=== PATIENT | female | born 1990 | race Caucasian/White ===

== ENCOUNTER 2024-10-29 10:33 | Outpatient (OUT) | payer BC, SELFPAY ==
[2024-10-30 04:27] LABS: Progesterone 8.8 ng/mL (.)
== END 2024-10-29 10:34 | disposition home or self-care (01) ==
PROVIDERS: Family Provider Family Medicine; PCP Obstetrics & Gynecology; Visit Provider Obstetrics & Gynecology
DX: G90.A Postural orthostatic tachycardia syndrome [POTS] (principal)
CPT/HCPCS: 36415; 82397; 84144

== ENCOUNTER 2024-12-10 08:04 | Outpatient (RCR) | payer BC, SELFPAY ==
--- OUTSIDE RECORDS SUMMARY | 2024-12-10 08:09 | XMS_ITS | Encounter Summary ---
Author Organization [facility] Address [address] [facility] [address] Care Team Providers Care Leaflet Or Newspaper Deliverer Name Role Phone Kimmy Carey MD Primary Care Provider [phone] Colleen Larios NP Unavailable [phone] Encounter Details Date Type Department Care Team (Late st Contact Info) Description 10/15/2024 Abstract [facility] [address] [place] [address] Vignesh Holman, DO [address] [facility] [address] [place], [place] [id number] Social History Tobacco Use Types Packs/Day Years Used Date Smoking Tobacco: Never Smokeless Tobacco: Never Alcohol Use Standard Drinks/Week Comments Never 0 (1 standard drink = 0.6 oz pur e alcohol) Caffeine: B1300 Health Literacy Answer Date Recor ded How often do you need to hav e someone help you when you read instructions, pamphlets, or other written material from your doctor or pharmacy? Never 01/22/2024 Social Connection and Isolat ion Panel [NHANES] Answer Date Recorded In a typical week, how many times do you talk on the phone with family, friends, or neighbors? More than three times a week 01/22/2024 How often do you get togethe r with friends or relatives? Twice a week 01/22/2024 How often do you attend chur ch or pentecostalism services? Never 01/22/2024 Do you belong to any clubs o r organizations such as restorationism groups, unions, fraternal or athletic groups, or school groups? No 01/22/2024 How often do you attend meet ings of the clubs or organizations you belong to? Never 01/22/2024 Are you , , di vorced, , never , or living with a partner? 01/22/2024 AUDIT-C Answer Date Recorded Q1: How often do you have a drink containing alcohol? Never 01/22/2024 Q2: How many drinks containi ng alcohol do you have on a typical day when you are drinking? Patient does not drink Q3: How often do you have si x or more drinks on one occasion? Never 01/22/2024 Overall Financial Resource Strain (CARDIA) Answe r Date Recorded How hard is it for you to pa y for the very basics like food, housing, medical care, and heating? Not very hard 01/22/2024 PHQ-2 Answer Date Recorded Patient Health Questionnaire-2 Score 0 02/04/2023 [facility] - Occupational Stress Questionnaire Answer Date Recorded Do you feel stress - tense, restless, nervous, or anxious, or unable to sleep at night because your mind is troubled all the time - these days? Only a little 01/22/2024 Exercise Vital Sign Answer Date Recorde d On average, how many days pe r week do you engage in moderate to strenuous exercise (like a brisk walk)? 7 days 01/22/2024 On average, how many minutes do you engage in exercise at this level? 80 min 01/22/2024 Hunger Vital Sign Answer Date Recorded Within the past 12 months, y ou worried that your food would run out before you got the money to buy more. Never true 01/22/20 24 Within the past 12 months, t he food you bought just didn't last and you didn't have money to get more. Never true 01/22/2024 PRAPARE - Transportation Answer Date Re corded In the past 12 months, has l ack of transportation kept you from medical appointments or from getting medications? No 01/12 In the past 12 months, has l ack of transportation kept you from meetings, work, or from getting things needed for daily living? No 01/22/2024 Housing Stability Vital Sign Answer Gentry e Recorded In the last 12 months, was t here a time when you were not able to pay the mortgage or rent on time? No 01/22/2024 In the past 12 months, how m any times have you moved where you were living? 0 01/22/2024 At any time in the past [address] [facility], were you homeless or living in a alf (including now)? No 01/22/2024 Comments No Sex and Gender Information Value Date Recorded Sex Assigned at Not on file Legal Sex Female 7:12 PM EDT Gender Identity Female 09/26/2022 7:12 PM EDT Sexual Orientation Straight 01/03/2023 8: 43 AM EDT Travel History Travel Start Travel End [place] 12/01/2024 12/02/2024 documented as of this encounter Plan of Treatment Not on file documented as of this encounter Visit Diagnoses Not on filedocumented in this encounter Care Teams Leaflet Or Newspaper Deliverer Relationship Specialty Start Date End Date Kimmy Carey MD [address] [place] [address] PCP - General Family Medicine 02/04/23 Colleen Larios NP [address], [place] [id number] PCP - Brock Fleming 03/15/24 documented as of this encounter
--- OUTSIDE RECORDS SUMMARY | 2024-12-10 08:09 | XMS_ITS | Clinical Summary ---
Author Organization [employer] Address [id number] [address] [place] [address] Care Team Providers Care Social Worker Delinquency Prevention Name Role Phone No Pcp, No Pcp Primary Care Provider Unavailabl e Allergies No known active allergies Medications prhrf-6-wlm-epa- dpa-fish oil 1,050-1,200 mg capsule Take by mouth. Active cholecalciferol, vitamin D3, 2,000 units tablet Take by mouth daily. Active fructooligosacch arides (PREBIOTIC FIBER, FOS, ORAL) Take by mouth. Active no115/iron/folic acid ( 19 ORAL) Take by mouth. Active Active Problems Problem Noted Date Diagnosed Date Microscopic hematuria 01/19/2022 Overview (05/22/2024): 01/19/22: Recent back pain, left lower quadrant pain, Urinary tract infection symptoms, and microscopic hematuria. Culture 12/26/2021 was negative. We will send today's urine specimen for microscopic exam and schedule her for a CT. 04/18/22: Cancelled CT but agreed to US which showed mild bilateral collecting system dilatation R>L. No gross hematuria. She will drop off urine for microscopic exam when not menstruating to see if there truly is blood. If negative, we will recheck in 6 months with follow-up US prior 05/21/24: Recent UA through PCP showed trace blood. Denies gross blood. Continues to have left-sided flank pain. We will get updated renal ultrasound. Would like to avoid radiation if possible. Patient actively trying to conceive. Urine sent for microscopic evaluation Assessment & Plan (01/19/2022 5:31 PM EDT): We will call her with the results in the microscopic urine. We will see her back in the office to review the results of her CT scan. I told her to call me sooner if any problems. PVC's (premature ventricular contractions) 07/11 Palpitations 07/11/2020 Encounters Date Type Department Care Team Description 10/23/2024 Telephone [facility] [address] [address] Lela Wolfe MA 09/14/2024 11:30 AM EST - 09/14/2024 11:59 PM EST Hospital Encounter [facility] - Radiology [address] [place] [address] Jess Harrell MD Infertility, female Discharge Disposition: Home 09/14/2024 11:15 AM EST Clinical Support [facility] [address] [place] [address] Jodi Lester, FELLED SEAM OPERATOR-CNM Pre-procedure lab exam (Primary Dx) 09/13/2024 Travel from Last 3 Months Family History Medical History Relation Name Comments Hypertension Father wDain Sawant Diabetes Maternal Grandmother Winifred Collins Heart murmur Mother High Cholesterol Mother Prostate cancer Paternal Grandfather Baldo Savana Breast cancer Paternal Grandmother Ana Savana Colon cancer Neg Hx Ovarian cancer Neg Hx Pancreatic cancer Neg Hx Uterine cancer Neg Hx Relation Name Status Comments Father Dwain Sawant Alive Maternal Grandmother Winifred Collins Mother Alive Paternal Grandfather Baldo Savana Paternal Grandmother Ana Savana Social History Tobacco Use Types Packs/Day Years Used Date Smoking Tobacco: Never Smokeless Tobacco: Never Tobacco Cessation:Counseling Given: Not Answered Alcohol Use Standard Drinks/Week Comments Not Currently 0 (1 standard drink = 0.6 oz pur e alcohol) Stopped drinking this year PHQ-2 Answer Date Recorded Total Score 1 05/14/2024 Childcare Answer Date Recorded Childcare Unknown 04/04/2020 Employment Answer Date Recorded Employment Unknown 04/04/2020 Hunger Screening Answer Date Recorded Within the past 12 months we worried whether our food would run out before we got money to buy more. Never True 08/06/2024 Within the past 12 months th e food we bought just didn't last and we didn't have money to get more. Never True 08/06/2024 Purpose - Life Answer Date Recorded Purpose and direction in life Unknown Comments No Sex and Gender Information Value Date Recorded Sex Assigned at Not on file Legal Sex Female 8:44 AM EDT Gender Identity Not on file Sexual Orientation Not on file Last Filed Vital Signs Vital Sign Reading Time Taken Comments Blood Pressure 113/79 08/06/2024 1:26 PM EST Pulse 69 08/06/2024 1:26 PM EST Temperature - - Respiratory Rate 18 04/18/2022 10:3 8 AM EDT Oxygen Saturation 98% 07/11/2020 9:51 AM EST Inhaled Oxygen Concentration - - Weight 70.3 kg (154 lb 14.4 oz) 08/06/2024 1:26 PM EST Height 154.9 cm (5' 0.98 ) 08/06/2024 1:26 PM ES T Body Mass Index 29.28 08/06/2024 1:26 PM EST Plan of Treatment Health Maintenance Due Date Last Done Comments Adult BMI Follow Up Plan 2007 DTaP,Tdap and Td Vaccines (1 - Tdap) 2008 Pap Smear 2010 Influenza Vaccine 03/15/2025 05/05/2013 Depression Screening 05/14/2025 05/14/2024 Adult BMI Screening 08/06/2025 08/06/2024 Tobacco Screening 08/07/2025 08/07/2024 Medical Devices Not on file Procedures Procedure Name Priority Date/Time Associated Diagnosis Comments FL HYSTEROSALPINGOGRAM Routine 11:42 AM EST Infertility, female POCT , URINE (NUCG) Routine 09/14/2024 11:05 AM EST Pre-procedure lab exam from Last 3 Months Results * Fluoroscopy hysterosalpingogram with injection (09/14/2024 11:42 AM EST) Anatomical Region Laterality Modality Body, Abdomen Radio Fluoroscop y 09/14/2024 12:3 7 PM EST Narrative 09/14/2024 12:39 PM EST History: Infertility Exam/Technique: The study was imaged by Dr. Collado. 3 fluoroscopic spot images were obtained during a hysterosalpingogram. Total fluoroscopy time was 1 minute. Reference air kerma was 2.2 mGy Comparison: None Findings: There is spillage of contrast from the fallopian tubes bilaterally consistent with patency. There was a slight delay in opacification of the left fallopian tube compared to the right. No endometrial abnormalities are identified. IMPRESSION: Normal hysterosalpingogram Finalized by Jose Manuel Collado MD on 09/14/2024 12:39 PM Procedure Note Jose Manuel Collado MD - 09/14/2024 History: Infertility Exam/Technique: The study was imaged by Dr. Collado. 3 fluoroscopicspot images were obtained during a hysterosalpingogram. Total fluoroscopytime was 1 minute. Reference air kerma was 2.2 mGy Comparison: None Findings: There is spillage of contrast from the fallopian tubesbilaterally consistent with patency. There was a slight delay inopacification of the left fallopian tube compared to the right. Noendometrial abnormalities are identified. IMPRESSION: Normal hysterosalpingogram Finalized by Jose Manuel Collado MD on 09/14/2024 12:39 PM us Jess Harrell MD IMG FLUOROSCOPY ORDERABLES Fin al Result * POCT , urine (09/14/2024 11:05 AM EST) External Poct Urine Negative MANUALLY TRANSCRIBED RESULTS Urine 09/14/2024 11:0 5 AM EST us Jodi Lester FELLED SEAM OPERATOR-CNM POINT OF CARE TEST ORDER RADHA Final Result MANUALLY TRANSCRIBED RESULTS from Last 3 Months Insurance ANTH Care Teams Social Worker Delinquency Prevention Relationship Specialty Start Date End Date No Pcp, [place] [address] PCP - General Family Medicine 07/21/24
--- OUTSIDE RECORDS SUMMARY | 2024-12-10 08:09 | XMS_ITS | Encounter Summary ---
Author Organization [employer] Address [facility] [id number] [address] [place] [address] Care Team Providers Care Network And Threat Support Specialist Name Role Phone No Pcp, No Pcp Primary Care Provider Unavailabl e Encounter Details Date Type Department Care Team (Late st Contact Info) Description 07/12/2020 Orders Only [facility] [address] [place] [address] External, Scanning Provider Social History Tobacco Use Types Packs/Day Years Used Date Smoking Tobacco: Former Smokeless Tobacco: Never Alcohol Use Standard Drinks/Week Comments Yes 0 (1 standard drink = 0.6 oz pur e alcohol) Childcare Answer Date Recorded Childcare Unknown 04/04/2020 Employment Answer Date Recorded Employment Unknown 04/04/2020 Comments Unknown Sex and Gender Information Value Date Recorded Sex Assigned at Not on file Legal Sex Female 8:44 AM EDT Gender Identity Not on file Sexual Orientation Not on file COVID-19 Exposure Response Date Recorded In the last month, have you been in contact with someone who was confirmed or suspected to have Coronavirus / COVID-19? No / Unsure 07/11/2020 9:26 AM EST documented as of this encounter Plan of Treatment Not on file documented as of this encounter Procedures Procedure Name Priority Date/Time Associated Diagnosis Comments MULTIPLE LABS Routine 04/01/2020 documented in this encounter Results * Multiple labs (04/01/2020) us Scanning Provider External [place] IMAG[facility] Final Result MANUALLY TRANSCRIBED RESULTS documented in this encounter Visit Diagnoses Not on filedocumented in this encounter Care Teams Network And Threat Support Specialist Relationship Specialty Start Date End Date No Pcp, [place] [address] PCP - General Family Medicine 07/21/24 documented as of this encounter
--- OUTSIDE RECORDS SUMMARY | 2024-12-10 08:09 | XMS_ITS | Encounter Summary ---
Author Organization [facility] Address [address] [facility] [place] [address] Care Team Providers Care Department Store Manager Name Role Phone Kimmy Carey MD Primary Care Provider [phone] Encounter Details Date Type Department Care Team (Latest Contact Info) Description 12/03/2024 Travel Social History Tobacco Use Types Packs/Day Years [...] often do you attend chur ch or holiness services? Never 01/22/2024 Do you belong to any clubs o r organizations such as confucianism groups, unions, fraternal or athletic groups, or [...] Recorded Patient Health Questionnaire-2 Score 0 02/04/2023 [facility] - Occupational Stress Questionnaire Answer Date Recorded [...] any time in the past 12 m [facility], were you homeless or living in a prison (including now)? No 01/22/2024 Comments No Sex and Gender Information Value Date Recorded Sex Assigned at Not on file Legal Sex Female 7:12 PM EDT Gender Identity Female 09/26/2022 7:12 PM EDT Sexual Orientation Straight 01/03/2023 8: 43 AM EDT Travel History Travel Start Travel End [place] 12/01/2024 12/02/2024 documented as of this encounter Plan of Treatment Not on file documented as of this encounter Visit Diagnoses Not on filedocumented in this encounter Care Teams Department Store Manager Relationship Specialty Start Date End Date Kimmy Carey MD [address] [place] [address] PCP - General Family Medicine 02/04/23 documented as of this encounter
--- OUTSIDE RECORDS SUMMARY | 2024-12-10 08:09 | XMS_ITS | Encounter Summary ---
Author Organization [employer] Address [id number] [address] [place] [address] Care Team Providers Care Industrial Engineering Analyst Name Role Phone No Pcp, No Pcp Primary Care Provider Unavailabl e Encounter Details Date Type Department Care Team (Late st Contact Info) Description 01/19/2022 Telephone [facility] [address] [place] [phone] Magalie Bailey PA [address] [place] [address] Social History Tobacco Use Types Packs/Day Years Used Date Smoking Tobacco: Former Smokeless Tobacco: Never Alcohol Use Standard Drinks/Week Comments Yes 0 (1 standard drink = 0.6 oz pur e alcohol) Childcare Answer Date Recorded Childcare Unknown 04/04/2020 Employment Answer Date Recorded Employment Unknown 04/04/2020 Purpose - Life Answer Date Recorded Purpose [...] have Coronavirus / COVID-19? No / Unsure 01/19/2022 3:58 PM EDT documented as of this encounter Miscellaneous Notes * Telephone Encounter - SHANNON Mckeon - 01/19/2022 5:32 PM EDT Please schedule her for a CT urogram and an appointment with me in [place] to review the results. * Telephone Encounter - Emma Gold - 01/19/2022 5:32 PM EDT CALLED 01/26/22-RANG, WENT SILENT THEN CUT OFF * Telephone Encounter - Cielo Oro LPN - 01/19/2022 5:32 PM EDT Pt called in and states she has not heard from Emma to get her scheduled for her CT. Malathi, can you please call her back and help her get set up? * Telephone Encounter - Emma Gold - 01/19/2022 5:32 PM EDT LMOM 02/01/22 * Telephone Encounter - Emma Gold - 01/19/2022 5:[address] & F/U SCHEDULED documented in this encounter Plan of Treatment Not on file documented as of this encounter Visit Diagnoses Not on filedocumented in this encounter Care Teams Industrial Engineering Analyst Relationship Specialty Start Date End Date No Pcp, [place] [address] PCP - General Family Medicine 07/21/24 documented as of this encounter
--- OUTSIDE RECORDS SUMMARY | 2024-12-10 08:09 | XMS_ITS | Encounter Summary ---
Author Organization [employer] Address [id number] [address] [place] [address] Care Team Providers Care Negative Developer Name Role Phone No Pcp, No Pcp Primary Care Provider Unavailabl e Encounter Details Date Type Department Care Team (Late st Contact Info) Description 05/03/2022 Telephone [facility] [address] [place] [phone] Magalie Bailey PA [address] [place] [id number] Social History Tobacco Use Types Packs/Day Years [...] on file Sexual Orientation Not on file documented as of this encounter Miscellaneous Notes * Telephone Encounter - SHANNON Mckeon - 05/03/2022 3:13 PM EDT Please call [facility] in [place] tomorrow to get the results from her urine test. She dropped off today * Telephone Encounter - Cielo Oro LPN - 05/03/2022 3:13 PM EDT Pt actually called and stated that [facility] did not receive an order for a urine collection. I reprinted the order and faxed it to [facility] [phone] per pt request. I will check on results tomorrow. * Telephone Encounter - Cielo Oro LPN - 05/03/2022 3:13 PM EDT Results received and on your desk for review. documented in this encounter Plan of Treatment Not on file documented as of this encounter Visit Diagnoses Not on filedocumented in this encounter Care Teams Negative Developer Relationship Specialty Start Date End Date No Pcp, [place] [address] PCP - General Family Medicine 07/21/24 documented as of this encounter
--- OUTSIDE RECORDS SUMMARY | 2024-12-10 08:09 | XMS_ITS | Encounter Summary ---
Author Organization [facility] Address [address] [place] [address] Care Team Providers Care Hand Candy Molder Name Role Phone Kimmy Carey MD Primary Care Provider Colleen Larios NP Unavailable [phone] Encounter Details Date Type Department Care Team (Late st Contact Info) Description 10/15/2024 Abstract [facility] [address] [place] [address] Vignesh Holman, DO [address] [place], [place] [id number] Social History Tobacco Use Types Packs/Day Years [...] any clubs o r organizations such as catholic groups, unions, fraternal or athletic groups, or [...] Recorded Patient Health Questionnaire-2 Score 0 02/04/2023 [facility] - Occupational Stress Questionnaire Answer Date Recorded [...] any time in the past 12 m [facility], were you homeless or living in a care home (including now)? No 01/22/2024 Comments No Sex and Gender Information Value Date Recorded Sex Assigned at Not on file Legal Sex Female 7:12 PM EDT Gender Identity Female 09/26/2022 7:12 PM EDT Sexual Orientation Straight 01/03/2023 8: 43 AM EDT Travel History Travel Start Travel End [place] 12/01/2024 12/02/2024 documented as of this encounter Plan of Treatment Not on file documented as of this encounter Visit Diagnoses Not on filedocumented in this encounter Care Teams Hand Candy Molder Relationship Specialty Start Date End Date Kimmy Carey MD [address] [place] [address] PCP - General Family Medicine 02/04/23 Colleen Larios NP [address] [place], [place] [phone] PCP - Brock Fleming 03/15/24 documented as of this encounter
--- OUTSIDE RECORDS SUMMARY | 2024-12-10 08:09 | XMS_ITS | Encounter Summary ---
Author Organization [facility] Address [address] [facility] [place] [address] Care Team Providers Care Overhead Foreman Name Role Phone Kimmy Carey MD Primary Care Provider [phone] Colleen Larios NP Unavailable [phone] Encounter Details Date Type Department Care Team (Late st Contact Info) Description 05/13/2023 Abstract [facility] [address] [place] [address] Kimmy Carey MD [address] [place] [address] Social History Tobacco Use Types Packs/Day Years Used Date Smoking Tobacco: Never Smokeless Tobacco: Never Alcohol Use Standard Drinks/Week Comments Never 0 (1 standard drink = 0.6 oz pur e alcohol) Caffeine: 1-2 cups/day AUDIT-C Answer Date Recorded Q1: How often do you have a drink containing alc ohol? Monthly or less 02/04/2023 Q2: How many drinks containi ng alcohol do you have on a typical day when you are drinking? 1 or 2 02/04/2023 Q3: How often do you have si x or more drinks on one occasion? Never 02/04/2023 PHQ-2 Answer Date Recorded Patient Health Questionnaire-2 Score 0 02/04/2023 Comments Unknown Sex and Gender Information Value Date Recorded Sex Assigned at Not on file Legal Sex Female 7:12 PM EDT Gender Identity Female 09/26/2022 7:12 PM EDT Sexual Orientation Straight 01/03/2023 8: 43 AM EDT Travel History Travel Start Travel End [place] 12/01/2024 12/02/2024 documented as of this encounter Plan of Treatment Not on file documented as of this encounter Visit Diagnoses Not on filedocumented in this encounter Care Teams Overhead Foreman Relationship Specialty Start Date End Date Kimmy Carey MD [address] [place], [place] [phone] PCP - General Family Medicine 02/04/23 Colleen Larios NP [address] [place], [place] [phone] PCP - Brock Fleming 03/15/24 documented as of this encounter
--- OUTSIDE RECORDS SUMMARY | 2024-12-10 08:09 | XMS_ITS | Encounter Summary ---
Author [facility] Address [id number] [address] [place] [address] Care Team Providers Care Piano Maker Name Role Phone No Pcp, No Pcp Primary Care Provider Unavailabl e Encounter Details Date Type Department Care Team (Late st Contact Info) Description 07/12/2020 Orders Only [facility] [address] [place] [address] External, Scanning Provider Social History [...] Procedure Name Priority Date/Time Associated Diagnosis Comments ECG 12-LEAD Routine 05/10/2020 documented in this encounter Results * ECG 12 lead (05/10/2020) us Scanning Provider External ECG ORDERABLES Final Result MANUALLY TRANSCRIBED RESULTS documented in this encounter Visit Diagnoses Not on filedocumented in this encounter Care Teams Piano Maker Relationship Specialty Start Date End Date No Pcp, [place] [address] PCP - General Family Medicine 07/21/24 documented as of this encounter
--- OUTSIDE RECORDS SUMMARY | 2024-12-10 08:09 | XMS_ITS | Encounter Summary ---
Author Organization [facility] tem Address [id number] [address] [place] [address] Care Team Providers Care Photographers' Model Name Role Phone No Pcp, No Pcp Primary Care Provider Unavailabl e Encounter Details Date Type Department Care Team (Late st Contact Info) Description 05/07/2022 [facility] [address] [place] [id number] External, Scanning Provider Social History Tobacco Use [...] on file documented as of this encounter Plan of Treatment Not on file documented as of this encounter Procedures Procedure Name Priority Date/Time Associated Diagnosis Comments MICROSCOPIC URINE Routine 05/03/2022 documented in this encounter Results * Microscopic, urine (05/03/2022) 05/03/2022 us Scanning Provider External URINE ORDERABLES Serenity l Result MANUALLY TRANSCRIBED RESULTS documented in this encounter Visit Diagnoses Not on filedocumented in this encounter Care Teams Photographers' Model Relationship Specialty Start Date End Date No Pcp, [place] [address] PCP - General Family Medicine 07/21/24 documented as of this encounter
--- OUTSIDE RECORDS SUMMARY | 2024-12-10 08:09 | XMS_ITS | Encounter Summary ---
Author Organization [employer] [facility] tem Address [id number] [address] [place] [address] Care Team Providers Care Engraving Operator Name Role Phone No Pcp, No Pcp Primary Care Provider Unavailabl e Encounter Details Date Type Department Care Team (Late st Contact Info) Description 02/28/[address] [facility] [address] [place] [address] External, Scanning Provider Social History Tobacco Use [...] Procedure Name Priority Date/Time Associated Diagnosis Comments US RETROPERITONEAL COMPLETE Routine 02/28/2022 11:28 AM EDT documented in this encounter Results * Ultrasound retroperitoneal complete (02/28/2022 11:28 AM EDT) Anatomical Region Laterality Modality Body Ultrasound us Scanning Provider External IMG US ORDERABLES Fin al Result documented in this encounter Visit Diagnoses Not on filedocumented in this encounter Care Teams Engraving Operator Relationship Specialty Start Date End Date No Pcp, [place] [address] PCP - General Family Medicine 07/21/24 documented as of this encounter
--- OUTSIDE RECORDS SUMMARY | 2024-12-10 08:09 | XMS_ITS | Encounter Summary ---
Author Organization [facility] Address [address] [place] [address] Care Team Providers Care Linemarker Name Role Phone Kimmy Carey MD Primary Care Provider [phone] Encounter Details Date Type Department Care Team (Late st Contact Info) Description 12/09/2024 Telephone [facility] [address] [id number] Lynne Ayers MA [address] [place] [address] Social History Tobacco Use Types Packs/Day Years [...] often do you attend chur ch or mosque services? Never 01/22/2024 Do you belong to any clubs o r organizations such as anabaptism groups, unions, fraternal or athletic groups, or [...] Recorded Patient Health Questionnaire-2 Score 0 02/04/2023 [facility] - Occupational Stress [...] any time in the past 12 m [facility], were you homeless or living in a fpc (including now)? No 01/22/2024 Comments No Sex and Gender Information Value Date Recorded Sex Assigned at Not on file Legal Sex Female 7:12 PM EDT Gender Identity Female 09/26/2022 7:12 PM EDT Sexual Orientation Straight 01/03/2023 8: 43 AM EDT Travel History Travel Start Travel End [place] 12/01/2024 12/02/2024 documented as of this encounter Miscellaneous Notes * Telephone Encounter - Lynne Ayers MA - 12/09/2024 11:52 AM EDT Pt called has had three + prego tests at home. Advised pt will send over HCG labs to have drawn today and repeat again in 2 days. Then a nurse will call and have you set up a new OB visit with our office. PVU and order was sent. documented in this encounter Plan of Treatment Scheduled Orders Name Type Priority Associated Diagnoses Orde r Schedule hCG, quantitative, Lab Routine Missed menses Expected: 12/09/2024 (Approximate), Expires: 12/09/2025 documented as of this encounter Visit Diagnoses Diagnosis Missed menses documented in this encounter Care Teams Linemarker Relationship Specialty Start Date End Date Kimmy Carey MD [address] [place] [address] PCP - General Family Medicine 02/04/23 documented as of this encounter
--- OUTSIDE RECORDS SUMMARY | 2024-12-10 08:09 | XMS_ITS | Encounter Summary ---
Author Organization [employer] tem Address [id number] [address] [place] [address] Care Team Providers Care Chronometer Assembler And Adjuster Name Role Phone No Pcp, No Pcp Primary Care Provider Unavailabl e Encounter Details Date Type Department Care Team (Late st Contact Info) Description 02/26/2022 Orders Only [facility] [employer] [facility] [place] [address] Transcribe, Orders Support User Pain (Primary Dx) Social History Tobacco Use Types Packs/Day Years [...] on file documented as of this encounter Results * Ultrasound abdomen limited (02/22/2022 1:45 PM EDT) us Scanning Provider External IMG US ORDERABLES Fin al Result documented in this encounter Visit Diagnoses Diagnosis Pain- Primary Generalized pain documented in this encounter Care Teams Chronometer Assembler And Adjuster Relationship Specialty Start Date End Date No Pcp, [place] [address] PCP - General Family Medicine 07/21/24 documented as of this encounter
--- OUTSIDE RECORDS SUMMARY | 2024-12-10 08:09 | XMS_ITS | Clinical Summary ---
Author Organization [facility] Address [address] [place] [address] Care Team Providers Care Lay Ups Assembler Name Role Phone Unavailable Primary Care Provider Unavailabl e Allergies No known active allergies Medications Vit-DSS-Fe Cbn-FA ( AD PO) Take by mouth daily Active Multiple Vitamin (MULTIVITAMIN ADULT PO) Take by mouth Active VITAMIN D PO Take by mouth Act ana [place]-3 Fatty Acids (FISH OIL) 300 MG CAPS Take by mouth Acti ve atorvastatin (LIPITOR) 20 MG tabletIndications: Intermittent palpitations,Chest heaviness,SOB (shortness of breath),Lightheade d,Mixed hyperlipidemia Take 1 tablet by mouth daily 90 tablet 3 02/26/20 24 Active Additional Information Patient not taking.Reported on 04/15/2024 metoprolol succinate (TOPROL XL) 25 MG extended release tablet Take 1 tablet by mouth daily 90 tablet 3 03/26/20 24 Active Additional Information Patient not taking.Reported on 04/15/2024 ezetimibe (ZETIA) 10 MG tablet Take 1 tablet by mouth daily 90 tablet 1 04/15/20 24 Active Active Problems Problem Noted Date Diagnosed Date PSVT (paroxysmal supraventricular tachycardia) 0 01/13/2021 Family History Medical History Relation Name Comments Hypertension Father Hypotension Mother Relation Name Status Comments Father Alive Mother Alive Sister Alive Social History Tobacco Use Types Packs/Day Years Used Date Smoking Tobacco: Never Smokeless Tobacco: Never Alcohol Use Standard Drinks/Week Comments Yes 6 (1 standard drink = 0.6 oz pur e alcohol) twice per week Comments No Sex and Gender Information Value Date Recorded Sex Assigned at Not on file Legal Sex Female 2:26 PM EDT Gender Identity Not on file Sexual Orientation Not on file Last Filed Vital Signs Vital Sign Reading Time Taken Comments Blood Pressure 105/72 04/15/2024 3:09 PM EDT Pulse 76 04/15/2024 3:09 PM EDT Temperature - - Respiratory Rate 18 04/15/2024 3:09 PM EDT Oxygen Saturation 97% 04/15/2024 3:09 PM EDT Inhaled Oxygen Concentration - - Weight 55.3 kg (122 lb) 04/15/2024 3:09 PM EDT Height 154.9 cm (5' 1 ) 04/15/2024 3:09 PM EDT Body Mass Index 23.05 04/15/2024 3:09 PM EDT Plan of Treatment Upcoming Encounters Date Type Department Care Team (Late st Contact Info) Description 04/19/2025 2:40 PM EDT Office Visit [facility] Part of [address] [phone] Randy Tavares MD [address] [place] [phone] yearly follow up Health Maintenance Due Date Last Done Comments Lipids 1999 Depression Screen 2001 Varicella vaccine (1 of 2 - 13+ 2-dose series) 2002 HIV screen 2004 Hepatitis C screen 2007 DTaP/Tdap/Td vaccine (1 - Tdap) 2008 Hepatitis B vaccine (1 of 3 - 19+ 3-dose series) 2008 Pap smear 2010 Cervical cancer screen 2019 HPV (without or with Pap) 2019 COVID-19 Vaccine (2023-2 5 season) 2024 Flu vaccine (Season Ended) 2025 05/05/2013 HPV vaccine Aged Out No longer eligi ble based on patient's age to complete this topic Hepatitis A vaccine Aged Out No longe r eligible based on patient's age to complete this topic Hib vaccine Aged Out No longer eligi ble based on patient's age to complete this topic Meningococcal (ACWY) vaccine Aged Out No longer eligible based on patient's age to complete this topic Meningococcal B vaccine Aged Out No l onger eligible based on patient's age to complete this topic Pneumococcal 0-49 years Vaccine Aged Out No longer eligible based on patient's age to complete this topic Polio vaccine Aged Out No longer elig ible based on patient's age to complete this topic Insurance [facility]
--- OUTSIDE RECORDS SUMMARY | 2024-12-10 08:09 | XMS_ITS | Clinical Summary ---
Author Organization [facility] Address [address] [place] [address] Care Team Providers Care Eye Clinic Manager Name Role Phone Kimmy Carey MD Primary Care Provider [phone] Allergies No known active allergies Medications metFORMIN XR (Glucophage-XR) 500 MG 24 hr tabletIndication s:POTS (postural orthostatic tachycardia syndrome) Take 1 tablet (500 mg) by mouth in the evening. Take with meals Do not crush, chew, or split. 30 tablet 11 10/15/2024 Active Active Problems Problem Noted Date Diagnosed Date POTS (postural orthostatic tachycardia syndrome) 03/15/2024 Palpitations 07/11/2020 Miscarriage Irritable bowel syndrome with predominant consti pation Encounters Date Type Department Care Team Description 12/09/2024 Telephone [facility] [address] [place] [address] Lynne Ayers MA 12/03/2024 Travel 11/03/2024 Telephone [facility] [address] [place] [address] Daija Osborne LPN 10/29/2024 Clinisync Result Encounter [facility] External Department Unsolicited Vignesh Homlan DO 10/22/2024 Travel 10/15/2024 8:50 AM EDT Office Visit [facility] [address] [place] [address] Vignesh Holman DO Female infertility; POTS (postural orthostatic tachycardia syndrome) 10/15/2024 Abstract [facility] OB [address] [place] [address] Vignesh Holman, DO 10/15/2024 Abstract [facility] OB [address] [place] [address] Vignesh Holman, DO 10/15/2024 Bamboo flowsheet [facility] [address] [place] [address] [place] [address] Vignesh Holman, DO 10/13/2024 Telephone [facility] [address] [place] [address] Betsy Parikh MA 10/09/2024 Travel from Last 3 Months Immunizations Immunization Administration Dates Next Due Influenza, seasonal, injectable 05/05/2013 Family History Medical History Relation Name Comments Hypertension Father Diabetes Maternal Grandmother Multiple myeloma Neg Hx Relation Name Status Comments Father Alive Maternal Grandmother Mother Alive Social History Tobacco Use Types Packs/Day Years Used Date Smoking Tobacco: Never Smokeless Tobacco: Never Tobacco Cessation:Counseling Given: Not Answered Alcohol Use Standard Drinks/Week Comments Never 0 [...] often do you attend chur ch or amish services? Never 01/22/2024 Do you belong to any clubs o r organizations such as sikh groups, unions, fraternal or athletic groups, or [...] Recorded Patient Health Questionnaire-2 Score 0 02/04/2023 [facility] - Occupational Stress Questionnaire Answer Date [...] any time in the past 12 m [facility], were you homeless or living in a longterm (including now)? No 01/22/2024 Comments No Sex and Gender Information Value Date Recorded Sex Assigned at Not on file Legal Sex Female 7:12 PM EDT Gender Identity Female 09/26/2022 7:12 PM EDT Sexual Orientation Straight 01/03/2023 8: 43 AM EDT Travel History Travel Start Travel End [place] 12/01/2024 12/02/2024 Last Filed Vital Signs Vital Sign Reading Time Taken Comments Blood Pressure 110/70 10/15/2024 8:42 AM EDT Pulse 90 05/15/2024 9:31 AM EDT Temperature - - Respiratory Rate - - Oxygen Saturation 95% 05/15/2024 9:31 AM EDT Inhaled Oxygen Concentration - - Weight 58.1 kg (128 lb) 10/15/2024 8:42 AM EDT Height 157.5 cm (5' 2 ) 05/15/2024 9:31 AM EDT Body Mass Index 23.41 05/15/2024 9:31 AM EDT Plan of Treatment Health Maintenance Due Date Last Done Comments HPV/Cotest 06/26/2024 06/26/2019 Cervical Cancer Screening 12/26/2024 Pap Smear 12/26/2024 12/26/2021 Influenza Vaccine (Season Ended) 2025 05/05/20 13 Procedures Procedure Name Priority Date/Time Associated Diagnosis Comments ALL ANTI-MULLERIAN HORMONE Routine 10/29/2024 10:50 AM EDT ALL PROGESTERONE Routine 10/29/2024 10:5 0 AM EDT POCT , URINE Routine 10/15/2024 8:50 AM EDT Female infertility POCT URINALYSIS DIPSTICK Routine 10/15/2024 8:50 AM EDT Female infertility THINPREP TIS PAP AND HPV MRNA E6/E7 REFLEX HPV 16,18/45 ([id number]) Routine 12/26/2021 Q - THINPREP(R) TIS AND HPV MRNA E6/E7 RFL HPV 16,18/45 Routine 06/26/2019 from Last 3 Months or Most Recently Relevant to Health Maintenance Results * ALL PROGESTERONE (10/29/2024 10:50 AM EDT) PROGESTERONE 8.8 . ng/mL TB Comment: Follicular phase 0.1 - 0.9 Luteal phase 1.8 - 23.9 Ovulation phase 0.1 - 12.0 First trimester 11.0 - 44.3 Second trimester 25.4 - 83.3 Third trimester 58.7 - 214.0 Postmenopausal 0.0 - 0.1 Performed at: [facility] [id number] Asphalt Screed Operator: Vinay Caldera PhD, Phone: [phone] 10/29/2024 10:5 0 AM EDT 10/29/2024 10:51 AM EDT Narrative CLINISYNC - 10/30/2024 4:27 AM EDT [facility] DO CLINISYNC Final Result [facility] * ALL ANTI-MULLERIAN HORMONE (10/29/2024 10:50 AM EDT) Pathologist [facility] ANTI-MULLERIAN HORMONE (AMH) 6.00 . ng/mL [facility] Comment: For assays employing antibodies, the possibility exists for interference by heterophile antibodies in the samples.1 1.Dorcas Mike. Interferences in Immunoassays - still a threat. Clin. Chem. 2000; 46: 1056-6313. This test was developed and its performance characteristics determined by [employer]. It has not been cleared or approved by the Food and Drug Administration. Reference Range: Females 31 - 35y: 0.66 - 8.75 Median 3.00 AMH concentrations of >= 1.06 ng/mL is correlated with a better response to ovarian stimulation, produced more retrievable oocytes and higher odds of live according to Jose A et al. Fertility and Sterility. 2010: 94:0299-0122. The current AMH test method correlates with the study method with a slope of 0.94. Females at risk of ovarian hyperstimulation syndrome or polycystic ovarian syndrome (PCOS) may exhibit elevated serum AMH concentrations. AMH levels from PCOS patients may be 2 to 5 fold higher than age-appropriate reference interval values. Granulosa cell tumors of the ovary may secrete AMH along with other tumor markers. Elevated AMH is not specific for malignancy, and the assay should not be used exclusively to diagnose or exclude an AMH-secreting ovarian tumor. Performed at: [facility] [address] [place] [id number] Asphalt Screed Operator: Erik Wilson MD, Phone: [phone] 10/29/2024 10:5 0 AM EDT 10/29/2024 10:51 AM EDT Narrative CLINISYNC - 11/02/2024 11:23 AM EDT [facility] DO CLINISYNC Final Result CLINISYNC TB * POCT , urine manually resulted (10/15/2024 8:50 AM EDT) Preg Test, Ur Negative Negative Urine 10/15/2024 8:50 AM EDT Vignesh River DO POINT OF CARE TEST ENTER/EDIT OR DERABLES Final Result * POCT urinalysis dipstick manually resulted (10/15/2024 8:50 AM EDT) Color, UA Colorless Clarity, UA Clear Glucose, UA Negative Negative - 1999(110) ++++ mg/dL Bilirubin, UA Negative Negative - 4(70) +++ mg/dL Ketones, UA Negative Negative - 160(16) ++++ mg/dL Spec Grav, UA 1.010 1 - 1.03 Blood, UA Negative Negative - 50 Piter/mcL pH, UA 7.0 5 - 9 Protein, UA Negative Negative - 1999(20) ++++ mg/dL Urobilinogen, UA 0.2 0.2 - 12 mg/dL Leukocytes, UA Negative Negative - 500+++ Nikki/mcL Nitrite, UA Negative Negative - Positive Urine 10/15/2024 8:50 AM EDT Vignesh Holman DO POINT OF CARE TEST ENTER/EDIT OR DERABLES Final Result * THINPREP TIS PAP AND HPV MRNA E6/E7 REFLEX HPV 16,18/45 ([id number]) (12/26/2021) CLINICAL INFORMATION: None given [facility] LMP: 11/26/2021 [facility] PREV. PAP: 2,019 [facility] PRE[facility]. BX: HISTOTY OF HPV [facility] SOURCE: None given [facility] STATEMENT OF ADEQUACY: SEE COMMENT [facility] Comment: Satisfactory for evaluation. Endocervical/transformation zone component absent. INTERPRETATION/R ESULT: Negative for intraepithelial lesion or malignancy. [facility] COMMENT: This Pap test has been evaluated with computer assisted technology. [facility] GAS DERRICK OPERATOR : SEE COMMENT [facility] Comment: PCJ, SCT(ASCP) CT screening location: [place] [address]. REVIEW GAS DERRICK OPERATOR : SEE COMMENT [facility] Comment: DMK, CT(ASCP) CT screening location: [place] [address]. COMMENT SEE COMMENT [facility] Comment: EXPLANATORY NOTE: The Pap is a screening test for cervical cancer. It is not a diagnostic test and is subject to false negative and false positive results. It is most reliable when a satisfactory sample, regularly obtained, is submitted with relevant clinical findings and history, and when the Pap result is evaluated along with historic and current clinical information. HPV MRNA E6/E7 Not Detected Not Detected [facility] Comment: Methodology: Building Drafting Officer-Mediated Amplification This assay detects E6/E7 viral messenger RNA (mRNA) from 14 high-risk HPV types (16,18,31,33,35,39,45,51,52,56,58,59,66,68). Cervical sources are required for HPV testing. If a vaginal source from a patient who has had a total hysterectomy with removal of cervix was submitted, please contact the testing laboratory for alternative testing options. For additional information, please refer to [email or web address]/faq/EZG895x0 (This link if provided for information/ educational purposes only.) 12/26/2021 Adela Greggjaziel [facility] Final Result [facility] * (ABNORMAL) Q - THINPREP(R) TIS AND HPV MRNA E6/E7 RFL HPV 16,18/45 (06/26/2019) CLINICAL INFORMATION: None given [facility] LMP: NONE GIVEN [facility] PREV. PAP: NONE GIVEN [facility] PRE[facility]. BX: NONE GIVEN [facility] SOURCE: None given [facility] STATEMENT OF ADEQUACY: SEE NOTE [facility] Comment: Satisfactory for evaluation. Endocervical/transformation zone component present. INTERPRETATION/RE SULT: Negative for intraepithelial lesion or malignancy. [facility] COMMENT: This Pap test has been evaluated with computer assisted technology. [facility] GAS DERRICK OPERATOR: SEE NOTE NO [facility] Comment: NNO, CT(ASCP) CT screening location: [place] [address]. REVIEW GAS DERRICK OPERATOR: SEE NOTE [facility] Comment: JEH, CT(ASCP) CT screening location: [place] [address]. COMMENT SEE NOTE [facility] Comment: EXPLANATORY NOTE: The Pap is a screening test for cervical cancer. It is not a diagnostic test and is subject to false negative and false positive results. It is most reliable when a satisfactory sample, regularly obtained, is submitted with relevant clinical findings and history, and when the Pap result is evaluated along with historic and current clinical information. HPV MRNA E6/E7 Detected(A) Not Detected [facility] Comment: This test was performed using the APTIMA HPV Assay ([employer] This assay detects E6/E7 viral messenger RNA (mRNA) from 14 high-risk HPV types (16,18,31,33,35,39,45,51,52,56,58,59,66,68). The analytical performance characteristics of this assay have been determined by [facility]. The modifications have not been cleared or approved by the FDA. This assay has been validated pursuant to the CLIA regulations and is used for clinical purposes. 06/26/2019 Adela Xavier CNM [facility] Final Result [facility] from Last 3 Months or Most Recently Relevant to Health Maintenance Insurance [employer] Care Teams Eye Clinic Manager Relationship Specialty Start Date End Date Kimmy Carey MD [address] [place] [address] PCP - General Family Medicine 02/04/23
[2024-12-10 09:02] LABS: HCG Quantitative 138 mIU/mL
== END 2024-12-14 10:53 | disposition home or self-care (01) ==
LOC: LAB 08:04
PROVIDERS: Family Provider Family Medicine; PCP Obstetrics & Gynecology; Visit Provider Obstetrics & Gynecology
DX: N92.6 Irregular menstruation, unspecified (principal)
CPT/HCPCS: 36415; 84702

== ENCOUNTER 2024-12-12 06:42 | Outpatient (OUT) | payer BC, SELFPAY ==
[2024-12-12 07:22] LABS: HCG Quantitative 314 mIU/mL
== END 2024-12-12 06:43 | disposition home or self-care (01) ==
LOC: LAB 06:43
PROVIDERS: Family Provider Family Medicine; PCP Obstetrics & Gynecology; Visit Provider Obstetrics & Gynecology
DX: N92.6 Irregular menstruation, unspecified (principal)
CPT/HCPCS: 36415; 84702

== ENCOUNTER 2025-01-05 16:20 | Outpatient (OUT) | payer BC, SELFPAY ==
--- OUTSIDE RECORDS SUMMARY | 2024-12-31 12:30 | XMS_ITS | Encounter Summary ---
Author Organization [facility] Address [address] [place] [address] Care Team Providers Care Tree Doctor Name Role Phone Kimmy Carey MD Primary Care Provider [phone] Encounter Details Date Type Department Care Team (Latest Contact Info) Description 12/31/2024 12:30 PM EDT Ancillary Procedure [facility] [address] [place] [address] Missed menses; History of miscarriage; Abdominal pain during , antepartum ([facility]) Social History Tobacco Use Types Packs/Day Years [...] often do you attend chur ch or lutheran services? Never 01/22/2024 Do you belong to any clubs o r organizations such as muslim groups, unions, fraternal or athletic groups, or [...] Recorded Patient Health Questionnaire-2 Score 0 02/04/2023 [facility] - [...] any time in the past 12 m [facility], were you homeless or living in a custodial (including now)? No 01/22/2024 Estimated Date of Delivery Comme nts Yes 08/16/2025 Based on last me nstrual period of 11/09/2024 Sex and Gender Information Value Date Recorded Sex Assigned at Not on file Legal Sex Female 7:12 PM EDT Gender Identity Female 09/26/2022 7:12 PM EDT Sexual Orientation Straight 01/03/2023 8: 43 AM EDT documented as of this encounter Plan of Treatment Upcoming Encounters Date Type Department Care Team (Late st Contact Info) Description 01/18/2025 1:10 PM EDT Routine [facility] [address] [place] [address] RiverVignesh oleary, DO [address] [place] [address] documented as of this encounter Procedures Procedure Name Priority Date/Time Associated Diagnosis Comments US OB TRANSVAGINAL Routine 12/31/2024 1: 20 PM EDT Missed menses History of miscarriage Abdominal pain during , antepartum ([facility]) documented in this encounter Results * US OB transvaginal (12/31/2024 1:20 PM EDT) Anatomical Region Laterality Modality Body Ultrasound 01/01/2025 6:16 AM EDT Narrative 01/01/2025 6:16 AM EDT EXAM: US OB TRANSVAGINAL HISTORY: Dating. COMPARISON: None available. TECHNIQUE: Two-dimensional transvaginal grayscale ultrasound imaging of the pelvis was performed. Color Doppler evaluation of the ovaries was also performed. FINDINGS: The uterus demonstrates a normal homogeneous echotexture. The cervix measures 3.8 cm in length and the cervical os is closed. The right ovary is not visualized due to overlying bowel gas. The left ovary measures 3.0 x 2.0 x 2.3 cm and demonstrates a normal echotexture. There is normal color Doppler flow. There is a presumed corpus luteal cyst visualized. Mild fluid is present within the cul-de-sac. There is a single, live intrauterine gestation identified with a heart rate of 126 beats per minute and a crown-rump length measurement of 0.8 cm, correlating to a gestational age of 6 weeks 5 days (+/- 4 days). There is no subchorionic hemorrhage visualized. A yolk sac is visualized. IMPRESSION: 1. Single, live intrauterine gestation 7 weeks, 3 days by LMP. Today's ultrasound measurements correlate with a gestational age of 6 weeks 5 days (+/- 4 days). LUCIEN by today's ultrasound is 08/21/2025. 2. Normal color Doppler evaluation of the left ovary, the right ovary was not visualized. 3. Mild fluid within the cul-de-sac. Interpreted by: Electronically signed by LIZZ DEE II, MD, PHD at 01-Jan-2025 06:15:03 AM [facility] Procedure Note Lizz Dee MD - 01/01/2025 EXAM: US OB TRANSVAGINAL HISTORY: Dating. COMPARISON: None available. TECHNIQUE: Two-dimensional transvaginal grayscale ultrasound imaging ofthe pelvis was performed. Color Doppler evaluation of the ovaries was alsoperformed. FINDINGS: The uterus demonstrates a normal homogeneous echotexture. The cervixmeasures 3.8 cm in length and the cervical os is closed. The right ovary is not visualized due to overlying bowel gas. The left ovary measures 3.0 x 2.0 x 2.3 cm and demonstrates a normalechotexture. There is normal color Doppler flow. There is a presumedcorpus luteal cyst visualized. Mild fluid is present within the cul-de-sac. There is a single, live intrauterine gestation identified with a fetalheart rate of 126 beats per minute and a crown-rump length measurement of0.8 cm, correlating to a gestational age of 6 weeks 5 days (+/- 4 days).There is no subchorionic hemorrhage visualized. A yolk sac isvisualized. IMPRESSION: 1. Single, live intrauterine gestation 7 weeks, 3 days by LMP. Today'sultrasound measurements correlate with a gestational age of 6 weeks 5 days(+/- 4 days). LUCIEN by today's ultrasound is 08/21/2025. 2. Normal color Doppler evaluation of the left ovary, the right ovary wasnot visualized. 3. Mild fluid within the cul-de-sac. Interpreted by: Electronically signed by LIZZ DEE II, MD, PHD 06:15:03 AM [facility] us Vignesh River DO IMG OB US PROCEDURES Final Resul t documented in this encounter Visit Diagnoses Diagnosis Missed menses History of miscarriage Personal history of other genital system and obstetric disorders Abdominal pain during , antepartum ([facility]) documented in this encounter Care Teams Tree Doctor Relationship Specialty Start Date End Date Kimmy Carey MD [address] [place] [address] PCP - General Family Medicine 02/04/23 documented as of this encounter
--- OUTSIDE RECORDS SUMMARY | 2024-12-31 13:00 | XMS_ITS | Encounter Summary ---
Author Organization [facility] Address [address] [facility] [place] [address] Care Team Providers Care Etiquette Coach Name Role Phone Kimmy Carey MD Primary Care Provider [phone] Reason for Visit * Reason Comments Amenorrhea Encounter Details Date Type Department Care Team (Late st Contact Info) Description 12/31/2024 1:00 PM EDT Initial [facility] OB [address] [place] [address] [place] [id number] GA: 7w3d Social History Tobacco Use Types Packs/Day Years [...] often do you attend chur ch or catholic services? Never 01/22/2024 Do you belong to any clubs o r organizations such as yazdanism groups, unions, fraternal or athletic groups, or [...] Recorded Patient Health Questionnaire-2 Score 0 02/04/2023 [facility] - Occupational [...] any time in the past 12 m [facility], were you homeless or living in a [place] [facility] [place] facility (including now)? No 01/22/2024 Estimated Date of Delivery Comme nts Yes 08/16/2025 Based on last me nstrual period of 11/09/2024 Sex and Gender Information Value Date Recorded Sex Assigned at Not on file Legal Sex Female 7:12 PM EDT Gender Identity Female 09/26/2022 7:12 PM EDT Sexual Orientation Straight 01/03/2023 8: 43 AM EDT documented as of this encounter Last Filed Vital Signs Vital Sign Reading Time Taken Comments Blood Pressure 90/68 12/31/2024 2:03 PM EDT Pulse - - Temperature - - Respiratory Rate - - Oxygen Saturation - - Inhaled Oxygen Concentration - - Weight 56.7 kg (125 lb) 12/31/2024 2:03 PM EDT Height - - Body Mass Index 22.86 05/15/2024 9:31 AM EDT documented in this encounter Progress Notes * Lynne Ayers MA - 12/31/2024 1:00 PM EDT Reason for Appointment: Patient ID: Sammi Chapa is a 34 y.o. female who presents for Amenorrhea Patient presents today for a Nurse OB Intake appointment. Patient is 7w3d with a Estimated Date of Delivery: 08/16/25 OB History Para Term AB Living 2 1 SAB IAB Ectopic Multiple Live Births 1 # Outcome Date GA Lbr José/2nd Weight Sex Type Anes PTL Lv 2 Current 2020 Current Medications: has a current medication list which includes the following prescription(s): atorvastatin, ezetimibe, metoprolol succinate xl, metoprolol tartrate, and omega-3. Medical History: Active Ambulatory Problems Diagnosis Date Noted Palpitations 07/11/2020 Tachycardia 08/11/2021 Miscarriage ([facility]) Irritable bowel syndrome with predominant constipation Resolved Ambulatory Problems Diagnosis Date Noted No Resolved Ambulatory Problems Past Medical History: Diagnosis Date POTS (postural orthostatic tachycardia syndrome) 03/2024 Family History Problem Relation Name Age of Onset Hypertension Father Diabetes Maternal Grandmother Multiple myeloma Neg Hx Social History Tobacco Use Smoking status: Never Smokeless tobacco: Never Vaping Use Vaping status: Never Used Substance Use Topics Alcohol use: Never Comment: Caffeine: Drug use: Never Past Surgical History: Procedure Laterality Date COLONOSCOPY 12/2015 PAP SMEAR 2017 No Known Allergies Vitals: Estimated body mass index is 23.41 kg/m?? as calculated from the following: Height as of 05/15/24: 5' 2 . Weight as of 10/15/24: 128 lb. BP: Patient's last menstrual period was 11/09/2024. Assessment/Plan Diagnoses and all orders for this visit: Amenorrhea Missed menses - Type and screen; Future - ABO/Rh; Future - CBC and differential - Hemoglobin A1c - RPR - Rubella antibody, IgG - Hepatitis B surface antigen - Hepatitis C antibody - HIV-1 and HIV-2 antibodies - Urine culture - POCT , urine manually resulted - POCT urinalysis dipstick manually resulted , unspecified gestational age (HHS-HCC) - Type and screen; Future - ABO/Rh; Future - CBC and differential - Hemoglobin A1c - RPR - Rubella antibody, IgG - Hepatitis B surface antigen - Hepatitis C antibody - HIV-1 and HIV-2 antibodies - Rapid drug screen, urine; Future Encounter for supervision of normal first in first trimester ([facility]) - Rapid drug screen, urine; Future Nurse Note: Patient has a history of Tachycardia and is not currently on medication. Pt has a h/o POTS and AMA.Patient lifts weights and Golf's and will wait to speak w/River to see if she can continue. OB Intake: Patient presents today for first OB visit. Patients history has been reviewed in great detail including any potential risks. Patient signed consent forms and patient desires testing in both trimesters. Patient currently has no complaints and has been advised to drink 6-8 glasses of water a day, eatno raw or undercooked meat, and stay away from [facility]. Patient has also been advised to not change litter boxes and eat 6 small meals a day. Patient has been consulted regarding the do's and don'ts ofpregnancy. Patient was given labs and all questions and concerns were answered. Follow Up: Patient is to return in 2 weeks for routine OB appointment. Follow Up: Patient is to have labs drawn at directed and return to office for initial OB appointment with provider. Patient may call office as needed with any concerns or questions. Nurse Visit Completed by: Lynne Ayers MA documented in this encounter Plan of Treatment Upcoming Encounters Date Type Department Care Team (Late st Contact Info) Description 01/18/2025 1:10 PM EDT Routine [facility] OB [address] [id number] Vignesh Holman, DO [address] [place] [address] Scheduled Orders Name Type Priority Associated Diagnoses Orde r Schedule Type and screen Lab Routine Missed menses , unspecified gestational age (HHS-HCC) Expected: 12/31/2024 (Approximate), Expires: 12/31/2025 ABO/Rh Lab Routine Missed menses , unspecified gestational age (HHS-HCC) Expected: 12/31/2024 (Approximate), Expires: 12/31/2025 CBC and differential Lab Routine Missed menses , unspecified gestational age (HHS-HCC) Ordered: 12/31/2024 Hemoglobin A1c Lab Routine Missed menses , unspecified gestational age (HHS-HCC) Ordered: 12/31/2024 RPR Lab Routine Missed menses , unspecified gestational age (HHS-HCC) Ordered: 12/31/2024 Rubella antibody, IgG Lab Routine Missed menses , unspecified gestational age (HHS-HCC) Ordered: 12/31/2024 Hepatitis B surface antigen Lab Routine Missed menses , unspecified gestational age (HHS-HCC) Ordered: 12/31/2024 Hepatitis C antibody Lab Routine Missed menses , unspecified gestational age (HHS-HCC) Ordered: 12/31/2024 HIV-1 and HIV-2 antibodies Lab Routine Missed menses , unspecified gestational age (HHS-HCC) Ordered: 12/31/2024 Urine culture Microbiology Routine Missed menses Ordered: 12/31/2024 Rapid drug screen, urine Lab Routine , unspecified gestational age (HHS-HCC) Encounter for supervision of normal first in first trimester (HHS-HCC) Expected: 12/31/2024 (Approximate), Expires: 12/31/2025 documented as of this encounter Procedures Procedure Name Priority Date/Time Associated Diagnosis Comments POCT , URINE Routine 12/31/2024 1:34 PM EDT Missed menses POCT URINALYSIS DIPSTICK Routine 12/31/2024 1:33 PM EDT Missed menses PAP SMEAR Routine 12/26/2021 12:00 AM EDT documented in this encounter Results * (ABNORMAL) POCT , urine manually resulted (12/31/2024 1:34 PM EDT) Preg Test, Ur Positive Negative Urine 12/31/2024 1:34 PM EDT Vignesh River DO POINT OF CARE TEST ENTER/EDIT OR DERABLES Final Result * POCT urinalysis dipstick manually resulted (12/31/2024 1:33 PM EDT) Color, UA Yellow Clarity, UA Clear Glucose, UA Negative Negative - 2000(110) ++++ mg/dL Bilirubin, UA Negative Negative - 4(70) +++ mg/dL Ketones, UA Negative Negative - 160(16) ++++ mg/dL Spec Grav, UA 1.010 1 - 1.03 Blood, UA Positive Negative - 50 Piter/mcL pH, UA 6.0 5 - 9 Protein, UA Negative Negative - 2000(20) ++++ mg/dL Urobilinogen, UA 0.2 0.2 - 12 mg/dL Leukocytes, UA Negative Negative - 500+++ Nikki/mcL Nitrite, UA Negative Negative - Positive Urine 12/31/2024 1:33 PM EDT Vignesh River DO POINT OF CARE TEST ENTER/EDIT OR DERABLES Final Result * Pap Smear (12/26/2021 12:00 AM EDT) Swab Cervical swab / Unknown Adela [facility] CYTOLOGY ORDERABLES Serenity haley Result EXTERNAL LAB documented in this encounter Visit Diagnoses Diagnosis Amenorrhea Absence of menstruation Missed menses , unspecified gestational age ([facility]) Encounter for supervision of normal first in first trimester ([facility]) documented in this encounter Care Teams Etiquette Coach Relationship Specialty Start Date End Date Kimmy Carey MD [address] [place] [address] PCP - General Family Medicine 02/04/23 documented as of this encounter
--- OUTSIDE RECORDS SUMMARY | 2025-01-05 16:24 | XMS_ITS | Encounter Summary ---
Author Organization [facility] Address [id number] [address] [place] [address] Care Team Providers Care Carpet Layer Name Role Phone No Pcp, No Pcp Primary Care Provider Unavailabl e Encounter Details Date Type Department Care Team (Late st Contact Info) Description 07/12/2020 Orders Only [facility] [address] [place] [address] External, Scanning Provider Social History [...] on filedocumented in this encounter Care Teams Carpet Layer Relationship Specialty Start Date End Date No Pcp, [place] [address] PCP - General Family Medicine 07/21/24 documented as of this encounter
--- OUTSIDE RECORDS SUMMARY | 2025-01-05 16:24 | XMS_ITS | Encounter Summary ---
Author Organization [employer] Address [id number] [address] [place] [address] Care Team Providers Care Spinning Machine Operator Name Role Phone No Pcp, No Pcp Primary Care Provider Unavailabl e Encounter Details Date Type Department Care Team (Late st Contact Info) Description 01/19/2022 Telephone [facility] [address] [place] [phone] Magalie Bailey PA [address] [place] [id number] Social History Tobacco Use Types Packs/Day Years [...] urogram and an appointment with me in [place] to review the results. * Telephone Encounter [...] on filedocumented in this encounter Care Teams Spinning Machine Operator Relationship Specialty Start Date End Date No Pcp, [place] [address] PCP - General Family Medicine 07/21/24 documented as of this encounter
--- OUTSIDE RECORDS SUMMARY | 2025-01-05 16:24 | XMS_ITS | Encounter Summary ---
Author Organization [facility] Address [address] [facility] [place] [address] Care Team Providers Care Facilities Custodian Name Role Phone Kimmy Carey MD Primary Care Provider [phone] Encounter Details Date Type Department Care Team (Latest Contact Info) Description 12/24/2024 Travel Social History Tobacco Use Types Packs/Day [...] often do you attend chur ch or pentecostal services? Never 01/22/2024 Do you belong to any clubs o r organizations such as yarsanism groups, unions, fraternal or athletic groups, or [...] Recorded Patient Health Questionnaire-2 Score 0 02/04/2023 [facility] - Occupational [...] any time in the past 12 m [facility], were you homeless or living [...] PM EDT Routine [facility] OB [address] [place] [phone] Vignesh Holman, [address] [place] [address] documented as of this encounter Visit Diagnoses Not on filedocumented in this encounter Care Teams Facilities Custodian Relationship Specialty Start Date End Date Kimmy Carey MD [address] [place] [address] PCP - General Family Medicine 02/04/23 documented as of this encounter
--- OUTSIDE RECORDS SUMMARY | 2025-01-05 16:24 | XMS_ITS | Clinical Summary ---
Author Organization [facility] Address [address] [place] [address] Care Team Providers Care Tobacco Sieve Operator Name Role Phone Kimmy Carey MD Primary Care Provider [phone] Allergies No known active allergies Medications metoprolol tartrate (Lopressor) 25 MG tablet TAKE ONE TABLET BY MOUTH TWICE A DAY WITH FOOD for 90 Active atorvastatin (Lipitor) 20 MG tablet 4 Active ezetimibe (Zetia) 10 MG tablet 4 Active metoprolol succinate XL (Toprol-XL) 25 MG 24 hr tablet 4 Active omega-3 (FISH OIL) 300 MG capsule Take by mouth Active metFORMIN XR (Glucophage-XR) 500 MG 24 hr tabletIndication s:POTS (postural orthostatic tachycardia syndrome) Take 1 tablet (500 mg) by mouth in the evening. Take with meals Do not crush, chew, or split. 30 tablet 11 5 01/01/20 25 Discontinu ed(Therapy completed) Active Problems Problem Noted Date Diagnosed Date Tachycardia 08/11/2021 Palpitations 07/11/2020 Miscarriage ([facility] Irritable bowel syndrome with predominant consti pation Estimated Date of Delivery Comme nts Yes 08/16/2025 Based on last me nstrual period of 11/09/2024 Encounters Date Type Department Care Team Description 01/05/2025 Telephone [facility] [address] [place] [address] Lynne Ayers MA 12/31/2024 1:00 PM EDT Initial [facility] [address] [place] [address] [place] [address] GA: 7w3d 12/31/2024 12:30 PM EDT Ancillary Procedure [facility] OB [address] [place] [address] [place] [phone] Missed menses; History of miscarriage; Abdominal pain during , antepartum ([facility]) 12/24/2024 Travel 12/17/2024 Telephone [facility] OB [address] [place] [address] [place] [address] Vignesh Holman, DO 12/16/2024 Telephone [facility] OB [address] [place] [address] [place] [address] Vignesh Holman, DO 12/12/2024 Clinisync Result Encounter [facility] External Department Unsolicited Vignesh Holman, DO 12/10/2024 Clinisync Result Encounter [facility] External Department Unsolicited Vignesh Holman, DO 12/09/2024 Telephone [facility] [address] [place] [address] Lynne Ayers, NICKI 12/03/2024 Travel 11/03/2024 Telephone [facility] OB [address] [place] [address] [place] [address] Daija Osborne LPN 10/29/2024 Clinisync Result Encounter [facility] External Department Unsolicited Vignesh Holman, DO 10/22/2024 Travel 10/15/2024 8:50 AM EDT Office Visit [facility] OB [address] [place] [address] [place] [address] Vignesh Holman, DO Female infertility; POTS (postural orthostatic tachycardia syndrome) 10/15/2024 Abstract [facility] OB [address] [place] [address] [place] [address] Vignesh Holman, 10/15/2024 Abstract [facility] OB [address] [place] [address] [place] [address] Vignesh Holman, DO 10/15/2024 Bamboo flowsheet [facility] OB [address] [facility] [place] [address] Vignesh Holman, DO 10/13/2024 Telephone [facility] [address] [place] [address] Betsy Parikh MA 10/09/2024 Travel [...] 01/22/2024 How often do you attend chur or pentecostal services? Never 01/22/2024 Do you belong to any clubs o r organizations such as mu-ism groups, unions, fraternal or athletic groups, or [...] Recorded Patient Health Questionnaire-2 Score 0 02/04/2023 [facility] - Occupational Stress Questionnaire Answer Date [...] in the past [address] [facility], were you homeless or living in a mcc (including now)? No 01/22/2024 Estimated Date of Delivery Comme nts Yes 08/16/2025 Based on last me nstrual period of 11/09/2024 Sex and Gender Information Value Date Recorded Sex Assigned at Not on file Legal Sex Female 7:12 PM EDT Gender Identity Female 09/26/2022 7:12 PM EDT Sexual Orientation Straight 01/03/2023 8: 43 AM EDT Last Filed Vital Signs Vital Sign Reading Time Taken Comments Blood Pressure 90/68 12/31/2024 2:03 PM EDT Pulse 90 05/15/2024 9:31 AM EDT Temperature - - Respiratory Rate - - Oxygen Saturation 95% 05/15/2024 9:31 AM EDT Inhaled Oxygen Concentration - - Weight 56.7 kg (125 lb) 12/31/2024 2:03 PM EDT Height 157.5 cm (5' 2 ) 05/15/2024 9:31 AM EDT Body Mass Index 22.86 05/15/2024 9:31 AM EDT Plan of Treatment Upcoming Encounters Date Type Department Care Team (Late st Contact Info) Description 01/18/2025 1:10 PM EDT Routine [facility] [address] [facility] [place] [address] Vignesh Holman, DO [address] [facility] [address] [place] [address] Health Maintenance Due Date Last Done Comments Influenza Vaccine (Season Ended) 2025 05/05/20 13 Cervical Cancer Screening 12/26/2026 HPV/Cotest 12/26/2026 06/26/2019 Pap Smear 12/26/2026 12/26/2021, 12/26/2021 Procedures Procedure Name Priority Date/Time Associated Diagnosis Comments POCT , URINE Routine 12/31/2024 1:34 PM EDT Missed menses POCT URINALYSIS DIPSTICK Routine 12/31/2024 1:33 PM EDT Missed menses US OB TRANSVAGINAL Routine 12/31/2024 1: 20 PM EDT Missed menses History of miscarriage Abdominal pain during , antepartum ([facility]) TBH PREG QUANT HCG Routine 12/12/2024 6: 50 AM EDT TB PREG QUANT HCG Routine 12/10/2024 8: 15 AM EDT ALL ANTI-MULLERIAN HORMONE Routine 10/29/2024 10:50 AM EDT ALL PROGESTERONE Routine 10/29/2024 10:5 0 AM EDT POCT , URINE Routine 10/15/2024 8:50 AM EDT Female infertility POCT URINALYSIS DIPSTICK Routine 10/15/2024 8:50 AM EDT Female infertility THINPREP TIS PAP AND HPV MRNA E6/E7 REFLEX HPV 16,18/45 (47558) Routine 12/26/2021 Q - THINPREP(R) TIS AND HPV MRNA E6/E7 RFL HPV 16,18/45 Routine 06/26/2019 from Last 3 Months or Most Recently Relevant to Health Maintenance Results * (ABNORMAL) POCT , urine manually resulted (12/31/2024 1:34 PM EDT) Only the most recent of2 resultswithin the time period is included. Preg Test, Ur Positive Negative Urine 12/31/2024 1:34 PM EDT Vignesh Holman DO POINT OF CARE TEST ENTER/EDIT OR DERABLES Final Result * POCT urinalysis dipstick manually resulted (12/31/2024 1:33 PM EDT) Only the most recent of2 resultswithin the time period is included. Color, UA Yellow Clarity, UA Clear Glucose, [...] - Positive Urine 12/31/2024 1:33 PM EDT us Vignesh Holman DO POINT OF CARE TEST ENTER/EDIT OR DERABLES Final Result * US OB transvaginal (12/31/2024 1:20 PM [...] cul-de-sac. Interpreted by: Electronically signed by LIZZ HACKETT II, MD, PHD at 01-Jan-2025 06:15:03 AM [facility] Procedure Note Lizz Hackett MD - 01/01/2025 EXAM: US OB TRANSVAGINAL [...] cul-de-sac. Interpreted by: Electronically signed by LIZZ HACKETT II, MD, PHD [id number] 06:15:03 AM [facility] us Vignesh [place] DO IM OB US PROCEDURES Final Resul t * TBH PREG QUANT HCG (12/12/2024 6:50 AM EDT) Only the most recent of2 resultswithin the time period is included. HCG QUANTITATIVE 314 mIU/mL TBH Comment: 5-50 0.2-1 WEEK 50-500 1-2 WEEKS 100-5,000 2-3 WEEKS 500-10,000 3-4 WEEKS 1,000-50,000 4-5 WEEKS 10,000-100,000 5-6 WEEKS 15,000-200,000 6-8 WEEKS 10,000-100,000 2-3 MONTHS 12/12/2024 6:50 AM EDT 12/12/2024 6:52 AM EDT Narrative CLINISYNC - 12/12/2024 7:22 AM EDT [facility] DO CLINISYNC Final Result Performing Organization Address [facility] de Phone Number [facility] * ALL PROGESTERONE (10/29/2024 10:50 AM EDT) PROGESTERONE 8.8 . ng/mL TB Comment: Follicular phase 0.1 - 0.9 Luteal phase 1.8 - 23.9 Ovulation phase 0.1 - 12.0 First trimester 11.0 - 44.3 Second trimester 25.4 - 83.3 Third trimester 58.7 - 214.0 Postmenopausal 0.0 - 0.1 Performed at: [address] [id number] Field Checker: Vinay Caldera PhD, Phone: [phone] 10/29/2024 10:5 0 AM EDT 10/29/2024 10:51 AM EDT Narrative CLINISYNC - 10/30/2024 4:27 AM EDT [facility] DO CLINISYNC Final Result Performing Organization Address [facility] de Phone Number [facility] * ALL ANTI-MULLERIAN HORMONE (10/29/2024 10:50 AM EDT) ANTI-MULLERIAN HORMONE (AMH) 6.00 . ng/mL TB Comment: For assays employing antibodies, the possibility exists for interference by heterophile antibodies in the samples.1 1.Dorcas Mike. Interferences in Immunoassays - still a threat. Clin. Chem. 2000; 46: 7566-9842. This test was developed and its performance characteristics determined by [employer]. It has not been cleared or approved by the Food and Drug Administration. Reference Range: Females 31 - 35y: 0.66 - 8.75 Median 3.00 AMH concentrations of >= 1.06 ng/mL is correlated with a better response to ovarian stimulation, produced more retrievable oocytes and higher odds of live according to Jose A et al. Fertility and Sterility. 2010: 94:0198-2188. The current AMH test method correlates with [...] exclude an AMH-secreting ovarian tumor. Performed at: [facility] [address] [place] [id number] Field Checker: Erik Wilson MD, Phone: [phone] 10/29/2024 10:5 0 AM EDT 10/29/2024 10:51 AM EDT Narrative CLINISYNC - 11/02/2024 11:23 AM EDT us Vignesh Baezo DO CLINISYNC Final Result [facility] TB * THINPREP TIS PAP AND HPV MRNA E6/E7 REFLEX HPV 16,18/45 ([id number]) (12/26/2021) CLINICAL INFORMATION: None given [facility]Y [...] computer assisted technology. [facility] CLEAN ENERGY POLICY ANALYST : SEE COMMENT [facility] Comment: PCJ, SCT(ASCP) CT screening location: [place] [address]. REVIEW CLEAN ENERGY POLICY ANALYST : SEE COMMENT [facility] Comment: DMK, CT(ASCP) CT screening location: [place] [address]. COMMENT SEE COMMENT [facility] LEG ACY EXTERNAL [...] Detected [facility] Comment: Methodology: [employer] Ground Crew Supervisor-Mediated Amplification This assay detects E6/E7 viral messenger RNA (mRNA) from 14 high-risk HPV types (16,18,31,33,35,39,45,51,52,56,58,59,66,68). Cervical sources are required for HPV testing. If a vaginal source from a patient who has had a total hysterectomy with removal of cervix was submitted, please contact the testing laboratory for alternative testing options. For additional information, please refer to http://education.Social Intelligence/faq/CQM540e7 (This link if provided for information/ educational purposes only.) 12/26/2021 Adela Xavier [facility] Final Result [facility] EXTERNAL [...] computer assisted technology. [facility] CLEAN ENERGY POLICY ANALYST: SEE NOTE NO [facility] LEGACY EXTERNAL LAB Comment: NNO, CT(ASCP) CT screening location: [place] [address]. REVIEW CLEAN ENERGY POLICY ANALYST: SEE NOTE [facility] LE[facility] Y EXTERNAL LAB Comment: JEH, CT(ASCP) CT screening location: [place] [address]. COMMENT SEE NOTE [facility] LEGAC Y EXTERNAL [...] information. HPV MRNA E6/E7 Detected(A) Not Detected [facility] LEGAC[facility] EXTERNAL LAB Comment: This test was performed using the APTIMA HPV Assay ([employer] This assay detects E6/E7 viral messenger RNA (mRNA) from 14 high-risk HPV types (16,18,31,33,35,39,45,51,52,56,58,59,66,68). The analytical performance characteristics of this assay have been determined by [employer]. The modifications have not been cleared or approved by the FDA. This assay has been validated pursuant to the CLIA regulations and is used for clinical purposes. 06/26/2019 Adela Xavier [facility] Final Result [facility] from Last 3 Months or Most Recently Relevant to [place] [phone] BS Care Teams Tobacco Sieve Operator Relationship Specialty Start Date End Date Kimmy Carey MD [address] [place] [address] PCP - General Family Medicine 02/04/23
--- OUTSIDE RECORDS SUMMARY | 2025-01-05 16:24 | XMS_ITS | Encounter Summary ---
Author Organization [facility] tem Address [id number] [address] [place] [address] Care Team Providers Care Operating Systems Programmer Name Role Phone No Pcp, No Pcp Primary Care Provider Unavailabl e Encounter Details Date Type Department Care Team (Late st Contact Info) Description 02/28/2022 Abstract [facility] [address] [place] [address] External, Scanning Provider Social History [...] on filedocumented in this encounter Care Teams Operating Systems Programmer Relationship Specialty Start Date End Date No Pcp, [place] [address] PCP - General Family Medicine 07/21/24 documented as of this encounter
--- OUTSIDE RECORDS SUMMARY | 2025-01-05 16:24 | XMS_ITS | Encounter Summary ---
Author Organization [employer] Address [id number] [address] [place] [address] Care Team Providers Care Uniform Patrol Police Officer Name Role Phone No Pcp, No Pcp Primary Care Provider Unavailabl e Encounter Details Date Type Department Care Team (Late st Contact Info) Description 07/12/2020 Orders Only [facility] [address] [place] [address] External, Scanning Provider Social History [...] Multiple labs (04/01/2020) us Scanning Provider External [facility] Final Result MANUALLY TRANSCRIBED RESULTS documented in this encounter Visit Diagnoses Not on filedocumented in this encounter Care Teams Uniform Patrol Police Officer Relationship Specialty Start Date End Date No Pcp, [place] [address] PCP - General Family Medicine 07/21/24 documented as of this encounter
--- OUTSIDE RECORDS SUMMARY | 2025-01-05 16:24 | XMS_ITS | Clinical Summary ---
Author Organization [facility] Address [address] [place] [address] Care Team Providers Care General Utility Maintenance Repairer Name Role Phone Unavailable Primary Care Provider Unavailabl e Allergies No known active allergies Medications Vit-DSS-Fe Cbn-FA ( AD PO) Take by mouth daily Active Multiple Vitamin (MULTIVITAMIN ADULT PO) Take by mouth Active VITAMIN D PO Take by mouth Act ana [place]-3 Fatty Acids (FISH OIL) 300 MG CAPS [...] Description 04/19/2025 2:40 PM EDT Office Visit [facility] Part of [address] [address] Randy Tavares MD [address] [place] [phone] yearly follow up Health Maintenance Due [...] patient's age to complete this topic Insurance [facility]
--- OUTSIDE RECORDS SUMMARY | 2025-01-05 16:24 | XMS_ITS | Encounter Summary ---
Author Organization [facility] tem Address [id number] [address] [place] [address] Care Team Providers Care Well Reactivator Operator Name Role Phone No Pcp, No Pcp Primary Care Provider Unavailabl e Encounter Details Date Type Department Care Team (Late st Contact Info) Description 05/07/2022 Abstract [facility] [address] [place] [phone] External, Scanning Provider Social History Tobacco Use [...] on filedocumented in this encounter Care Teams Well Reactivator Operator Relationship Specialty Start Date End Date No Pcp, [place] [address] PCP - General Family Medicine 07/21/24 documented as of this encounter
--- OUTSIDE RECORDS SUMMARY | 2025-01-05 16:24 | XMS_ITS | Clinical Summary ---
Author Organization [employer] Address [id number] [address] [place] [address] Care Team Providers Care Application Support Name Role Phone No Pcp, No Pcp Primary Care Provider Unavailabl e Allergies No known active allergies Medications stavs-5-pgd-epa- dpa-fish oil 1,050-1,200 mg capsule Take by [...] Care Team Description 10/23/2024 Telephone [facility] [address] [place] [address] Lela Wolfe MA from Last 3 Months Family History Medical History Relation Name Comments Hypertension Father Dwain Sawant Diabetes Maternal Grandmother Winifred Collins Heart murmur Mother High Cholesterol Mother Prostate cancer Paternal Grandfather Baldo Savana Breast cancer Paternal Grandmother Ana Savana Colon cancer Neg Hx Ovarian cancer Neg Hx Pancreatic cancer Neg Hx Uterine cancer Neg Hx Relation Name Status Comments Father Dwain Sawant Alive Maternal Grandmother Winifred Collins Mother Alive Paternal Grandfather Baldo Savana Paternal Grandmother Ana Roachalter Social History Tobacco Use Types Packs/Day Years [...] 08/07/2025 08/07/2024 [employer] Not on file Insurance [employer] Care Teams Application Support Relationship Specialty Start Date End Date No Pcp, [place] [address] PCP - General Family Medicine 07/21/24
--- OUTSIDE RECORDS SUMMARY | 2025-01-05 16:24 | XMS_ITS | Encounter Summary ---
Author Organization [employer] Address [id number] [address] [place] [address] Care Team Providers Care Debone Processing Supervisor Name Role Phone No Pcp, No Pcp Primary Care Provider Unavailabl e Encounter Details Date Type Department Care Team (Late st Contact Info) Description 05/03/2022 Telephone [facility] [address] [place] [phone] Magalie Bailey PA [address] [place] [id number] Social History Tobacco Use Types Packs/Day Years [...] 3:13 PM EDT Please call [facility] in [place] tomorrow to get the results from her urine test. She dropped off today * Telephone Encounter - Cielo Oro LPN - 05/03/2022 3:13 PM EDT Pt actually called and stated that [facility] did not receive an order for a urine collection. I reprinted the order and faxed it to [facility] [phone] per pt request. I will check on results tomorrow. * Telephone Encounter - Cielo Oro LPN - 05/03/2022 3:13 PM EDT Results received and on your desk for review. documented in this encounter Plan of Treatment Not on file documented as of this encounter Visit Diagnoses Not on filedocumented in this encounter Care Teams Debone Processing Supervisor Relationship Specialty Start Date End Date No Pcp, [place] [address] PCP - General Family Medicine 07/21/24 documented as of this encounter
--- OUTSIDE RECORDS SUMMARY | 2025-01-05 16:24 | XMS_ITS | Encounter Summary ---
Author Organization [facility] Address [address] [place] [address] Care Team Providers Care Shorthand Teacher Name Role Phone Kimmy Carey MD Primary Care Provider [phone] Colleen Larios NP Unavailable [phone] Encounter Details Date Type Department Care Team (Late st Contact Info) Description 10/15/2024 Abstract [facility] [address] [place] [address] Vignesh Holman, DO [address] [facility] [address] [place] [place], [place] [id number] Social History Tobacco Use Types Packs/Day Years [...] often do you attend chur ch or mormon services? Never 01/22/2024 Do you belong to any clubs o r organizations such as religious groups, unions, fraternal or athletic groups, or [...] Recorded Patient Health Questionnaire-2 Score 0 02/04/2023 [facility] - Occupational Stress Questionnaire Answer Date Recorded [...] were you homeless or living in a jail (including now)? No 01/22/2024 Comments No Sex [...] PM EDT Routine [facility] [address] [facility] [place] [address] Vignesh Holman, DO [address] [facility] [address] [place] [place], [place] [phone] documented as of this encounter Visit Diagnoses Not on filedocumented in this encounter Care Teams Shorthand Teacher Relationship Specialty Start Date End Date Kimmy Carey MD [address] [place] [address] PCP - General Family Medicine 02/04/23 Colleen Larios NP [address] [facility] [address] [place], [place] [phone] PCP - [employer] 03/15/24 documented as of this encounter
--- OUTSIDE RECORDS SUMMARY | 2025-01-05 16:24 | XMS_ITS | Encounter Summary ---
Author Organization [facility] Address [address] [place] [address] Care Team Providers Care Paint Formulator Name Role Phone Kimmy Carey MD Primary Care Provider [phone] Colleen Larios NP Unavailable [phone] Encounter Details Date Type Department Care Team (Late st Contact Info) Description 10/15/2024 Abstract [facility] OB [address] [place] [address] Vignesh Holman, DO [address] [address] [place], [place] [phone] Social History Tobacco Use Types Packs/Day Years [...] often do you attend chur ch or restoration services? Never 01/22/2024 Do you belong to any clubs o r organizations such as spiritism groups, unions, fraternal or athletic groups, or [...] Recorded Patient Health Questionnaire-2 Score 0 02/04/2023 [facility] - Occupational Stress Questionnaire Answer Date [...] any time in the past 12 m [facility], were you homeless or living in a correction (including now)? No 01/22/2024 Comments No Sex [...] PM EDT Routine [facility] BCP OB [address] [facility] [address] [facility] [address] [place] [address] Vignesh Holman, DO [address] [place], [place] [phone] documented as of this encounter Visit Diagnoses Not on filedocumented in this encounter Care Teams Paint Formulator Relationship Specialty Start Date End Date Kimmy Carey MD [address] [place] [address] PCP - General Family Medicine 02/04/23 Colleen Larios NP [address] [facility] [address] [place], [place] [id number] PCP - [employer] 03/15/24 documented as of this encounter
--- OUTSIDE RECORDS SUMMARY | 2025-01-05 16:24 | XMS_ITS | Encounter Summary ---
Author Organization [employer] Address [facility][id number] [address] [place] [address] Care Team Providers Care Parking Analyst Name Role Phone No Pcp, No Pcp Primary Care Provider Unavailabl e Encounter Details Date Type Department Care Team (Late st Contact Info) Description 02/26/2022 Orders Only [facility] [employer] [facility] [place] [address] Transcribe, Orders Support User Pain [...] pain documented in this encounter Care Teams Parking Analyst Relationship Specialty Start Date End Date No Pcp, [place] [address] PCP - General Family Medicine 07/21/24 documented as of this encounter
--- OUTSIDE RECORDS SUMMARY | 2025-01-05 16:24 | XMS_ITS | Encounter Summary ---
Author Organization [facility] Address [address] [place] [address] Care Team Providers Care Charge Manager Name Role Phone Kimmy Carey MD Primary Care Provider [phone] Encounter Details Date Type Department Care Team (Late st Contact Info) Description 01/05/2025 Telephone [facility] OB [address] [place] [phone] Lynne Ayers MA [address] [place] [address] Social History Tobacco Use Types Packs/Day Years [...] any clubs o r organizations such as confucianist groups, unions, fraternal or athletic groups, or [...] Recorded Patient Health Questionnaire-2 Score 0 02/04/2023 [facility] of Occupat ional Health - Occupational Stress [...] any time in the past 12 m [facility], were you homeless or living in a skilled nursing (including now)? No 01/22/2024 Estimated Date of Delivery Comme nts Yes 08/16/2025 Based on last me nstrual period of 11/09/2024 Sex and Gender Information Value Date Recorded Sex Assigned at Not on file Legal Sex Female 7:12 PM EDT Gender Identity Female 09/26/2022 7:12 PM EDT Sexual Orientation Straight 01/03/2023 8: 43 AM EDT documented as of this encounter Miscellaneous Notes * Telephone Encounter - Lynne Ayers MA - 01/05/2025 3:07 PM EDT Pt called and is 7 weeks . Pt states her was seen at Urgent care and was diagnosed w/Shingles. The doctor there advised the patient that its not contagious and that she should be ok being around her . Pt did say she has not had chicken pox and just wants to know if she shouldbe concerned. Pt stated she has not touched her or been very close to him since she found out. I spoke w/Dr. Holman and he wants labs sent to check her antibodies and to refrain from touching her until the area is crusted over/cleared. I called patient and advised her of what Dr. Holman instructed to keep her distance from her until its cleared and to have her labs drawn. PVU. documented in this encounter Plan of Treatment Upcoming Encounters Date Type Department Care Team (Late st Contact Info) Description 01/18/2025 1:10 PM EDT Routine [facility] OB [address] [place] [address] Vignesh Holman, DO [address] [place], [place] [id number] Scheduled Orders Name Type Priority Associated Diagnoses Orde r Schedule Varicella zoster antibody, IgM Lab Routine Exposure to varicella Expected: 01/05/2025, Expires: 01/05/2026 Varicella zoster antibody, IgG Lab Routine Exposure to varicella Expected: 01/05/2025 (Approximate), Expires: 01/05/2026 documented as of this encounter Visit Diagnoses Diagnosis Exposure to varicella Contact with or exposure to varicella documented in this encounter Care Teams Charge Manager Relationship Specialty Start Date End Date Kimmy Carey MD [address] [place] [address] PCP - General Family Medicine 02/04/23 documented as of this encounter
[2025-01-07 06:08] LABS: Varicella-Zoster V Ab, IgG Non Reactive (Non Reactive)
== END 2025-01-05 16:21 | disposition home or self-care (01) ==
LOC: LAB 16:21
PROVIDERS: Family Provider Family Medicine; Visit Provider Obstetrics & Gynecology
DX: Z20.820 Contact with and (suspected) exposure to varicella (principal)
CPT/HCPCS: 36415; 86787

== ENCOUNTER 2025-01-16 07:32 | Outpatient (OUT) | payer BC, SELFPAY ==
--- OUTSIDE RECORDS SUMMARY | 2025-01-16 07:36 | XMS_ITS | Clinical Summary ---
Author Organization Alfonso B[facility] Address [address] [place] [address] Care Team Providers Care Digital Producer Name Role Phone Unavailable Primary Care Provider Unavailabl e Allergies No known active allergies Medications Vit-DSS-Fe Cbn-FA ( AD PO) Take by mouth daily Active Multiple Vitamin (MULTIVITAMIN ADULT PO) Take by mouth Active VITAMIN D PO Take by mouth Act ana [place]-3 Fatty Acids (FISH OIL) 300 MG CAPS [...] Description 04/19/2025 2:40 PM EDT Office Visit [facility] CARDIOLOGY Part of [address] [address] Randy Tavares MD [address] [place] [address] yearly follow up Health Maintenance Due [...] Vaccine (2023-2 5 season) 2024 Flu vaccine (#1) 02/12/2025 05/05/2013 HPV vaccine Aged Out No longer [...] patient's age to complete this topic Insurance [facility]
--- OUTSIDE RECORDS SUMMARY | 2025-01-16 07:36 | XMS_ITS | Encounter Summary ---
Author Organization [facility] Address [address] [place] [address] Care Team Providers Care Purchasing Specialist Name Role Phone Kimmy Carey MD Primary Care Provider [phone] Encounter Details Date Type Department Care Team (Latest Contact Info) Description 01/11/2025 Travel Social History Tobacco Use Types Packs/Day [...] often do you attend chur ch or spiritism services? Never 01/22/2024 Do you belong to any clubs o r organizations such as voodoo groups, unions, fraternal or athletic groups, or [...] Recorded Patient Health Questionnaire-2 Score 0 02/04/2023 [facility] of Occupat ional Health - [...] in a jail (including now)? No 01/22/2024 Estimated Date of [...] EDT Routine [facility] BCP OB [address] [place] [address] Vignesh Holman, DO [address] [facility] [address] [place], [place] [id number] documented as of this encounter Visit Diagnoses Not on filedocumented in this encounter Care Teams Purchasing Specialist Relationship Specialty Start Date End Date Kimmy Carey MD [address] [place] [address] PCP - General Family Medicine 02/04/23 documented as of this encounter
--- OUTSIDE RECORDS SUMMARY | 2025-01-16 07:36 | XMS_ITS | Encounter Summary ---
Author Organization [facility] Address [address] [facility] [place] [address] Care Team Providers Care Spring Tester Name Role Phone Kimmy Carey MD Primary Care Provider [phone] Encounter Details Date Type Department Care Team (Late st Contact Info) Description 01/05/2025 Clinisync Result Encounter [facility] External Department Unsolicited Vignesh Holman, DO [address] [facility] [address] [place] [place], [place] [id number] Social History Tobacco Use Types Packs/Day Years [...] often do you attend chur ch or jainism services? Never 01/22/2024 Do you belong to any clubs o r organizations such as gnosticist groups, unions, fraternal or athletic groups, or [...] Recorded Patient Health Questionnaire-2 Score 0 02/04/2023 [facility] of Occupat ional Health - Occupational Stress [...] any time in the past 12 m [facility], were you homeless or living in a fdc (including now)? No 01/22/2024 Estimated Date of [...] PM EDT Routine [facility] OB [address] [facility] [place] [place] [phone] RiverVignesh oleary, DO [address] [facility] [address] [place], [place] [id number] documented as of this encounter Procedures Procedure Name Priority Date/Time Associated Diagnosis Comments VARICELLA-ZOSTER V AB, IGG Routine 01/05/2025 4:35 PM EDT ALL MISCELLANEOUS TEST Routine 4:35 PM EDT documented in this encounter Results * ALL MISCELLANEOUS TEST (01/05/2025 4:35 PM EDT) MISCELLANEOUS TEST COMMENT . [facility] Comment: Test Ordered: [id number] Varicella-Zoster Ab, IgM Varicella-Zoster Ab, IgM <0.91 index CB Reference Range: 0.00-0.90 Negative <0.91 Borderline 0.91 - 1.09 Positive >1.09 Performed at: - [facility] [id number] Building Serviceman: Vinay Caldera PhD, Phone: [phone] 01/05/2025 4:35 PM EDT 01/05/2025 4:36 PM EDT Narrative CLINISYNC - 01/07/2025 2:08 PM EDT [id number] VARICELLA ZOSTER VIRUS ANTIBODY, IGM us Vignesh River DO CLINISYNC Final Result Performing Organization Address [facility] Co de Phone Number [facility] * VARICELLA-ZOSTER V AB, IGG (01/05/2025 4:35 PM EDT) VARICELLA-ZOST ER V AB, IGG Non Reactive Non Reactive TB Comment: Please note reference interval change A Reactive result is considered evidence of immunity to VZV. Reactive indicates that VZV IgG was detected consistent with previous infection and/or vaccination. A Non Reactive result indicates that VZV IgG was not detected suggesting that immunity has not been acquired. Performed at: [facility] [address] [id number] Building Serviceman: Vinay Caldera PhD, Phone: [phone] 01/05/2025 4:35 PM EDT 01/05/2025 4:36 PM EDT Narrative CLINISYNC - 01/07/2025 6:08 AM EDT us Vignesh River DO LAB BLOOD ORDERABLES Final Resul t Performing Organization Address [facility] Co de Phone Number [facility] documented in this encounter Visit Diagnoses Not on filedocumented in this encounter Care Teams Spring Tester Relationship Specialty Start Date End Date Kimmy Carey MD [address] [place] [address] PCP - General Family Medicine 02/04/23 documented as of this encounter
--- OUTSIDE RECORDS SUMMARY | 2025-01-16 07:36 | XMS_ITS | Encounter Summary ---
Author Organization [employer] Address [facility] [id number] [address] [place] [address] Care Team Providers Care Men'S Garment Fitter Name Role Phone No Pcp, No Pcp Primary Care Provider Unavailabl e Encounter Details Date Type Department Care Team (Late st Contact Info) Description 07/12/2020 Orders Only [facility] [address] [place] [address] External, Scanning Provider Social History [...] Multiple labs (04/01/2020) us Scanning Provider External [facility] Final Result MANUALLY TRANSCRIBED RESULTS documented in this encounter Visit Diagnoses Not on filedocumented in this encounter Care Teams Men'S Garment Fitter Relationship Specialty Start Date End Date No Pcp, [place] [address] PCP - General Family Medicine 07/21/24 documented as of this encounter
--- OUTSIDE RECORDS SUMMARY | 2025-01-16 07:36 | XMS_ITS | Encounter Summary ---
Author Organization [facility] Address [address] [place] [address] Care Team Providers Care Clinical Education Academic Coordinator Name Role Phone Kimmy Carey MD Primary Care Provider [phone] Colleen Larios NP Unavailable [phone] Encounter Details Date Type Department Care Team (Late st Contact Info) Description 10/15/2024 Abstract [facility] OB [address] [place] [address] Vignesh Holman, DO [address] [address] [place], [place] [address] Social History Tobacco Use Types Packs/Day Years [...] often do you attend chur ch or restorationism services? Never 01/22/2024 Do you belong to any clubs o r organizations such as baptism groups, unions, fraternal or athletic groups, or [...] Recorded Patient Health Questionnaire-2 Score 0 02/04/2023 [facility] - Occupational Stress Questionnaire Answer Date Recorded [...] any time in the past 12 m [facility], were you homeless or living in [...] PM EDT Routine [facility] BCP OB [address] [place] [address] Vignesh Holman, DO [address] [place], [place] [address] documented as of this encounter Visit Diagnoses Not on filedocumented in this encounter Care Teams Clinical Education Academic Coordinator Relationship Specialty Start Date End Date Kimmy Carey MD [address] [place] [address] PCP - General Family Medicine 02/04/23 Colleen Larios NP [address] [facility] [address] [place], [place] [address] PCP - [place] [employer] 03/15/24 documented as of this encounter
--- OUTSIDE RECORDS SUMMARY | 2025-01-16 07:36 | XMS_ITS | Clinical Summary ---
Author Organization [employer] Address [facility] [id number] [address] [place] [address] Care Team Providers Care Pipeline Controller Name Role Phone No Pcp, No Pcp Primary Care Provider Unavailabl e Allergies No known active allergies Medications ebctx-4-vlh-epa- dpa-fish oil 1,050-1,200 mg capsule Take by [...] Telephone [facility] [address] [place] [address] Lela Wolfe MA from Last 3 [...] Not on file Insurance [employer] Care Teams Pipeline Controller Relationship Specialty Start Date End Date No Pcp, [place] [address] PCP - General Family Medicine 07/21/24
--- OUTSIDE RECORDS SUMMARY | 2025-01-16 07:36 | XMS_ITS | Encounter Summary ---
Author Organization [facility] Address [address] [facility] [place] [address] Care Team Providers Care Aix System Administrator Name Role Phone Kimmy Carey MD Primary Care Provider [phone] Colleen Larios NP Unavailable [phone] Encounter Details Date Type Department Care Team (Late st Contact Info) Description 10/15/2024 Abstract [facility] OB [address] [place] [address] Vignesh Holman, DO [address] [facility] [address] [place], [place] [id number] Social History Tobacco Use Types Packs/Day Years [...] often do you attend chur ch or confucianist services? Never 01/22/2024 Do you belong to any clubs o r organizations such as yazidism groups, unions, fraternal or athletic groups, or [...] Recorded Patient Health Questionnaire-2 Score 0 02/04/2023 [facility] - Occupational Stress Questionnaire Answer Date [...] any time in the past 12 m [facility], were you homeless or [...] PM EDT Routine [facility] BCP OB [address] [facility] [place] [address] Vignesh Holman, DO [address] [facility] [address] [place], [place] [address] documented as of this encounter Visit Diagnoses Not on filedocumented in this encounter Care Teams Aix System Administrator Relationship Specialty Start Date End Date Kimmy Carey MD [address] [place] [address] PCP - General Family Medicine 02/04/23 Colleen Larios NP [address] [facility] [address] [place], [place] [address] PCP - [place] [employer] 03/15/24 documented as of this encounter
--- OUTSIDE RECORDS SUMMARY | 2025-01-16 07:36 | XMS_ITS | Clinical Summary ---
Author Organization [facility] Address [address] [place] [address] Care Team Providers Care Coloring Checker Name Role Phone Kimmy Carey MD Primary Care Provider [phone] Allergies No known active allergies Medications metoprolol [...] Diagnosed Date Tachycardia 08/11/2021 Palpitations 07/11/2020 Miscarriage ([facility] Irritable bowel syndrome with predominant consti pation Estimated Date of Delivery Comme nts Yes 08/16/2025 Based on last me nstrual period of 11/09/2024 Encounters Date Type Department Care Team Description 01/11/2025 Travel 01/05/2025 Clinisync Result Encounter [facility] External Department Unsolicited Vignesh Holman DO 01/05/2025 Telephone [facility]OM[facility] [address] [place] [address] Lynne Ayers, NICKI 12/31/2024 1:00 PM EDT Initial NOM[facility] [address] [place] [address] [place]: 7w3d 12/31/2024 12:30 PM EDT Ancillary Procedure NOM[facility] [address] [place] [address] Missed menses; History of miscarriage; Abdominal pain during , antepartum ([facility]) 12/24/2024 Travel 12/17/2024 Telephone [facility] [address] [place] [address] Vignesh Holman, DO 12/16/2024 Telephone [facility] [address] [place] [address] Vignesh Holman, DO 12/12/2024 Clinisync Result Encounter NOMS External Department Unsolicited Vignesh Holman, DO 12/10/2024 Clinisync Result Encounter N[facility]S External Department Unsolicited Vignesh Holman, DO 12/09/2024 Telephone [facility] [address] [place] [address] Lynne Ayers, NICKI 12/03/2024 Travel 11/03/2024 Telephone [facility] [address] [place] [address] Daija Osborne LPN 10/29/2024 Clinisync Result Encounter N[facility] External Department Unsolicited Vignesh Holman, DO 10/22/2024 Travel from Last 3 Months Immunizations Immunization [...] How often do you attend chur or nondenominational services? Never 01/22/2024 Do you belong to any clubs o r organizations such as anabaptist groups, unions, fraternal or athletic groups, or [...] Recorded Patient Health Questionnaire-2 Score 0 02/04/2023 [facility] of Occupat ional Health - Occupational [...] any time in the past 12 m [facility], were you homeless or living in a [...] PM EDT Routine [facility] BCP OB [address] [facility] [place] [address] Vignesh Holman, DO [address] [facility] [place] [address] Health Maintenance Due Date Last Done Comments Influenza Vaccine (#1) 2025 05/05/2013 Cervical Cancer Screening 12/26/2026 HPV/Cotest 12/26/2026 06/26/2019 Pap Smear 12/26/2026 12/26/2021, 12/26/2021 Procedures Procedure Name Priority Date/Time Associated Diagnosis Comments ALL MISCELLANEOUS TEST Routine 4:35 PM EDT VARICELLA-ZOSTER V AB, IGG Routine 01/05/2025 4:35 PM EDT POCT , URINE Routine 12/31/2024 1:34 PM EDT Missed menses POCT URINALYSIS DIPSTICK Routine 12/31/2024 1:33 PM EDT Missed menses US OB TRANSVAGINAL Routine 12/31/2024 1: 20 PM EDT Missed menses History of miscarriage Abdominal pain during , antepartum ([facility]) [facility] PREG QUANT HCG Routine 12/12/2024 6: 50 AM EDT [facility] PREG QUANT HCG Routine 12/10/2024 8: 15 AM EDT ALL ANTI-MULLERIAN HORMONE Routine 10/29/2024 10:50 AM EDT ALL PROGESTERONE Routine 10/29/2024 10:5 0 AM EDT THINPREP TIS PAP AND HPV MRNA E6/E7 REFLEX HPV 16,18/45 ([id number]) Routine 12/26/2021 Q - THINPREP(R) TIS AND HPV MRNA E6/E7 RFL HPV 16,18/45 Routine 06/26/2019 from Last 3 Months or Most Recently Relevant to Health Maintenance Results * VARICELLA-ZOSTER V AB, IGG (01/05/2025 4:35 PM EDT) Pathologist [facility] VARICELLAZOST ER V AB, IGG Non Reactive Non Reactive [facility] Comment: Please note reference interval change A Reactive result is considered evidence of immunity to VZV. Reactive indicates that VZV IgG was detected consistent with previous infection and/or vaccination. A Non Reactive result indicates that VZV IgG was not detected suggesting that immunity has not been acquired. Performed at: [facility] [employer] [id number] Knitted Garment Finisher: Vinay Caldera PhD, Phone: [phone] 01/05/2025 4:35 PM EDT 01/05/2025 4:36 PM EDT Narrative CLINISYNC - 01/07/2025 6:08 AM EDT Vignesh River DO LAB BLOOD ORDERABLES Final Resul t Performing Organization Address City/State/[facility] Co de Phone Number [facility] * ALL MISCELLANEOUS TEST (01/05/2025 4:35 PM EDT) Pathologist [facility] MISCELLANEOUS TEST COMMENT . [facility] Comment: Test Ordered: [id number] Varicella-Zoster Ab, IgM Varicella-Zoster Ab, IgM <0.91 index Reference Range: 0.00-0.90 Negative <0.91 Borderline 0.91 - 1.09 Positive >1.09 Performed at: [facility] [employer] [id number] Knitted Garment Finisher: Vinay Caldera PhD, Phone: [phone] 01/05/2025 4:35 PM EDT 01/05/2025 4:36 PM EDT Narrative CLINISYNC - 01/07/2025 2:08 PM EDT [id number] VARICELLA ZOSTER VIRUS ANTIBODY, IGM us Vignesh River DO CLINISYNC Final Result [facility] * (ABNORMAL) POCT , urine manually resulted (12/31/2024 1:34 PM EDT) Preg Test, Ur Positive Negative Urine 12/31/2024 1:34 PM EDT us Vignesh River DO POINT OF CARE TEST [...] Urine 12/31/2024 1:33 PM EDT us Vignesh River DO POINT OF CARE TEST [...] II, MD, PHD at 01-Jan-2025 06:15:03 AM [facility] Procedure Note Lizz Dee MD - [...] LIZZ DEE II, MD, PHD 06:15:03 AM [facility] us Vignesh River DO IMG OB US PROCEDURES Final Resul t * [...] Narrative CLINISYNC - 12/12/2024 7:22 AM EDT us Vignesh River DO CLINISYNC Final Result [facility] * ALL PROGESTERONE (10/29/2024 10:50 AM EDT) PROGESTERONE 8.8 . ng/mL [facility] Comment: Follicular phase 0.1 - 0.9 Luteal phase 1.8 - 23.9 Ovulation phase 0.1 - 12.0 First trimester 11.0 - 44.3 Second trimester 25.4 - 83.3 Third trimester 58.7 - 214.0 Postmenopausal 0.0 - 0.1 Performed at: [facility] [id number] Knitted Garment Finisher: Vinay Caldera PhD, Phone: [phone] 10/29/2024 10:5 0 AM EDT 10/29/2024 10:51 AM EDT Narrative CLINISYNC - 10/30/2024 4:27 AM EDT Vignesh Holman DO CLINISYNC Final Result [facility] * ALL ANTI-MULLERIAN HORMONE (10/29/2024 10:50 AM EDT) ANTI-MULLERIAN HORMONE (AMH) 6.00 . ng/mL [facility] Comment: For assays employing antibodies, the possibility exists for interference by heterophile antibodies in the samples.1 1.Dorcas Vazquez Interferences in Immunoassays - still a threat. Clin. Chem. 2000; 46: 5288-2854. This test was developed and its performance characteristics determined by [employer]. It has not been cleared or approved by the Food and Drug Administration. Reference Range: Females 31 - 35y: 0.66 - 8.75 Median 3.00 AMH concentrations of >= 1.06 ng/mL is correlated with a better response to ovarian stimulation, produced more retrievable oocytes and higher odds of live according to Gleicher et al. Fertility and Sterility. 2010: 94:1804-3889. The current AMH test method correlates with [...] exclude an AMH-secreting ovarian tumor. Performed at: [employer] [address] [place] [id number] Knitted Garment Finisher: Erik Wilson MD, Phone: [phone] 10/29/2024 10:5 0 AM EDT 10/29/2024 10:51 AM EDT Narrative CLINISYNC - 11/02/2024 11:23 AM EDT Vignesh WALLER Final Result [facility] * THINPREP TIS PAP AND HPV MRNA E6/E7 REFLEX HPV 16,18/45 ([id number]) (12/26/2021) CLINICAL INFORMATION: None given [facility] LEGACY [...] computer assisted technology. [facility] SCRUMMASTER : SEE COMMENT [facility] Comment: PCJ, SCT(ASCP) CT screening location: [facility] [place] [address]. REVIEW SCRUMMASTER : SEE COMMENT [facility] Comment: DMK, CT(ASCP) CT screening location: [facility] [place] [address]. COMMENT SEE COMMENT [facility] LEG ACY EXTERNAL [...] Detected [facility] Comment: Methodology: Gis Physical Scientist-Mediated Amplification This assay detects E6/E7 viral messenger RNA (mRNA) from 14 high-risk HPV types (16,18,31,33,35,39,45,51,52,56,58,59,66,68). Cervical sources are required for HPV testing. If a vaginal source from a patient who has had a total hysterectomy with removal of cervix was submitted, please contact the testing laboratory for alternative testing options. For additional information, please refer to http://[email or web address].RIVS/faq/SUI323k4 (This link if provided for information/ educational purposes only.) 12/26/2021 Adela ARIZA [facility] Final Result [facility] LEGACY EXTERNAL [...] computer assisted technology. [facility] LEGACY EXTERNAL LAB SCRUMMASTER: SEE NOTE NO [facility] LEGACY EXTERNAL LAB Comment: NNO, CT(ASCP) CT screening location: [facility] [place] [address]. REVIEW SCRUMMASTER: SEE NOTE [facility] LEGAC Y EXTERNAL LAB Comment: JEH, CT(ASCP) CT screening location: [facility] [place] [address]. COMMENT SEE NOTE [facility] LEGAC Y EXTERNAL [...] was performed using the APTIMA HPV Assay ([employer] This assay detects E6/E7 viral messenger RNA (mRNA) from 14 high-risk HPV types (16,18,31,33,35,39,45,51,52,56,58,59,66,68). The analytical performance characteristics of this assay have been determined by [employer]. The modifications have not been cleared or approved by the FDA. This assay has been validated pursuant to the CLIA regulations and is used for clinical purposes. 06/26/2019 us Adela Xavier CN [facility] Final Result [facility] EXTERNAL [facility] from Last 3 Months or Most Recently Relevant to [place] [address] [employer] Care Teams Coloring Checker Relationship Specialty Start Date End Date Kimmy Carey MD [address] [facility] [place] [address] PCP - General Family Medicine 02/04/23
--- OUTSIDE RECORDS SUMMARY | 2025-01-16 07:36 | XMS_ITS | Encounter Summary ---
Author Organization [facility] Address [address] [place] [address] Care Team Providers Care Purse Framer Name Role Phone Kimmy Carey MD Primary Care Provider [phone] Encounter Details Date Type Department Care Team (Late st Contact Info) Description 01/05/2025 Telephone [facility] [address] [place] [phone] Lynne Ayers MA [address] [place] [address] Social History Tobacco Use Types Packs/Day Years [...] often do you attend chur ch or baptism services? Never 01/22/2024 Do you belong to any clubs o r organizations such as roman catholic groups, unions, fraternal or athletic groups, [...] Recorded Patient Health Questionnaire-2 Score 0 02/04/2023 [facility] - Occupational [...] any time in the past 12 m [facility], were you homeless or living in [...] [address] [place] [address] Vignesh Holman, DO [address] [place], [place] [id number] Scheduled Orders Name Type Priority Associated Diagnoses Orde r Schedule Varicella zoster antibody, IgM Lab Routine Exposure to varicella Expected: 01/05/2025, Expires: 01/05/2026 Varicella zoster antibody, IgG Lab Routine Exposure to varicella Expected: 01/05/2025 (Approximate), Expires: 01/05/2026 documented as of this encounter Visit Diagnoses Diagnosis Exposure to varicella Contact with or exposure to varicella documented in this encounter Care Teams Purse Framer Relationship Specialty Start Date End Date Kimmy Carey MD [address] [place] [address] PCP - General Family Medicine 02/04/23 documented as of this encounter
--- OUTSIDE RECORDS SUMMARY | 2025-01-16 07:37 | XMS_ITS | Encounter Summary ---
Author Organization [employer] tem Address [id number] [address] [place] [address] Care Team Providers Care Cottonseed Meat Presser Name Role Phone No Pcp, No Pcp Primary Care Provider Unavailabl e Encounter Details Date Type Department Care Team (Late st Contact Info) Description 01/19/2022 Telephone [facility] [address] [place] [phone] Magalie Bailey PA [address] [place] [address] Social History Tobacco Use Types Packs/Day Years [...] urogram and an appointment with me in [place] to review the results. * Telephone Encounter [...] on filedocumented in this encounter Care Teams Cottonseed Meat Presser Relationship Specialty Start Date End Date No Pcp, [place] [address] PCP - General Family Medicine 07/21/24 documented as of this encounter
--- OUTSIDE RECORDS SUMMARY | 2025-01-16 07:37 | XMS_ITS | Encounter Summary ---
Author Organization [employer] [facility] tem Address [id number] [address] [place] [address] Care Team Providers Care Financial Business Analyst Name Role Phone No Pcp, No Pcp Primary Care Provider Unavailabl e Encounter Details Date Type Department Care Team (Late st Contact Info) Description 02/28/2022 [facility] [address] [place] [address] External, Scanning Provider Social History [...] on filedocumented in this encounter Care Teams Financial Business Analyst Relationship Specialty Start Date End Date No Pcp, [place] [address] PCP - General Family Medicine 07/21/24 documented as of this encounter
--- OUTSIDE RECORDS SUMMARY | 2025-01-16 07:37 | XMS_ITS | Encounter Summary ---
Author Organization [employer] Address [id number] [address] [place] [address] Care Team Providers Care Hog Raiser Name Role Phone No Pcp, No Pcp Primary Care Provider Unavailabl e Encounter Details Date Type Department Care Team (Late st Contact Info) Description 05/03/2022 Telephone [facility] [address] [place] [phone] Magalie Bailey PA [address] [place] [address] Social History Tobacco Use Types Packs/Day Years [...] 3:13 PM EDT Please call [facility] in [place] tomorrow to get the results from her urine test. She dropped off today * Telephone Encounter - Cielo Oro LPN - 05/03/2022 3:13 PM EDT Pt actually called and stated that [facility] did not receive an order for a urine collection. I reprinted the order and faxed it to [facility] [phone] per pt request. I will check on results tomorrow. * Telephone Encounter - Cielo Oro LPN - 05/03/2022 3:13 PM EDT Results received and on your desk for review. documented in this encounter Plan of Treatment Not on file documented as of this encounter Visit Diagnoses Not on filedocumented in this encounter Care Teams Hog Raiser Relationship Specialty Start Date End Date No Pcp, [place] [address] PCP - General Family Medicine 07/21/24 documented as of this encounter
--- OUTSIDE RECORDS SUMMARY | 2025-01-16 07:37 | XMS_ITS | Encounter Summary ---
Author Organization [facility] Address [id number] [address] [place] [address] Care Team Providers Care Pharmacy Aide Name Role Phone No Pcp, No Pcp Primary Care Provider Unavailabl e Encounter Details Date Type Department Care Team (Late st Contact Info) Description 05/07/2022 [facility] [address] [place] [phone] External, Scanning Provider Social History Tobacco Use [...] on filedocumented in this encounter Care Teams Pharmacy Aide Relationship Specialty Start Date End Date No Pcp, [place] [address] PCP - General Family Medicine 07/21/24 documented as of this encounter
--- OUTSIDE RECORDS SUMMARY | 2025-01-16 07:37 | XMS_ITS | Encounter Summary ---
Author Organization [employer] Address [id number] [address] [place] [address] Care Team Providers Care Technology Analyst Name Role Phone No Pcp, No Pcp Primary Care Provider Unavailabl e Encounter Details Date Type Department Care Team (Late st Contact Info) Description 02/26/2022 Orders Only [facility] External Film Storage [facility] [place] [address] Transcribe, Orders Support User Pain [...] pain documented in this encounter Care Teams Technology Analyst Relationship Specialty Start Date End Date No Pcp, [place] [address] PCP - General Family Medicine 07/21/24 documented as of this encounter
--- OUTSIDE RECORDS SUMMARY | 2025-01-16 07:37 | XMS_ITS | Encounter Summary ---
Author Organization [facility] Address [facility][id number] [address] [place] [address] Care Team Providers Care Manager Nc Name Role Phone No Pcp, No Pcp Primary Care Provider Unavailabl e Encounter Details Date Type Department Care Team (Late st Contact Info) Description 07/12/2020 Orders Only [facility] [address] [place] [address] External, Scanning Provider Social History [...] on filedocumented in this encounter Care Teams Manager Nc Relationship Specialty Start Date End Date No Pcp, [place] [address] PCP - General Family Medicine 07/21/24 documented as of this encounter
[2025-01-16 08:08] LABS: Hematocrit 38.8 % (36.0-48.0); Hemoglobin 13.3 g/dL (12.0-16.0); Immature Granulocytes Abs Auto 0.01 10^3/uL (0.00-0.03); Immature Granulocytes Pct Auto 0.1 % (0.0-0.5); Lymphocytes Absolute Auto 2.5 10^3/uL (1.2-3.8); Mean Corpuscular HGB Conc 34.3 g/dL (29.9-35.2); Mean Corpuscular Hemoglobin 32.8 pg (26.7-34.0); Mean Corpuscular Volume 95.8 fL (81.0-99.0); Platelet Count 275 10^3/uL (150-450); Red Blood Count 4.05 10^6/uL (4.20-5.40); White Blood Count 7.4 10^3/uL (4.0-11.0)
[2025-01-16 08:25] LABS: Cannabinoid Screen Urine NEGATIVE (NEGATIVE); Methamphetamines Screen Urine NEGATIVE (NEGATIVE); Tricyclic Antidepressant Urine NEGATIVE (NEGATIVE)
[2025-01-17 07:07] LABS: Rubella Antibodies, IgG <0.90 index (Immune >0.99)
[2025-01-17 11:08] LABS: Rapid Plasma Reagin, Quant Non Reactive titer (NonRea<1:1)
== END 2025-01-16 07:33 | disposition home or self-care (01) ==
PROVIDERS: Family Provider Family Medicine; Visit Provider Obstetrics & Gynecology
DX: Z34.01 Encounter for supervision of normal first pregnancy, first trimester (principal); N92.6 Irregular menstruation, unspecified
CPT/HCPCS: 36415; 80307; 83036; 85025; 86592; 86762; 86803; 86850; 86900; 86901; 87086; 87340; 87389

== ENCOUNTER 2025-03-25 07:32 | Outpatient (OUT) | payer BC, SELFPAY ==
--- OUTSIDE RECORDS SUMMARY | 2025-03-11 09:30 | XMS_ITS | Encounter Summary ---
Author Organization [facility] Address [address] [place] [address] Care Team Providers Care Drag Out Worker Name Role Phone Kimmy Carey MD Primary Care Provider [phone] Reason for Visit * Reason Comments Routine Visit Encounter Details Date Type Department Care Team (Late st Contact Info) Description 03/11/2025 9:30 AM EDT Routine [facility] [place] [address] [place] [phone] Vignesh Holman DO [address] [place] [address] Second trimester ([facility]); 18 weeks gestation of ([facility]) Social History Tobacco Use Types Packs/Day Years [...] week 01/22/2024 How often do you attend [facility] or yarsani services? Never 01/22/2024 Do you belong to any clubs o r organizations such as mormon groups, unions, fraternal or athletic groups, or [...] Recorded Patient Health Questionnaire-2 Score 0 02/04/2023 [facility] - Occupational [...] any time in the past 12 m [facility], were you homeless or living in a fpc (including now)? No 01/22/2024 Estimated Date of [...] Sign Reading Time Taken Comments Blood Pressure 108/70 03/11/2025 9:54 AM EDT Pulse - - Temperature - - Respiratory Rate - - Oxygen Saturation - - Inhaled Oxygen Concentration - - Weight 61.9 kg (136 lb 6.4 oz) 03/11/2025 9:54 A M EDT Height - - Body Mass Index 24.95 05/15/2024 9:31 AM EDT documented in this encounter Progress Notes * Marika Contreras LPN - 03/11/2025 9:30 AM EDT Reason for Appointment: Patient ID: Sammi Chapa is a 34 y.o. female who presents for Routine Visit Patient presents today for Return OB appointment. MEDICATIONS Current Outpatient Medications Medication Instructions MV-Min-Fe Fum-FA-DHA ( 1 PO) 1 tablet, Daily ALLERGIES No Known Allergies PROBLEMS Active Ambulatory Problems Diagnosis Date Noted Palpitations 07/11/2020 Tachycardia 08/11/2021 Miscarriage ([facility]-HCC) Irritable bowel syndrome with predominant constipation Resolved Ambulatory Problems Diagnosis Date Noted No Resolved Ambulatory Problems Past Medical History: Diagnosis Date POTS (postural orthostatic tachycardia syndrome) 03/2024 HISTORY PAST MEDICAL HISTORY SOCIAL HISTORY Past Medical History: Diagnosis Date Irritable bowel syndrome with predominant constipation Miscarriage ([facility]HS-HCC) POTS (postural orthostatic tachycardia syndrome) 03/2024 Social History Tobacco Use Smoking status: Never Smokeless tobacco: Never Vaping Use Vaping status: Never Used Substance Use Topics Alcohol use: Never Comment: Caffeine: Drug use: Never FAMILY HISTORY Family History Problem Relation Name Age of Onset Hypertension Father Diabetes Maternal Grandmother Multiple myeloma Neg Hx SURGICAL HISTORY Past Surgical History: Procedure Laterality Date COLONOSCOPY 12/2015 PAP SMEAR 2017 REVIEW OF SYSTEMS Review of Systems: Review of Systems Constitutional: Negative. HENT: Negative. Eyes: Negative. Respiratory: Negative. Cardiovascular: Negative. Gastrointestinal: Negative. Genitourinary: Negative. Musculoskeletal: Negative. Skin: Negative. Neurological: Negative. All other systems reviewed and are negative. Hematological: Negative. Endocrine: Negative. Allergic/Immunologic: Negative. OBJECTIVE Objective: OBGyn Exam Vitals: Estimated body mass index is 24.95 kg/m?? as calculated from the following: Height as of 05/15/24: 5' 2 . Weight as of this encounter: 136 lb 6.4 oz. BP: 108/70 Patient's last menstrual period was 11/09/2024. ASSESSMENT & PLAN ICD-10-CM 1. Second trimester ([facility]) Z34.92 POCT urinalysis dipstick manually resulted 2. 18 weeks gestation of ([facility]) Z3A.18 POCT urinalysis dipstick manually resulted Patient presents today for a routine obstetrics appointment. Patient is currently 17w3d with a Estimated Date of Delivery: 08/16/25. Patient previously had referrals sent to Cardiology and Maternal Medicine. Patient will have Level II ultrasound completed through Maternal Medicine. Patient to return to clinic in 4 weeks for routine OB appointment. Documented by Marika Contreras LPN on behalf of: Vignesh Holman DO documented in this encounter Plan of Treatment Upcoming Encounters Date Type Department Care Team (Late st Contact Info) Description 04/06/2025 10:30 AM EDT Routine [facility] [address] [place] [address] Vignesh Holman DO [address] [place] [address] documented as of this encounter Goals Goal Patient Goal Type Associated Problems Recent Progress Patient-Stated? Author Reminders Care Plan OB Reminders No Open Scheduling, Background documented as of this encounter Procedures Procedure Name Priority Date/Time Associated Diagnosis Comments POCT URINALYSIS DIPSTICK Routine 03/11/2025 10:03 AM EDT Second trimester ([facility]) 18 weeks gestation of ([facility]) documented in this encounter Results * (ABNORMAL) POCT urinalysis dipstick manually resulted (03/11/2025 10:03 AM EDT) Color, UA Light Yellow Clarity, UA Clear Glucose, UA Negative Negative - 2000(110) ++++ mg/dL Bilirubin, UA Negative Negative - 4(70) +++ mg/dL Ketones, UA Negative Negative - 160(16) ++++ mg/dL Spec Grav, UA 1.005 1 - 1.03 Blood, UA Negative Negative - 50 Piter/mcL pH, UA 6.0 5 - 9 Protein, UA Negative Negative - 2000(20) ++++ mg/dL Urobilinogen, UA 1.0 0.2 - 12 mg/dL Leukocytes, UA Positive Negative - 500+++ Nikki/mcL Nitrite, UA Negative Negative - Positive Urine 03/11/2025 10:0 3 AM EDT [facility] POINT OF CARE TEST ENTER/EDIT OR DERABLES Final Result documented in this encounter Visit Diagnoses Diagnosis Second trimester ([facility]) state, incidental 18 weeks gestation of ([facility]) documented in this encounter Additional Health Concerns Active Problems Noted Date Diagnosed Date OB Reminders 01/19/2025 documented as of this encounter Care Teams Drag Out Worker Relationship Specialty Start Date End Date Kimmy Carey MD [address] [place] [address] PCP - General Family Medicine 02/04/23 documented as of this encounter
--- NOTE | 2025-03-25 07:34 | CA_ITS ---
Patient Name: NORRIS GARDNER MR#: [id number] : 1990 Exam Date: 03/25/2025 Ordering Doctor: DR. DEBORAH MEDINA M.D. ECHOCARDIOGRAM REPORT PROCEDURE: CA ECHO DOPPLER COMPLETE INDICATIONS: Dyspnea on exertion COMPARISON: None. DESCRIPTION: COMPLETE ECHOCARDIOGRAM Real-time transthoracic echocardiography with 2D, M-mode, spectral and color flow Doppler performed. QUALITY: Technical quality was good. LEFT VENTRICLE: Normal chamber size. Normal left ventricular wall thickness. LV EF: Global left ventricular systolic function is normal. Visually estimated ejection fraction is 60 to 65%. Calculated left ventricular ejection fraction is 68%. A false tendon (normal variant) is seen. No significant wall motion abnormalities. DIASTOLIC: Normal diastolic function. ATRIAL SEPTUM: Inadequately seen. LEFT ATRIUM: Normal chamber size. RIGHT ATRIUM: Normal chamber size. RIGHT VENTRICLE: Normal chamber size. Normal right ventricular systolic function. TRICUSPID VALVE: Normal mobility and thickness. No stenosis with trivial regurgitation. No evidence of pulmonary hypertension. RVSP 21mmHg. MITRAL VALVE: Normal mobility and thickness. No evidence of mitral valve stenosis. There is no mitral annular calcification. Trivial mitral regurgitation. AORTIC VALVE: Normal trileaflet appearance. No visible sclerosis. Normal leaflet mobility. No evidence of aortic valve stenosis. No aortic regurgitation. AORTIC ROOT: Normal diameter and appearance. PULMONIC VALVE: Normal thickness and mobility. No stenosis. No regurgitation. PERICARDIUM: No evidence of pericardial effusion. IVC: Collapses with inspiration. Normal size. CONCLUSION: 1. Global left ventricular systolic function is normal; visually estimated ejection fraction is 60 to 65% 2. Normal right ventricular size and systolic function 3. Normal diastolic function 4. The left atrium is normal in size 5. No significant valvular abnormalities Adult Echocardiography Procedure Report Left Ventricle LVEDD (3.7 - 5.6 cm): 4.28 cm LVESD (2.2 - 4.0 cm): 3.05 cm LVIVS thickness (0.6 - 1.2 cm): 0.59 cm LVPW thickness (0.5 - 1.0 cm): 0.67 cm e': 0.19 m/s E - e': 3.92 LVOT Max Gradient: 3.76 mm[Hg] LVOT Area (cm2): 0.97 m/s Peak Velocity (LVOT): 0.97 m/s Mean Velocity (LVOT): 0.62 m/s LVOT Diameter 1.88 cm Left Ventricular Ejection Fraction: 68.14 % Left Atrium LA Volume Index (2D A2C): 34.10 ml/m2 Left Atrium Systolic Dimension: 3.47 cm Mitral Valve MV E to A Ratio: 1.10 Mitral Valve A-Wave Peak Velocity: 0.68 m/s Mitral Valve E-Wave Peak Velocity: 0.75 m/s Right Ventricle RV Internal Diastolic Dimension: 3.09 cm Aorta AO Root Diam: 2.46 cm Ascending Ao Diam: 2.45 cm Aortic Valve AoV Area (Peak Luis Miguel): 1.99 cm2, 1.99 cm2 AoV Area (VTI): 2.12 cm2, 2.17 cm2 Peak Velocity(Antegrade Flow): 1.36 m/s, 1.36 m/s Peak Gradient(Antegrade Flow): 7.40 mm[Hg], 7.40 mm[Hg] Mean Velocity(Antegrade Flow): 0.94 m/s, 0.92 m/s Mean Gradient(Antegrade Flow): 3.99 mm[Hg], 3.95 mm[Hg] Velocity Time Integral: 24.75 cm, 25.96 cm Tricuspid Valve Peak Velocity (Regurgitant Flow): 1.60 m/s, 2.13 m/s Pulmonic Valve Mean Gradient: 4.32 mm[Hg], 4.20 mm[Hg] Mean Velocity: 0.97 m/s, 0.96 m/s Peak Velocity: 1.39 m/s Peak Gradient: 7.87 mm[Hg], 7.56 mm[Hg] Right Atrium Right Atrium Systolic Pressure: 24.35 ml, 24.35 ml Dictated by: Yennifer Arnold M.D. on 03/25/2025 at 10:12 Approved by: Yennifer Arnold M.D. on 03/25/2025 at 10:15
--- OUTSIDE RECORDS SUMMARY | 2025-03-25 07:34 | XMS_ITS | Encounter Summary ---
Author Organization [employer] Address [id number] [address] [place] [address] Care Team Providers Care Twister Operator Name Role Phone No Pcp, No Pcp Primary Care Provider Unavailabl e Encounter Details Date Type Department Care Team (Late st Contact Info) Description 02/26/2022 [facility] Storage [address] [place] [phone] Transcribe, Orders Support User Pain (Primary [...] Encounters Date Type Department Care Team (Late Contact Info) Description 03/29/2025 2:15 PM EDT Appointment [facility] [address] [place] [address] 03/29/2025 3:30 PM EDT Office Visit Maternal- Medicine at [facility] [address] [place] [address] Gill Mejia MD [address] 1[address] [place] [address] documented as of this encounter Results * Ultrasound abdomen limited (02/22/2022 1:45 PM EDT) us Scanning Provider External IMG US ORDERABLES Fin al Result documented in this encounter Visit Diagnoses Diagnosis Pain- Primary Generalized pain documented in this encounter Care Teams Twister Operator Relationship Specialty Start Date End Date No Pcp, [place] [address] PCP - General Family Medicine 07/21/24 documented as of this encounter
--- OUTSIDE RECORDS SUMMARY | 2025-03-25 07:34 | XMS_ITS | Clinical Summary ---
Author Organization [facility] Address [address], [address] [place] [address] Care Team Providers Care Student Development Specialist Name Role Phone Unavailable Primary Care Provider Unavailabl e Allergies No known active allergies Medications Vit-DSS-Fe Cbn-FA ( AD PO) Take by mouth daily Active Multiple Vitamin (MULTIVITAMIN ADULT PO) Take by mouth Active VITAMIN D PO Take by mouth Act ana [place]-3 Fatty Acids (FISH OIL) 300 MG CAPS [...] Description 04/19/2025 2:40 PM EDT Office Visit [facility] Part of [address] [address] Randy Tavares MD [address] [place] [address] yearly follow up Health Maintenance Due Date Last Done Comments Lipids 1999 Depression Screen 2001 Varicella vaccine (1 of 2 - 13+ 2-dose series) 2002 HIV screen 2004 Hepatitis C screen 2007 DTaP/Tdap/Td vaccine (1 - Tdap) 2008 Hepatitis B vaccine (1 of 3 - 19+ 3-dose series) 2008 Pap smear 2010 Cervical cancer screen 2019 HPV (without or with Pap) 2019 Flu vaccine (#1) 02/12/2025 05/05/2013 COVID-19 Vaccine ( - 2023-2 5 season) 2025 HPV vaccine (No Doses Required) Completed Hepatitis A vaccine Aged Out No longe [...] patient's age to complete this topic Insurance [facility]
--- OUTSIDE RECORDS SUMMARY | 2025-03-25 07:34 | XMS_ITS | Encounter Summary ---
Author Organization [facility] [employer] [facility] tem Address [id number]-[id number] [address] [place] [address] Care Team Providers Care Animal Control Specialist Name Role Phone No Pcp, No Pcp Primary Care Provider Unavailabl e Encounter Details Date Type Department Care Team (Late Contact Info) Description 02/28/2022 Abstract [facility] [address] [place] [phone] External, Scanning Provider Social History Tobacco Use [...] Info) Description 03/29/2025 2:15 PM EDT Appointment [facility] US Imaging [address] [place] [phone] 03/29/2025 3:30 PM EDT Office Visit Maternal- Medicine at [facility] [address] [place] [phone] Gill Mejia MD [address] [facility] 1st [place] [address] documented as of this encounter Procedures Procedure [...] on filedocumented in this encounter Care Teams Animal Control Specialist Relationship Specialty Start Date End Date No Pcp[place] [address] PCP - General Family Medicine 07/21/24 documented as of this encounter
--- OUTSIDE RECORDS SUMMARY | 2025-03-25 07:34 | XMS_ITS | Encounter Summary ---
Author Organization [facility] Address [address] [place] [address] Care Team Providers Care Toe Sewer Name Role Phone Kimmy Carey MD Primary Care Provider [phone] Colleen Larios NP Unavailable [phone] Encounter Details Date Type Department Care Team (Late st Contact Info) Description 10/15/2024 Abstract [facility] [address] [place] [phone] Vignesh Holman DO [address] [place], [place] [phone] Social History Tobacco Use Types Packs/Day Years [...] week 01/22/2024 How often do you attend [facility] or hoahaoism services? Never 01/22/2024 Do you belong to any clubs o r organizations such as religion groups, unions, fraternal or athletic groups, or [...] Recorded Patient Health Questionnaire-2 Score 0 02/04/2023 [facility] - [facility] Questionnaire Answer [...] any time in the past 12 m [facility], were you homeless or living in a retirement (including now)? No 01/22/2024 Comments No Sex [...] AM EDT Routine [facility] [address] [place] [address] Vignesh Holman DO [address] [place] [address] documented as of this encounter Visit Diagnoses Not on filedocumented in this encounter Care Teams Toe Sewer Relationship Specialty Start Date End Date Kimmy Carey MD [address] [facility] [address] [place], [place] [phone] PCP - General Family Medicine 02/04/23 Colleen Larios NP [address] [facility] [address] [place], [place] [phone] PCP - [place] [employer] 03/15/24 documented as of this encounter
--- OUTSIDE RECORDS SUMMARY | 2025-03-25 07:34 | XMS_ITS | Encounter Summary ---
Author Organization [facility] tem Address [facility][id number] [address] [place] [address] Care Team Providers Care Teamcenter Consultant Name Role Phone No Pcp, No Pcp Primary Care Provider Unavailabl e Encounter Details Date Type Department Care Team (Late Contact Info) Description 01/21/2025 Orders Only Maternal- Medicine at [facility] [address] [place] [phone] Ref Prov, [place] [address] Social History Tobacco Use Types Packs/Day Years Used Date Smoking Tobacco: Never Smokeless Tobacco: Never Alcohol Use Standard Drinks/Week Comments Not Currently [...] Recorded Purpose and direction in life Unknown Estimated Date of Delivery Comme nts Yes 08/16/2025 Based on Ultraso und Sex and Gender Information Value Date Recorded Sex Assigned at Not on file Legal Sex Female 8:44 AM EDT Gender Identity Not on file Sexual Orientation Not on file documented as of this encounter Plan of Treatment Upcoming Encounters Date Type Department Care Team (Late st Contact Info) Description 03/29/2025 2:15 PM EDT Appointment [facility] US Imaging [address] [place] [address] 03/29/2025 3:30 PM EDT Office Visit Maternal- Medicine at [facility] [address] [place] [address] Gill Mejia MD [address] [facility] 1st [place] [address] documented as of this encounter Visit Diagnoses Not on filedocumented in this encounter Additional Health Concerns Assessment Noted Time PHQ-9 Depression Total Score: 1 05/14/20 24 8:55 AM EDT documented as of this encounter Care Teams Teamcenter Consultant Relationship Specialty Start Date End Date No Pcp, [place] [address] PCP - General Family Medicine 07/21/24 documented as of this encounter
--- OUTSIDE RECORDS SUMMARY | 2025-03-25 07:34 | XMS_ITS ---
Author Organization [facility] Source Produ ction (ClinicalSummary Clone) Address Unknown Care Team Providers Care Voice Over Artist Name Role Phone Unavailable Primary Care Physician Unavailab le Results * [UNITY] ANEUPLOIDY NIPT Performed by: [employer] Component Value Range Date Fraction 7.0% 02/03/2025 03 :40 am UTC Rh(D) NIPT RhD DETECTED 02/03/2025 03:4 0 am UTC Sex Chromosome Aneuploidy NOT DETECTED 03:40 am UTC Monosomy X LOW RISK <1 in 10,000 2024 03:40 am UTC Trisomy 13 LOW RISK <1 in 10,000 2024 03:40 am UTC Trisomy 18 LOW RISK <1 in 10,000 2024 03:40 am UTC Trisomy 21 LOW RISK <1 in 10,000 2024 03:40 am UTC Sex MALE 02/03/2025 03:4 0 am UTC Gestation URIOSTEGUI 02/04/20 03:40 am UTC For detailed report, see PDF See PDF 02/03/2025 03:40 am UTC 02/03/2025 03:4 0 am UTC Social History Observation Value Start Date End Date
--- OUTSIDE RECORDS SUMMARY | 2025-03-25 07:34 | XMS_ITS | Encounter Summary ---
Author Organization [facility] Recovers [facility] tem Address [id number] [address] [place] [address] Care Team Providers Care Locomotive Engineer Name Role Phone No Pcp, No Pcp Primary Care Provider Unavailabl e Encounter Details Date Type Department Care Team (Late Contact Info) Description 05/07/2022 Abstract [facility] Physicians [facility] [address] [place] [phone] External, Scanning Provider Social History Tobacco Use [...] Info) Description 03/29/2025 2:15 PM EDT Appointment [facility] [address] [place] [phone] 03/29/2025 3:30 PM EDT Office Visit Maternal- Medicine at [facility] [address] [place] [phone] Gill Mejia MD [address] [facility] [address] [place] [address] documented as of this encounter Procedures Procedure Name Priority Date/Time Associated Diagnosis Comments MICROSCOPIC URINE Routine 05/03/2022 documented in this encounter Results * Microscopic, urine (05/03/2022) 05/03/2022 us Scanning Provider External URINE ORDERABLES [facility]renity l Result MANUALLY TRANSCRIBED RESULTS documented in this encounter Visit Diagnoses Not on filedocumented in this encounter Care Teams Locomotive Engineer Relationship Specialty Start Date End Date No Pcp, [place] [address] PCP - General Family Medicine 07/21/24 documented as of this encounter
--- OUTSIDE RECORDS SUMMARY | 2025-03-25 07:34 | XMS_ITS | Clinical Summary ---
Author Organization [facility] Address [address] [place] [address] Care Team Providers Care Dbas Name Role Phone Kimmy Carey MD Primary Care Provider [phone] Allergies No known active allergies Medications MV-Min-Fe Fum-FA-DHA ( 1 PO) Take 1 tablet by mouth Daily Active Active Problems Problem Noted Date Diagnosed Date Tachycardia 08/11/2021 Palpitations 07/11/2020 Miscarriage ([facility]) Irritable bowel syndrome with predominant consti pation Estimated Date of Delivery Comme nts Yes 08/16/2025 Based on last me nstrual period of 11/09/2024 Encounters Date Type Department Care Team Description 03/11/2025 9:30 AM ED[place] [address] Vignesh Holman DO Second trimester ([facility]); 18 weeks gestation of ([facility]) 03/11/2025 [place] [address] Vignesh Holman DO 03/11/2025 [place] [address] Vignesh Holman DO 03/07/2025 Travel 02/16/2025 11:20 AM EDT [place] [address] Vignesh Holman, Second trimester ([facility]); 14 weeks gestation of ([facility]) 02/16/2025 Bamboo flowsheet [facility] [address] [place] [address] [place] [address] Vignesh Holman, 02/09/2025 Travel 01/28/2025 9:30 AM EDT Routine [facility] [place] [facility] [place] [address] Vignesh Holman, 11 weeks gestation of ([facility]); First trimester ([facility]); POTS (postural orthostatic tachycardia syndrome) 01/28/2025 Telephone [facility] [address] [place] [address] [place] [address] Marika Contreras LPN 01/28/2025 Bamboo flowsheet [facility] [address] [place] [address] [place] [address] Vignesh Holman, 01/22/2025 Travel 01/18/2025 1:10 PM EDT Routine [facility] [place] [facility] [place] [address] Vignesh Holman, 10 weeks gestation of ([facility]); First trimester ([facility]); Vaginal discharge during in first trimester ([facility]) 01/18/2025 External Result Encounter NOM[facility] External Department Unsolicited Sammi Briones NP 01/18/2025 Telephone [facility] [place] [facility] [address] [place] [address] [place] [address] Manda Ojeda MA 01/16/2025 Clinisync Result Encounter NOMS External Department Unsolicited Vignesh Holman DO 01/11/2025 Travel 01/05/2025 Clinisync Result Encounter NOMS External Department Unsolicited Vignesh Holman DO 01/05/2025 Telephone [facility] [place] [facility] [address] [place] [address] Lynne Ayers MA 12/31/2024 1:00 PM EDT Initial [facility] [place] [facility] [address] [place] [address] [place]: 7w3d 12/31/2024 12:30 PM EDT Ancillary Procedure [facility] [place] [facility] [address] [place] [address] Missed menses; History of miscarriage; Abdominal pain during , antepartum ([facility]) 12/24/2024 Travel from Last 3 Months Immunizations Immunization [...] often do you attend chur ch or jewish services? Never 01/22/2024 Do you belong to any clubs o r organizations such as methodist groups, unions, fraternal or athletic groups, or [...] Recorded Patient Health Questionnaire-2 Score 0 02/04/2023 [facility] - Occupational Stress Questionnaire Answer Date [...] in a alf (including now)? No 01/22/2024 Estimated Date of [...] Pressure 108/70 03/11/2025 9:54 AM EDT Pulse 90 05/15/2024 9:31 AM EDT Temperature - - Respiratory Rate - - Oxygen Saturation 95% 05/15/2024 9:31 AM EDT Inhaled Oxygen Concentration - - Weight 61.9 kg (136 lb 6.4 oz) 03/11/2025 9:54 A M EDT Height 157.5 cm (5' 2 ) 05/15/2024 9:31 AM EDT Body Mass Index 24.95 05/15/2024 9:31 AM EDT Plan of Treatment Upcoming Encounters Date Type Department Care Team (Late st Contact Info) Description 04/06/2025 10:30 AM EDT Routine [facility] [place] [facility] [address] [place] [place] [phone] Vignesh Holman DO [address] [facility] [address] [place], [place] [id number] Health Maintenance Due Date Last Done Comments Influenza Vaccine (#1) 2025 05/05/2013 Cervical Cancer Screening 12/26/2026 HPV/Cotest 12/26/2026 06/26/2019 Pap Smear 12/26/2026 12/26/2021, 12/26/2021 Goals Goal Patient Goal Type Associated Problems Recent Progress Patient-Stated? Author Reminders Care Plan OB Reminders No Open Scheduling, Background Procedures Procedure Name Priority Date/Time Associated Diagnosis Comments POCT URINALYSIS DIPSTICK Routine 03/11/2025 10:03 AM EDT Second trimester ([facility]) 18 weeks gestation of [facility] POCT URINALYSIS DIPSTICK Routine 01/28/2025 9:43 AM EDT 11 weeks gestation of ([facility]) First trimester ([facility]) CULTURE, URINE, ROUTINE Routine 01/19/2025 3:39 PM EDT Missed menses RECURRENT VAGINITIS (HTRX) Routine 01/18/2025 2:11 PM EDT POCT URINALYSIS DIPSTICK Routine 01/18/2025 1:23 PM EDT 10 weeks gestation of ([facility]) First trimester ([facility]) HBSAG SCREEN Routine 01/16/2025 7:52 AM EDT RAPID PLASMA REAGIN, QUANT Routine 01/16/2025 7:52 AM EDT HIV AB/P24 AG WITH REFLEX Routine 01/16/2025 7:52 AM EDT HCV ANTIBODY RFX TO QUANT PCR Routine 01/16/2025 7:52 AM EDT ALL RUBELLA IGG AB Routine 01/16/2025 7: 52 AM EDT ALL TYPE AND SCREEN Routine 01/16/2025 7 :52 AM EDT MLR HEMOGLOBIN A1C Routine 01/16/2025 7: 52 AM EDT [facility] DRUG SCREEN RAPID (URINE) Routine 01/16/2025 7:52 AM EDT BOX TEST Routine 01/16/2025 7:52 AM EDT ALL CBC WITH AUTO DIFF Routine 7:52 AM EDT ALL MISCELLANEOUS TEST Routine 4:35 PM EDT VARICELLA-ZOSTER V AB, IGG Routine 01/05/2025 4:35 PM EDT POCT , URINE Routine 12/31/2024 1:34 PM EDT Missed menses POCT URINALYSIS DIPSTICK Routine 12/31/2024 1:33 PM EDT Missed menses US OB TRANSVAGINAL Routine 12/31/2024 1: 20 PM EDT Missed menses History of miscarriage Abdominal pain during , antepartum ([facility]) THINPREP TIS PAP AND HPV MRNA E6/E7 REFLEX HPV 16,18/45 (72990) Routine 12/26/2021 Q - THINPREP(R) TIS AND HPV MRNA E6/E7 RFL HPV 16,18/45 Routine 06/26/2019 from Last 3 Months or Most Recently Relevant to Health Maintenance Results * (ABNORMAL) POCT urinalysis dipstick manually resulted (03/11/2025 10:03 AM EDT) Only the most recent of4 resultswithin the time period is included. Color, UA Light Yellow Clarity, UA Clear [...] Positive Urine 03/11/2025 10:0 3 AM EDT Vignesh Holman DO POINT OF CARE TEST ENTER/EDIT OR DERABLES Final Result * Urine culture (01/19/2025 3:39 PM EDT) Urine Urine specimen obtained by clean catch procedure / Unknown Vignesh Holman DO LAB MICROBIOLOGY - GENERAL ORDER RADHA Final Result EXTERNAL LAB * RECURRENT VAGINITIS (HTRX) (01/18/2025 2:11 PM EDT) [facility] ATOPOBIUM VAGINAE 0 19.961 - 24.689 ppm 01/19/2025 6:26 AM EDT [facility] ATOPOBIUM VAGINAE Not Detected 19.961 - 24.689 ppm 01/19/2025 6:26 AM EDT [facility] BVAB 2,3 (BACTERIAL VAGINOSIS ASSOCIATED BACTERIA 2, 3); MOBILUNCUS SPP 0 19.961 - 24.689 ppm 01/19/2025 6:26 AM EDT [facility] BVAB 2,3 (BACTERIAL VAGINOSIS ASSOCIATED BACTERIA 2, 3); MOBILUNCUS SPP Not Detected 19.961 - 24.689 ppm 01/19/2025 6:26 AM EDT [facility] SERVANDO ALBICANS, PARAPSILOSIS, TROPICALIS 0 19.961 - 30.770 ppm 01/19/2025 6:26 AM EDT [facility] SERVANDO ALBICANS, PARAPSILOSIS, TROPICALIS Not Detected 19.961 - 30.770 ppm 01/19/2025 6:26 AM EDT [facility] SERVANDO GLABRATA 0 23.000 - 32.138 ppm 01/19/2025 6:26 AM EDT [facility] SERVANDO GLABRATA Not Detected 23.000 - 32.138 ppm 01/19/2025 6:26 AM EDT [facility] SERVANDO KRUSEI 0 23.000 - 32.271 ppm 01/19/2025 6:26 AM EDT [facility] SERVANDO KRUSEI Not Detected 23.000 - 32.271 ppm 01/19/2025 6:26 AM EDT [facility] [place] CHLAMYDIA TRACHOMATIS 0 23.000 - 31.467 ppm 01/19/2025 6:26 AM EDT [facility] [place] CHLAMYDIA TRACHOMATIS Not Detected 23.000 - 31.467 ppm 01/19/2025 6:26 AM EDT [facility] [place] GARDNERELLA VAGINALIS 0 19.961 - 24.689 ppm 01/19/2025 6:26 AM EDT [facility] [place] GARDNERELLA VAGINALIS Not Detected 19.961 - 24.689 ppm 01/19/2025 6:26 AM EDT [facility] [place] MEGASPHAERA (TYPES 1, 2) 0 19.961 - 24.689 ppm 01/19/2025 6:26 AM EDT [facility] [place] MEGASPHAERA (TYPES 1, 2) Not Detected 19.961 - 24.689 ppm 01/19/2025 6:26 AM EDT [facility] [place] NEISSERIA GONORRHOEAE 0 23.000 - 32.117 ppm 01/19/2025 6:26 AM EDT [facility] [place] NEISSERIA GONORRHOEAE Not Detected 23.000 - 32.117 ppm 01/19/2025 6:26 AM EDT [facility] [place] TRICHOMONAS VAGINALIS 0 23.000 - 32.119 ppm 01/19/2025 6:26 AM EDT [facility] [place] TRICHOMONAS VAGINALIS Not Detected 23.000 - 32.119 ppm 01/19/2025 6:26 AM EDT [facility] [place] MYCOPLASMA GENITALIUM 0 19.961 - 24.689 ppm 01/19/2025 6:26 AM EDT [facility] [place] MYCOPLASMA GENITALIUM Not Detected 19.961 - 24.689 ppm 01/19/2025 6:26 AM EDT [facility] Tissue 01/18/2025 2:11 PM EDT 01/19/2025 1:25 AM EDT Sammi Anali SAT ACT INSTRUCTOR LAB BLOOD ORDERABLES Final Re sult Performing Organization Address City/[facility]/ZIP Co de Phone Number [facility] [place] [address] * BOX TEST (01/16/2025 7:52 AM EDT) BOX TEST SENT OUT [facility] BOX1 [facility] BOX2 01/16/25 [facility] 01/16/2025 7:52 AM EDT 01/16/2025 8:03 AM EDT Narrative [facility] - 01/16/2025 8:09 AM EDT [facility] LAB BLOOD ORDERABLES Final Resul t Performing Organization Address [facility] Co de Phone Number [facility] * HBSAG SCREEN (01/16/2025 7:52 AM EDT) Pathologist [facility] HBSAG SCREEN Negative Negative [facility] Comment: Performed at: [address] [id number] Leather Carver: Vinay Caldera PhD, Phone: [phone] 01/16/2025 7:52 AM EDT 01/16/2025 8:03 AM EDT Narrative [facility] - 01/17/2025 11:08 AM EDT [facility] LAB BLOOD ORDERABLES Final Resul t Performing Organization Address City/[facility] Co de Phone Number [facility] * RAPID PLASMA REAGIN, QUANT (01/16/2025 7:52 AM EDT) Pathologist [facility] RAPID PLASMA REAGIN, QUANT Non Reactive NonRea<1: 1 titer [facility] Comment: Please Note: This test does not meet current guidelines for screening and diagnosis of syphilis. This test is intended for following treatment response in patients being treated for syphilis infection. To screen for syphilis infection, a reflex cascade that includes both RPR and a treponema-specific assay should be utilized, such as Treponema pallidum (Syphilis) Screening [place] (471702) or Rapid Plasma Reagin (RPR) Test With Reflex to Quantitative RPR and Confirmatory Treponema pallidum Antibodies ([id number]). Performed at: [address] [id number] Leather Carver: Vinay Caldera PhD, Phone: [phone] 01/16/2025 7:52 AM EDT 01/16/2025 8:03 AM EDT Narrative [facility] - 01/17/2025 11:08 AM EDT Vignesh River DO LAB BLOOD ORDERABLES Final Resul t Performing Organization Address [facility] Co de Phone Number [facility] * HIV AB/P24 AG WITH REFLEX (01/16/2025 7:52 AM EDT) HIV AB/P24 AG SCREEN Non Reactive Non Reactive TB Comment: HIV-1/HIV-2 antibodies and HIV-1 p24 antigen were NOT detected. There is no laboratory evidence of HIV infection. HIV Negative Performed at: [address] [id number] Leather Carver: Vinay Caldera PhD, Phone: [phone] 01/16/2025 7:52 AM EDT 01/16/2025 8:03 AM EDT Narrative [facility] - 01/17/2025 9:08 AM EDT DemoHireo DO LAB BLOOD ORDERABLES Final Resul t Performing Organization Address City/[facility]/ZIP Co de Phone Number [facility] * [facility] DRUG SCREEN RAPID (URINE) (01/16/2025 7:52 AM EDT) CANNABINOID SCREEN URINE NEGATIVE NEGATIVE TBH PHENCYCLIDINE SCREEN URINE NEGATIVE NEGATIVE TBH COCAINE SCREEN URINE NEGATIVE NEGATIVE TBH METHAMPHETAMINES SCREEN URINE NEGATIVE NEGATIVE TBH OPIATE SCREEN URINE NEGATIVE NEGATIVE TBH AMPHETAMINE SCREEN URINE NEGATIVE NEGATIVE TBH BENZODIAZEPINES SCREEN URINE NEGATIVE NEGATIVE TBH TRICYCLIC ANTIDEPRESSANT URINE NEGATIVE NEGATIVE TBH METHADONE SCREEN URINE NEGATIVE NEGATIVE TBH BARBITURATES SCREEN URINE NEGATIVE NEGATIVE TBH OXYCODONE SCREEN URINE NEGATIVE NEGATIVE TBH BUPRENORPHINE SCREEN URINE NEGATIVE NEGATIVE TBH Comment: DRUG CLASS TEST SYSTEM CUT-OFF CONCENTRATIONS ARE FOLLOWS: AMP (Amphetamine): 500 ng/mL BAR (Barbiturates): 200 ng/mL BZO (Benzodiazepines): 150 ng/mL BUP (Buprenorphine): 10 ng/mL HAYDEN (Cocaine): 150 ng/mL mAMP (Methamphetamine): 500 ng/mL MTD (Methadone): 200 ng/mL OPI (Opiates): 100 ng/mL OXY (Oxycodone): 100 ng/mL PCP (Phencyclidine): 25 ng/mL THC (Cannabinoids): 50 ng/mL TCA (Trycyclic Antidepressants): 300 ng/mL 01/16/2025 7:52 AM EDT 01/16/2025 8:03 AM EDT Narrative [facility] - 01/16/2025 8:25 AM EDT us Vignesh River DO CLINISYNC Final Result Performing Organization Address [facility] Co de Phone Number [facility] * HCV ANTIBODY RFX TO QUANT PCR (01/16/2025 7:52 AM EDT) Pathologist [facility] HCV AB Non Reactive Non Reactive [facility] INTERPRETATION: Comment . [facility] Comment: Not infected with HCV unless early or acute infection is suspected (which may be delayed in an immunocompromised individual), or other evidence exists to indicate HCV infection. Performed at: [address] [id number] Leather Carver: Vinay Caldera PhD, Phone: [phone] 01/16/2025 7:52 AM EDT 01/16/2025 8:03 AM EDT Narrative [facility] 01/17/2025 9:08 AM EDT Vignesh River DO LAB BLOOD ORDERABLES Final Resul t Performing Organization Address [facility] Co de Phone Number [facility] * MLR HEMOGLOBIN A1C (01/16/2025 7:52 AM EDT) Pathologist [facility] GLYCOHEMOGLOBIN A1C 4.6 4.5 - 6.2 % [facility] Comment: ADA RECOMMENDED LIMIT 4.0 - 6.0 ADA THERAPEUTIC TARGET < 7.0 ACTION SUGGESTED > 7.0 ESTIMATED AVERAGE GLUCOSE 85 mg/dL [facility] 01/16/2025 7:52 AM EDT 01/16/2025 8:03 AM EDT Narrative [facility] - 01/16/2025 8:27 AM EDT us Vignesh River DO CLINISYNC Final Result [facility] TB * ALL TYPE AND SCREEN (01/16/2025 7:52 AM EDT) Pathologist [facility] BLOOD TYPE A Positive [facility] ANTIBODY SCREEN NEGATIVE [facility] 01/16/2025 7:52 AM EDT 01/16/2025 8:03 AM EDT Narrative [facility] - 01/16/2025 9:02 AM EDT [facility] , us Vignesh River DO CLINISYNC Final Result Performing Organization Address [facility]/ZIP Co de Phone Number [facility] TB * (ABNORMAL) ALL RUBELLA IGG AB (01/16/2025 7:52 AM EDT) [facility] RUBELLA ANTIBODIES, IGG <0.90(A) Immune >0.99 index [facility] Comment: Non-immune <0.90 Equivocal 0.90 - 0.99 Immune >0.99 Performed at: [address] [id number] Leather Carver: Vinay Caldera PhD, Phone: [phone] 01/16/2025 7:52 AM EDT 01/16/2025 8:03 AM EDT Narrative [facility] - 01/17/2025 9:08 AM EDT us Vingesh River DO CLINISYNC Final Result Performing Organization Address City/[facility]/ZIP Co de Phone Number [facility] TB * (ABNORMAL) ALL CBC WITH AUTO DIFF (01/16/2025 7:52 AM EDT) [facility] TB WBC 7.4 4.0 - 11.0 10 3/uL TBH TBH RBC 4.05(L) 4.20 - 5.40 10 6/uL TBH TBH HGB 13.3 12.0 - 16.0 g/dL TBH TBH HCT 38.8 36.0 - 48.0 % [facility] TBH MCV 95.8 81.0 - 99.0 fL TBH TBH MCH 32.8 26.7 - 34.0 pg TBH TBH MCHC 34.3 29.9 - 35.2 g/dL TBH TBH RDW 11.9 11.0 - 15.0 % TBH TBH PLT 275 150 - 450 10 3/uL TBH TBH MPV 9.0(L) 9.5 - 13.5 fL TBH NEUTROPHILS PERCENT AUTO 50.7 43.0 - 75.0 % TBH LYMPHOCYTES PERCENT AUTO 33.6 20.5 - 60.0 % TB[facility] MONOCYTES PERCENT AUTO 11.3 1.7 - 12.0 % TBH TBH EO % 3.9 0.9 - 7.0 % TBH BASOPHILS PERCENT AUTO 0.4 0.2 - 2.0 % TBH IMMATURE GRANULOCYTES PCT AUTO 0.1 0.0 - 0.5 % TBH NEUTROPHILS ABSOLUTE AUTO 3.7 1.4 - 6.5 10 3/uL TBH LYMPHOCYTES ABSOLUTE AUTO 2.5 1.2 - 3.8 10 3/uL TBH MONOCYTES ABSOLUTE AUTO 0.8 0.3 - 0.8 10 3/uL TB[facility] TBH EO # 0.3 0.0 - 0.7 10 3/uL TBH BASOPHILS ABSOLUTE AUTO 0.0 0.0 - 0.1 10 3/uL [facility] IMMATURE GRANULOCYTES ABS AUTO 0.01 0.00 - 0.03 10 3/uL [facility] 01/16/2025 7:52 AM EDT 01/16/2025 8:03 AM EDT Narrative [facility] - 01/16/2025 8:09 AM EDT us Vignesh River DO CLINISYNC Final Result CLINIS[facility]NC [facility] * VARICELLA-ZOSTER V AB, IGG (01/05/2025 4:35 PM EDT) Pathologist [facility] VARICELLAZOST ER V AB, IGG Non Reactive Non Reactive [facility] Comment: Please note reference interval change A Reactive result is considered evidence of immunity to VZV. Reactive indicates that VZV IgG was detected consistent with previous infection and/or vaccination. A Non Reactive result indicates that VZV IgG was not detected suggesting that immunity has not been acquired. Performed at: [address] [id number] Leather Carver: Vinay Caldera PhD, Phone: [phone] 01/05/2025 4:35 PM EDT 01/05/2025 4:36 PM EDT Narrative [facility] - 01/07/2025 6:08 AM EDT Vignesh River DO LAB BLOOD ORDERABLES Final Resul t Performing Organization Address [facility] Co de Phone Number [facility] * ALL MISCELLANEOUS TEST (01/05/2025 4:35 PM EDT) [facility] MISCELLANEOUS TEST COMMENT . [facility] Comment: Test Ordered: [id number] Varicella-Zoster Ab, IgM Varicella-Zoster Ab, IgM <0.91 index Reference Range: 0.00-0.90 Negative <0.91 Borderline 0.91 - 1.09 Positive >1.09 Performed at: [address] [id number] Leather Carver: Vinay Caldera PhD, Phone: [phone] 01/05/2025 4:35 PM EDT 01/05/2025 4:36 PM EDT Narrative [facility] - 01/07/2025 2:08 PM EDT [id number] VARICELLA ZOSTER VIRUS ANTIBODY, IGM us Vignesh River DO CLINISYNC Final Result Performing Organization Address City/[facility]/ZIP Co de Phone Number [facility] * (ABNORMAL) POCT , urine manually resulted [...] II, MD, PHD at 01-Jan-2025 06:15:03 AM [facility] Procedure Note Lizz Hackett MD - [...] signed by LIZZ HACKETT II, MD, PHD 06:15:03 AM [facility] us Vignesh River DO IM OB US PROCEDURES Final Resul t * THINPREP TIS PAP AND HPV MRNA E6/E7 REFLEX HPV 16,18/45 ([id number]) (12/26/2021) CLINICAL INFORMATION: None given [facility] [...] computer assisted technology. [facility] CIGARETTE INSPECTOR : SEE COMMENT [facility] Comment: PCJ, SCT(ASCP) CT screening location: [facility] [address]. REVIEW CIGARETTE INSPECTOR : SEE COMMENT [facility] Comment: DMK, CT(ASCP) CT screening location: [place] [address]. COMMENT SEE COMMENT [facility] ACY EXTERNAL [...] Detected [facility] Comment: Methodology: Ux Lead-Mediated Amplification This assay detects E6/E7 viral messenger RNA (mRNA) from 14 high-risk HPV types (16,18,31,33,35,39,45,51,52,56,58,59,66,68). Cervical sources are required for HPV testing. If a vaginal source from a patient who has had a total hysterectomy with removal of cervix was submitted, please contact the testing laboratory for alternative testing options. For additional information, please refer to http://education.[employer]/faq/ENG873a2 (This link if provided for information/ educational [...] computer assisted technology. [facility] CIGARETTE INSPECTOR: SEE NOTE NO [facility] Comment: NNO, CT(ASCP) CT screening location: [facility] [place] [address]. REVIEW CIGARETTE INSPECTOR: SEE NOTE [facility] Comment: JEH, CT(ASCP) CT screening location: [facility] [place] [address]. COMMENT SEE NOTE [facility] [...] was performed using the APTIMA HPV Assay ([employer] This assay detects E6/E7 viral messenger RNA (mRNA) from 14 high-risk HPV types (16,18,31,33,35,39,45,51,52,56,58,59,66,68). The analytical performance characteristics of this assay have been determined by [employer]. The modifications have not been cleared or approved by the FDA. This assay has been validated pursuant to the CLIA regulations and is used for clinical purposes. 06/26/2019 Adela ARIZA [facility] Final Result [facility] from Last 3 Months or Most Recently Relevant to Health Maintenance Additional Health Concerns Active Problems Noted Date Diagnosed Date OB Reminders 01/19/2025 Insurance BCBS Care Teams Dbas Relationship Specialty Start Date End Date Kimmy Carey MD [address] [place] [address] PCP - General Family Medicine 02/04/23
--- OUTSIDE RECORDS SUMMARY | 2025-03-25 07:34 | XMS_ITS | Clinical Summary ---
Author Organization [facility] Address [address] [place] [address] Care Team Providers Care General Education Professor Name Role Phone Colleen Larios Primary Care Provider Unavailabl e Allergies No known active allergies Medications No known medications Active Problems Problem Noted Date Diagnosed Date Dyspnea on exertion 02/22/2025 16 weeks gestation of 02/22/2025 Pure hypercholesterolemia 02/22/2025 Miscarriage 02/17/2025 Irritable bowel syndrome with constipation 01/21 POTS (postural orthostatic tachycardia syndrome) 01/21/2025 Microscopic hematuria 01/19/2022 Overview (02/17/2025): 01/19/22: Recent back pain, left lower quadrant [...] to conceive. Urine sent for microscopic evaluation Tachycardia 08/11/2021 PSVT (paroxysmal supraventricular tachycardia) 0 01/13/2021 Palpitations 07/11/2020 PVC's (premature ventricular contractions) 07/11 Comments Yes Encounters Date Type Department Care Team Description 02/22/2025 Orders Only [facility] [address] [place] [phone] Provider, MD Brandon 02/18/2025 10:20 AM EDT Office Visit [place] [address] [place] [address] Crow Corey MD Dyspnea on exertion (Primary Dx); Palpitations; Tachycardia; 16 weeks gestation of ; POTS (postural orthostatic tachycardia syndrome); Pure hypercholesterolemia from Last 3 Months Family History Medical History Relation Name Comments Hypertension Father Hyperlipidemia Mother atria flutter Mother Relation Name Status Comments Father Alive Mother Alive Social History Tobacco Use Types Packs/Day Years Used Date Smoking Tobacco: Never Smokeless Tobacco: Never Alcohol Use Standard Drinks/Week Comments Not Currently 0 (1 standard drink = 0.6 oz pur e alcohol) Comments Yes Sex and Gender Information Value Date Recorded Sex Assigned at Female 02/16/2025 3:28 PM EDT Legal Sex Female 12:33 PM EDT Gender Identity Female 02/16/2025 3:28 PM EDT Sexual Orientation Heterosexual or Straight 11/2024 3:28 PM EDT Last Filed Vital Signs Vital Sign Reading Time Taken Comments Blood Pressure 115/80 02/18/2025 11:02 AM EDT Pulse 111 02/18/2025 11:02 AM EDT Temperature - - Respiratory Rate - - Oxygen Saturation 100% 02/18/2025 11:02 AM EDT Inhaled Oxygen Concentration - - Weight 60.8 kg (134 lb) 02/18/2025 10:44 AM EDT Height 157.5 cm (5' 2 ) 02/18/2025 10:44 AM EDT Body Mass Index 24.51 02/18/2025 10:44 AM EDT Plan of Treatment Upcoming Encounters Date Type Department Care Team (Late st Contact Info) Description 04/23/2025 10:40 AM EDT Office Visit [place] [address] [place] [address] Crow Corey MD [address] [place] [address] MS:[address] [place] [address] Health Maintenance Due Date Last Done Comments Depression Screening 2001 Varicella Vaccines (1 of 2 - 13+ 2-dose series) 2002 Hepatitis B Vaccines (1 of 3 - 19+ 3-dose series) 2008 Pap Smear 2010 Adult Tetanus 2011 Cervical Cancer Screening 2019 HPV/Cotest 2019 COVID-19 Vaccine (1 - 2023-2 5 season) 2025 Influenza Vaccine (#1) 2025 05/05/2013 Zoster Vaccines (1 of 2) 2039 HIB Vaccines Aged Out No longer eligi ble based on patient's age to complete this topic HPV Vaccines Aged Out No longer eligi ble based on patient's age to complete this topic IPV Vaccines Aged Out No longer eligi ble based on patient's age to complete this topic Meningococcal B Vaccine Aged Out No l onger eligible based on patient's age to complete this topic Meningococcal Vaccine Aged Out No silas ashlie eligible based on patient's age to complete this topic Pneumococcal Vaccine: Pediat rics (0 to 5 Years) and At-Risk Patients (6 to 64 Years) Aged Out No longer eligi ble based on patient's age to complete this topic Rotavirus Vaccines Aged Out No longer eligible based on patient's age to complete this topic Procedures Procedure Name Priority Date/Time Associated Diagnosis Comments ECG 12-LEAD Routine 02/22/2025 3:09 PM EDT Dyspnea on exertion Palpitations ECG 12-LEAD Routine 02/18/2025 9:49 AM EDT from Last 3 Months Results * ECG 12 lead (02/22/2025 3:09 PM EDT) Only the most recent of2 resultswithin the time period is included. Narrative Crow Corey MD - 02/22/2025 3:09 PM EDT Sinus rhythm, heart rate 98 bpm, normal EKG Crow Corey MD ECG ORDERABLES Final Result from Last 3 Months Insurance [facility] Care Teams General Education Professor Relationship Specialty Start Date End Date Colleen Larios [address] [place] [address] PCP - General 02/22/25
--- OUTSIDE RECORDS SUMMARY | 2025-03-25 07:34 | XMS_ITS | Encounter Summary ---
Author Organization [facility] Address [address] [place] [address] Care Team Providers Care Medical Van Driver Name Role Phone Kimmy Carey MD Primary Care Provider [phone] Encounter Details Date Type Department Care Team (Late st Contact Info) Description 03/11/2025 Bamboo flowsheet [facility] [address] [facility] [place] [address] Vignesh Holman DO [address] [facility] [address] [place] [place], [place] [id number] Social History Tobacco Use Types Packs/Day Years [...] How often do you attend chur or yazdanism services? Never 01/22/2024 Do you belong to [...] Recorded Patient Health Questionnaire-2 Score 0 02/04/2023 [facility] [place] - Occupational Stress Questionnaire Answer Date Recorded [...] time in the past 12 m [facility], were you homeless or living in a detention (including now)? No 01/22/2024 Estimated Date of [...] AM EDT Routine [facility] [address] [facility] [place] [address] Vignesh Holman DO [address] [facility] [place] [address] documented as of this encounter Goals Goal Patient Goal Type Associated Problems Recent Progress Patient-Stated? Author Reminders Care Plan OB Reminders No Open Scheduling, Background documented as of this encounter Visit Diagnoses Not on filedocumented in this encounter Additional Health Concerns Active Problems Noted Date Diagnosed Date OB Reminders 01/19/2025 documented as of this encounter Care Teams Medical Van Driver Relationship Specialty Start Date End Date Kimmy Carey MD [address] [place] [address] PCP - General Family Medicine 02/04/23 documented as of this encounter
--- OUTSIDE RECORDS SUMMARY | 2025-03-25 07:34 | XMS_ITS | Encounter Summary ---
Author Organization [facility] Address [address] [facility] [place] [address] Care Team Providers Care Marketing Automation Specialist Name Role Phone Kimmy Carey MD Primary Care Provider [phone] Colleen Larios NP Unavailable [phone] Encounter Details Date Type Department Care Team (Late st Contact Info) Description 10/15/2024 Abstract [facility] [address] [facility] [place] [phone] Vignesh Holman DO [address] [facility] [address] [place], [place] [phone] Social History Tobacco Use Types Packs/Day Years [...] week 01/22/2024 How often do you attend [facility] or spiritism services? Never 01/22/2024 Do you belong to any clubs o r organizations such as scientology groups, unions, fraternal or athletic groups, or [...] Questionnaire-2 Score 0 02/04/2023 [facility] - Occupational Stress Questionnaire Answer Date Recorded [...] any time in the past 12 m [facility], were you homeless or living in a fci (including now)? No 01/22/2024 Comments No Sex [...] AM EDT Routine [facility] [address] [facility] [place] [place] [address] Vignesh Holman DO [address] [facility] [place] [address] documented as of this encounter Visit Diagnoses Not on filedocumented in this encounter Care Teams Marketing Automation Specialist Relationship Specialty Start Date End Date Kimmy Carey MD [address] [facility] [address] [place], [place] [phone] PCP - General Family Medicine 02/04/23 Colleen Larios NP [address] [facility] [address] [place], [place] [address] PCP - [place] [employer] 03/15/24 documented as of this encounter
--- OUTSIDE RECORDS SUMMARY | 2025-03-25 07:34 | XMS_ITS | Encounter Summary ---
Author Organization [facility] Address [address] [facility] [place] [address] Care Team Providers Care Sod Stripper Name Role Phone Kimmy Carey MD Primary Care Provider [phone] Colleen Larios NP Unavailable [phone] Encounter Details Date Type Department Care Team (Late st Contact Info) Description 05/13/2023 Abstract [facility] Family Medicine [address] [place] [address] Kimmy Carey MD [address] [place] [address] Social History Tobacco Use Types [...] 04/06/2025 10:30 AM EDT Routine [facility] [address] [facility] [place] [address] Vignesh Holman DO [address] [facility] [place] [address] documented as of this encounter Visit Diagnoses Not on filedocumented in this encounter Care Teams Sod Stripper Relationship Specialty Start Date End Date Kimmy Carey MD [address] [facility] [place] [address] PCP - General Family Medicine 02/04/23 Colleen Larios NP [address] [facility] [place] [address] PCP - Brock Fleming 03/15/24 documented as of this encounter
--- OUTSIDE RECORDS SUMMARY | 2025-03-25 07:34 | XMS_ITS | Encounter Summary ---
Author Organization [facility] tem Address [id number] [address] [place] [address] Care Team Providers Care Director Of Accreditation Name Role Phone No Pcp, No Pcp Primary Care Provider Unavailabl e Encounter Details Date Type Department Care Team (Late Contact Info) Description 07/12/2020 Orders Only [facility] [address] [place] [address] External, Scanning Provider Social History [...] Description 03/29/2025 2:15 PM EDT Appointment [facility] US Imaging [address] [place] [phone] 03/29/2025 3:30 PM EDT Office Visit Maternal- Medicine at [facility] [address] [place] [phone] Gill Mejia MD [address] [place] [address] documented as of this encounter Procedures Procedure Name Priority Date/Time Associated Diagnosis Comments MULTIPLE LABS Routine 04/01/2020 documented in this encounter Results * Multiple labs (04/01/2020) us Scanning Provider External [place] [facility] Final Result MANUALLY TRANSCRIBED RESULTS documented in this encounter Visit Diagnoses Not on filedocumented in this encounter Care Teams Director Of Accreditation Relationship Specialty Start Date End Date No Pcp, [place] [address] PCP - General Family Medicine 07/21/24 documented as of this encounter
--- OUTSIDE RECORDS SUMMARY | 2025-03-25 07:34 | XMS_ITS | Encounter Summary ---
Author Organization [employer] Address [id number] [address] [place] [address] Care Team Providers Care Frame Nailer Name Role Phone No Pcp, No Pcp Primary Care Provider Unavailabl e Encounter Details Date Type Department Care Team (Late st Contact Info) Description 05/03/2022 Telephone [facility] [address] [place] [phone] Magalie Bailey PA [address] [place] [address] Social History Tobacco Use Types Packs/Day Years [...] 3:13 PM EDT Please call [facility] [place] tomorrow to get the results from her urine test. She dropped off today * Telephone Encounter - Cielo Oro LPN - 05/03/2022 3:13 PM EDT Pt actually called and stated that [facility] did not receive an order for a urine collection. I reprinted the order and faxed it to [facility] [phone] per pt request. I will check on results tomorrow. * Telephone Encounter - Cielo Oro LPN - 05/03/2022 3:13 PM EDT Results received and on your desk for review. documented in this encounter Plan of Treatment Upcoming Encounters Date Type Department Care Team (Late st Contact Info) Description 03/29/2025 2:15 PM EDT Appointment [facility] US Imaging [address] [place] [address] 03/29/2025 3:30 PM EDT Office Visit Maternal- Medicine at [facility] [address] [place] [address] Gill Mejia MD [address] [place] [address] documented as of this encounter Visit Diagnoses Not on filedocumented in this encounter Care Teams Frame Nailer Relationship Specialty Start Date End Date No Pcp, [place] [address] PCP - General Family Medicine 07/21/24 documented as of this encounter
--- OUTSIDE RECORDS SUMMARY | 2025-03-25 07:34 | XMS_ITS | Encounter Summary ---
Author Organization [employer] tem Address [id number] [address] [place] [address] Care Team Providers Care Channel Manager Name Role Phone No Pcp, No Pcp Primary Care Provider Unavailabl e Encounter Details Date Type Department Care Team (Late st Contact Info) Description 01/19/2022 Telephone [facility] [address] [place] [phone] Magalie Bailey PA [address] [place] [phone] Social History Tobacco Use Types Packs/Day Years [...] urogram and an appointment with me in [place] to review the results. * Telephone Encounter [...] Info) Description 03/29/2025 2:15 PM EDT Appointment [facility] US Imaging [address] [place] [phone] 03/29/2025 3:30 PM EDT Office Visit Maternal- Medicine at [facility] [address] [place] [phone] Gill Mejia MD [address] [place] [address] documented as of this encounter Visit Diagnoses Not on filedocumented in this encounter Care Teams Channel Manager Relationship Specialty Start Date End Date No Pcp, [place] [address] PCP - General Family Medicine 07/21/24 documented as of this encounter
--- OUTSIDE RECORDS SUMMARY | 2025-03-25 07:34 | XMS_ITS | Encounter Summary ---
Author Organization [facility] [employer] [facility] tem Address [id number] [address] [place] [address] Care Team Providers Care Gauge Machine Operator Name Role Phone No Pcp, No Pcp Primary Care Provider Unavailabl e Encounter Details Date Type Department Care Team (Late Contact Info) Description 07/12/2020 Orders Only [facility] [address] [place] [address] External, Scanning Provider Social History [...] Info) Description 03/29/2025 2:15 PM EDT Appointment [facility] US Imaging [address] [place] [phone] 03/29/2025 3:30 PM EDT Office Visit Maternal- Medicine at [facility] [address] [place] [phone] Gill Mejia MD [address] 1[address] [place] [address] documented as of this encounter Procedures Procedure Name Priority Date/Time Associated Diagnosis Comments ECG 12-LEAD Routine 05/10/2020 documented in this encounter Results * ECG 12 lead (05/10/2020) us Scanning Provider External ECG ORDERABLES Final Result MANUALLY TRANSCRIBED RESULTS documented in this encounter Visit Diagnoses Not on filedocumented in this encounter Care Teams Gauge Machine Operator Relationship Specialty Start Date End Date No Pcp, [place] [address] PCP - General Family Medicine 07/21/24 documented as of this encounter
--- OUTSIDE RECORDS SUMMARY | 2025-03-25 07:34 | XMS_ITS | Encounter Summary ---
Author Organization [facility] tem Address [facility] [id number] [address] [place] [address] Care Team Providers Care Circuitry Negative Inspector Name Role Phone No Pcp, No Pcp Primary Care Provider Unavailabl e Encounter Details Date Type Department Care Team (Late st Contact Info) Description 02/04/2025 Orders Only [facility]aternal- Medicine at [facility] [address] [place] [address] Vignesh Holman, DO [address] [facility] [place] [address] Social History Tobacco Use Types Packs/Day Years [...] Info) Description 03/29/2025 2:15 PM EDT Appointment [facility] US Imaging [address] [place] [address] 03/29/2025 3:30 PM EDT Office Visit Maternal- Medicine at [facility] [address] [facility] [place] [address] Gill Mejia MD [address] [facility] 1st [place] [address] documented as of this encounter Procedures Procedure Name Priority Date/Time Associated Diagnosis Comments UNLISTED LAB TEST Routine 02/02/2025 9:33 AM EDT documented in this encounter Results * Unlisted Lab Test (02/02/2025 9:33 AM EDT) us Vignesh Holman DO LAB BLOOD ORDERABLES Final Resu lt MANUALLY TRANSCRIBED RESULTS documented in this encounter Visit Diagnoses Not on filedocumented in this encounter Additional Health Concerns Assessment Noted Time PHQ-9 Depression Total Score: 1 05/14/20 24 8:55 AM EDT documented as of this encounter Care Teams Circuitry Negative Inspector Relationship Specialty Start Date End Date No Pcp, [place] [address] PCP - General Family Medicine 07/21/24 documented as of this encounter
--- OUTSIDE RECORDS SUMMARY | 2025-03-25 07:34 | XMS_ITS | Encounter Summary ---
Author Organization [facility] Address [address] [place] [address] Care Team Providers Care Gm Video Name Role Phone Kimmy Carey MD Primary Care Provider [phone] Encounter Details Date Type Department Care Team (Late st Contact Info) Description 03/11/2025 Abstract [facility] [address] [facility] [place] [address] Vignesh Holman DO [address] [facility] [place] [address] Social History Tobacco Use Types Packs/Day Years [...] often do you attend chur ch or jain services? Never 01/22/2024 Do you belong to [...] Recorded Patient Health Questionnaire-2 Score 0 02/04/2023 [facility] - Occupational Stress [...] time in the past 12 m [facility], were you homeless or living in [...] EDT Routine [facility] [address] [facility] [place] [phone] Vignesh Holman DO [address] [facility] [place] [address] documented as of this encounter Goals Goal Patient Goal Type Associated Problems Recent Progress Patient-Stated? Author Reminders Care Plan OB Reminders No Open Scheduling, Background documented as of this encounter Visit Diagnoses Not on filedocumented in this encounter Additional Health Concerns Active Problems Noted Date Diagnosed Date OB Reminders 01/19/2025 documented as of this encounter Care Teams Gm Video Relationship Specialty Start Date End Date Kimmy Carey MD [address] [place] [address] PCP - General Family Medicine 02/04/23 documented as of this encounter
--- OUTSIDE RECORDS SUMMARY | 2025-03-25 07:35 | XMS_ITS | Clinical Summary ---
Author Organization [employer] tem Address [id number] [address] [place] [address] Care Team Providers Care Mandolin Repair Person Name Role Phone No Pcp, No Pcp Primary Care Provider Unavailabl e Allergies No known active allergies Medications mxuaj-2-vno-epa- dpa-fish oil 1,050-1,200 mg capsule Take by mouth. Active cholecalciferol, vitamin D3, 2,000 units tablet Take by mouth daily. Active fructooligosacch arides (PREBIOTIC FIBER, FOS, ORAL) Take by mouth. Active no115/iron/folic acid ( 19 ORAL) Take by mouth. Active Active Problems Problem Noted Date Diagnosed Date Irritable bowel syndrome with constipation 01/21 POTS (postural orthostatic tachycardia syndrome) 01/21/2025 Microscopic hematuria 01/19/2022 Overview (05/22/2024): 01/19/22: Recent [...] PVC's (premature ventricular contractions) 07/11 Palpitations 07/11/2020 Estimated Date of Delivery Comme nts Yes 08/16/2025 Based on Ultraso und Encounters Date Type Department Care Team Description 02/04/2025 Telephone Maternal- Medicine at [facility] [address] [place] [address] Jose Middleton, NIRU 02/04/2025 Orders Only Maternal- Medicine at [facility] [address] [place] [address] Vignesh Holman R, 02/02/2025 Travel 01/21/2025 Orders Only Maternal- Medicine at [facility] [address] [place] [address] Ref Prov, Not In System 01/21/2025 Abstract Maternal- Medicine at [facility] [address] [place] [address] Gill Mejia MD from Last 3 Months Family History Medical History Relation Name Comments Hypertension Father Dwain Sawant Diabetes Maternal Grandmother Winifred Collins Heart murmur Mother High Cholesterol Mother Prostate cancer Paternal Grandfather Baldo RoachSavana Breast cancer Paternal Grandmother Ana Sawant Colon cancer Neg Hx Ovarian cancer Neg Hx Pancreatic cancer Neg Hx Uterine cancer Neg Hx Relation Name Status Comments Father Dwain Sawant Alive Maternal Grandmother Winifred Collins Mother Alive Paternal Grandfather Baldo RoachSavana Paternal Grandmother Ana Roachalter Social History Tobacco [...] 08/06/2024 1:26 PM EST Plan of Treatment Upcoming Encounters Date Type Department Care Team (Late st Contact Info) Description 03/29/2025 2:15 PM EDT Appointment [facility] Imaging [address] [place] [phone] 03/29/2025 3:30 PM EDT Office Visit Maternal- Medicine at [facility] [address] [place] [phone] Gill Mejia MD [address] [place] [address] Health Maintenance Due Date Last Done Comments Adult BMI Follow Up Plan 2007 DTaP,Tdap and Td Vaccines (1 - Tdap) 2008 Pap Smear 2010 Influenza Vaccine 03/15/2025 05/05/2013 Depression Screening 05/14/2025 05/14/2024 Adult BMI Screening 08/06/2025 08/06/2024 Tobacco Screening 08/07/2025 08/07/2024 Medical Devices Not on file Procedures Procedure Name Priority Date/Time Associated Diagnosis Comments UNLISTED LAB TEST Routine 02/02/2025 9:3 3 AM EDT TYPE AND SCREEN Routine 01/16/2025 HEPATITIS B SURFACE ANTIGEN Routine 01/16/2025 DRUG SCREEN, URINE Routine 01/16/2025 HIV 1&2 AB/AG SCREEN (P24 AG) Routine 01/16/2025 RUBELLA IGG IMMUNE STATUS Routine 01/16/2025 from Last 3 Months Results * Unlisted Lab Test (02/02/2025 9:33 AM EDT) us Vignesh Holman DO LAB BLOOD ORDERABLES Final Resu lt MANUALLY TRANSCRIBED RESULTS * HIV 1&2 AB/AG Screen (P24 AG) (01/16/2025) HIV 1&2 AB/AG Non Reactive MAN UALLY TRANSCRIBED RESULTS Blood Venous blood / Unknown us Not In System Ref Prov LAB BLOOD ORDERABLES Serenity l Result MANUALLY TRANSCRIBED RESULTS * Rubella IGG immune status (01/16/2025) Rubella immune IgG 0.90 MANUALLY TRANSCRIBED RESULTS Blood Venous blood / Unknown us Not In System Ref Prov LAB BLOOD ORDERABLES Serenity l Result Performing Organization Address [facility] de Phone Number MANUALLY TRANSCRIBED RESULTS * Drug Screen, Urine (01/16/2025) Ecstasy Negative MANUALLY TRANSCRIBED RESULTS Methadone Negative MANUALLY TRANSCRIBED RESULTS Opiates Negative MANUALLY TRANSCRIBED RESULTS Amphetamine/Methamp hetamine Negative MANUALLY TRANSCRIBED RESULTS Cocaine Metabolite Negative M ANUALLY TRANSCRIBED RESULTS Phencyclidine Negative MANUAL LY TRANSCRIBED RESULTS Thc Marijuana, Urine Negative MANUALLY TRANSCRIBED RESULTS Oxycodone Negative MANUALLY TRANSCRIBED RESULTS Barbiturates Negative MANUALL Y TRANSCRIBED RESULTS Benzodiazepines Negative MANU ALLY TRANSCRIBED RESULTS Urine us Not In System Ref Prov URINE ORDERABLES Final Re sult Performing Organization Address [facility] de Phone Number MANUALLY TRANSCRIBED RESULTS * Hepatitis B surface antigen (01/16/2025) Hepatitis B Surface Antigen Negative MANUALLY TRANSCRIBED RESULTS Blood Venous blood / Unknown us Not In System Ref Prov LAB BLOOD ORDERABLES Serenity l Result Performing Organization Address [facility] de Phone Number MANUALLY TRANSCRIBED RESULTS * Type and screen (01/16/2025) Abo/Rh(D) A Positive MANUALLY TRANSCRIBED RESULTS Antibody Screen Negative MANUALLY TRANSCRIBED RESULTS Blood Venous blood / Unknown us Not In System Ref Prov BLOOD BANK TEST ORDERABLE S Final Result Performing Organization Address [facility] de Phone Number MANUALLY TRANSCRIBED RESULTS from Last 3 Months Insurance DAMON Care Teams Mandolin Repair Person Relationship Specialty Start Date End Date No Pcp, No Pcp ROYAL Monterroso [id number] PCP - General Family Medicine 07/21/24
== END 2025-03-25 07:33 | disposition home or self-care (01) ==
LOC: CARD 07:32
PROVIDERS: Family Provider Family Medicine; Visit Provider Internal Medicine Cardiovascular Disease
DX: R06.09 Other forms of dyspnea (principal)
CPT/HCPCS: 93306

== ENCOUNTER 2025-04-06 19:51 | Outpatient (REF) | payer BC, SELFPAY ==
--- OUTSIDE RECORDS SUMMARY | 2025-04-06 10:30 | XMS_ITS | Encounter Summary ---
Author Organization [facility] Address [address] [place] [address] Care Team Providers Care Loader Unloader Name Role Phone Kimmy Carey MD Primary Care Provider [phone] Reason for Visit * Reason Comments Routine Visit Well Women Visit Encounter Details Date Type Department Care Team (Latest Contact Info) Description 04/06/2025 10:30 AM EDT Routine [facility] [address] [id number] Vignesh Holman DO [address] [address] Second trimester ([facility]); 21 weeks gestation of ([facility]); Well woman exam with routine gynecological exam [...] week 01/22/2024 How often do you attend [facility] or episcopal services? Never 01/22/2024 Do you belong to [...] Recorded Patient Health Questionnaire-2 Score 0 02/04/2023 [facility] - Occupational Stress Questionnaire Answer [...] any time in the past 12 m [facility], were you homeless or living in a penitentiary (including now)? No 01/22/2024 Estimated Date of [...] nursing note reviewed. Exam conducted with a registered phlebotomist part time present. Vitals: Estimated body mass index is 25.86 kg/m?? as calculated from the following: Height as of 24: 5' 2 . Weight as of this encounter: 141 lb 6.4 oz. BP: 110/68 Patient's last menstrual period was 11/09/2024. ASSESSMENT & PLAN ICD-10-CM 1. Second trimester ([facility]) Z34.92 POCT urinalysis dipstick manually resulted Alpha fetoprotein, maternal Alpha fetoprotein, maternal CANCELED: POCT urinalysis dipstick manually resulted 2. 21 weeks gestation of ([facility]) Z3A.21 POCT urinalysis dipstick manually resulted Alpha fetoprotein, maternal Alpha fetoprotein, maternal CANCELED: POCT urinalysis dipstick manually resulted 3. Well woman exam with routine gynecological exam Z01.419 Pap Smear HPV DNA probe, amplified Return OB/Annual Exam: Patient presents today for a annual exam/routine obstetrics appointment. Patient is currently [id number]. Patient states she is doing well. Pap [...] AM EDT Routine [facility] [address] [phone] Vignesh Holman DO [address] [place], [place] [id number] Scheduled Orders Name Type Priority Associated Diagnoses Orde r Schedule Pap Smear Pathology and Cytology Routine Well woman exam with routine gynecological exam Ordered: 04/06/2025 HPV DNA probe, amplified Microbiology Routine Well woman exam with routine gynecological exam Ordered: 04/06/2025 Alpha fetoprotein, maternal Lab Routine Second trimester ([facility]) 21 weeks gestation of ([facility]) Expected: 04/06/2025 (Approximate), Expires: 05/06/2025 documented as of this encounter Goals Goal Patient Goal Type Associated Problems Recent Progress Patient-Stated? Author Reminders Care Plan OB Reminders No Open Scheduling, Background documented as of this encounter Procedures Procedure Name Priority Date/Time Associated Diagnosis Comments POCT URINALYSIS DIPSTICK Routine 04/06/2025 10:43 AM EDT Second trimester ([facility]) 21 weeks gestation of ([facility]) documented in this encounter Results * [...] this encounter Visit Diagnoses Diagnosis Second trimester ([facility]) state, incidental 21 weeks gestation of ([facility]) Well woman exam with routine gynecological exam Routine gynecological examination documented in this encounter Additional Health Concerns Active Problems Noted Date Diagnosed Date OB Reminders 01/19/2025 documented as of this encounter Care Teams Loader Unloader Relationship Specialty Start Date End Date Kimmy Carey MD [address] [place] [address] PCP - General Family Medicine 02/04/23 documented as of this encounter
--- OUTSIDE RECORDS SUMMARY | 2025-04-06 19:54 | XMS_ITS | Clinical Summary ---
Author Organization [facility] Address [address] [place] [address] Care Team Providers Care Appraisal Analyst Name Role Phone Colleen Larios Primary Care [...] Encounters Date Type Department Care Team Description 04/04/2025 Results Follow-Up [facility] [address] [place] [address] Crow Corey MD Complete Echo (TTE) w/wo Imaging Agent, Strain, 3D, Bubble Study 03/25/2025 Orders Only [facility] [address] [facility] [place] [address] ProviderBrandon MD 02/22/2025 Orders Only [facility] [address] [facility] [place] [address] ProviderBrandon MD 02/18/2025 10:20 AM EDT Office Visit [facility] [address] [facility] [place] [address] Crow Corey MD Dyspnea on exertion (Primary [...] Description 04/23/2025 10:40 AM EDT Office Visit [facility] [address] [place] [address] Crow Corey MD [address] [place] [address] Health Maintenance Due Date Last Done Comments Depression Screening 2001 Varicella Vaccines (1 of 2 - 13+ 2-dose series) 2002 Hepatitis B Vaccines (1 of 3 - 19+ 3-dose series) 2008 Pap Smear 2010 Adult Tetanus 2011 Cervical Cancer Screening 2019 HPV/Cotest 2019 COVID-19 Vaccine ( - 2023-2 5 season) 2025 Influenza Vaccine [...] Procedure Name Priority Date/Time Associated Diagnosis Comments COMPLETE TRANSTHORACIC ECHO (TTE) W/WO IMAGING AGENT, STRAIN, 3D, BUBBLE STUDY Routine 03/25/2025 10:53 AM EDT ECG 12-LEAD Routine 02/22/2025 3:09 PM EDT Dyspnea on exertion Palpitations ECG 12-LEAD Routine 02/18/2025 9:49 AM EDT from Last 3 Months Results * Complete Echo (TTE) w/wo Imaging Agent, Strain, 3D, Bubble Study (03/25/2025 10:53 AM EDT) Anatomical Region Laterality Modality Ultrasound Historical Provider CV ECHO PROCEDURES Final Result * ECG 12 lead (02/22/2025 3:09 PM EDT) Only the most recent of2 resultswithin the time period is included. Narrative Crow Corey MD - 02/22/2025 3:09 PM EDT Sinus rhythm, heart rate 98 bpm, normal EKG Crow Corey MD ECG ORDERABLES Final Result from Last 3 Months Insurance [facility] Care Teams Appraisal Analyst Relationship Specialty Start Date End Date Colleen Larios [address] [place] [address] PCP - General 02/22/25
--- OUTSIDE RECORDS SUMMARY | 2025-04-06 19:54 | XMS_ITS | Clinical Summary ---
Author Organization [facility] Address [address] [place] [place] [address] Care Team Providers Care Founder President And Ceo Name Role Phone Kimmy Carey MD Primary Care Provider [phone] Allergies No known active allergies Medications MV-Min-Fe Fum-FA-DHA ( 1 PO) Take 1 tablet by mouth Daily Active aspirin 81 MG EC tablet Take 81 mg by mouth Daily Active Active Problems Problem Noted Date Diagnosed Date Tachycardia 08/11/2021 Palpitations 07/11/2020 Miscarriage ([facility]) Irritable bowel syndrome with predominant consti pation Estimated Date of Delivery Comme nts Yes 08/16/2025 Based on last me nstrual period of 11/09/2024 Encounters Date Type Department Care Team Description 04/06/2025 10:30 AM ED[place] [address] Vignesh Holman, Second trimester ([facility]); 21 weeks gestation of ([facility]); Well woman exam with routine gynecological exam 04/06/2025 [place] [address] Vignesh Holman DO 03/30/2025 Travel 03/11/2025 9:30 AM [place] [address] Vignesh Holman DO Second trimester ([facility]); 18 weeks gestation of ([facility]) 03/11/2025 Abstract [facility] [address] [place] [address] Vignesh Holman, DO 03/11/2025 Bamboo flowsheet [facility] [address] [place] [address] [place] [address] Vignesh Holman, DO 03/07/2025 Travel 02/16/2025 11:20 AM EDT Routine [facility] ESC[facility]YN [address] [place] [address] Vignesh Holman, Second trimester ([facility]); 14 weeks gestation of ([facility]) 02/16/2025 Bamboo flowsheet [facility] PÉREZN [address] [place] [address] [place] [address] Vignesh Holman, DO 02/09/2025 Travel 01/28/2025 9:30 AM EDT Routine [facility] [address] [place] [address] [place] [address] Vignesh Holman, 11 weeks gestation of ([facility]); First trimester ([facility]); POTS (postural orthostatic tachycardia syndrome) 01/28/2025 Telephone [facility] [place] [address] Marika Contreras LPN 01/28/2025 Bamboo flowsheet [facility] [address] [place] [address] [place] [address] Vignesh Holman, DO 01/22/2025 Travel 01/18/2025 1:10 PM EDT Routine [facility] [address] [place] [address] Vignesh Holman, 10 weeks gestation of ([facility]); First trimester ([facility]); Vaginal discharge during in first trimester ([facility]) 01/18/2025 External Result Encounter NOMS External Department Unsolicited Sammi Briones NP 01/18/2025 Telephone [facility] [address] [facility] [place] [address] Manda Ojeda MA 01/16/2025 Clinisync Result Encounter NOMS External Department Unsolicited Vignesh Holman, DO 01/11/2025 Travel 01/05/2025 Clinisync Result Encounter NOMS External Department Unsolicited Vignesh Holman, DO 01/05/2025 Telephone [facility] [address] [facility] [place] [address] Lynne Ayers MA from Last 3 Months Immunizations Immunization Administration [...] often do you attend chur ch or rastafari services? Never 01/22/2024 Do you belong to any clubs o r organizations such as sikhism groups, unions, fraternal or athletic groups, or [...] Recorded Patient Health Questionnaire-2 Score 0 02/04/2023 [facility] - Occupational [...] in the past [address] [facility], were you homeless or living in a halfway (including now)? No 01/22/2024 Estimated Date of [...] Pressure 110/68 04/06/2025 10:35 AM EDT Pulse 90 05/15/2024 9:31 AM EDT Temperature - - Respiratory Rate - - Oxygen Saturation 95% 05/15/2024 9:31 AM EDT Inhaled Oxygen Concentration - - Weight 64.1 kg (141 lb 6.4 oz) 04/06/2025 10:35 AM EDT Height 157.5 cm (5' 2 ) 05/15/2024 9:31 AM EDT Body Mass Index 25.86 05/15/2024 9:31 AM EDT Plan of Treatment Upcoming Encounters Date Type Department Care Team (Late st Contact Info) Description 05/05/2025 10:50 AM EDT Routine [facility] [address] [place] [address] Vignesh Holman, [address] [place], [place] [address] Health Maintenance Due Date Last Done Comments Influenza Vaccine (#1) 2025 05/05/2013 Cervical Cancer Screening 12/26/2026 HPV/Cotest 12/26/2026 06/26/2019 Pap Smear 12/26/2026 12/26/2021, 12/26/2021 Goals Goal Patient Goal Type Associated Problems Recent Progress Patient-Stated? Author Reminders Care Plan OB Reminders No Open Scheduling, Background Procedures Procedure Name Priority Date/Time Associated Diagnosis Comments POCT URINALYSIS DIPSTICK Routine 04/06/2025 10:43 AM EDT Second trimester ([facility]) 21 weeks gestation of ([facility]) POCT URINALYSIS DIPSTICK Routine 03/11/2025 10:03 AM EDT Second trimester ([facility]) 18 weeks gestation of ([facility]) POCT URINALYSIS DIPSTICK Routine 01/28/2025 9:43 AM EDT 11 weeks gestation of ([facility]) First trimester ([facility]) CULTURE, URINE, ROUTINE Routine 01/19/2025 3:39 PM EDT Missed menses RECURRENT VAGINITIS (HTRX) Routine 01/18/2025 2:11 PM EDT POCT URINALYSIS DIPSTICK Routine 01/18/2025 1:23 PM EDT 10 weeks gestation of ([facility]) First trimester ([facility]) HBSAG SCREEN Routine 01/16/2025 7:52 AM EDT [...] EDT ALL CBC WITH AUTO DIFF Routine 5 7:52 AM EDT ALL MISCELLANEOUS TEST Routine 5 4:35 PM EDT VARICELLA-ZOSTER V AB, IGG Routine 01/05/2025 4:35 PM EDT THINPREP TIS PAP AND HPV MRNA E6/E7 REFLEX HPV 16,18/45 ([id number]) Routine 12/26/2021 Q - THINPREP(R) TIS AND HPV MRNA E6/E7 RFL HPV 16,18/45 Routine 06/26/2019 from Last 3 Months or Most Recently Relevant to Health Maintenance Results * (ABNORMAL) POCT urinalysis dipstick manually resulted (04/06/2025 10:43 AM EDT) Only the most recent of4 resultswithin the time period is included. Color, UA Colorless Clarity, UA Clear Glucose, [...] obtained by clean catch procedure / Unknown us Vignesh Holman DO LAB MICROBIOLOGY - GENERAL ORDER RADHA Final Result EXTERNAL LAB * RECURRENT VAGINITIS (HTRX) (01/18/2025 2:11 PM EDT) [facility] ATOPOBIUM VAGINAE 0 19.961 - 24.689 ppm 01/19/2025 6:26 AM EDT [facility] ATOPOBIUM VAGINAE Not Detected 19.961 - 24.689 ppm 01/19/2025 6:26 AM EDT [facility] BVAB 2,3 (BACTERIAL VAGINOSIS ASSOCIATED BACTERIA 2, 3); MOBILUNCUS SPP 0 19.961 - 24.689 ppm 01/19/2025 6:26 AM EDT [facility] BVAB 2,3 (BACTERIAL VAGINOSIS ASSOCIATED BACTERIA 2, 3); MOBILUNCUS SPP Not Detected 19.961 - 24.689 ppm 01/19/2025 6:26 AM EDT [facility] SERVANDO ALBICANS, PARAPSILOSIS, TROPICALIS 0 19.961 - 30.770 ppm 01/19/2025 6:26 AM EDT [facility] SERVANDO ALBICANS, PARAPSILOSIS, TROPICALIS Not Detected 19.961 - 30.770 ppm 01/19/2025 6:26 AM EDT [facility] SERVANDO GLABRATA 0 23.000 - 32.138 ppm 01/19/2025 6:26 AM EDT [facility] SERVANDO GLABRATA Not Detected 23.000 - 32.138 ppm 01/19/2025 6:26 AM EDT [facility] SERVANDO KRUSEI 0 23.000 - 32.271 ppm 01/19/2025 6:26 AM EDT [facility] SERVANDO KRUSEI Not Detected 23.000 - 32.271 ppm 01/19/2025 6:26 AM EDT [facility] CHLAMYDIA TRACHOMATIS 0 23.000 - 31.467 ppm 01/19/2025 6:26 AM EDT [facility] CHLAMYDIA TRACHOMATIS Not Detected 23.000 - 31.467 ppm 01/19/2025 6:26 AM EDT [facility] GARDNERELLA VAGINALIS 0 19.961 - 24.689 ppm 01/19/2025 6:26 AM EDT [facility] GARDNERELLA VAGINALIS Not Detected 19.961 - 24.689 ppm 01/19/2025 6:26 AM EDT [facility] MEGASPHAERA (TYPES 1, 2) 0 19.961 - 24.689 ppm 01/19/2025 6:26 AM EDT [facility] MEGASPHAERA (TYPES 1, 2) Not Detected 19.961 - 24.689 ppm 01/19/2025 6:26 AM EDT [facility] NEISSERIA GONORRHOEAE 0 23.000 - 32.117 ppm 01/19/2025 6:26 AM EDT [facility] NEISSERIA GONORRHOEAE Not Detected 23.000 - 32.117 ppm 01/19/2025 6:26 AM EDT [facility] TRICHOMONAS VAGINALIS 0 23.000 - 32.119 ppm 01/19/2025 6:26 AM EDT [facility] TRICHOMONAS VAGINALIS Not Detected 23.000 - 32.119 ppm 01/19/2025 6:26 AM EDT [facility] MYCOPLASMA GENITALIUM 0 19.961 - 24.689 ppm 01/19/2025 6:26 AM EDT [facility] MYCOPLASMA GENITALIUM Not Detected 19.961 - 24.689 ppm 01/19/2025 6:26 AM EDT [facility] Tissue 01/18/2025 2:11 PM EDT 01/19/2025 1:25 AM EDT us Sammi Briones SOCIAL SERVICE DIRECTOR LAB BLOOD ORDERABLES Final Re sult [facility] [address] [place] [address] * BOX TEST (01/16/2025 7:52 AM EDT) Pathologist [facility] BOX TEST SENT OUT [facility] BOX1 [facility] BOX2 01/16/25 [facility] 01/16/2025 7:52 AM EDT 01/16/2025 8:03 AM EDT Narrative CLINISYNC - 01/16/2025 8:09 AM EDT Vignesh River LAB BLOOD ORDERABLES Final Resul t Performing Organization Address City/[facility] Co de Phone Number [facility] * HBSAG SCREEN (01/16/2025 7:52 AM EDT) [facility] HBSAG SCREEN Negative Negative [facility] Comment: Performed at: [address] [id number] Edge Baster: Vinay Caldera PhD, Phone: [phone] 01/16/2025 7:52 AM EDT 01/16/2025 8:03 AM EDT Narrative CLINISYNC - 01/17/2025 11:08 AM EDT [facility] LAB BLOOD ORDERABLES Final Resul t Performing Organization Address [facility] Co de Phone Number [facility] * RAPID PLASMA REAGIN, QUANT (01/16/2025 7:52 AM EDT) [facility] RAPID PLASMA REAGIN, QUANT Non Reactive NonRea<1: 1 titer [facility] Comment: Please Note: This test does not meet current guidelines for screening and diagnosis of syphilis. This test is intended for following treatment response in patients being treated for syphilis infection. To screen for syphilis infection, a reflex cascade that includes both RPR and a treponema-specific assay should be utilized, such as Treponema pallidum (Syphilis) Screening Mcnairy ([id number]) or Rapid Plasma Reagin (RPR) Test With Reflex to Quantitative RPR and Confirmatory Treponema pallidum Antibodies ([id number]). Performed at: [facility] [id number] Edge Baster: Vinay Caldera PhD, Phone: [phone] 01/16/2025 7:5 2 AM EDT 01/16/2025 8:03 AM EDT Narrative CLINISYNC - 01/17/2025 11:08 AM EDT Vignesh River DO LAB BLOOD ORDERABLES Final Resul t Performing Organization Address [facility] Co de Phone Number [facility] * HIV AB/P24 AG WITH REFLEX (01/16/2025 7:52 AM EDT) HIV AB/P24 AG SCREEN Non Reactive Non Reactive [facility] Comment: HIV-1/HIV-2 antibodies and HIV-1 p24 antigen were NOT detected. There is no laboratory evidence of HIV infection. HIV Negative Performed at: - [facility] [id number] Edge Baster: Vinay Caldera PhD, Phone: [phone] 01/16/2025 7:52 AM EDT 01/16/2025 8:03 AM EDT Narrative CLINISYTN - 01/17/2025 9:08 AM EDT [facility] LAB BLOOD ORDERABLES Final Resul t Performing Organization Address [facility] de Phone Number [facility] * TBH DRUG SCREEN RAPID (URINE) (01/16/2025 [...] 8:03 AM EDT Narrative CLINISYNC - 01/16/2025 8:25 AM EDT Vignesh River DO CLINISYNC Final Result Performing Organization Address [facility] Co de Phone Number [facility] * HCV ANTIBODY RFX TO QUANT PCR (01/16/2025 7:52 AM EDT) Pathologist [facility] HCV AB Non Reactive Non Reactive [facility] INTERPRETATION: Comment . [facility] Comment: Not infected with HCV unless early or acute infection is suspected (which may be delayed in an immunocompromised individual), or other evidence exists to indicate HCV infection. Performed at: [address] [id number] Edge Baster: Vinay Caldera PhD, Phone: [phone] 01/16/2025 7:52 AM EDT 01/16/2025 8:03 AM EDT Narrative CLINISYNC - 01/17/2025 9:08 AM EDT Vignesh River DO LAB BLOOD ORDERABLES Final Resul t Performing Organization Address City/[facility]/ZIP Co de Phone Number [facility] * MLR HEMOGLOBIN A1C (01/16/2025 7:52 AM EDT) Pathologist [facility] GLYCOHEMOGLOBIN A1C 4.6 4.5 - 6.2 % [facility] Comment: ADA RECOMMENDED LIMIT 4.0 - 6.0 ADA THERAPEUTIC TARGET < 7.0 ACTION SUGGESTED > 7.0 ESTIMATED AVERAGE GLUCOSE 85 mg/dL [facility] 01/16/2025 7:52 AM EDT 01/16/2025 8:03 AM EDT Narrative CLINISYNC - 01/16/2025 8:27 AM EDT Vignesh River DO CLINISYNC Final Result [facility] * ALL TYPE AND SCREEN (01/16/2025 7:52 AM EDT) Pathologist [facility] BLOOD TYPE A Positive TBH ANTIBODY SCREEN NEGATIVE TB 01/16/2025 7:52 AM EDT 01/16/2025 8:03 AM EDT Narrative CLINISYNC - 01/16/2025 9:02 AM EDT [facility] [place] Vignesh River DO CLINISYNC Final Result Performing Organization Address [facility]/ZIP Co de Phone Number [facility] * (ABNORMAL) ALL RUBELLA IGG AB (01/16/2025 7:52 AM EDT) [facility] RUBELLA ANTIBODIES, IGG <0.90(A) Immune >0.99 index TB Comment: Non-immune <0.90 Equivocal 0.90 - 0.99 Immune >0.99 Performed at: [facility] [address] [id number] Edge Baster: Vinay Caldera PhD, Phone: [phone] 01/16/2025 7:52 AM EDT 01/16/2025 8:03 AM EDT Narrative CLINISYNC - 01/17/2025 9:08 AM EDT us Vignesh River DO CLINISYNC Final Result [facility] * (ABNORMAL) ALL CBC WITH AUTO DIFF (01/16/2025 7:52 AM EDT) [facility] WBC 7.4 4.0 - 11.0 10 3/uL TB TB RBC 4.05(L) 4.20 - 5.40 10 6/uL [...] - 01/16/2025 8:09 AM EDT us Vignesh Holman DO [facility]IS[facility] Final Result [facility] * VARICELLA-ZOSTER V AB, IGG (01/05/2025 [...] immunity has not been acquired. Performed at: [address] [id number] Edge Baster: Vinay Caldera PhD, Phone: [phone] 01/05/2025 4:35 PM EDT 01/05/2025 4:36 PM EDT Narrative CLINISYTN - 01/07/2025 6:08 AM EDT Vignesh River DO LAB BLOOD ORDERABLES Final Resul t Performing Organization Address [facility] de Phone Number [facility] * ALL MISCELLANEOUS TEST (01/05/2025 4:35 PM EDT) Pathologist [facility] MISCELLANEOUS TEST COMMENT . [facility] Comment: Test Ordered: [id number] Varicella-Zoster Ab, IgM Varicella-Zoster Ab, IgM <0.91 index Reference Range: 0.00-0.90 Negative <0.91 Borderline 0.91 - 1.09 Positive >1.09 Performed at: [address] [id number] Edge Baster: Vinay Caldera PhD, Phone: [phone] 01/05/2025 4:35 PM EDT 01/05/2025 4:36 PM EDT Narrative CLINISYNC - 01/07/2025 2:08 PM EDT [id number] VARICELLA ZOSTER VIRUS ANTIBODY, IGM us Vignesh River DO CLINISYNC Final Result Performing Organization Address [facility] Co de Phone Number [facility] * THINPREP TIS PAP AND HPV MRNA E6/E7 REFLEX HPV 16,18/45 ([id number]) (12/26/2021) CLINICAL INFORMATION: None given [facility] LMP: 11/26/2021 [facility] PREV. PAP: 2,019 [facility] PREV. BX: HISTOTY OF HPV [facility] SOURCE: None given [facility] STATEMENT OF ADEQUACY: SEE COMMENT [facility] Comment: Satisfactory for evaluation. Endocervical/transformation zone component absent. INTERPRETATION/R ESULT: Negative for intraepithelial lesion or malignancy. [facility] COMMENT: This Pap test has been evaluated with computer assisted technology. [facility]NAL [facility] SPRING INTERN : SEE COMMENT [facility] Comment: PCJ, SCT(ASCP) CT screening location: [employer] [place] [address]. REVIEW SPRING INTERN : SEE COMMENT [facility] EXTERNAL LAB Comment: DMK, CT(ASCP) CT screening location: [employer] [place] [address]. COMMENT SEE COMMENT [facility] EXTERNAL [...] HPV MRNA E6/E7 Not Detected Not Detected [facility] EXTERNAL LAB Comment: Methodology: Optical Effects Line Up Person-Mediated Amplification This assay detects E6/E7 viral messenger RNA (mRNA) from 14 high-risk HPV types (16,18,31,33,35,39,45,51,52,56,58,59,66,68). Cervical sources are required for HPV testing. If a vaginal source from a patient who has had a total hysterectomy with removal of cervix was submitted, please contact the testing laboratory for alternative testing options. For additional information, please refer to http://[email or web address]/faq/HRQ303c5 (This link if provided for information/ educational purposes only.) 12/26/2021 Adela ARIZA [facility] Final Result [facility] EXTERNAL [facility] * (ABNORMAL) Q - THINPREP(R) [...] computer assisted technology. [facility] SPRING INTERN: SEE NOTE NO [place] [facility] Comment: NNO, CT(ASCP) CT screening location: [employer] [place] [address]. REVIEW SPRING INTERN: SEE NOTE [facility] Comment: JEH, CT(ASCP) CT screening location: [place] [address]. COMMENT SEE NOTE [facility] [...] was performed using the APTIMA HPV Assay ([employer] This assay detects E6/E7 viral messenger RNA (mRNA) from 14 high-risk HPV types (16,18,31,33,35,39,45,51,52,56,58,59,66,68). The analytical performance characteristics of this assay have been determined by [facility]. The modifications have not been cleared or [...] OB Reminders 01/19/2025 Insurance BCBS Care Teams Founder President And Ceo Relationship Specialty Start Date End Date Kimmy Carey MD [address] [place] [address] PCP - General Family Medicine 02/04/23
--- OUTSIDE RECORDS SUMMARY | 2025-04-06 19:54 | XMS_ITS | Encounter Summary ---
Author Organization [facility] Address [address] [place] [address] Care Team Providers Care Spray Applicator Name Role Phone ArmandokinzaColleen head Primary Care Provider Unavailsalud e Encounter Details Date Type Department Care Team (Late Contact Info) Description 04/04/2025 Results Follow-Up [facility] [address] [place] [address] Crow Corey MD [address] [facility] [address] MS:[address] [place] [address] Complete Echo (TTE) w/wo Imaging Agent, Strain, 3D, Bubble Study Social History Tobacco Use Types Packs/Day Years [...] Heterosexual or Straight 11/2024 3:28 PM EDT documented as of this encounter Plan of Treatment Upcoming Encounters Date Type Department Care Team (Late Contact Info) Description 04/23/2025 10:40 AM EDT Office Visit [facility] [address] [place] [address] Crow Corey MD [address] [facility] [address] [place] [address] documented as of this encounter Visit Diagnoses Not on filedocumented in this encounter Care Teams Spray Applicator Relationship Specialty Start Date End Date Colleen Larios [address] [place] [address] PCP - General 02/22/25 documented as of this encounter
--- OUTSIDE RECORDS SUMMARY | 2025-04-06 19:54 | XMS_ITS | Encounter Summary ---
Author Organization [facility] Address [address] [place] [address] Care Team Providers Care General Milling Superintendent Name Role Phone Kimmy Carey MD Primary Care Provider [phone] Encounter Details Date Type Department Care Team (Late st Contact Info) Description 04/06/2025 Bamboo flowsheet [facility] [address] [place] [address] Vignesh Holman DO [address] [place], [place] [address] Social History Tobacco Use Types Packs/Day Years [...] How often do you attend chur or zoroastrian services? Never 01/22/2024 Do you belong to any clubs o r organizations such as orthodoxy groups, unions, fraternal or athletic groups, or [...] Recorded Patient Health Questionnaire-2 Score 0 02/04/2023 [facility] - Occupational Stress Questionnaire Answer Date [...] any time in the past 12 m [facility], were you homeless or living in a prison (including now)? No 01/22/2024 Estimated Date of [...] AM EDT Routine [facility] [address] [place] [address] Vignesh Holman DO [address] [place] [address] documented as of this encounter Goals Goal Patient Goal Type Associated Problems Recent Progress Patient-Stated? Author Reminders Care Plan OB Reminders No Open Scheduling, Background documented as of this encounter Visit Diagnoses Not on filedocumented in this encounter Additional Health Concerns Active Problems Noted Date Diagnosed Date OB Reminders 01/19/2025 documented as of this encounter Care Teams General Milling Superintendent Relationship Specialty Start Date End Date Kimmy Carey MD [address] [place] [address] PCP - General Family Medicine 02/04/23 documented as of this encounter
--- OUTSIDE RECORDS SUMMARY | 2025-04-06 19:54 | XMS_ITS | Encounter Summary ---
Author Organization [facility] Address [address] [facility] [place] [address] Care Team Providers Care Hot Tamale Worker Name Role Phone Kimmy Carey MD Primary Care Provider [phone] Colleen Larios NP Unavailable [phone] Encounter Details Date Type Department Care Team (Late st Contact Info) Description 05/13/2023 Abstract [facility] Family Medicine [address] [place] [address] Kimmy Carey MD [address] [place], [place] [id number] Social History Tobacco Use Types Packs/Day Years [...] 05/05/2025 10:50 AM EDT Routine [facility] [place] [address] [place] [address] Vignesh Holman DO [address] [facility] [address] [place] [address] documented as of this encounter Visit Diagnoses Not on filedocumented in this encounter Care Teams Hot Tamale Worker Relationship Specialty Start Date End Date Kimmy Carey MD [address] [facility] [place] [address] PCP - General Family Medicine 02/04/23 Colleen Larios NP [address] [facility] [place] [address] PCP - Brock Fleming 03/15/24 documented as of this encounter
--- OUTSIDE RECORDS SUMMARY | 2025-04-06 19:54 | XMS_ITS | Encounter Summary ---
Author Organization [facility] Address [address] [place] [address] Care Team Providers Care Mold Shifter Name Role Phone Kimmy Carey MD Primary Care Provider [phone] Encounter Details Date Type Department Care Team (Late st Contact Info) Description 03/11/2025 Abstract [facility] [address] [place] [address] Vignesh Holman DO [address] [facility] [place] [address] Social History Tobacco Use Types Packs/Day Years [...] often do you attend chur ch or christian services? Never 01/22/2024 Do you belong to any clubs o r organizations such as yarsani groups, unions, fraternal or athletic groups, or [...] Recorded Patient Health Questionnaire-2 Score 0 02/04/2023 [facility] - Occupational [...] in a retirement (including now)? No 01/22/2024 Estimated Date of [...] AM EDT Routine [facility] [address] [place] [address] Vignesh Holman DO [address] [facility] [place] [address] documented as of this encounter Goals Goal Patient Goal Type Associated Problems Recent Progress Patient-Stated? Author Reminders Care Plan OB Reminders No Open Scheduling, Background documented as of this encounter Visit Diagnoses Not on filedocumented in this encounter Additional Health Concerns Active Problems Noted Date Diagnosed Date OB Reminders 01/19/2025 documented as of this encounter Care Teams Mold Shifter Relationship Specialty Start Date End Date Kimmy Carey MD [address] [place] [address] PCP - General Family Medicine 02/04/23 documented as of this encounter
--- OUTSIDE RECORDS SUMMARY | 2025-04-06 19:54 | XMS_ITS | Encounter Summary ---
Author Organization [facility] Address [address] [place] [address] Care Team Providers Care Government Program Manager Name Role Phone Kimmy Carey MD Primary Care Provider [phone] Colleen Larios NP Unavailable [phone] Encounter Details Date Type Department Care Team (Late st Contact Info) Description 10/15/2024 Abstract [facility] [address] [place] [phone] Vignesh Holman DO [address] [facility] [facility] [address] [place], [place] [address] Social History Tobacco Use Types Packs/Day Years [...] week 01/22/2024 How often do you attend [facility] or baptism services? Never 01/22/2024 Do you [...] Recorded Patient Health Questionnaire-2 Score 0 02/04/2023 [facility] - Occupational Stress Questionnaire Answer [...] time in the past 12 m [facility], were you homeless or living in a mcfp (including now)? No 01/22/2024 Comments No Sex [...] AM EDT Routine [facility] [address] [place] [address] Vignesh Holman DO [address] [facility] [place] [address] documented as of this encounter Visit Diagnoses Not on filedocumented in this encounter Care Teams Government Program Manager Relationship Specialty Start Date End Date Kimmy Carey MD [address] [facility] [address] [place], [place] [id number] PCP - General Family Medicine 02/04/23 Colleen Larios NP [address] [facility] [address] [place], [place] [id number] PCP - [place] [employer] 03/15/24 documented as of this encounter
--- OUTSIDE RECORDS SUMMARY | 2025-04-06 19:54 | XMS_ITS | Encounter Summary ---
Author Organization [facility] Address [address] [place] [address] Care Team Providers Care Bag Worker Name Role Phone ArmandokinzaColleen head Primary Care Provider Christopher lynch Encounter Details Date Type Department Care Team (Late st Contact Info) Description 03/25/2025 Orders Only [facility] [address] [place] [address] ProviderBrandon MD [address] [place] [address] Social History Tobacco Use Types Packs/Day Years [...] Description 04/23/2025 10:40 AM EDT Office Visit [facility] [address] [place] [address] Crow Corey MD [address] [place] [id number] MS:[address] [place] [address] documented as of this encounter Procedures Procedure Name Priority Date/Time Associated Diagnosis Comments COMPLETE TRANSTHORACIC ECHO (TTE) W/WO IMAGING AGENT, STRAIN, 3D, BUBBLE STUDY Routine 03/25/2025 10:53 AM EDT documented in this encounter Results * Complete Echo (TTE) w/wo Imaging Agent, Strain, 3D, Bubble Study (03/25/2025 10:53 AM EDT) Anatomical Region Laterality Modality Ultrasound us Historical Provider MD MORELOS ECHO PROCEDURES Final Result documented in this encounter Visit Diagnoses Not on filedocumented in this encounter Care Teams Bag Worker Relationship Specialty Start Date End Date Colleen Larios [address] [place] [address] PCP - General 02/22/25 documented as of this encounter
--- OUTSIDE RECORDS SUMMARY | 2025-04-06 19:55 | XMS_ITS | Encounter Summary ---
Author Organization [facility] Address [address] [facility] [place] [address] Care Team Providers Care Grid Molder Name Role Phone Kimmy Carey MD Primary Care Provider [phone] Colleen Larios NP Unavailable [phone] Encounter Details Date Type Department Care Team (Late st Contact Info) Description 10/15/2024 Abstract [facility] [address] [facility] [address] [facility] [place] [address] Vignesh Holman DO [address] [facility] [address] [place], [place] [address] Social History Tobacco Use Types Packs/Day Years [...] week 01/22/2024 How often do you attend [facility] or yazidi services? Never 01/22/2024 Do you belong to any clubs o r organizations such as taoism groups, unions, fraternal or athletic groups, or [...] Patient Health Questionnaire-2 Score 0 02/04/2023 [facility] - Occupational Stress Questionnaire Answer Date [...] in the past 12 m [facility], were you homeless or living in a m[facility] (including now)? No 01/22/2024 Comments No Sex [...] AM EDT Routine [facility] [address] [facility] [address] [place] [address] Vignesh Holman DO [address] [facility] [place] [address] documented as of this encounter Visit Diagnoses Not on filedocumented in this encounter Care Teams Grid Molder Relationship Specialty Start Date End Date Kimmy Carey MD [address] [facility] [address] [place], [place] [phone] PCP - General Family Medicine 02/04/23 Colleen Larios NP [address] [facility] [address] [place], [place] [phone] PCP - [place] [employer] 03/15/24 documented as of this encounter
[2025-04-12 19:08] LABS: Age Gdln ACOG Testing Note (.); IGP, Aptima HPV, rfx 16/18,45 Note (.)
== END 2025-04-06 19:52 | disposition home or self-care (01) ==
LOC: LAB 19:51
PROVIDERS: Family Provider Family Medicine; Visit Provider Obstetrics & Gynecology
DX: Z01.419 Encounter for gynecological examination (general) (routine) without abnormal findings (principal)
CPT/HCPCS: 88175

== ENCOUNTER 2025-04-10 11:05 | Outpatient (OUT) | payer BC, SELFPAY ==
--- OUTSIDE RECORDS SUMMARY | 2025-03-29 13:37 | XMS_ITS | Encounter Summary ---
Author Organization [facility] Address [id number] [address] [place] [address] Care Team Providers Care Color Paste Mixing Supervisor Name Role Phone No Pcp, No Pcp Primary Care Provider Unavailabl e Reason for Visit * Diagnostic Imaging (Routine) - Pending Review Specialty Diagnoses / Procedures Referred By Joyce villagomez Referred To Contact Maternal and Medicine Diagnoses Multigravida of advanced maternal age in second trimester Screening, , for anatomic survey Procedures US MFM with or without consult US MFM with or without consult Gill Mejia MD [address] [facility] [address] [place] [address] Phone: tel: fax: Maternal- Medicine at [facility] [address] [place] [address] Phone: tel: fax: Referral ID Status Reason Start Date Expiration Date V isits Requested Visits Authorized [id number] Pending Review 01/21/2025 01/21/2026 1 1 Encounter Details Date Type Department Care Team (Latest Contact Info) Description 03/29/2025 1:37 PM EDT - 03/29/2025 11:59 PM EDT Hospital Encounter [facility] - MFM US Imaging [address] [place] [phone] Multigravida of advanced maternal age in second trimester; Screening, , for anatomic survey Discharge Disposition: Home Social History Tobacco Use Types Packs/Day Years [...] got money to buy more. Never True 03/29/2025 Within the past 12 months th e food we bought just didn't last and we didn't have money to get more. Never True 03/29/2025 Purpose - Life Answer Date Recorded Purpose and direction in life Unknown Estimated Date of Delivery Comme nts Yes 08/16/2025 Based on Ultraso und Sex and Gender Information Value Date Recorded Sex Assigned at Not on file Legal Sex Female 8:44 AM EDT Gender Identity Not on file Sexual Orientation Not on file documented as of this encounter Medications at Time of Discharge aspirin 81 mg Take 1 tablet (81 mg total) by mouth in the morning. no115/iron/folic acid ( 19 ORAL) Take by mouth. documented as of this encounter Plan of Treatment Not on file documented as of this encounter Procedures Procedure Name Priority Date/Time Associated Diagnosis Comments [facility] COMPREHENSIVE ANATOMIC SURVEY Routine 03/29/2025 3:29 PM EDT Multigravida of advanced maternal age in second trimester Screening, , for anatomic survey documented in this encounter Results * [facility] COMPREHENSIVE ANATOMIC SURVEY (03/29/2025 3:29 PM EDT) Anatomical Region Laterality Modality OB-OUTSIDE RIGGER Ultrasound 03/29/2025 1:57 PM EDT Narrative 03/29/2025 4:32 PM EDT NAME: JJ PISANO : 1990 SEX: F Accession Number: [id number] ORDERING PHYSICIAN: GILL MEJIA REFERRING PHYSICIAN: MARGOT RIVAS Coding ----- --------- Procedures [id number]: Ultrasound, uterus, real time with image documentation, and maternal evaluation plus detailed anatomic examination, transabdominal approach;single or first gestation 49810: Transvaginal Ultrasound (OB) Indication ----- --------- Screening for Anatomic Survey , Screening for cervical length, POTS, AMA- Supervision of elderly. History ----- --------- OB History 2. Para 0 [id number] Current ----- --------- Cell free DNA Low risk analysis Maternal Assessment ----- --------- Physical Exam Height 155 cm, 5 ft 1 in. Weight 63 kg, 138 lb. Initial weight 57 kg, 125 lb. BMI 26.08 kg/m . Initial BMI 23.62 kg/m . Weight gain 6 kg, 13 lb Method ----- --------- Transabdominal and transvaginal ultrasound examination. ----- --------- Leone . Number of fetuses: 1 Dating ----- --------- LMP on: 10/20/2024 GA by LMP 22 w + 6 d LUCIEN by LMP: 07/27/2025 Previous Ultrasound on: 12/31/2024 Type of prior assessment: GA GA at prior assessment date 7 w + 3 d GA by previous U/S 20 w + 0 d LUCIEN by previous Ultrasound: 08/16/2025 Ultrasound examination on: 03/29/2025 GA by U/S based upon: AC, BPD, Femur, HC GA by U/S 20 w + 0 d LUCIEN by U/S: 08/16/2025 Assigned: based on ultrasound (GA), selected on 03/29/2025 Assigned GA (weeks days) 20 w + 0 d Assigned LUCIEN: 08/16/2025 General Evaluation ----- --------- Cardiac activity Present. FHR 148 bpm. Presentation: variable Placenta: Placental site: anterior, away from cervical os Umbilical cord: Cord vessels: 3 vessel cord. Insertion site: normal insertion Amniotic fluid: Amount of AF: normal amount. MVP 4.1 cm Biometry ----- --------- Standard BPD 48.0 mm 20w 4d 71% Hadlock OFD 59.9 mm 20w 5d 75% Sommer HC 171.8 mm 19w 5d 31% Hadlock Cerebellum tr 21.2 mm 20w 1d 79% Hill Nuchal fold 4.3 mm AC 151.5 mm 20w 3d 57% Hadlock Femur 29.5 mm 19w 1d 14% Hadlock Humerus 30.3 mm 20w 0d 55% Sommer HC / AC 1.13 27% Hadlock EFW 314 g 35% Hadlock EFW (lb) 0 lb EFW (oz) 11 oz EFW by: Hadlock ([id number]) Extended Tibia 25.0 mm 18w 6d 21% Sommer Law Professor 7.7 mm CM 2.9 mm 3% Nicolaides Inner IOD 14.0 mm Outer IOD 30.6 mm Nasal bone 4.8 mm 2% Sonek Head / Face / Neck Cephalic index 0.80 65% Nicolaides Nasal bone: present Extremities / Bony Struc FL / BPD 0.61 2% Hadlock FL / HC 0.17 5% Hadlock FL / AC 0.19 4% Hadlock Other Structures FHR 148 bpm Anatomy ----- --------- The following structures appear normal: Head/Neck: Cranium. Lateral ventricles. Choroid plexus. Midline falx. Cavum septi pellucidi. Cerebellum. Cisterna magna. Parenchyma. Vermis. Neck. Nuchal fold. Face: Lips. Profile. Nose. Nasal bone. Maxilla. Mandible. Orbits. Heart/Thorax: 4-chamber view. RVOT view. LVOT view. 3-vessel view. [id number]-[id number] view. Situs. Aortic arch view. Bicaval view. Ductal arch view. Interventricular septum. Great vessels. Cardiac position. Cardiac axis. Cardiac size. Cardiac rhythm. Right lung. Left lung. Diaphragm. Abdomen: Abdom. wall. Cord insertion. Stomach. Kidneys. Bladder. Small bowel. Large bowel. Right renal artery. Left renal artery. Genitals. Spine: Cervical spine. Thoracic spine. Lumbar spine. Sacral spine. Extremities/Skeleton: Right upper arm. Right forearm. Right hand. Left upper arm. Left forearm. Left hand. Right upper leg. Right lower leg. Right foot. Left upper leg. Left lower leg. Left foot. Maternal Structures ----- --------- Uterus Visualized Cervix Visualized Approach - Transvaginal: Cervical length 3.00 cm Right Ovary Not visualized Left Ovary Not visualized Cul de Sac Visualized. No free fluid visualized Impression ----- --------- Single live intrauterine consistent with 20w 0d with an LUCIEN of 08/16/2025. Normal growth. EFW measures at the 35%, AC measures at the 57%. anatomic survey did not reveal sonographic evidence of any gross structural abnormalities. Transvaginal cervical length measures 3 cm. Amniotic fluid MVP measures 4.1 cm. Recommendations ----- --------- Please see [facility] documentation from today. Subsequent follow up or other follow up as clinically determined by primary OB provider unless otherwise specified by M. Results forwarded to ordering provider so they can follow up with the patient as necessary. Procedure Note Gill Mejia MD - 03/29/2025 NAME: JJ PISANO : 1990 SEX: F Accession Number: [id number] ORDERING PHYSICIAN: GILL MEJIA REFERRING PHYSICIAN: MARGOT RIVAS Coding ----- --------- Procedures [id number]: Ultrasound, uterus, real time with imagedocumentation, and maternal evaluation plus detailed anatomic examination, transabdominalapproach;single or first gestation 09323: Transvaginal Ultrasound (OB) Indication ----- --------- Screening for Anatomic Survey , Screening for cervical length, POTS, AMA- Supervision of elderly. History ----- --------- OB History 2. Para 0 [id number] Current ----- --------- Cell free DNA Low risk analysis Maternal Assessment ----- --------- Physical Exam Height 155 cm, 5 ft 1 in. Weight 63 kg, 138 lb. Initialweight 57 kg, 125 lb. BMI 26.08 kg/m . Initial BMI 23.62 kg/m . Weight gain 6 kg, 13 lb Method ----- --------- Transabdominal and transvaginal ultrasound examination. ----- --------- Leone . Number of fetuses: 1 Dating ----- --------- LMP on: 10/20/2024 GA by LMP 22 w + 6 d LUCIEN by LMP: 07/27/2025 Previous Ultrasound on: 12/31/2024 Type of prior assessment: GA GA at prior assessment date 7 w + 3 d GA by previous U/S 20 w + 0 d LUCIEN by previous Ultrasound: 08/16/2025 Ultrasound examination on: 03/29/2025 GA by U/S based upon: AC, BPD, Femur, HC GA by U/S 20 w + 0 d LUCIEN by U/S: 08/16/2025 Assigned: based on ultrasound (GA), selected on 03/29/2025 Assigned GA (weeks days) 20 w + 0 d Assigned LUCIEN: 08/16/2025 General Evaluation ----- --------- Cardiac activity Present. FHR 148 bpm. Presentation: variable Placenta: Placental site: anterior, away from cervical os Umbilical cord: Cord vessels: 3 vessel cord. Insertion site: normalinsertion Amniotic fluid: Amount of AF: normal amount. MVP 4.1 cm Biometry ----- --------- Standard BPD 48.0 mm 20w 4d 71% Hadlock OFD 59.9 mm 20w 5d 75% Sommer HC 171.8 mm 19w 5d 31% Hadlock Cerebellum tr 21.2 mm 20w 1d 79% Hill Nuchal fold 4.3 mm AC 151.5 mm 20w 3d 57% Hadlock Femur 29.5 mm 19w 1d 14% Hadlock Humerus 30.3 mm 20w 0d 55% Sommer HC / AC 1.13 27% Hadlock EFW 314 g 35% Hadlock EFW (lb) 0 lb EFW (oz) 11 oz EFW by: Hadlock (QKN-IQ-NY-FL) Extended Tibia 25.0 mm 18w 6d 21% Sommer Law Professor 7.7 mm CM 2.9 mm 3% Nicolaides Inner IOD 14.0 mm Outer IOD 30.6 mm Nasal bone 4.8 mm 2% Sonek Head / Face / Neck Cephalic index 0.80 65% Nicolaides Nasal bone: present Extremities / Bony Struc FL / BPD 0.61 2% Hadlock FL / HC 0.17 5% Hadlock FL / AC 0.19 4% Hadlock Other Structures FHR 148 bpm Anatomy ----- --------- The following structures appear normal: Head/Neck: Cranium. Lateral ventricles. Choroid plexus. Midline falx.Cavum septi pellucidi. Cerebellum. Cisterna magna. Parenchyma. Vermis. Neck. Nuchal fold. Face: Lips. Profile. Nose. Nasal bone. Maxilla. Mandible. Orbits. Heart/Thorax: 4-chamber view. RVOT view. LVOT view. 3-vessel view.[id number] view. Situs. Aortic arch view. Bicaval view. Ductal arch view. Interventricular septum. Greatvessels. Cardiac position. Cardiac axis. Cardiac size. Cardiac rhythm. Right lung. Left lung. Diaphragm. Abdomen: Abdom. wall. Cord insertion. Stomach. Kidneys. Bladder. Smallbowel. Large bowel. Right renal artery. Left renal artery. Genitals. Spine: Cervical spine. Thoracic spine. Lumbar spine. Sacral spine. Extremities/Skeleton: Right upper arm. Right forearm. Right hand. Leftupper arm. Left forearm. Left hand. Right upper leg. Right lower leg. Right foot. Left upper leg. Left lower leg. Leftfoot. Maternal Structures ----- --------- Uterus Visualized Cervix Visualized Approach - Transvaginal: Cervical length 3.00 cm Right Ovary Not visualized Left Ovary Not visualized Cul de Sac Visualized. No free fluid visualized Impression ----- --------- Single live intrauterine consistent with 20w 0d with an LUCIEN of08/16/2025. Normal growth. EFW measures at the 35%, AC measures at the 57%. anatomic survey did not reveal sonographic evidence of any grossstructural abnormalities. Transvaginal cervical length measures 3 cm. Amniotic fluid MVP measures 4.1 cm. Recommendations ----- --------- Please see [facility] documentation from today. Subsequent follow up or other follow up as clinically determined byprimary OB provider unless otherwise specified by [facility]. Results forwarded to ordering provider so they can follow up with thepatient as necessary. us Gill Mejia MD [facility] [place] ORDERABLES Final Result documented in this encounter Visit Diagnoses Diagnosis Multigravida of advanced maternal age in second trimester Screening, , for anatomic survey Encounter for anatomic survey documented in this encounter Additional Health Concerns Assessment Noted Time PHQ-9 Depression Total Score: 1 05/14/20 24 8:55 AM EDT documented as of this encounter Care Teams Color Paste Mixing Supervisor Relationship Specialty Start Date End Date No Pcp, [place] [id number] PCP - General Family Medicine 07/21/24 documented as of this encounter
--- OUTSIDE RECORDS SUMMARY | 2025-03-29 15:30 | XMS_ITS | Encounter Summary ---
Author Organization [facility] tem Address [id number] [address] [place] [address] Care Team Providers Care Nursing Assistants Teacher Name Role Phone No Pcp, No Pcp Primary Care Provider Unavailabl e Reason for Visit * Reason Comments AMA Palpitations Rapid Heart Rate POTS Encounter Details Date Type Department Care Team (Late st Contact Info) Description 03/29/2025 3:30 PM EDT Office Visit Maternal- Medicine at [facility] [address] [place] [id number] Gill Mejia MD [address] [facility] 1st [place] [address] Advanced maternal age, 1st , second trimester (Primary Dx); POTS (postural orthostatic tachycardia syndrome); PVC's (premature ventricular contractions); PAC (premature atrial contraction); 20 weeks gestation of Social History Tobacco Use Types Packs/Day Years [...] on file documented as of this encounter Last Filed Vital Signs Vital Sign Reading Time Taken Comments Blood Pressure 118/75 03/29/2025 1:47 PM EDT Pulse 94 03/29/2025 1:47 PM EDT Temperature - - Respiratory Rate - - Oxygen Saturation - - Inhaled Oxygen Concentration - - Weight 62.9 kg (138 lb 9.6 oz) 03/29/2025 1:47 P M EDT Height 154.9 cm (5' 0.98 ) 03/29/2025 1:47 PM ED T Body Mass Index 26.2 03/29/2025 1:47 PM EDT documented in this encounter Progress Notes * Marie Boogie LPN - 03/29/2025 3:30 PM EDT Headache/epigastric pain/blurry vision/swelling? Mild ankle/finger/feet had this pre- as well - nothing out of her normal Cramping/contractions? Feeling a tug with certain movements, nothing consistent. Spotting/vaginal bleeding? No Loss or gush of fluid like your water may have broken? Increased discharge Do you have cats at home? No Do you change the litter box (reason: risk of toxoplasmosis)? N/A Genetic testing done this here or other office? Yes, through primary OB, low risk Have you been seen here at [facility] in a previous ? N/A Recent ER visits or hospitalizations? No Bring blood sugar log or meter with you today? (Please bring them with you for every visit at [facility]) N/A Flu vaccine (May-September)? N/A Any concerns that you would like me to mention to the provider today? No * Gill Mejia MD - 03/29/2025 3:30 PM EDT REASON FOR CONSULTATION: AMA, h/o POTS HISTORY OF PRESENT ILLNESS: Sammi Chapa is a pleasant 35 y.o. at 20w0d due on Estimated Date of Delivery: 08/16/25. complicated by: AMA, s/p LR cfDNA PVCs diagnosed in 2020 after symptomatic palpitations. Followed with cardiology, Dr Tavares with [facility]. Holter monitor without arrythmias, only PVCs. Echo wnl, per pt report. Managed on metoprolol x1 year, discontinued by cardiology. POTS diagnosed in 2023. Currently has a health monitor that tracks HR, WHOOP, with HR averaging 90s-100s. Repeat echocardiogram 03/25/2025 echocardiogram 03/25 wnl with LVEF 60% (report visualized on pts my chart) Patient reports that irregular rhythm is abrupt in onset, lasting less than 30 seconds, resolve spontaneously, not associated with activity. Cardiac workup including echocardiogram, Holter monitoringEKG has only shown rare PACs and PVCs without SVT. She reports that episodes are typically daily, not associated with shortness of breath or chest pain, not associated with presyncopal symptoms. She does not feel that episodes are occurring more frequently in . She denies headaches, vision changes, nausea, vomiting, right upper quadrant or epigastric pain, SOB or chest pain. She denies contractions, vaginal bleeding, leaking of fluid. She reports good fetalmovement. Aneuploidy screening: low risk cell free DNA for trisomy 13, 18, 21, monosomy X, X sex chromosome aneuploidy (unity) Carrier screening: I have reviewed the pertinent available patient records including but not limited to notes, labs and images. PAST OBSTETRICAL HISTORY: OB History Para Term AB Living 2 1 SAB IAB Ectopic Multiple Live Births 1 # Outcome Date GA Lbr José/2nd Weight Sex Type Anes PTL Lv 2 Current 1 SAB 2020 7w0d SAB MEDICAL HISTORY: Past Medical History: Diagnosis Date Allergies Heart murmur 04/06/22 High cholesterol Irritable bowel syndrome with constipation POTS (postural orthostatic tachycardia syndrome) PVC's (premature ventricular contractions) Urinary tract infection SURGICAL HISTORY: Past Surgical History: Procedure Laterality Date BREAST AUGMENTATION 04/2021 BREAST SURGERY 05/11/21 COLONOSCOPY COSMETIC SURGERY 05/11/21 FAMILY/GENETIC HISTORY: Family History Problem Relation Age of Onset Cancer Paternal Grandfather prostate Prostate cancer Paternal Grandfather Breast cancer Paternal Grandmother Diabetes Maternal Grandmother Hypertension Father High Cholesterol Mother Heart murmur Mother Ovarian cancer Neg Hx Uterine cancer Neg Hx Pancreatic cancer Neg Hx Colon cancer Neg Hx Autoimmune disease Neg Hx Autism Neg Hx Down syndrome Neg Hx Bleeding Disorder Neg Hx Clotting disorder Neg Hx Heart defect Neg Hx Sudden Neg Hx SOCIAL HISTORY: Social History Tobacco Use Smoking status: Never Smokeless tobacco: Never Vaping Use Vaping status: Never Used Substance Use Topics Alcohol use: Not Currently Comment: Stopped drinking this year Drug use: Never ALLERGIES: No Known Allergies CURRENT MEDICATIONS: Current Outpatient Medications: aspirin 81 mg, Take 1 tablet (81 mg total) by mouth in the morning., Disp: , Rfl: no115/iron/folic acid ( 19 ORAL), Take by mouth., Disp: , Rfl: RECENT HOSPITALIZATION: none HABITS: Patient activity no restrictions, diet no restrictions REVIEW OF SYSTEMS: Head and Neck: Negative for any dizziness and headaches. Cardiovascular and Respiratory System: Denies any chest pain, shortness of breath, and coughing. Abdominal and System: Denies any abdominal pain, nausea, vomiting, vaginal bleeding, and vaginal discharge REVIEW OF TESTS AND ULTRASOUND REPORTS: Referral records and [facility] chart were reviewed Pertinent Ultrasound findings are see formal ultrasound report. PHYSICAL EXAMINATION: BP 118/75 (BP Site: Left Arm, BP Postition: Sitting) Pulse 94 Ht 154.9 cm(5' 0.98 ) Wt 62.9 kg (138 lb 9.6 oz) LMP 10/20/2024 BMI 26.20 kg/m?? Well-appearing in no distress. Respirations not labored, speaking comfortably in full sentences Gravid abdomen IMAGING 02/26/2024 Holter monitor 3-14d - Predominant rhythm: NSR - Ectopic Atrial Rhythm (EAR) - Ectopic Atrial Run(s) (EA Run) - PAC <0.1 % - PVC <0.1 % Symptoms were reported and were associated with normal sinus rhythm in the 90's as well as HR in the 110. Largely unremarkable study. Clinical correlation required. OVERALL ASSESSMENT -Sammi Chapa is a pleasant 35 y.o. at 20w0d -advanced maternal age -POTs -maternal PVCs and PACs COUNSELING/MEDICAL DECISION-MAKING POTS Postural tachycardia syndrome (POTS) is a disorder characterized by orthostatic intolerance. Orthostatic intolerance symptoms include lightheadedness, dizziness, blurring or fading of vision, generalized weakness, fatigue, palpitations, mental clouding, anxiety, nausea, dyspnea, or headache. The phy siological changes of can mimic or exacerbate the symptoms of POTS, however most tend toward improvement of symptoms. is associated with a physiolgoical blood volume increase of 40-60%, decrease in systemic vascular resistance with rojas at 20 weeks of gestation and increased cardiac output (both due to increased heart rate and stroke volume). Typically symptoms are exacerbated in first trimester and improve in second/third trimesters. Empiric lifestyle modification with aggressive hydration (~3L/ day) and compression stockings help alleviate POTS symptoms. Additional medical management options include beta blockers (metoprolol, propranolol) to limit orthostatic tachycardia; alpha adrenoreceptor agonist (midodrine) to constrict arteriolar and venous capacitance vessels and thus reduce blood pooling; mineralocorticoid (fludrocortisone) to promote renal sodium reabsorption and increase peripheral vascular resistance and thus expand intravascular volume. Medical management should be managed by a cardilogist. Of note, most recent echocardiogram shows normal structure and ejection fraction at 60%.. Metoprolol crosses the placenta, increases the risk of growth restriction and could potentially increase the risk of adverse events, including bradycardia, hypoglycemia and respiratorydepression in the first 48 hours of life. Overall it is well tolerated and safe in , when considering risk/ benefit profile. Midodrine is not recommended in as adverse events were observed in animal reproduction studies. Midodrine should be discontinued and alternative medications trialed. Fludrocortisone is mineral glucocorticoid that does not cross the placenta. Some studies have shownan association between first trimester systemic corticosteroid use and oral clefts. Systemic corticosteroids may also result in decrease growth, though this is conflicting data. In addition, due to increased risk of hypokalemia, monitoring with BMPs is recommended. If patient requires fludroco rtisone, then depending on dose fludrocortisone stress dose steroids could be required at time of delivery. While POTS is not dangerous to the in and of itself, the risk of syncope and maternal trauma increases the risk of placental abruption with or without maternal hemorrhage, labor, delivery. I encouraged her to watch her for symptoms and sit down as quickly as possible to avoid fall. With regard to labor and delivery, symptoms potentially worsen given tachycardia and hemodynamic instability. Early utilization of regional epidural to to decrease pain and avoid blood pressure/heartrate changes in response to pain is recommended, especially since pain is itself a trigger for POTS. We discussed that arrhythmias with the most common cardiac complications encountered during in patients with without structural heart disease.Arrhythmias can manifest with a first-time . Those with underlying structural heart disease or history of arrhythmias are highest risk of developing arrhythmias during . The exact mechanism of increased arrhythmia frequency during is likely multifactorial, due to hemodynamic changes (40-60% blood volume increased, decreases timing vascular resistance, increased heart rate and cardiac output), along with hormonal and autonomic changes. In particular, intravascular volume increases with resulting increase in atrial and ventricular myocardial stretch could contribute to arrhythmia merary. We also discussed that heart rate increases during normal gestation. Heart rate increases progressively throughout by 10-20 beats per minute, reaching a maximum in the 3rd trimester this overall change in hardware presents at 20- 25% increase over baseline. Nonetheless, the upper limit of normal with a resting heart rate typically is not greater than 115bmp, thus further workup is recommended if heart rate exceeds 115pm. Advanced maternal age I discussed with the patient the risks of advanced maternal age as it relates to chromosomal abnormalities. She had sonographic evaluation today and her ultrasound showed no anomalies or soft markersfor aneuploidy. I explained that ultrasound is not diagnostic of chromosomal abnormalities and that50% of babies with Trisomy 21 will have normal ultrasounds. Options for further testing were discussed in detail during today's visit. The patient was offered cell free DNA screening. Although cell-free DNA is not a diagnostic test , it has high sensitivity and specificity for the most common aneuploidies. A negative cell free DNA does not ensure an unaffected . A patient with a positive screen should be referred for genetic counseling and offered invasive diagnosis for confirmation of screen results. Limitations of cell free DNAscreening were reviewed with the patient. Cell free DNA does not replace the accuracy and diagnostic precision of amniocentesis which remains an option for all women. We discussed the option of amniocentesis for definitive genetic testing. I discussed complications of invasive testing, including a 1 in 900 risk for labor, rupture of membranes, infection or bleeding that may lead to pre-viable or delivery. The patient declined amniocentesis. SUMMARY/RECOMMENDATION: - encourage hydration and compression stockings - if symptomatic despite lifestyle modifications, recommend management of POTS with cardiology -if worsening frequency or severity of PACs/PVCs, recommend delivery at [facility] with telemetry during labor and delivery in 24 hours . Otherwise delivery can occur at local hospitalwithout telemetry. - consider early epidural in labor to minimize triggering POTS and manage the increased heart rate/volume shifts of labor/delivery -complete level 2 anatomy ultrasound without structural evidence of defects -status post low risk cell free DNA, declined amniocentesis -continue routine care with primary OB -continue baby aspirin for attempted preeclampsia prevention -anticipate term vaginal delivery at local hospital. [place] for usual obstetrical indications. -follow up in [facility] in 10-12 weeks. DISPOSITION: At this point the patient is in complete care of her barrel repairer. Patient does have office visit scheduled with us. Thank you for allowing me to participate in the care of Sammi Chapa. If there any questionsplease do not hesitate to contact us. Total time spent was 50 minutes: Preparing to see the patient (e.g., review of tests) Obtaining and/or reviewing separately obtained history Performing a medically appropriate examination and/or evaluation Counseling and educating the patient/family/caregiver Ordering medications, tests, or procedures Referring and communicating with other health career developer (not separately reported) Documenting clinical information in the electronic or other health record Independently interpreting results (not separately reported) and communicating results to the patient/family/caregiver Gill Mejia MD Maternal- Medicine [address] [place] [address] This document was created with [employer] technology. Though I make every effort to review the dictation as it is transcribed, on occasion the spoken word can be misinterpreted by the technology leading to inappropriate words, phrases, or sentences. This note is addressed to the requesting provider as a consultation for clinical guidance. Specificmedical abbreviations are occasionally used and those are generally approved by the [place]?Board of?Obstetrics and?Gynecology?as well as?Isabella???s abbreviations. The above plan of care was based solely on the diagnoses for which a consultation was requested. ?More frequent testing may be indicated based on her other medical/obstetrical conditions. The management of other or medical conditions is beyond the scope of requested consultation and will c ontinue to be followed by the primary barrel repairer or primary care provider. Note to patient: The Cures Act makes medical notes like these available to patients inthe interest of transparency. However, be advised this is a medical document. It is intended as peer to peer communication. It is written in medical language and may contain abbreviations or verbiagethat are unfamiliar. It may appear blunt or direct. Medical documents are intended to carry relevant information, facts as evident, and the clinical opinion of the practitioner. documented in this encounter Plan of Treatment Not on file documented as of this encounter Visit Diagnoses Diagnosis Advanced maternal age, 1st , second trimester- Primary POTS (postural orthostatic tachycardia syndrome) Unspecified tachycardia PVC's (premature ventricular contractions) Other premature beats PAC (premature atrial contraction) Supraventricular premature beats 20 weeks gestation of documented in this encounter Additional Health Concerns Assessment Noted Time PHQ-9 Depression Total Score: 1 05/14/20 24 8:55 AM EDT documented as of this encounter Care Teams Nursing Assistants Teacher Relationship Specialty Start Date End Date No Pcp, No Pcp ROYAL Monterro[place] [id number] PCP - General Family Medicine 07/21/24 documented as of this encounter
--- OUTSIDE RECORDS SUMMARY | 2025-04-06 10:30 | XMS_ITS | Encounter Summary ---
Author Organization [facility] Address [address] [place] [address] Care Team Providers Care Curriculum Facilitator Name Role Phone Kimmy Carey MD Primary Care Provider Reason for Visit * Reason Comments Routine Visit Well Women Visit Encounter Details Date Type Department Care Team (Latest Contact Info) Description 04/06/2025 10:30 AM EDT Routine [facility] [address] [place] [phone] Vignesh Holman DO [address] [place] [address] Second trimester ([facility]); 21 weeks gestation of ([facility]); Well woman exam with routine gynecological exam Social History Tobacco Use Types Packs/Day Years [...] week 01/22/2024 How often do you attend [facility] or yazdanism services? Never 01/22/2024 Do you belong to any clubs o r organizations such as jehovah's witness groups, unions, fraternal or athletic groups, or [...] 0 02/04/2023 [facility] - Occupational Stress Questionnaire Answer [...] any time in the past 12 m [facility], were you homeless or living in a long-term (including now)? No 01/22/2024 Estimated Date of [...] Sign Reading Time Taken Comments Blood Pressure 110/68 04/06/2025 10:35 AM EDT Pulse - - Temperature - - Respiratory Rate - - Oxygen Saturation - - Inhaled Oxygen Concentration - - Weight 64.1 kg (141 lb 6.4 oz) 04/06/2025 10:35 AM EDT Height - - Body Mass Index 25.86 05/15/2024 9:31 AM EDT documented in this encounter Progress Notes * Pati Varghese LPN - 04/06/2025 10:30 AM EDT Reason for Appointment: Patient ID: Sammi Chapa is a 35 y.o. female who presents for Routine Visit and Well Women Visit Patient presents today for Annual Exam. and Return OB appointment. MEDICATIONS Current Outpatient Medications Medication Instructions aspirin 81 mg, Daily MV-Min-Fe Fum-FA-DHA ( 1 PO) 1 tablet, [...] Negative. Endocrine: Negative. Allergic/Immunologic: Negative. OBJECTIVE Objective: Physical Exam Constitutional: Appearance: Normal appearance. She is well-developed. Genitourinary: Vulva normal. Breasts: Breasts are soft. Right: Normal. Left: Normal. Cardiovascular: Rate and Rhythm: Normal rate and regular rhythm. Pulmonary: Effort: Pulmonary effort is normal. Breath sounds: Normal breath sounds. Abdominal: General: Bowel sounds are normal. There is no distension. Palpations: Abdomen is soft. Tenderness: There is no abdominal tenderness. There is no guarding or rebound. Musculoskeletal: General: No swelling. Normal range of motion. Right lower leg: No edema. Left lower leg: No edema. Neurological: Mental Status: She is alert and oriented to person, place, and time. Skin: General: Skin is warm and dry. Psychiatric: Mood and Affect: Mood normal. Behavior: Behavior normal. Vitals and nursing note reviewed. Exam conducted with a ticket sales agent present. Vitals: Estimated body mass index is 25.86 kg/m?? as calculated from the following: Height as of 24: 5' 2 . Weight as of this encounter: 141 lb 6.4 oz. BP: 110/68 Patient's last menstrual period was 11/09/2024. ASSESSMENT & PLAN ICD-10-CM 1. Second trimester ([facility]) Z34.92 POCT urinalysis dipstick manually resulted Alpha fetoprotein, maternal Alpha fetoprotein, maternal CANCELED: POCT urinalysis dipstick manually resulted 2. 21 weeks gestation of ([facility]) Z3A.21 POCT urinalysis dipstick manually resulted Alpha fetoprotein, maternal Alpha fetoprotein, maternal CANCELED: POCT urinalysis dipstick manually resulted 3. Well woman exam with routine gynecological exam Z01.419 Pap Smear HPV DNA probe, amplified Return OB/Annual Exam: Patient presents today for a annual exam/routine obstetrics appointment. Patient is currently [id number]. Patient states she is doing well. Pap was obtained without difficulty and patient was given orders for msAFP to be obtained. Orders Placed This Encounter Procedures HPV DNA probe, amplified Alpha fetoprotein, maternal POCT urinalysis dipstick manually resulted Follow Up: Patient is to schedule annual exam for next year and return to office in 4 weeks for OB appointment. Documented by Pati Varghese LPN on behalf of: Vignesh Holman DO documented in this encounter Plan of Treatment Upcoming Encounters Date Type Department Care Team (Late st Contact Info) Description 05/05/2025 10:50 AM EDT Routine [facility] [address] [place] [phone] Vignesh Holman DO [address] [place], [place] [id number] Scheduled Orders Name Type Priority Associated Diagnoses Orde r Schedule Pap Smear Pathology and Cytology Routine Well woman exam with routine gynecological exam Ordered: 04/06/2025 HPV DNA probe, amplified Microbiology Routine Well woman exam with routine gynecological exam Ordered: 04/06/2025 Alpha fetoprotein, maternal Lab Routine Second trimester ([facility]) 21 weeks gestation of ([facility] Expected: 04/06/2025 (Approximate), Expires: 05/06/2025 documented as of this encounter Goals Goal Patient Goal Type Associated Problems Recent Progress Patient-Stated? Author Reminders Care Plan OB Reminders No Open Scheduling, Background documented as of this encounter Procedures Procedure Name Priority Date/Time Associated Diagnosis Comments POCT URINALYSIS DIPSTICK Routine 04/06/2025 10:43 AM EDT Second trimester ([facility]) 21 weeks gestation of ([facility]) documented in this encounter Results * (ABNORMAL) POCT urinalysis dipstick manually resulted (04/06/2025 10:43 AM EDT) Color, UA Colorless Clarity, UA [...] 1.0 0.2 - 12 mg/dL Leukocytes, UA Negative Negative - 500+++ Nikki/mcL Nitrite, UA Negative Negative - Positive Urine 04/06/2025 10:4 3 AM EDT Vignesh Holman DO POINT OF CARE TEST ENTER/EDIT OR DERABLES Final Result documented in this encounter Visit Diagnoses Diagnosis Second trimester ([facility]) state, incidental 21 weeks gestation of ([facility]) Well woman exam with routine gynecological exam Routine gynecological examination documented in this encounter Additional Health Concerns Active Problems Noted Date Diagnosed Date OB Reminders 01/19/2025 documented as of this encounter Care Teams Curriculum Facilitator Relationship Specialty Start Date End Date Kimmy Carey MD [address] [place] [address] PCP - General Family Medicine 02/04/23 documented as of this encounter
--- OUTSIDE RECORDS SUMMARY | 2025-04-10 11:08 | XMS_ITS | Encounter Summary ---
Author Organization [facility] Address [address] [place] [address] Care Team Providers Care Vp Customer Development Name Role Phone ArmandokinzaColleen head Primary Care Provider Chrsitopher lynch Encounter Details Date Type Department Care Team (Late st Contact Info) Description 03/25/2025 Orders Only [facility] [address] [place] [address] ProviderBrandon MD [address] [place] [address] Social History Tobacco Use Types Packs/Day [...] Description 04/23/2025 10:40 AM EDT Office Visit [facility] [address] [place] [address] Crow Corey MD [address] [place] [id number] MS:[address] [place] [address] documented as of this encounter Procedures Procedure [...] on filedocumented in this encounter Care Teams Vp Customer Development Relationship Specialty Start Date End Date Colleen Larios [address] [place] [address] PCP - General 02/22/25 documented as of this encounter
--- OUTSIDE RECORDS SUMMARY | 2025-04-10 11:08 | XMS_ITS | Encounter Summary ---
Author Organization [facility] Address [address] [facility] [place] [address] Care Team Providers Care Equipment Associate Name Role Phone ArmandokinzaColleen head Primary Care Provider Unavailsalud e Encounter Details Date Type Department Care Team (Late Contact Info) Description 04/04/2025 Results Follow-Up [facility] [address] [place] [address] Crow Corey MD [address] [facility] [address]D MS:1118 [place] [address] Complete Echo (TTE) w/wo Imaging Agent, Strain, [...] Description 04/23/2025 10:40 AM EDT Office Visit [facility] [address] [place] [address] Crow Corey MD [address] [facility] [address] MS:[address] [place] [address] documented as of this encounter Visit Diagnoses Not on filedocumented in this encounter Care Teams Equipment Associate Relationship Specialty Start Date End Date Colleen Larios [address] [place] [address] PCP - General 02/22/25 documented as of this encounter
--- OUTSIDE RECORDS SUMMARY | 2025-04-10 11:09 | XMS_ITS | Encounter Summary ---
Author Organization [facility] Address [facility]-[id number] [address] [place] [address] Care Team Providers Care Crystal Inspector Name Role Phone No Pcp, No Pcp Primary Care Provider Unavailabl e Encounter Details Date Type Department Care Team (Late st Contact Info) Description 02/26/2022 Orders Only [facility] [place] [address] Transcribe, Orders Support User Pain [...] pain documented in this encounter Care Teams Crystal Inspector Relationship Specialty Start Date End Date No Pcp, [place] [address] PCP - General Family Medicine 07/21/24 documented as of this encounter
--- OUTSIDE RECORDS SUMMARY | 2025-04-10 11:09 | XMS_ITS | Encounter Summary ---
Author Organization [facility] Address [address] [facility] [place] [address] Care Team Providers Care Big Data Analytics Lead Name Role Phone Kimmy Carey MD Primary Care Provider [phone] Colleen Larios NP Unavailable [phone] Encounter Details Date Type Department Care Team (Late st Contact Info) Description 05/13/2023 Abstract [facility] Family Medicine [address] [place] [address] Kimmy Carey MD [address] [place], [place] [id number] Social History Tobacco Use Types Packs/Day Years [...] AM EDT Routine [facility] [address] [place] [address] Vignesh Holman DO [address] [facility] [place] [address] documented as of this encounter Visit Diagnoses Not on filedocumented in this encounter Care Teams Big Data Analytics Lead Relationship Specialty Start Date End Date Kimmy Carey MD [address] [facility] [place] [address] PCP - General Family Medicine 02/04/23 Colleen Larios NP [address] [facility] [place] [address] PCP - [place] 03/15/24 documented as of this encounter
--- OUTSIDE RECORDS SUMMARY | 2025-04-10 11:09 | XMS_ITS | Encounter Summary ---
Author Organization [facility] Address [address] [facility] [place] [address] Care Team Providers Care Computer Peripheral Equipment Operator Name Role Phone Kimmy Carey MD Primary Care Provider [phone] Encounter Details Date Type Department Care Team (Latest Contact Info) Description 03/30/2025 Travel Social History Tobacco Use Types Packs/Day [...] any clubs o r organizations such as zoroastrianism groups, unions, fraternal or athletic groups, or [...] Recorded Patient Health Questionnaire-2 Score 0 02/04/2023 [facility] Occupat ional Health - Occupational Stress [...] were you homeless or living in a senior living (including now)? No 01/22/2024 Estimated Date of [...] EDT Routine [facility] [address] [facility] [place] [address] Vignesh Holman DO [address] [facility] [place] [address] documented as of this encounter Goals Goal Patient Goal Type Associated Problems Recent Progress Patient-Stated? Author Reminders Care Plan OB Reminders No Open Scheduling, Background documented as of this encounter Visit Diagnoses Not on filedocumented in this encounter Additional Health Concerns Active Problems Noted Date Diagnosed Date OB Reminders 01/19/2025 documented as of this encounter Care Teams Computer Peripheral Equipment Operator Relationship Specialty Start Date End Date Kimmy Carey MD [address] [place] [address] PCP - General Family Medicine 02/04/23 documented as of this encounter
--- OUTSIDE RECORDS SUMMARY | 2025-04-10 11:09 | XMS_ITS | Encounter Summary ---
Author Organization [facility] Address [address] [place] [address] Care Team Providers Care Merchant Banker Name Role Phone Kimmy Carey MD Primary Care Provider [phone] Colleen Larios NP Unavailable [phone] Encounter Details Date Type Department Care Team (Late st Contact Info) Description 10/15/2024 Abstract [facility] [address] [facility] [place] [address] Vignesh Holman DO [address] [facility] [address] [place], [place] [address] Social History Tobacco Use Types Packs/Day Years [...] week 01/22/2024 How often do you attend [facility] or tenriism services? Never 01/22/2024 Do you belong to [...] Recorded Patient Health Questionnaire-2 Score 0 02/04/2023 [facility] - Occupational Stress Questionnaire Answer Date [...] time in the past 12 m [facility], were you homeless or living [...] AM EDT Routine [facility] [address] [facility] [place] [address] Vignesh Holman DO [address] [facility] [place] [address] documented as of this encounter Visit Diagnoses Not on filedocumented in this encounter Care Teams Merchant Banker Relationship Specialty Start Date End Date Kimmy Carey MD [address] [facility] [address] [place], [place] [address] PCP - General Family Medicine 02/04/23 Colleen Larios NP [address] [facility] [address] [place], [place] [address] PCP - [place] [employer] 03/15/24 documented as of this encounter
--- OUTSIDE RECORDS SUMMARY | 2025-04-10 11:09 | XMS_ITS | Encounter Summary ---
Author Organization [facility] Address [id number] [address] [place] [address] Care Team Providers Care Bdc Manager Name Role Phone No Pcp, No Pcp Primary Care Provider Unavailabl e Encounter Details Date Type Department Care Team (Late st Contact Info) Description 05/07/2022 [facility] [address] [place] [address] External, Scanning Provider Social History Tobacco Use [...] on filedocumented in this encounter Care Teams Bdc Manager Relationship Specialty Start Date End Date No Pcp, [place] [address] PCP - General Family Medicine 07/21/24 documented as of this encounter
--- OUTSIDE RECORDS SUMMARY | 2025-04-10 11:09 | XMS_ITS | Encounter Summary ---
Author Organization [facility] tem Address [facility]-[id number] [address] [place] [address] Care Team Providers Care Surety Bond Agent Name Role Phone No Pcp, No Pcp Primary Care Provider Unavailabl e Encounter Details Date Type Department Care Team (Late st Contact Info) Description 02/28/2022 [facility] [address] [place] [address] External, Scanning Provider Social History [...] on filedocumented in this encounter Care Teams Surety Bond Agent Relationship Specialty Start Date End Date No Pcp, [place] [address] PCP - General Family Medicine 07/21/24 documented as of this encounter
--- OUTSIDE RECORDS SUMMARY | 2025-04-10 11:09 | XMS_ITS | Encounter Summary ---
Author Organization [facility] Address [address] [place] [address] Care Team Providers Care Copy Center Operator Name Role Phone Kimmy Carey MD Primary Care Provider [phone] Encounter Details Date Type Department Care Team (Late st Contact Info) Description 03/11/2025 Abstract [facility] [address] [facility] [place] [address] Vignesh Holman DO [address] [facility] [place] [address] Social History Tobacco Use Types Packs/Day Years [...] any clubs o r organizations such as quaker groups, unions, fraternal or athletic groups, or [...] Score 0 02/04/2023 [facility] Occupat ional Health - Occupational [...] the past 12 m [facility], were you homeless or living in a [...] OBGYN [address] [place] [place] [address] Vignesh Holman DO [address] [facility] [place] [address] documented as of this encounter Goals Goal Patient Goal Type Associated Problems Recent Progress Patient-Stated? Author Reminders Care Plan OB Reminders No Open Scheduling, Background documented as of this encounter Visit Diagnoses Not on filedocumented in this encounter Additional Health Concerns Active Problems Noted Date Diagnosed Date OB Reminders 01/19/2025 documented as of this encounter Care Teams Copy Center Operator Relationship Specialty Start Date End Date Kimmy Carey MD [address] [place] [address] PCP - General Family Medicine 02/04/23 documented as of this encounter
--- OUTSIDE RECORDS SUMMARY | 2025-04-10 11:09 | XMS_ITS | Encounter Summary ---
Author Organization [facility] tem Address [id number] [address] [place] [address] Care Team Providers Care Founder / Ceo Name Role Phone No Pcp, No Pcp Primary Care Provider Unavailabl e Encounter Details Date Type Department Care Team (Late st Contact Info) Description 02/04/2025 Orders Only [facility]aternal- Medicine at [facility] [address] [place] [address] Vignesh Holman, DO [address] [facility] [place] [address] Social History Tobacco Use Types Packs/Day Years [...] documented as of this encounter Care Teams Founder / Ceo Relationship Specialty Start Date End Date No Pcp, [place] [address] PCP - General Family Medicine 07/21/24 documented as of this encounter
--- OUTSIDE RECORDS SUMMARY | 2025-04-10 11:09 | XMS_ITS | Encounter Summary ---
Author Organization [facility] Address [address] [place] [address] Care Team Providers Care Flying Ii Instructor Name Role Phone Kimmy Carey MD Primary Care Provider [phone] Encounter Details Date Type Department Care Team (Late st Contact Info) Description 03/29/2025 Abstract [facility] [address] [facility] [place] [address] Vignesh Holman DO [address] [facility] [place] [address] Social History Tobacco Use Types Packs/Day Years [...] often do you attend chur ch or buddhist services? Never 01/22/2024 Do you belong to any clubs o r organizations such as druze groups, unions, fraternal or athletic groups, or [...] Recorded Patient Health Questionnaire-2 Score 0 02/04/2023 [facility] of Occupat ional Health - [...] any time in the past 12 m [facility], were you homeless or living [...] AM EDT Routine [facility] [address] [facility] [place] [address] Vignesh Holman DO [address] [facility] [place] [address] documented as of this encounter Goals Goal Patient Goal Type Associated Problems Recent Progress Patient-Stated? Author Reminders Care Plan OB Reminders No Open Scheduling, Background documented as of this encounter Visit Diagnoses Not on filedocumented in this encounter Additional Health Concerns Active Problems Noted Date Diagnosed Date OB Reminders 01/19/2025 documented as of this encounter Care Teams Flying Ii Instructor Relationship Specialty Start Date End Date Kimmy Carey MD [address] [place] [address] PCP - General Family Medicine 02/04/23 documented as of this encounter
--- OUTSIDE RECORDS SUMMARY | 2025-04-10 11:09 | XMS_ITS | Encounter Summary ---
Author Organization [facility] tem Address [facility][id number] [address] [place] [address] Care Team Providers Care Oil Agent Name Role Phone No Pcp, No Pcp Primary Care Provider Unavailabl e Encounter Details Date Type Department Care Team (Late st Contact Info) Description 01/21/2025 Orders Only Maternal- Medicine at [facility] [address] [place] [address] Ref Prov, [place] [address] Social History Tobacco Use Types Packs/Day Years [...] documented as of this encounter Care Teams Oil Agent Relationship Specialty Start Date End Date No Pcp, No Pcp [place] [address] PCP - General Family Medicine 07/21/24 documented as of this encounter
--- OUTSIDE RECORDS SUMMARY | 2025-04-10 11:09 | XMS_ITS | Encounter Summary ---
Author Organization [facility] tem Address [facility]-[id number] [address] [place] [address] Care Team Providers Care Shake Maker Name Role Phone No Pcp, No Pcp Primary Care Provider Unavailabl e Encounter Details Date Type Department Care Team (Latest Contact Info) Description 2025 Travel Social History Tobacco Use Types Packs/Day [...] documented as of this encounter Care Teams Shake Maker Relationship Specialty Start Date End Date No Pcp, [place] [address] PCP - General Family Medicine 07/21/24 documented as of this encounter
--- OUTSIDE RECORDS SUMMARY | 2025-04-10 11:09 | XMS_ITS | Encounter Summary ---
Author Organization [facility] Address [address] [place] [address] Care Team Providers Care Utility Worker Film Processing Name Role Phone Kimmy Carey MD Primary Care Provider [phone] Encounter Details Date Type Department Care Team (Late st Contact Info) Description 04/07/2025 Telephone [facility] [address] [place] [address] Vignesh Holman DO [address] [place], [facility] Social History Tobacco Use Types Packs/Day Years [...] often do you attend chur ch or scientology services? Never 01/22/2024 Do you belong to [...] Patient Health Questionnaire-2 Score 0 02/04/2023 [facility] - Occupational [...] any time in the past 12 m [facility], were you homeless or living in [...] encounter Miscellaneous Notes * Telephone Encounter - Kendra Voss LPN - 04/07/2025 2:49 PM EDT I was just in the office yesterday and I forgot to ask Dr. Holman a question about some protein powder that I could drink. If you just just give me a call back and just let me know if it is okay to just drink the traditional protein shakes that you buy from The grocery if there was anyone that you guys recommended, I know it probably sounds like a silly question, but I am just trying to be carefulduring again. Patient call was returned and she was advised just basic protein drinks from the grocery store makesure no added caffeine. PVU and states that she does have the premier protein shakes. documented in this encounter Plan of Treatment Upcoming Encounters Date Type Department Care Team (Late st Contact Info) Description 05/05/2025 10:50 AM EDT Routine [facility] [address] [place] [phone] Vignesh Holman DO [address] [place] [address] documented as of this encounter Goals Goal Patient Goal Type Associated Problems Recent Progress Patient-Stated? Author Reminders Care Plan OB Reminders No Open Scheduling, Background documented as of this encounter Visit Diagnoses Not on filedocumented in this encounter Additional Health Concerns Active Problems Noted Date Diagnosed Date OB Reminders 01/19/2025 documented as of this encounter Care Teams Utility Worker Film Processing Relationship Specialty Start Date End Date Kimmy Carey MD [address] [place] [address] PCP - General Family Medicine 02/04/23 documented as of this encounter
--- OUTSIDE RECORDS SUMMARY | 2025-04-10 11:09 | XMS_ITS | Clinical Summary ---
Author Organization [facility] Address [address] [place] [address] Care Team Providers Care Brazing Machine Operator Name Role Phone Colleen Larios Primary Care [...] Department Care Team Description 04/04/2025 Results Follow-Up [facility] [address] [place] [address] Crow Corey MD Complete Echo (TTE) w/wo Imaging Agent, Strain, 3D, Bubble Study 03/25/2025 Orders Only [facility] [address] [place] [address] ProviderBrandon MD 02/22/2025 Orders Only [facility] [address] [place] [address] ProviderBrandon MD 02/18/2025 10:20 AM EDT Office Visit [facility] [address] [place] [address] Crow Corey MD Dyspnea on exertion (Primary [...] Description 04/23/2025 10:40 AM EDT Office Visit [facility] [address] [place] [address] Crow Corey MD [address] [place] [place] [address] Health Maintenance Due Date Last Done Comments [...] topic Meningococcal Vaccine Aged Out No silas aslhie eligible based on patient's age to complete [...] Final Result from Last 3 Months Insurance [facility] Care Teams Brazing Machine Operator Relationship Specialty Start Date End Date Colleen Larios [address] [place] [address] PCP - General 02/22/25
--- OUTSIDE RECORDS SUMMARY | 2025-04-10 11:09 | XMS_ITS | Clinical Summary ---
Author Organization [employer] Address [id number] [address] [place] [address] Care Team Providers Care Staffing Assistant Name Role Phone No Pcp, No Pcp Primary Care Provider Unavailabl e Allergies No known active allergies Medications no115/iron/foli c acid ( 19 ORAL) Take by mouth. Active aspirin 81 mg Take 1 tablet (81 mg total) by mouth in the morning. Active juqae-9-vyj-epa -dpa-fish oil 1,050-1,200 mg capsule Take by mouth. 03/29/20 25 Discontinued cholecalciferol , vitamin D3, 2,000 units tablet Take by mouth daily. 03/29/20 25 Discontinued fructooligosacc harides (PREBIOTIC FIBER, FOS, ORAL) Take by mouth. 03/29/20 25 Discontinued Active Problems Problem Noted Date Diagnosed Date [...] Encounters Date Type Department Care Team Description 03/29/2025 3:30 PM EDT Office Visit [facility] at [facility] [address] [place] [address] Queta Mejia MD Advanced maternal age, 1st , second trimester (Primary Dx); POTS (postural orthostatic tachycardia syndrome); PVC's (premature ventricular contractions); PAC (premature atrial contraction); 20 weeks gestation of 03/29/2025 1:37 PM EDT - 03/29/2025 11:59 PM EDT Hospital Encounter [facility] - [facility] Imaging [address] [place] [address] Multigravida of advanced maternal age in second trimester; Screening, , for anatomic survey Discharge Disposition: Home 2025 Travel 02/04/2025 Telephone [facility]- Medicine at [facility] [address] [place] [address] Jose Middleton CMA 02/04/2025 Orders Only [facility] at [facility] [address] [place] [address] Margot Holman DO 02/02/2025 Travel 01/21/2025 Orders Only [facility]- [facility] at [facility] [address] [place] [address] Ref Prov, Not In System 01/21/2025 Abstract [facility]- Medicine at [facility] [address] [place] [phone] Queta Mejia MD from Last 3 Months Family History Medical History Relation Name Comments Hypertension Father Dwain Sawant Diabetes Maternal Grandmother Winifred Collins Heart murmur Mother High Cholesterol Mother Cancer Paternal Grandfather Baldo Savana prosta te Prostate cancer Paternal Grandfather Baldo Savana Breast cancer Paternal Grandmother Ana Sawant Autism Neg Hx Autoimmune disease Neg Hx Bleeding Disorder Neg Hx Clotting disorder Neg Hx Colon cancer Neg Hx Down syndrome Neg Hx Heart defect Neg Hx Ovarian cancer Neg Hx Pancreatic cancer Neg Hx Sudden Neg Hx Uterine cancer Neg Hx Relation Name Status Comments Father Dwain Sawant Alive Maternal Grandmother Winifred Collins Mother Alive Paternal Grandfather Baldo RoachSavana Paternal Grandmother Ana Sawant Social History Tobacco Use Types Packs/Day Years [...] EDT Temperature - - Respiratory Rate 18 04/18/2022 10:38 AM EDT Oxygen Saturation 98% 07/11/2020 9:51 AM EST Inhaled Oxygen Concentration - - Weight 62.9 kg (138 lb 9.6 oz) 03/29/2025 1:47 P M EDT Height 154.9 cm (5' 0.98 ) 03/29/2025 1:47 PM ED T Body Mass Index 26.2 03/29/2025 1:47 PM EDT Plan of Treatment Health Maintenance Due Date Last Done Comments Adult BMI Follow Up Plan 2007 DTaP,Tdap and Td Vaccines (1 - Tdap) 2008 Pap Smear 2010 Influenza Vaccine 03/15/2025 05/05/2013 Depression Screening 05/14/2025 05/14/2024 Adult BMI Screening 03/29/2026 03/29/2025 Tobacco Screening 03/29/2026 03/29/2025 Medical Devices Not on file Procedures Procedure Name Priority Date/Time Associated Diagnosis Comments [facility] COMPREHENSIVE ANATOMIC SURVEY Routine 03/29/2025 3:29 PM EDT Multigravida of advanced maternal age in second trimester Screening, , for anatomic survey UNLISTED LAB TEST Routine 02/02/2025 9:3 3 AM EDT TYPE AND SCREEN Routine 01/16/2025 HEPATITIS B SURFACE ANTIGEN Routine 01/16/2025 DRUG SCREEN, URINE Routine 01/16/2025 HIV 1&2 AB/AG SCREEN (P24 AG) Routine 01/16/2025 RUBELLA IGG IMMUNE STATUS Routine 01/16/2025 from Last 3 Months Results * [facility] COMPREHENSIVE ANATOMIC SURVEY (03/29/2025 3:29 PM EDT) Anatomical Region Laterality Modality OB-FIELD MARKETING TEAM LEADER Ultrasound 03/29/2025 1:57 PM EDT Narrative 03/29/2025 4:32 PM EDT NAME: JJ PISANO : 1990 SEX: F Accession Number: [id number] ORDERING PHYSICIAN: QUETA MEJIA REFERRING PHYSICIAN: MARGOT HOLMAN Coding ----- --------- Procedures [id number]: Ultrasound, uterus, real time with image documentation, and maternal evaluation plus detailed anatomic examination, transabdominal approach;single or first gestation [id number]: Transvaginal Ultrasound (OB) Indication ----- --------- Screening for Anatomic Survey , Screening for cervical length, POTS, AMA- Supervision of elderly. History ----- --------- OB History 2. Para 0 [id number] Current ----- --------- Cell free DNA Low [...] EFW (oz) 11 oz EFW by: Hadlock ([id number]) Extended Tibia 25.0 mm 18w 6d 21% [facility] Wellness Coordinator 7.7 mm CM 2.9 mm 3% Nicolaides [...] view. RVOT view. LVOT view. 3-vessel view. 9-zkodql-fywknqa view. Situs. Aortic arch view. Bicaval view. [...] 4.1 cm. Recommendations ----- --------- Please see [facility] documentation from today. Subsequent follow up or other follow up as clinically determined by primary OB provider unless otherwise specified by [facility]. Results forwarded to ordering provider so they can follow up with the patient as necessary. Procedure Note Queta Mejia MD - 03/29/2025 NAME: JJ PISANO : 1990 SEX: F Accession Number: [id number] ORDERING PHYSICIAN: QUETA MEJIA REFERRING PHYSICIAN: MARGOT HOLMAN Coding ----- --------- Procedures [id number]: Ultrasound, uterus, real time with imagedocumentation, and maternal evaluation plus detailed anatomic examination, transabdominalapproach;single or first gestation 16558: Transvaginal Ultrasound (OB) Indication ----- --------- Screening for Anatomic Survey , Screening for cervical length, POTS, AMA- Supervision of elderly. History ----- --------- OB History 2. Para 0 [id number] Current ----- --------- Cell free DNA Low [...] EFW (oz) 11 oz EFW by: Hadlock ([id number]) Extended Tibia 25.0 mm 18w 6d 21% [facility] Wellness Coordinator 7.7 mm CM 2.9 mm 3% Nicolaides [...] 4-chamber view. RVOT view. LVOT view. 3-vessel view.[id number]-[id number] view. Situs. Aortic arch view. Bicaval view. [...] 4.1 cm. Recommendations ----- --------- Please see [facility] documentation from today. Subsequent follow up or other follow up as clinically determined byprimary OB provider unless otherwise specified by [facility]. Results forwarded to ordering provider so they can follow up with thepatient as necessary. us Queta Mejia MD [facility] US ORDERABLES Final Result * Unlisted Lab Test (02/02/2025 9:33 AM EDT) us Margot R River DO LAB BLOOD ORDERABLES Final Resu lt Performing Organization Address City/[facility]/ZIP Co de Phone Number MANUALLY TRANSCRIBED RESULTS * HIV 1&2 AB/AG Screen (P24 AG) (01/16/2025) HIV 1&2 AB/AG Non Reactive MAN UALLY TRANSCRIBED RESULTS Blood Venous blood / Unknown us Not In System Ref Prov LAB BLOOD ORDERABLES Serenity l Result Performing Organization Address [facility] Co de Phone Number MANUALLY TRANSCRIBED RESULTS * Rubella IGG immune status (01/16/2025) Rubella immune IgG 0.90 MANUALLY TRANSCRIBED RESULTS Blood Venous blood / Unknown us Not In System Ref Prov LAB BLOOD ORDERABLES Serenity l Result Performing Organization Address [facility] Co de Phone Number MANUALLY TRANSCRIBED RESULTS * [...] ORDERABLES Final Re sult Performing Organization Address [facility] Co de Phone Number MANUALLY TRANSCRIBED RESULTS * Hepatitis B surface antigen (01/16/2025) Hepatitis B Surface Antigen Negative MANUALLY TRANSCRIBED RESULTS Blood Venous blood / Unknown us Not In System Ref Prov LAB BLOOD ORDERABLES Serenity l Result MANUALLY TRANSCRIBED RESULTS * Type and screen (01/16/2025) Abo/Rh(D) A Positive MANUALLY TRANSCRIBED RESULTS Antibody Screen Negative MANUALLY TRANSCRIBED RESULTS Blood Venous blood / Unknown us Not In System Ref Prov BLOOD BANK TEST ORDERABLE S Final Result MANUALLY TRANSCRIBED RESULTS from Last 3 Months Insurance [employer] Care Teams Staffing Assistant Relationship Specialty Start Date End Date No Pcp, [place] [id number] PCP - General Family Medicine 07/21/24
--- OUTSIDE RECORDS SUMMARY | 2025-04-10 11:09 | XMS_ITS | Encounter Summary ---
Author Organization [employer] Address [id number] [address] [place] [address] Care Team Providers Care Liquor Runner Name Role Phone No Pcp, No Pcp Primary Care Provider Unavailabl e Encounter Details Date Type Department Care Team (Late st Contact Info) Description 05/03/2022 Telephone [facility] [address] [place] [phone] Magalie Bailey PA [address] [place] [phone] Social History Tobacco Use Types Packs/Day Years [...] 3:13 PM EDT Please call [facility] in [place] tomorrow to get the results from her urine test. She dropped off today * Telephone Encounter - Cielo Oro LPN - 05/03/2022 3:13 PM EDT Pt actually called and stated that [facility] did not receive an order for a urine collection. I reprinted the order and faxed it to [facility] [phone] per pt request. I will check on results tomorrow. * Telephone Encounter - Cielo Oro LPN - 05/03/2022 3:13 PM EDT Results received and on your desk for review. documented in this encounter Plan of Treatment Not on file documented as of this encounter Visit Diagnoses Not on filedocumented in this encounter Care Teams Liquor Runner Relationship Specialty Start Date End Date No Pcp, [place] [address] PCP - General Family Medicine 07/21/24 documented as of this encounter
--- OUTSIDE RECORDS SUMMARY | 2025-04-10 11:09 | XMS_ITS | Encounter Summary ---
Author Organization [employer] Address [id number] [address] [place] [address] Care Team Providers Care Web Retailer Name Role Phone No Pcp, No Pcp Primary Care Provider Unavailabl e Encounter Details Date Type Department Care Team (Late st Contact Info) Description 07/12/2020 Orders Only [facility] [address] [place] [address] External, Scanning Provider Social History [...] on filedocumented in this encounter Care Teams Web Retailer Relationship Specialty Start Date End Date No Pcp, [place] [address] PCP - General Family Medicine 07/21/24 documented as of this encounter
--- OUTSIDE RECORDS SUMMARY | 2025-04-10 11:09 | XMS_ITS | Encounter Summary ---
Author Organization [employer] Address [id number] [address] [place] [address] Care Team Providers Care Rubber Factory Worker Name Role Phone No Pcp, No Pcp Primary Care Provider Unavailabl e Encounter Details Date Type Department Care Team (Late st Contact Info) Description 01/19/2022 Telephone [facility] [address] [place] [phone] Magalie Bailey PA [address] [place] [id number] Social History Tobacco Use Types Packs/Day Years [...] urogram and an appointment with me in [place] to review the results. * Telephone Encounter [...] on filedocumented in this encounter Care Teams Rubber Factory Worker Relationship Specialty Start Date End Date No Pcp, [place] [address] PCP - General Family Medicine 07/21/24 documented as of this encounter
--- OUTSIDE RECORDS SUMMARY | 2025-04-10 11:09 | XMS_ITS | Encounter Summary ---
Author Organization [facility] Address [id number] [address] [place] [address] Care Team Providers Care Compensation Business Partner Name Role Phone No Pcp, No Pcp Primary Care Provider Unavailabl e Encounter Details Date Type Department Care Team (Late st Contact Info) Description 07/12/2020 Orders Only [facility] [address] [place] [address] External, Scanning Provider Social History [...] on filedocumented in this encounter Care Teams Compensation Business Partner Relationship Specialty Start Date End Date No Pcp, [place] [address] PCP - General Family Medicine 07/21/24 documented as of this encounter
--- OUTSIDE RECORDS SUMMARY | 2025-04-10 11:09 | XMS_ITS | Encounter Summary ---
Author Organization [facility] Address [address] [place] [address] Care Team Providers Care Shift Engineer Name Role Phone Kimmy Carey MD Primary Care Provider [phone] Encounter Details Date Type Department Care Team (Late st Contact Info) Description 04/06/2025 Bamboo flowsheet [facility] [address] [place] [address] Vignesh Holman DO [address] [place], [place] [id number] Social History Tobacco Use Types Packs/Day Years [...] How often do you attend chur or gnosticist services? Never 01/22/2024 Do you belong to any clubs o r organizations such as synagogue groups, unions, fraternal or athletic groups, or [...] Recorded Patient Health Questionnaire-2 Score 0 02/04/2023 [facility] - Occupational Stress Questionnaire Answer Date Recorded [...] any time in the past 12 m [facility], were you homeless or living in a assisted (including now)? No 01/22/2024 Estimated Date of [...] AM EDT Routine [facility] [address] [place] [address] Vignesh Holman DO [address] [place] [address] documented as of this encounter Goals Goal Patient Goal Type Associated Problems Recent Progress Patient-Stated? Author Reminders Care Plan OB Reminders No Open Scheduling, Background documented as of this encounter Visit Diagnoses Not on filedocumented in this encounter Additional Health Concerns Active Problems Noted Date Diagnosed Date OB Reminders 01/19/2025 documented as of this encounter Care Teams Shift Engineer Relationship Specialty Start Date End Date Kimmy Carey MD [address] [place] [address] PCP - General Family Medicine 02/04/23 documented as of this encounter
--- OUTSIDE RECORDS SUMMARY | 2025-04-10 11:09 | XMS_ITS | Clinical Summary ---
Author Organization [facility] Address [address] [place] [address] Care Team Providers Care Signal Tower Operator Name Role Phone Kimmy Carey MD Primary Care Provider [phone] Allergies No known active allergies Medications MV-Min-Fe Fum-FA-DHA ( 1 PO) Take 1 tablet by mouth Daily Active aspirin 81 MG EC tablet Take 81 mg by mouth Daily Active Active Problems Problem Noted Date Diagnosed Date Tachycardia 08/11/2021 Palpitations 07/11/2020 Miscarriage ([facility]) Irritable bowel syndrome with predominant consti pation Estimated Date of Delivery Comme nts Yes 08/16/2025 Based on last me nstrual period of 11/09/2024 Encounters Date Type Department Care Team Description 04/07/2025 Telephone [facility] [address] [place] [address] Vignesh Holman DO 04/06/2025 10:30 AM EDT Routine [facility] [address] [place] [address] Vignesh Holman DO Second trimester ([facility]); 21 weeks gestation of ([facility]); Well woman exam with routine gynecological exam 04/06/2025 Bamboo flowsheet [facility] [address] [place] [address] Vignesh Holman DO 03/30/2025 Travel 03/29/2025 Abstract [facility] [address] [place] [address] Vignesh Holman, DO 03/11/2025 9:30 AM EDT Routine [facility] [address] [place] [address] Vignesh Holman, Second trimester ([facility]); 18 weeks gestation of ([facility]) 03/11/2025 Abstract [facility] [address] [place] [address] Vignesh Holman, DO 03/11/2025 Bamboo flowsheet [facility] [address] [place] [address] [place] [address] Vignesh Holman, DO 03/07/2025 Travel 02/16/2025 11:20 AM EDT Routine [facility] [address] [place] [address] [place] [address] Vignesh Holman, Second trimester ([facility]); 14 weeks gestation of ([facility]) 02/16/2025 Bamboo flowsheet [facility] [address] [place] [address] [place] [address] Vignesh Holman, DO 02/09/2025 Travel 01/28/2025 9:30 AM EDT Routine [facility]OBARGY[facility]ha [address] [place] [address] [place] [address] Vignesh Holman, DO 11 weeks gestation of ([facility]); First trimester ([facility]); POTS (postural orthostatic tachycardia syndrome) 01/28/2025 Telephone [facility] [address] [place] [address] Marika Contreras LPN 01/28/2025 Bamboo flowsheet [facility] [address] [place] [address] Vignesh Holman, 01/22/2025 Travel 01/18/2025 1:10 PM EDT Routine [facility] [address] [place] [address] Vignesh Holman, 10 weeks gestation of ([facility]); First trimester ([facility]); Vaginal discharge during in first trimester ([facility]) 01/18/2025 External Result Encounter NOM[facility] External Department Unsolicited Sammi Briones NP 01/18/2025 Telephone [facility] [address] [place] [address] Manda Ojeda MA 01/16/2025 Clinisync Result Encounter NOMS External Department Unsolicited Vignesh Holman DO 01/11/2025 Travel from Last 3 Months Immunizations Immunization [...] How often do you attend chur or synagogue services? Never 01/22/2024 Do you belong to any clubs o r organizations such as nondenominational groups, unions, fraternal or athletic groups, or [...] Questionnaire-2 Score 0 02/04/2023 [facility] - Occupational Stress Questionnaire Answer Date [...] any time in the past 12 m [facility], were you homeless or living in [...] AM EDT Routine [facility] [address] [place] [address] Vignesh Holman DO [address] [place] [address] Health Maintenance Due Date Last Done Comments Influenza Vaccine (#1) 2025 05/05/2013 Cervical Cancer Screening 12/26/2026 HPV/Cotest 12/26/2026 06/26/2019 Pap Smear 12/26/2026 12/26/2021, 12/26/2021 Goals Goal Patient Goal Type Associated Problems Recent Progress Patient-Stated? Author Reminders Care Plan OB Reminders No Open Scheduling, Background Procedures Procedure Name Priority Date/Time Associated Diagnosis Comments POCT URINALYSIS DIPSTICK Routine 04/06/2025 10:43 AM EDT Second trimester ([facility]) 21 weeks gestation of ([facility]) POCT URINALYSIS DIPSTICK Routine 03/11/2025 10:03 AM EDT Second trimester ([facility]) 18 weeks gestation of ([facility]) POCT URINALYSIS DIPSTICK Routine 01/28/2025 9:43 AM EDT 11 weeks gestation of ([facility]) First trimester ([facility]) CULTURE, URINE, ROUTINE Routine 01/19/2025 3:39 PM EDT Missed menses RECURRENT VAGINITIS (HTRX) Routine 01/18/2025 2:11 PM EDT POCT URINALYSIS DIPSTICK Routine 01/18/2025 1:23 PM EDT 10 weeks gestation of ([facility]) First trimester ([facility]) HBSAG SCREEN Routine 01/16/2025 7:52 AM EDT [...] EDT ALL CBC WITH AUTO DIFF Routine 01/16/2025 7:52 AM EDT THINPREP TIS PAP AND HPV MRNA E6/E7 REFLEX HPV 16,18/45 ([id number]) Routine 12/26/2021 Q - THINPREP(R) TIS AND [...] Positive Urine 04/06/2025 10:4 3 AM EDT us Vignesh River DO POINT OF CARE TEST ENTER/EDIT OR DERABLES Final Result * Urine culture (01/19/2025 3:39 PM EDT) Urine Urine specimen obtained by clean catch procedure / Unknown us Vignesh River DO LAB MICROBIOLOGY - GENERAL ORDER RADHA Final Result EXTERNAL LAB * RECURRENT VAGINITIS (HTRX) (01/18/2025 2:11 PM EDT) [facility] ATOPOBIUM VAGINAE 0 19.961 - 24.689 ppm 01/19/2025 6:26 AM EDT [facility] ATOPOBIUM VAGINAE Not Detected 19.961 - 24.689 ppm 01/19/2025 6:26 AM EDT [facility] BVAB 2,3 (BACTERIAL VAGINOSIS ASSOCIATED BACTERIA 2, 3); MOBILUNCUS SPP 0 19.961 - 24.689 ppm 01/19/2025 6:26 AM EDT [facility] BVAB 2,3 (BACTERIAL VAGINOSIS ASSOCIATED BACTERIA 2, 3); MOBILUNCUS SPP Not Detected 19.961 - 24.689 ppm 01/19/2025 6:26 AM EDT [facility] SERVANDO ALBICANS, PARAPSILOSIS, TROPICALIS 0 19.961 - 30.770 ppm 01/19/2025 6:26 AM EDT [facility] SERVANDO ALBICANS, PARAPSILOSIS, TROPICALIS Not Detected 19.961 - 30.770 ppm 01/19/2025 6:26 AM EDT [facility] SERVANDO GLABRATA 0 23.000 - 32.138 ppm 01/19/2025 6:26 AM EDT [facility] SERVANDO GLABRATA Not Detected 23.000 - 32.138 ppm 01/19/2025 6:26 AM EDT [facility] SERVANDO KRUSEI 0 23.000 - 32.271 ppm 01/19/2025 6:26 AM EDT [facility] SERVANDO KRUSEI Not Detected 23.000 - 32.271 ppm 01/19/2025 6:26 AM EDT [facility] CHLAMYDIA TRACHOMATIS 0 23.000 - 31.467 ppm 01/19/2025 6:26 AM EDT [facility] CHLAMYDIA TRACHOMATIS Not Detected 23.000 - 31.467 ppm 01/19/2025 6:26 AM EDT [facility] GARDNERELLA VAGINALIS 0 19.961 - 24.689 ppm 01/19/2025 6:26 AM EDT [facility] GARDNERELLA VAGINALIS Not Detected 19.961 - 24.689 ppm 01/19/2025 6:26 AM EDT [facility] MEGASPHAERA (TYPES 1, 2) 0 19.961 - 24.689 ppm 01/19/2025 6:26 AM EDT [facility] MEGASPHAERA (TYPES 1, 2) Not Detected 19.961 - 24.689 ppm 01/19/2025 6:26 AM EDT [facility] NEISSERIA GONORRHOEAE 0 23.000 - 32.117 ppm 01/19/2025 6:26 AM EDT [facility] NEISSERIA GONORRHOEAE Not Detected 23.000 - 32.117 ppm 01/19/2025 6:26 AM EDT [facility] TRICHOMONAS VAGINALIS 0 23.000 - 32.119 ppm 01/19/2025 6:26 AM EDT [facility] TRICHOMONAS VAGINALIS Not Detected 23.000 - 32.119 ppm 01/19/2025 6:26 AM EDT [facility] MYCOPLASMA GENITALIUM 0 19.961 - 24.689 ppm 01/19/2025 6:26 AM EDT [facility] MYCOPLASMA GENITALIUM Not Detected 19.961 - 24.689 ppm 01/19/2025 6:26 AM EDT [facility] Tissue 01/18/2025 2:11 PM EDT 01/19/2025 1:25 AM EDT us Sammi Briones PLANNING ASSOCIATE LAB BLOOD ORDERABLES Final Re sult [facility] [address] [place] [address] * BOX TEST (01/16/2025 7:52 AM EDT) Pathologist [facility] BOX TEST SENT OUT [facility] BOX1 [facility] BOX2 01/16/25 [facility] 01/16/2025 7:52 AM EDT 01/16/2025 8:03 AM EDT Narrative [facility] - 01/16/2025 8:09 AM EDT Vignesh River DO LAB BLOOD ORDERABLES Final Resul t Performing Organization Address City/[facility]/ZIP Co de Phone Number [facility] * HBSAG SCREEN (01/16/2025 7:52 AM EDT) Pathologist [facility] HBSAG SCREEN Negative Negative [facility] Comment: Performed at: [address] [id number] Clinical Laboratory Aides Teacher: Vinay Caldera PhD, Phone: [phone] 01/16/2025 7:52 AM EDT 01/16/2025 8:03 AM EDT Narrative [facility] - 01/17/2025 11:08 AM EDT us Vignesh River DO LAB BLOOD ORDERABLES Final Resul t Performing Organization Address [facility] Co de Phone Number [facility] * RAPID PLASMA REAGIN, QUANT (01/16/2025 7:52 AM EDT) [facility] RAPID PLASMA REAGIN, QUANT Non Reactive NonRea<1: 1 titer [facility] Comment: Please Note: This test does not meet current guidelines for screening and diagnosis of syphilis. This test is intended for following treatment response in patients being treated for syphilis infection. To screen for syphilis infection, a reflex cascade that includes both RPR and a treponema-specific assay should be utilized, such as Treponema pallidum (Syphilis) Screening [place] (310787) or Rapid Plasma Reagin (RPR) Test With Reflex to Quantitative RPR and Confirmatory Treponema pallidum Antibodies (499101). Performed at: [address] [id number] Clinical Laboratory Aides Teacher: Vinay Caldera PhD, Phone: [phone] 01/16/2025 7:52 AM EDT 01/16/2025 8:03 AM EDT Narrative [facility] - 01/17/2025 11:08 AM EDT us Vignesh River DO LAB BLOOD ORDERABLES Final Resul t Performing Organization Address City/[facility]/ZIP Co de Phone Number [facility] * HIV AB/P24 AG WITH REFLEX (01/16/2025 7:52 AM EDT) HIV AB/P24 AG SCREEN Non Reactive Non Reactive [facility] Comment: HIV-1/HIV-2 antibodies and HIV-1 p24 antigen were NOT detected. There is no laboratory evidence of HIV infection. HIV Negative Performed at: [address] [id number] Clinical Laboratory Aides Teacher: Vinay Caldera PhD, Phone: [phone] 01/16/2025 7:52 AM EDT 01/16/2025 8:03 AM EDT Narrative [facility] - 01/17/2025 9:08 AM EDT us Interactivoo DO LAB BLOOD ORDERABLES Final Resul t Performing Organization Address City/[facility]/ZIP Co de Phone Number [facility] * TB DRUG SCREEN RAPID (URINE) (01/16/2025 7:52 AM [...] AM EDT 01/16/2025 8:03 AM EDT Narrative [facility] - 01/16/2025 8:25 AM EDT us Vignesh River DO CLINISYNC Final Result Performing Organization Address City/[facility]/ZIP Co de Phone Number [facility] * HCV ANTIBODY RFX TO QUANT PCR (01/16/2025 7:52 AM EDT) Pathologist [facility] HCV AB Non Reactive Non Reactive [facility] INTERPRETATION: Comment . [facility] Comment: Not infected with HCV unless early or acute infection is suspected (which may be delayed in an immunocompromised individual), or other evidence exists to indicate HCV infection. Performed at: [facility] [address] [id number] Clinical Laboratory Aides Teacher: Vinay Caldera PhD, Phone: [phone] 01/16/2025 7:52 AM EDT 01/16/2025 8:03 AM EDT Narrative CLIN[facility]YID - 01/17/2025 9:08 AM EDT [facility] LAB BLOOD ORDERABLES Final Resul t Performing Organization Address City/[facility] Co de Phone Number [facility] * MLR HEMOGLOBIN A1C (01/16/2025 7:52 AM EDT) [facility] GLYCOHEMOGLOBIN A1C 4.6 4.5 - 6.2 % [facility] Comment: ADA RECOMMENDED LIMIT 4.0 - 6.0 ADA THERAPEUTIC TARGET < 7.0 ACTION SUGGESTED > 7.0 ESTIMATED AVERAGE GLUCOSE 85 mg/dL [facility] 01/16/2025 7:52 AM EDT 01/16/2025 8:03 AM EDT Narrative [facility] - 01/16/2025 8:27 AM EDT Vignesh River DO CLINISYNC Final Result [facility] * ALL TYPE AND SCREEN (01/16/2025 7:52 AM EDT) [facility] BLOOD TYPE A Positive [facility] ANTIBODY SCREEN NEGATIVE [facility] 01/16/2025 7:52 AM EDT 01/16/2025 8:03 AM EDT Narrative [facility] - 01/16/2025 9:02 AM EDT [facility] , Vignesh River DO CLINISYNC Final Result Performing Organization Address City/[facility] Co de Phone Number [facility] * (ABNORMAL) ALL RUBELLA IGG AB (01/16/2025 7:52 AM EDT) [facility] RUBELLA ANTIBODIES, IGG <0.90(A) Immune >0.99 index [facility] Comment: Non-immune <0.90 Equivocal 0.90 - 0.99 Immune >0.99 Performed at: - [facility] [id number] Clinical Laboratory Aides Teacher: Vinay Caldera PhD, Phone: [phone] 01/16/2025 7:52 AM EDT 01/16/2025 8:03 AM EDT Narrative [facility] - 01/17/2025 9:08 AM EDT us Vignesh River DO CLINISYNC Final Result [facility] * (ABNORMAL) ALL CBC WITH AUTO DIFF (01/16/2025 7:52 AM EDT) [facility] TB WBC 7.4 4.0 - 11.0 10 [...] us Vignesh River DO CLINISYNC Final Result [facility] * THINPREP TIS PAP AND HPV MRNA E6/E7 REFLEX HPV 16,18/45 ([id number]) (12/26/2021) CLINICAL INFORMATION: None given [facility] [...] computer assisted technology. [facility] MANDARIN SPEAKING NANNY : SEE COMMENT [facility] Comment: PCJ, SCT(ASCP) CT screening location: [place] [address]. REVIEW MANDARIN SPEAKING NANNY : SEE COMMENT [facility] Comment: DMK, CT(ASCP) CT screening location: [place] [address]. COMMENT SEE COMMENT [facility] EXTERNAL [...] HPV MRNA E6/E7 Not Detected Not Detected [facility] Comment: Methodology: Coating Operator-Mediated Amplification This assay detects E6/E7 viral messenger RNA (mRNA) from 14 high-risk HPV types (16,18,31,33,35,39,45,51,52,56,58,59,66,68). Cervical sources are required for HPV testing. If a vaginal source from a patient who has had a total hysterectomy with removal of cervix was submitted, please contact the testing laboratory for alternative testing options. For additional information, please refer to http://education.Espressi.HelpHub/faq/VMU686x3 (This link if provided for information/ educational purposes only.) 12/26/2021 Adela ARIZA [facility] Final Result [facility] EX[facility]NAL [facility] * (ABNORMAL) Q - [...] computer assisted technology. [facility] MANDARIN SPEAKING NANNY: SEE NOTE NO [facility] Comment: NNO, CT(ASCP) CT screening location: [place] [address]. REVIEW MANDARIN SPEAKING NANNY: SEE NOTE [facility] Comment: JEH, CT(ASCP) CT screening location: [place] [address]. COMMENT SEE NOTE [facility] [...] of this assay have been determined by [employer]. The modifications have not been cleared or approved by the FDA. This assay has been validated pursuant to the CLIA regulations and is used for clinical purposes. 06/26/2019 Adela ARIZA [facility] Final Result [facility] from Last 3 Months or Most Recently Relevant to Health Maintenance Additional Health Concerns Active Problems Noted Date Diagnosed Date OB Reminders 01/19/2025 Insurance BCBS Care Teams Signal Tower Operator Relationship Specialty Start Date End Date Kimmy Carey MD [address] [place] [address] PCP - General Family Medicine 02/04/23
--- OUTSIDE RECORDS SUMMARY | 2025-04-10 11:09 | XMS_ITS | Encounter Summary ---
Author Organization [facility] Address [address] [place] [address] Care Team Providers Care Lime Kiln Worker Helper Name Role Phone Kimmy Carey MD Primary Care Provider [phone] Colleen Larios NP Unavailable [phone] Encounter Details Date Type Department Care Team (Late st Contact Info) Description 10/15/2024 Abstract [facility] [address] [place] [id number] Vignesh Holman DO [address] [place], [place] [address] Social History Tobacco Use Types Packs/Day Years [...] week 01/22/2024 How often do you attend [facility] or [facility] services? Never 01/22/2024 Do you belong to any clubs o r organizations such as rastafari groups, unions, fraternal or athletic groups, or [...] Patient Health Questionnaire-2 Score 0 02/04/2023 [facility] - Occupational Stress Questionnaire Answer Date Recorded [...] any time in the past 12 m [facility], were you homeless or living in a senior care (including now)? No 01/22/2024 Comments No Sex [...] AM EDT Routine [facility] [address] [place] [address] Vignesh Holman DO [address] [place] [address] documented as of this encounter Visit Diagnoses Not on filedocumented in this encounter Care Teams Lime Kiln Worker Helper Relationship Specialty Start Date End Date Kimmy Carey MD [address] [facility] [address] [place], [place] [id number] PCP - General Family Medicine 02/04/23 Colleen Larios NP [address] [facility] [address] [place], [place] [id number] PCP - [employer] [place] [employer] 03/15/24 documented as of this encounter
== END 2025-04-10 11:06 | disposition home or self-care (01) ==
PROVIDERS: Family Provider Family Medicine; Visit Provider Obstetrics & Gynecology
DX: Z34.92 Encounter for supervision of normal pregnancy, unspecified, second trimester (principal); Z3A.21 21 weeks gestation of pregnancy
CPT/HCPCS: 36415; 82105

== ENCOUNTER 2025-04-30 06:23 | Observation (INO) | payer BC, SELFPAY ==
--- OUTSIDE RECORDS SUMMARY | 2025-04-23 10:40 | XMS_ITS | Encounter Summary ---
Author Organization [facility] Address [address] [place] [address] Care Team Providers Care Oakes Machine Operator Name Role Phone ArmandokinzaColleen head Primary Care Provider Unavailabl e Reason for Visit * Reason Comments Follow-up Patient is here to y for a follow up appointment. Patient had recent ECHO. Patient states her OB is leaving it up to Cardiology as to weather she can have her baby delivered here or if she need to deliver in [place]. POTS PSVT PVC'S Hyperlipidemia Shortness of Breath Due to being 23 week s Palpitations After heavy meal Encounter Details Date Type Department Care Team (Latest Contact Info) Description 04/23/2025 10:40 AM EDT Office Visit [facility] [address] [place] [address] Crow Corey MD [address] [place] [address] POTS (postural orthostatic tachycardia syndrome) (Primary Dx); Dyspnea on exertion; Palpitations; 23 weeks gestation of ; Pure hypercholesterolemia Social History Tobacco Use Types Packs/Day Years [...] PM EDT documented as of this encounter Last Filed Vital Signs Vital Sign Reading Time Taken Comments Blood Pressure 116/72 04/23/2025 10:41 AM EDT Pulse 93 04/23/2025 10:41 AM EDT Temperature - - Respiratory Rate - - Oxygen Saturation 100% 04/23/2025 10:41 AM EDT Inhaled Oxygen Concentration - - Weight 65.3 kg (144 lb) 04/23/2025 10:41 AM EDT Height 157.5 cm (5' 2 ) 04/23/2025 10:41 AM EDT Body Mass Index 26.34 04/23/2025 10:41 AM EDT documented in this encounter Functional Status * BP Answer Date of Assessment Author 116/72 04/23/2025 10:41 AM EDT Stephanie Singer am, MA * Pulse Answer Date of Assessment Author 93 04/23/2025 10:41 AM EDT Stephanie Singer am, MA * Patient Position Answer Date of Assessment Author Sitting 04/23/2025 10:41 AM EDT Stephanie Singer am, MA * BP Answer Date of Assessment Author 116/72 04/23/2025 10:41 AM EDT Stephanie Singer am, MA * Pulse Answer Date of Assessment Author 93 04/23/2025 10:41 AM EDT Stephanie Singer am, MA * SpO2 Answer Date of Assessment Author 100 04/23/2025 10:41 AM EDT Stephanie Singer am, MA * BP Location Answer Date of Assessment Author Right arm 04/23/2025 10:41 AM Stephanie Rojas am, MA * Patient Position Answer Date of Assessment Author Sitting 04/23/2025 10:41 AM EDT Stephanie Singer am, MA documented as of this encounter Progress Notes * Crow Corey MD - 04/23/2025 10:40 AM EDT Images from the original note were not included. [facility] Note Reason for cardiology visit: Follow-up increasing heart rate and shortness of breath during and follow-up on echo result HPI: 04/23/2025 Patient is here today for follow-up visit. She states that she has been doing good. She has occasional palpitations and fast heart rate particularly after she eats a heavy meal. She denies any chest pain or shortness of breath at rest or with exertion. She denies orthopnea or paroxysmal nocturnal dyspnea. She feels lightheaded when she stands up which is not new. She denies legs edema or leg discomfort on exertion 02/18/2025 Sammi Chapa is a 35 y.o. female with history of POTS, PVCs, hyperlipidemia, irritable bowel syndrome with constipation Patient was seen by financial business analyst Dr. Tom Tavares at [facility] in the past and she wasdiagnosed with POTS and PVCs. Currently she is at 14 weeks. She reports that her heart rate goes up significantly with activities such as cleaning up to 170 bpm and she feels short of breath with it. She denies associated dizziness or syncope or near syncope however she feels little lightheaded when she stands up and sometimes after she eats but that is not new for her. This is her first . She denies any other symptoms such as chest pain, orthopnea or paroxysmal nocturnal dyspnea or legsedema. She denies drinking caffeine and alcohol and she tries to drink a lot of water. She denies smoking or illicit drugs Regarding family history: mother had atrial flutter and grandmother had A-fib ROS: All systems were reviewed and they were negative except for the positive findings noted above in the history Past Medical History She has a past medical history of Hyperlipidemia, IBS (irritable bowel syndrome), Miscarriage, Palpitations, POTS (postural orthostatic tachycardia syndrome), and Tachycardia. Surgical History She has a past surgical history that includes Colonoscopy. Social History She reports that she has never smoked. She has never used smokeless tobacco. She reports that she does not currently use alcohol. She reports that she does not use drugs. Family History Family History[1] Allergies Patient has no known allergies. Medications Current Medications[2] Last Recorded Vitals Visit Vitals BP 116/72 (BP Location: Right arm, Patient Position: Sitting) Pulse 93 Ht 1.575 m (5' 2 ) Wt 65.3 kg (144 lb) LMP 11/09/2024 (Approximate) SpO2 100% BMI 26.34 kg/m?? OB Status Smoking Status Never BSA 1.69 m?? Physical Examination: GENERAL: alert and oriented x3, well developed, in no acute distress. HEAD: atraumatic, normocephalic. EYES: JP, EOMI. NECK: trachea midline, no JVD present, no carotid bruits present. CARDIAC: S1, S2 present. RRR. No murmur, rubs, or gallops. RESPIRATORY: CTAB, no increased effort of breathing, no rales, rhonchi, or wheezing. ABDOMEN: soft, nontender, nondistended. EXTREMITIES: no lower extremity edema. No rash/skin discoloration present. NEURO: strength/sensation equal and symmetric in bilateral upper and lower extremities. PSYCH: appropriate mood, affect, and judgement. Labs: 01/16/2025 White blood count 7.4, hemoglobin 13.3, hematocrit 38.8, platelets 275 HbA1c 4.6% 07/21/2024 TSH 1.56 01/29/2024 Glucose 72, BUN 11, creatinine 0.7, GFR 118, sodium 139, potassium 4, calcium 9.3 Total protein 7.5, albumin 4.3, total bilirubin 0.9, alk phos 29, AST 19, ALT 50 Cholesterol 241, HDL 58, triglyceride 82, LDL 164 03/13/2023 Cholesterol 279, HDL 66, LDL 198, triglyceride 54 Last Images: EKG today 02/18/2025 showed normal sinus rhythm, heart rate 98 bpm, normal EKG EKG 02/26/2024 showed normal sinus rhythm, normal EKG Echo 03/25/2025 Echo 01/27/2021 FINDINGS Left Atrium Left atrium is normal in size. Left Ventricle Global left ventricular systolic function appears preserved with an estimated ejection fraction of 60%. Normal left ventricular wall thickness with a normal left ventricular cavity size. No definite specific wall motion abnormalities were identified. Right Atrium Right atrium is normal in size. Right Ventricle Normal right ventricular size and function. Mitral Valve Normal mitral valve structure and function. Aortic Valve Normal aortic valve structure and function without stenosis or regurgitation. Tricuspid Valve Normal tricuspid valve structure with trivial tricuspid regurgitation. Pulmonic Valve The pulmonic valve is normal in structure. Pericardial Effusion No significant pericardial effusion is seen. Miscellaneous No clear evidence of diastolic dysfunction was identified. Normal aortic root dimension. Tilt table test 03/24/2024 [facility] Study Conclusions: Abnormal head upright tilt study. The patient's heart rate, blood pressure response and symptoms were most consistent with Postural orthostatic tachycardia syndrome (POTS). 5 minutes after being given nitroglycerin, the patients BP dropped from 117/69 to 88/52 mmHg with a HR drop from 150 bpm to 122 bpm. Combined with vigilant maintenance of euvolemia and maintaining a moderate salt intake, pharmacologic treatment with Florinef, and/or a Serotonin Selective Reuptake Inhibitors (SSRI) such as Escitalopram, Midodrine, and/or beta blockers among other treatments have shown some effectiveness in the treatment of this condition. Tilt Table Tilt duration without medication: 20 minutes. Tilt elevation at 70 degrees. Baseline supine HR: 97 bpm. Baseline supine BP: 131/85. Baseline supine rhythm: SR. Initial tilted HR: 120 bpm. Initial tilted BP: 134/99. Initial tilted rhythm: ST. Initial Tilt revealed symptoms such as palpitations, tachycardia, dizziness and light headedness. Nitroglycerin given. NTG 0.3 mcg was administered. Tilt duration with NTG = 5 minutes. After the introduction of NTG, the following symptoms were noteable: near syncope, nausea, palpitations, tachycardia, dizziness and light headedness. The test was stopped due to near syncope. Procedure Summary: After explaining the risk, benefits and alternatives to the procedure, informed written consent was obtained. The patient was brought to the tilt table laboratory in a fasting and resting state. The patient was placed on the tilt table in the supine position. ECG patches were applied and an IV was placed. The patient's baseline blood pressure was 131/85 mmHg with a heart rate of 97/minute. The patient was then raised to the 70 degree head upright tilt position with pulse rate, blood pressure and cardiac rhythm monitored and recorded each minute of the study for a maximum of30 minutes. During the initial 20 minutes of the study, the patient's blood pressure ranged from a high of 156/83 mmHg to a low of 120/92 mmHg, while their heart rate ranged from a low of 109/minute to a high of138/minute. During this period, the patient reported mild lightheadedness, moderate lightheadedness, palpitations, and vision changes. During the last 10 minutes of the study, the patient was given 0.3 mg of sublingual Nitroglycerin in order to stimulate sympathetic stimulation to increase the patient's heart rate by at least 20%. During this time, the patient's blood pressure ranged from a high of 153/78 mmHg to a low of 88/52 mmH g, while their heart rate ranged from a low of 122/minute to a high of 150/minute. During this period, the patient reported moderate lightheadedness, severe lightheadedness, palpitations, vision changes, nausea, and feeling as if they were going to pass out. At this point, the patient was returned to the supine position and monitored for an additional ten minutes. Once the patient felt well enough to be discharged home, they were discharged home with instructions to follow up with their primary care physician and/ or financial business analyst as previously scheduled. Event monitor 02/26/2024 at [facility] in [place] - Predominant rhythm: NSR - Ectopic Atrial Rhythm (EAR) - Ectopic Atrial Run(s) (EA Run) - PAC <0.1 % - PVC <0.1 % Symptoms were reported and were associated with normal sinus rhythm in the 90's as well as HR in the 110. Largely unremarkable study. Clinical correlation required. Assessment and Plan: Palpitations and increased heart rate during physical activities after heavy meals associated with shortness of breath, most likely due to POTS exacerbated by Echo 03/25/2025 was totally normal 23 weeks History of POTS, she was followed in the past by [facility] cardiology in [place] History of PVCs History of hyperlipidemia, per patient's report it is familial History of irritable bowel syndrome Plan: Current management, patient was encouraged to maintain well hydration all the times and to avoid stimulants such as caffeine or alcohol or any illicit drugs I also advised her that she may want to wear compression stockings with moderate pressure 20 to 30 mmHg particularly during the daytime when she is standing or sitting for a long time In regarding to hyperlipidemia, we will check it after delivery and treat if needed. The patient asking if there is any risk of delivering locally. I think the patient will do well, I suspect that her heart rate may go higher than usual during contractions, on the other hand she may have some vasovagal reaction during recovery. But in general I think she should do well Follow-up with me in 2 months or sooner if needed Crow Corey MD,FACC [1] Family History Problem Relation Name Age of Onset Other (atria flutter) Mother Hyperlipidemia Mother Hypertension Father [2] Current Outpatient Medications: aspirin 81 mg EC tablet, Take 81 mg by mouth in the morning., Disp: , Rfl: 5-QGOW-KQMLA ACID-OM3 ORAL, Take 1 tablet by mouth in the morning., Disp: , Rfl: documented in this encounter Plan of Treatment Upcoming Encounters Date Type Department Care Team (Late st Contact Info) Description 06/28/2025 9:00 AM EST Office Visit [facility] [address] [place] [address] Crow Corey MD [address] MS:[address] [place] [address] documented as of this encounter Visit Diagnoses Diagnosis POTS (postural orthostatic tachycardia syndrome)- Primary Unspecified tachycardia Dyspnea on exertion Other dyspnea and respiratory abnormality Palpitations 23 weeks gestation of Pure hypercholesterolemia documented in this encounter Care Teams Oakes Machine Operator Relationship Specialty Start Date End Date Colleen Larios [address] [place] [address] PCP - General 02/22/25 documented as of this encounter
--- OUTSIDE RECORDS SUMMARY | 2025-04-30 06:29 | XMS_ITS | Encounter Summary ---
Author Organization [employer] Address [id number] [address] [place] [address] Care Team Providers Care Equity Research Analyst Name Role Phone No Pcp, No Pcp Primary Care Provider Unavailabl e Encounter Details Date Type Department Care Team (Late st Contact Info) Description 02/26/2022 Orders Only [facility] [place] [address] Transcribe, Orders Support User Pain [...] pain documented in this encounter Care Teams Equity Research Analyst Relationship Specialty Start Date End Date No Pcp, [place] [address] PCP - General Family Medicine 07/21/24 documented as of this encounter
--- OUTSIDE RECORDS SUMMARY | 2025-04-30 06:29 | XMS_ITS | Encounter Summary ---
Author Organization [facility] Address [id number] [address] [place] [address] Care Team Providers Care Project Leader Name Role Phone No Pcp, No Pcp Primary Care Provider Unavailabl e Encounter Details Date Type Department Care Team (Late st Contact Info) Description 07/12/2020 Orders Only [facility] [address] [place] [address] External, Scanning Provider Social History [...] on filedocumented in this encounter Care Teams Project Leader Relationship Specialty Start Date End Date No Pcp, [place] [address] PCP - General Family Medicine 07/21/24 documented as of this encounter
--- OUTSIDE RECORDS SUMMARY | 2025-04-30 06:29 | XMS_ITS | Encounter Summary ---
Author Organization [facility] Address [address] [address] Care Team Providers Care Chief Creative Officer Name Role Phone ArmandokinzaColleen head Primary Care Provider Unavailsalud e Encounter Details Date Type Department Care Team (Late Contact Info) Description 04/04/2025 Results Follow-Up [place] [address] [place] [address] Crow Corey MD [address] [facility] [id number] [place] [address] Complete Echo (TTE) w/wo Imaging Agent, Strain, [...] Department Care Team (Late Contact Info) Description 06/28/2025 9:00 AM EST Office Visit [facility] [address] [place] [address] Crow Corey MD [address] [facility] [address] [place] [address] documented as of this encounter Visit Diagnoses Not on filedocumented in this encounter Care Teams Chief Creative Officer Relationship Specialty Start Date End Date Colleen Larios [address] [place] [address] PCP - General 02/22/25 documented as of this encounter
--- OUTSIDE RECORDS SUMMARY | 2025-04-30 06:29 | XMS_ITS | Encounter Summary ---
Author Organization [employer] Address [id number] [address] [place] [address] Care Team Providers Care Maintenance Shop Technician Name Role Phone No Pcp, No Pcp Primary Care Provider Unavailabl e Encounter Details Date Type Department Care Team (Late st Contact Info) Description 05/03/2022 Telephone [facility] [address] [place] [phone] Magalie Bailey PA [address] [place] [id number] Social History Tobacco Use Types Packs/Day Years [...] 3:13 PM EDT Please call [facility] in [place] tomorrow to get the results from her urine test. She dropped off today * Telephone Encounter - Cielo Oro LPN - 05/03/2022 3:13 PM EDT Pt actually called and stated that [facility] did not receive an order for a urine collection. I reprinted the order and faxed it to [facility] [phone] per pt request. I will check on results tomorrow. * Telephone Encounter - Cielo Oro LPN - 05/03/2022 3:13 PM EDT Results received and on your desk for review. documented in this encounter Plan of Treatment Not on file documented as of this encounter Visit Diagnoses Not on filedocumented in this encounter Care Teams Maintenance Shop Technician Relationship Specialty Start Date End Date No Pcp, [place] [address] PCP - General Family Medicine 07/21/24 documented as of this encounter
--- OUTSIDE RECORDS SUMMARY | 2025-04-30 06:29 | XMS_ITS | Clinical Summary ---
Author Organization [facility] Address [address] [place] [address] Care Team Providers Care Retail Security Professional Name Role Phone Kimmy Carey MD Primary Care Provider [phone] Allergies No known active allergies Medications MV-Min-Fe Fum-FA-DHA ( 1 PO) Take 1 tablet by mouth Daily Active aspirin 81 MG EC tablet Take 81 mg by mouth Daily Active valACYclovir (Valtrex) 500 MG tabletIndication s:Cold sore Take 1 tablet (500 mg) by mouth Daily 30 tablet 11 04/27/2025 Active Active Problems Problem Noted Date Diagnosed Date Tachycardia 08/11/2021 Palpitations 07/11/2020 Miscarriage ([facility] Irritable bowel syndrome with predominant consti pation Estimated Date of Delivery Comme nts Yes 08/16/2025 Based on last me nstrual period of 11/09/2024 Encounters Date Type Department Care Team Description 04/28/2025 Travel 04/27/2025 Telephone [facility] [address] [place] [address] Vignesh Holman DO 04/20/2025 Orders Only [facility] [address] [place] [address] Lynne Ayers MA 04/10/2025 Clinisync Result Encounter NOMS External Department Unsolicited Vignesh Holman DO 04/07/2025 Telephone [facility] [address] [place] [address] Vignesh Holman, DO 04/06/2025 10:30 AM EDT Routine [facility] [address] [facility] [facility] [address] [place] [address] Vignesh Holman, DO Second trimester ([facility]); 21 weeks gestation of ([facility]); Well woman exam with routine gynecological exam 04/06/2025 Clinisync Result Encounter NOMS External Department Unsolicited Vignesh Holman, DO 04/06/2025 Bamboo flowsheet [facility] [address] [place] [address] Vignesh Holman, DO 03/30/2025 Travel 03/29/2025 Abstract [facility] [address] [place] [address] Vignesh Holman, DO 03/11/2025 9:30 AM EDT Routine [facility] [address] [place] [address] Vignesh Holman, DO Second trimester ([facility]); 18 weeks gestation of ([facility]) 03/11/2025 Abstract [facility] [address] [place] [address] Vignesh Holman, DO 03/11/2025 Bamboo flowsheet [facility] [address] [place] [address] Vignesh Holman, DO 03/07/2025 Travel 02/16/2025 11:20 AM EDT Routine [facility] [address] [place] [address] Vignesh Holman, DO Second trimester ([facility]); 14 weeks gestation of ([facility]) 02/16/2025 Bamboo flowsheet [facility] [address] [place] [address] Vignesh Holman DO 02/09/2025 Travel 01/28/2025 9:30 AM EDT Routine [facility] [address] [place] [address] [place] [address] Vignesh Holman DO 11 weeks gestation of ([facility]); First trimester ([facility]); POTS (postural orthostatic tachycardia syndrome) 01/28/2025 Telephone [facility] [address] [place] [address] [place] [address] Marika Contreras LPN 01/28/2025 Bamboo flowsheet [facility] [address] [place] [address] Vignesh Holman DO from Last 3 Months Immunizations Immunization Administration [...] or pharmacy? Never 01/22/2024 Social Connection and Isolation Panel Answer Date Recorded In a typical week, [...] any clubs o r organizations such as sabianist groups, unions, fraternal or athletic groups, or [...] [facility] of Occupat ional Health [...] time in the past 12 m [facility], were you homeless or living in [...] AM EDT Routine [facility] [address] [place] [address] Vignesh Holman DO [address] [place] [address] Health Maintenance Due Date Last Done Comments Influenza Vaccine (#1) 2025 05/05/2013 Cervical Cancer Screening 04/06/2026 HPV/Cotest 04/06/2026 06/26/2019 Pap Smear 04/06/2026 04/06/2025, 12/26/2021, 12/13 Goals Goal Patient Goal Type Associated Problems Recent Progress Patient-Stated? Author Reminders Care Plan OB Reminders No Open Scheduling, Background Procedures Procedure Name Priority Date/Time Associated Diagnosis Comments AFP, SERUM, OPEN SPINA BIFIDA Routine 04/10/2025 11:16 AM EDT POCT URINALYSIS DIPSTICK Routine 04/06/2025 10:43 AM EDT Second trimester ([facility]) 21 weeks gestation of ([facility]) IGP,APTIMA HPV,AGE GDLN Routine 04/06/2025 10:23 AM EDT PAP SMEAR Routine 04/06/2025 12:00 AM EDT POCT URINALYSIS DIPSTICK Routine 03/11/2025 10:03 AM EDT Second trimester ([facility]) 18 weeks gestation of ([facility]) POCT URINALYSIS DIPSTICK Routine 01/28/2025 9:43 AM EDT 11 weeks gestation of ([facility]) First trimester ([facility]) Q - THINPREP(R) TIS AND HPV MRNA E6/E7 RFL HPV 16,18/45 Routine 06/26/2019 from Last 3 Months or Most Recently Relevant to Health Maintenance Results * AFP, SERUM, OPEN SPINA BIFIDA (04/10/2025 11:16 AM EDT) RESULTS Report . [facility] TEST RESULTS: *Screen Negative* . [facility] GEST. AGE ON COLLECTION DATE 21.7 . weeks [facility] GESTAT. AGE BASED ON LMP . [facility] Comment: Recalculations are not recommended when gestational dating by LMP and ultrasound are within 10 days. MATERNAL [age]CIEN 36[age]3 . yr [facility] RACE . [facility] WEIGHT 141 . lbs [facility] INSULIN DEP DIABETES No . [facility] MULTIPLE GESTATION No . [facility] AFP VALUE 107.6 . ng/mL [facility] AFP MOM 1.48 . [facility] OSBR RISK 1 IN 2886 . [facility] INTERPRETATION Comment . [facility] Comment: Interpretation: Screen Negative This result is screen negative for OSB. The AFP MoM calculated is based on the gestational age provided. MS-AFP can identify up to 80% of open neural tube defects. Closed neural tube defects and some open defects may not be detected by this test. This test does not screen for Down Syndrome or Trisomy 18. If screening for Down Syndrome or Trisomy 18 is desired, contact [facility] [employer] [facility] to discuss available options. The [place] [employer] recommends amniocentesis be offered to women age 35 and older. COMMENT: Comment . [facility] Comment: Jenna Ennis, Ph.D., [facility] Director References: Available Upon Request. Multiples Of Median Cutoffs For AFP Elevations Leone 2.5 Black 2.8 IDD 2.0 Twins 4.5 Abbreviation Definitions IDD - Insulin Dep Diabetes OSBR - Open Spina Bifida Risk For further inquiries contact [employer] [facility] at [phone]. This test was developed and its performance characteristics determined by [employer]. It has not been cleared or approved by the Food and Drug Administration. Performed at: [facility] [place], [place] [id number] Medical Transcription Radiology: [facility], Phone: [phone] 04/10/2025 11:1 6 AM EDT 04/10/2025 11:22 AM EDT Narrative VICENTE - 04/14/2025 12:08 AM EDT PREGNANY N N LMP [id number] 1 21 N 1 Y 141 N N N N N White/ us Vignesh Holman DO LAB BLOOD ORDERABLES Final Resul t [facility] * (ABNORMAL) POCT urinalysis dipstick manually resulted (04/06/2025 10:43 AM EDT) Only the most recent of3 resultswithin the time period is included. Color, [...] Negative - 1999(20) ++++ mg/dL Urobilinogen, UA 1.0 0.2 - 12 mg/dL Leukocytes, UA Negative Negative - 500+++ Nikki/mcL Nitrite, UA Negative Negative - Positive Urine 04/06/2025 10:4 3 AM EDT Vignesh Holman DO POINT OF CARE TEST ENTER/EDIT OR DERABLES Final Result * IGP,APTIMA HPV,AGE GDLN (04/06/2025 10:23 AM EDT) AGE GDLN ACOG TESTING Note . [facility] Comment: TESTS RESULT FLAG UNITS REF RANGE LAB Clinician Provided Cytology Information Source.............Cervix No. of containers..01 ThinPrep Vial Age Algo ACOG Pat... 30-65 01 FLAG LEGEND: L-Low Normal,H-High Normal,LL-Alert Low,HH-Alert High <-Panic Low,>-Panic High,A-Abnormal,AA-Critical Abnormal Performed at: 01 =G [facility] [address] Kaitlyn Henry MD, IGP, APTIMA HPV, RFX 16/18,45 Note . [facility] Comment: TESTS RESULT FLAG UNITS REF RANGE LAB DIAGNOSIS: 02 NEGATIVE FOR INTRAEPITHELIAL LESION OR MALIGNANCY. Specimen adequacy: 02 Satisfactory for evaluation. No endocervical component is identified. Performed by: 02 Chandu Camacho Truck Driver Rubbish Collector ([facility]) . 02 Note: Note 02 The Pap smear is a screening test designed to aid in the detection of premalignant and malignant conditions of the uterine cervix. It is not a diagnostic procedure and should not be used as the sole means of detecting cervical cancer. Both false-positive and false-negative reports do occur. Test Methodology: Note 02 This liquid based ThinPrep(R) pap test was screened with the use of an image guided system. HPV Genotype Reflex Note 02 Criteria not met, HPV Genotype not performed. FLAG LEGEND: L-Low Normal,H-High Normal,LL-Alert Low,HH-Alert High <-Panic Low,>-Panic High,A-Abnormal,AA-Critical Abnormal Performed at: 02 [facility] [address] [place] [address] Kaitlyn Henry MD, HPV APTIMA Negative Negative [facility] Comment: This nucleic acid amplification test detects fourteen high- risk HPV types (16,18,31,33,35,39,45,51,52,56,58,59,66,68) without differentiation. Performed at: =G - [facility] [address] [id number] Medical Transcription Radiology: Kaitlyn Henry MD, Phone: [phone] Performed at: [address] [id number] Medical Transcription Radiology: Kaitlyn Henry MD, Phone: [phone] 04/06/2025 10:2 3 AM EDT 04/06/2025 7:55 PM EDT Narrative [facility] - 04/12/2025 7:08 PM EDT SPATULA-ALONE CERVIX us Vignesh River DO LAB BLOOD ORDERABLES Final Resul t [facility] * Pap Smear (04/06/2025 12:00 AM EDT) Swab Cervical swab / Unknown us Vignesh River DO LAB CYTOLOGY ORDERABLES Final Re sult EXTERNAL LAB * (ABNORMAL) Q - THINPREP(R) [...] computer assisted technology. [facility] TYRE FITTER: SEE NOTE NO [facility] Comment: NNO, CT(ASCP) CT screening location: [place] [address]. REVIEW TYRE FITTER: SEE NOTE [facility] Comment: JEH, CT(ASCP) CT screening location: [facility] [place] [address]. COMMENT SEE NOTE [facility] EX[facility] [...] information. HPV MRNA E6/E7 Detected(A) Not Detected [facility] EXTERNAL [facility] Comment: This test was performed using the APTIMA HPV Assay ([employer] This assay detects E6/E7 viral messenger RNA (mRNA) from 14 high-risk HPV types (16,18,31,33,35,39,45,51,52,56,58,59,66,68). The analytical performance characteristics of this assay have been determined by [facility]. The modifications have not been cleared or approved by the FDA. This assay has been validated pursuant to the CLIA regulations and is used for clinical purposes. 06/26/2019 Adela Xavier [facility] Final Result [facility] EXTERNAL LAB from Last 3 Months or Most Recently Relevant to Health Maintenance Additional Health Concerns Active Problems Noted Date Diagnosed Date OB Reminders 01/19/2025 Insurance BS Care Teams Retail Security Professional Relationship Specialty Start Date End Date Kimmy Carey MD [address] [facility] [place] [address] PCP - General Family Medicine 02/04/23
--- OUTSIDE RECORDS SUMMARY | 2025-04-30 06:29 | XMS_ITS | Encounter Summary ---
Author Organization [facility] Address [address] [place] [address] Care Team Providers Care Doper Operator Name Role Phone Kimmy Carey MD Primary Care Provider [phone] Encounter Details Date Type Department Care Team (Late st Contact Info) Description 03/29/2025 Abstract [facility] [address] [place] [address] Vignesh Holman DO [address] [facility] [place] [address] Social History Tobacco Use Types Packs/Day Years [...] any clubs o r organizations such as samaritan groups, unions, fraternal or athletic groups, or [...] Recorded Patient Health Questionnaire-2 Score 0 02/04/2023 [facility] of Occupat ional Health - Occupational Stress [...] time in the past 12 m [facility], were you homeless or living in a residential (including now)? No 01/22/2024 Estimated Date of [...] [address] [place] [address] Vignesh Holman DO [address] [facility] [place] [address] documented as of this encounter Goals Goal Patient Goal Type Associated Problems Recent Progress Patient-Stated? Author Reminders Care Plan OB Reminders No Open Scheduling, Background documented as of this encounter Visit Diagnoses Not on filedocumented in this encounter Additional Health Concerns Active Problems Noted Date Diagnosed Date OB Reminders 01/19/2025 documented as of this encounter Care Teams Doper Operator Relationship Specialty Start Date End Date Kimmy Carey MD [address] [place] [address] PCP - General Family Medicine 02/04/23 documented as of this encounter
--- OUTSIDE RECORDS SUMMARY | 2025-04-30 06:29 | XMS_ITS | Clinical Summary ---
Author Organization [facility] Address [address] [place] [address] Care Team Providers Care Coloring Room Worker Name Role Phone Dee Dee Lariosah Primary Care Provider Unavailabl e Allergies No known active allergies Medications aspirin 81 mg EC tablet Take 81 mg by mouth in the morning. Active 3-[id number]-TIWKG ACID-OM3 ORAL Take 1 tablet by mouth in the morning. Active Active Problems Problem Noted Date Diagnosed Date Dyspnea on exertion 02/22/2025 23 weeks gestation of 02/22/2025 Pure hypercholesterolemia 02/22/2025 [...] Encounters Date Type Department Care Team Description 04/23/2025 10:40 AM EDT Office Visit [facility] [address] [place] [place] [address] Crow Corey MD POTS (postural orthostatic tachycardia syndrome) (Primary Dx); Dyspnea on exertion; Palpitations; 23 weeks gestation of ; Pure hypercholesterolemia 04/04/2025 Results Follow-Up [facility] [address] [place] [place] [address] Crow Corey MD Complete Echo (TTE) w/wo Imaging Agent, Strain, 3D, Bubble Study 03/25/2025 Orders Only [facility] [address] [facility] [place] [address] ProviderBrandon MD 02/22/2025 Orders Only [facility] [address] [facility] [place] [address] ProviderBrandon MD 02/18/2025 10:20 AM EDT Office Visit [facility] [address] [place] [place] [address] Crow Corey MD Dyspnea on exertion (Primary [...] Mass Index 26.34 04/23/2025 10:41 AM EDT Plan of Treatment Upcoming Encounters Date Type Department Care Team (Late st Contact Info) Description 06/28/2025 9:00 AM EST Office Visit [facility] [address] [place] [address] Crow Corey MD [address] [place] [place] [address] Health Maintenance Due Date Last Done Comments Depression Screening 2001 Varicella Vaccines (1 of 2 - 13+ 2-dose series) 2002 Hepatitis B Vaccines (1 of 3 - 19+ 3-dose series) 2008 Adult Tetanus 2011 HPV/Cotest 2019 COVID-19 Vaccine (1 - 2023-2 5 season) 2025 Influenza Vaccine (#1) 2025 05/05/2013 Cervical Cancer Screening 04/06/2028 Pap Smear 04/06/2028 04/06/2025 Zoster Vaccines (1 of 2) 2039 HIB [...] Final Result from Last 3 Months Insurance [facility] Care Teams Coloring Room Worker Relationship Specialty Start Date End Date Colleen Larios [address] [place] [address] PCP - General 02/22/25
--- OUTSIDE RECORDS SUMMARY | 2025-04-30 06:29 | XMS_ITS | Encounter Summary ---
Author Organization [facility] tem Address [id number] [address] [place] [address] Care Team Providers Care Dishwashing Machine Operator Name Role Phone No Pcp, No Pcp Primary Care Provider Unavailabl e Encounter Details Date Type Department Care Team (Late st Contact Info) Description 02/04/2025 Orders Only [facility] at [facility] [address] [place] [address] Vignesh Holman, DO [address] [facility] [place] [address] Social History Tobacco Use Types Packs/Day Years [...] documented as of this encounter Care Teams Dishwashing Machine Operator Relationship Specialty Start Date End Date No Pcp, [place] [address] PCP - General Family Medicine 07/21/24 documented as of this encounter
--- OUTSIDE RECORDS SUMMARY | 2025-04-30 06:29 | XMS_ITS | Encounter Summary ---
Author Organization [facility] Address [address] [place] [address] Care Team Providers Care Steam Drier Tender Name Role Phone Kimmy Carey MD Primary Care Provider Encounter Details Date Type Department Care Team (Late st Contact Info) Description 04/27/2025 Telephone [facility] [address] [place] [address] Vignesh Holman DO [address], [facility] Social History Tobacco Use Types Packs/Day Years [...] often do you attend chur ch or hinduism services? Never 01/22/2024 Do you belong to any clubs o r organizations such as holiness groups, unions, fraternal or athletic groups, or [...] Recorded Patient Health Questionnaire-2 Score 0 02/04/2023 [facility] of Occupat ional Health - Occupational [...] any time in the past 12 m [facility], were you homeless or [...] Telephone Encounter - Kendra Voss LPN - 04/27/2025 3:37 PM EDT I am a little past 24 weeks and I am developing a cold sore on my lip. I have had these inthe past. I have not had 1 for quite a long time, so I am not sure where this is coming from, but Just the in case it gets worse, I was just wondering what would be safe to put on it like a topical cream or something. I was not sure if a breva was safe. No peguero. Just give me a call when you can. Patient call was returned and she was advised that we will have her start on Valtrex for the Cold sore and she will stay on this until after she does deliver. PVU and pharmacy verified. documented in this encounter Plan of Treatment Upcoming Encounters Date Type Department Care Team (Late st Contact Info) Description 05/05/2025 10:50 AM EDT Routine [facility] [address] [place] [address] Vignesh Holman, [address] [place], [place] [address] documented as of this encounter Goals Goal Patient Goal Type Associated Problems Recent Progress Patient-Stated? Author Reminders Care Plan OB Reminders No Open Scheduling, Background documented as of this encounter Visit Diagnoses Diagnosis Cold sore Herpes simplex without mention of complication documented in this encounter Additional Health Concerns Active Problems Noted Date Diagnosed Date OB Reminders 01/19/2025 documented as of this encounter Care Teams Steam Drier Tender Relationship Specialty Start Date End Date Kimmy Carey MD [address] [place] [address] PCP - General Family Medicine 02/04/23 documented as of this encounter
--- OUTSIDE RECORDS SUMMARY | 2025-04-30 06:29 | XMS_ITS | Encounter Summary ---
Author Organization [facility] Address [id number] [address] [place] [address] Care Team Providers Care Continuous Process Tanner Rotary Drum Name Role Phone No Pcp, No Pcp Primary Care Provider Unavailabl e Encounter Details Date Type Department Care Team (Late st Contact Info) Description 05/07/2022 [facility] [address] [place] [address] External, Scanning Provider Social History Tobacco Use [...] on filedocumented in this encounter Care Teams Continuous Process Tanner Rotary Drum Relationship Specialty Start Date End Date No Pcp, [place] [address] PCP - General Family Medicine 07/21/24 documented as of this encounter
--- OUTSIDE RECORDS SUMMARY | 2025-04-30 06:29 | XMS_ITS | Encounter Summary ---
Author Organization [facility] Address [address] [place] [address] Care Team Providers Care Welfare Worker Name Role Phone Kimmy Carey MD Primary Care Provider [phone] Encounter Details Date Type Department Care Team (Late st Contact Info) Description 04/20/2025 Orders Only [facility] [address] [facility] [place] [address] Armen [place], [place] [address] [facility] [place] [address] Social History Tobacco Use Types Packs/Day Years [...] often do you attend chur ch or hindu services? Never 01/22/2024 Do you belong to [...] any time in the past 12 m [facility], were you homeless or [...] AM EDT Routine [facility] [address] [facility] [facility] [place] [address] Vignesh Holman DO [address] [facility] [place] [address] documented as of this encounter Goals Goal Patient Goal Type Associated Problems Recent Progress Patient-Stated? Author Reminders Care Plan OB Reminders No Open Scheduling, Background documented as of this encounter Procedures Procedure Name Priority Date/Time Associated Diagnosis Comments PAP SMEAR Routine 04/06/2025 12:00 AM EDT documented in this encounter Results * Pap Smear (04/06/2025 12:00 AM EDT) Swab Cervical swab / Unknown Vignesh Holman DO LAB CYTOLOGY ORDERABLES Final Re sult EXTERNAL LAB documented in this encounter Visit Diagnoses Not on filedocumented in this encounter Additional Health Concerns Active Problems Noted Date Diagnosed Date OB Reminders 01/19/2025 documented as of this encounter Care Teams Welfare Worker Relationship Specialty Start Date End Date Kimmy Carey MD [address] [place] [address] PCP - General Family Medicine 02/04/23 documented as of this encounter
--- OUTSIDE RECORDS SUMMARY | 2025-04-30 06:29 | XMS_ITS | Encounter Summary ---
Author Organization [facility] Address [address] [place] [address] Care Team Providers Care Community Specialist Name Role Phone Kimmy Carey MD Primary Care Provider [phone] Encounter Details Date Type Department Care Team (Latest Contact Info) Description 04/28/2025 Travel Social History Tobacco Use Types Packs/Day [...] How often do you attend chur or tenriism services? Never 01/22/2024 Do you [...] Recorded Patient Health Questionnaire-2 Score 0 02/04/2023 [facility] - Occupational [...] time in the past 12 m [facility], were you homeless or living in a senior care (including now)? No 01/22/2024 Estimated Date of [...] AM EDT Routine [facility] [address] [place] [address] Vignesh Holman DO [address] [place] [address] documented as of this encounter Goals Goal Patient Goal Type Associated Problems Recent Progress Patient-Stated? Author Reminders Care Plan OB Reminders No Open Scheduling, Background documented as of this encounter Visit Diagnoses Not on filedocumented in this encounter Additional Health Concerns Active Problems Noted Date Diagnosed Date OB Reminders 01/19/2025 documented as of this encounter Care Teams Community Specialist Relationship Specialty Start Date End Date Kimmy Carey MD [address] [place] [address] PCP - General Family Medicine 02/04/23 documented as of this encounter
--- OUTSIDE RECORDS SUMMARY | 2025-04-30 06:29 | XMS_ITS | Encounter Summary ---
Author Organization [employer] [facility] tem Address [id number] [address] [place] [address] Care Team Providers Care Customer Logistics Manager Name Role Phone No Pcp, No Pcp Primary Care Provider Unavailabl e Encounter Details Date Type Department Care Team (Late st Contact Info) Description 02/28/2022 [facility] [address] [place] [address] External, Scanning Provider Social History [...] on filedocumented in this encounter Care Teams Customer Logistics Manager Relationship Specialty Start Date End Date No Pcp, [place] [address] PCP - General Family Medicine 07/21/24 documented as of this encounter
--- OUTSIDE RECORDS SUMMARY | 2025-04-30 06:29 | XMS_ITS | Encounter Summary ---
Author Organization [employer] tem Address [facility]-[id number] [address] [place] [address] Care Team Providers Care Earth Boring Machine Operator Name Role Phone No Pcp, No Pcp Primary Care Provider Unavailabl e Encounter Details Date Type Department Care Team (Late st Contact Info) Description 01/19/2022 Telephone [facility] [address] [place] [phone] Magalie Bailey PA [address] [place] [phone] Social History Tobacco Use Types Packs/Day Years [...] urogram and an appointment with me in [place] to review the results. * Telephone Encounter [...] on filedocumented in this encounter Care Teams Earth Boring Machine Operator Relationship Specialty Start Date End Date No Pcp, [place] [address] PCP - General Family Medicine 07/21/24 documented as of this encounter
--- OUTSIDE RECORDS SUMMARY | 2025-04-30 06:29 | XMS_ITS | Clinical Summary ---
Author Organization [facility] Address [address], [address] [place] [address] Care Team Providers Care Health Lead Name Role Phone Unavailable Primary Care Provider Unavailabl e Allergies No known active allergies Medications Vit-DSS-Fe Cbn-FA ( AD PO) Take by mouth daily Active Multiple Vitamin (MULTIVITAMIN ADULT PO) Take by mouth Active VITAMIN D PO Take by mouth Act ana Gonvick-3 Fatty Acids (FISH OIL) 300 MG CAPS [...] Value Date Recorded Sex Assigned at Female 04/14/2025 8:52 AM EDT Legal Sex Female 2:26 PM EDT Gender Identity Female 04/14/2025 8:52 AM EDT Sexual Orientation Straight 04/14/2025 8: 52 AM EDT Last Filed Vital Signs Vital [...] 04/15/2024 3:09 PM EDT Plan of Treatment Health Maintenance [...] patient's age to complete this topic Insurance [place] Subscriber Plan / Payer (Ef fective 2023-Present) Name:Sammi Chapa Relation to Subscriber:Self Name:ChapaSammi lynch Payer ID:[id number] ([facility]) Type:Not on file Address: [address] [place] [id number]
--- OUTSIDE RECORDS SUMMARY | 2025-04-30 06:29 | XMS_ITS | Encounter Summary ---
Author Organization [facility] Address [address] [place] [address] Care Team Providers Care Ep Specialist Name Role Phone Kimmy Carey MD Primary Care Provider [phone] Colleen Larios NP Unavailable [phone] Encounter Details Date Type Department Care Team (Late st Contact Info) Description 10/15/2024 Abstract [facility] [address] [place] [phone] Vignesh Holman DO [address] [place], [place] [phone] Social History Tobacco Use Types Packs/Day Years [...] How often do you attend chur or congregation services? Never 01/22/2024 Do you belong to [...] Score 0 02/04/2023 [facility] - Occupational Stress Questionnaire Answer Date [...] any time in the past 12 m [facility], were you homeless or living in a snf (including now)? No 01/22/2024 Comments No Sex [...] 05/05/2025 10:50 AM EDT Routine [facility] [address] [place] [address] Vignesh Holman DO [address] [place], [place] [phone] documented as of this encounter Visit Diagnoses Not on filedocumented in this encounter Care Teams Ep Specialist Relationship Specialty Start Date End Date Kimmy Carey MD [address] [facility] [address] [place], [place] [phone] PCP - General Family Medicine 02/04/23 Colleen Larios NP [address] [facility] [address] [place], [place] [phone] PCP - Lambert Commercial 03/15/24 documented as of this encounter
--- OUTSIDE RECORDS SUMMARY | 2025-04-30 06:29 | XMS_ITS | Clinical Summary ---
Author Organization [employer] tem Address [id number] [address] [place] [address] Care Team Providers Care Tube Cleaner Name Role Phone No Pcp, No Pcp Primary Care Provider Unavailabl e Allergies No known active allergies Medications no115/iron/folic acid ( 19 ORAL) Take by mouth. Active aspirin 81 mg Take 1 tablet (81 mg total) by mouth in the morning. Active Active [...] PM EDT Office Visit Maternal- Medicine at [facility] [address] [place] [address] Queta Mejia MD Advanced maternal age, 1st , second trimester (Primary Dx); POTS (postural orthostatic tachycardia syndrome); PVC's (premature ventricular contractions); PAC (premature atrial contraction); 20 weeks gestation of 03/29/2025 1:37 PM EDT - 03/29/2025 11:59 PM EDT Hospital Encounter [facility] Imaging [address] [place] [address] Multigravida of advanced maternal age in second trimester; Screening, , for anatomic survey Discharge Disposition: Home 2025 Travel 02/04/2025 Telephone Maternal- Medicine at [facility] [address] [place] [address] Jose Middleton CMA 02/04/2025 Orders Only Maternal- Medicine at [facility] [address] [place] [address] Margot Holman DO 02/02/2025 Travel from Last 3 Months Family History Medical History Relation Name Comments Hypertension Father Dwain Sawant Diabetes Maternal Grandmother Winifred Vogtey Heart murmur Mother High Cholesterol Mother Cancer Paternal Grandfather Baldo Savana prosta te Prostate cancer Paternal Grandfather Baldo Savana Breast cancer Paternal Grandmother Ana Savana Autism Neg Hx Autoimmune disease Neg Hx Bleeding Disorder Neg Hx Clotting disorder Neg Hx Colon cancer Neg Hx Down syndrome Neg Hx Heart defect Neg Hx Ovarian cancer Neg Hx Pancreatic cancer Neg Hx Sudden Neg Hx Uterine cancer Neg Hx Relation Name Status Comments Father Dwain Sawant Alive Maternal Grandmother Winifred Collins Mother Alive Paternal Grandfather Baldo Sawant Paternal Grandmother Ana Sawant Social History Tobacco [...] Name Priority Date/Time Associated Diagnosis Comments US MFM COMPREHENSIVE ANATOMIC SURVEY Routine 03/29/2025 3:29 PM EDT Multigravida of advanced maternal age in second trimester Screening, , for anatomic survey UNLISTED LAB TEST Routine 02/02/2025 9:3 3 AM EDT from Last 3 Months Results * US MFM COMPREHENSIVE ANATOMIC SURVEY (03/29/2025 3:29 PM EDT) Anatomical Region Laterality Modality OB-LOSS PREVENTION ASSOCIATE Ultrasound 03/29/2025 1:57 PM EDT Narrative 03/29/2025 4:32 PM EDT NAME: JJ PISANO : 1990 SEX: F Accession Number: [id number] ORDERING PHYSICIAN: QUETA MEJIA REFERRING PHYSICIAN: MARGOT HOLMAN Coding ----- --------- Procedures [id number]: Ultrasound, uterus, real time with image documentation, and maternal evaluation plus detailed anatomic examination, transabdominal approach;single or first gestation [id number]: Transvaginal Ultrasound (OB) Indication ----- --------- Screening for Anatomic Survey , Screening for cervical length, POTS, AMA- Supervision of elderly. History ----- --------- OB History 2. Para 0 [id number] Current ----- --------- Cell free DNA Low [...] EFW (oz) 11 oz EFW by: Hadlock ([id number]-FL) Extended Tibia 25.0 mm 18w 6d 21% Sommer Stage Director 7.7 mm CM 2.9 mm 3% Nicolaides [...] view. RVOT view. LVOT view. 3-vessel view. 6-anjdse-zwjppaz view. Situs. Aortic arch view. Bicaval view. [...] cm. Recommendations ----- --------- Please see [facility] documentation from today. Subsequent follow up or other follow up as clinically determined by primary OB provider unless otherwise specified by [facility]. Results forwarded to ordering provider so they can follow up with the patient as necessary. Procedure Note Queta Mejia MD - 03/29/2025 NAME: JJ PISANO : 1990 SEX: F Accession Number: [id number] ORDERING PHYSICIAN: QUETA MEJIA REFERRING PHYSICIAN: MARGOT HOLMAN Coding ----- --------- Procedures [id number]: Ultrasound, uterus, real time with imagedocumentation, and maternal evaluation plus detailed anatomic examination, transabdominalapproach;single or first gestation [id number]: Transvaginal Ultrasound (OB) Indication ----- --------- Screening for Anatomic Survey , Screening for cervical length, POTS, AMA- Supervision of elderly. History ----- --------- OB History 2. Para 0 [id number] Current ----- --------- Cell free DNA Low [...] days) 20 w + 0 d Assigned LUCEIN: 08/16/2025 General Evaluation ----- --------- Cardiac activity [...] EFW (oz) 11 oz EFW by: Hadlock ([id number]) Extended Tibia 25.0 mm 18w 6d 21% Sommer Stage Director 7.7 mm CM 2.9 mm 3% Nicolaides [...] 4-chamber view. RVOT view. LVOT view. 3-vessel view.2-oalkpb-ymqzknn view. Situs. Aortic arch view. Bicaval view. [...] 4.1 cm. Recommendations ----- --------- Please see M documentation from today. Subsequent follow up or other follow up as clinically determined byprimary OB provider unless otherwise specified by M. Results forwarded to ordering provider so they can follow up with thepatient as necessary. Queta Mejia MD [facility] [place] ORDER[place]LES Final Result * Unlisted Lab Test (02/02/2025 9:33 AM EDT) us Margot Erin Baezo DO LAB BLOOD ORDERABLES Final Resu lt MANUALLY TRANSCRIBED RESULTS from Last 3 Months Insurance COUNTS INCLUDE [facility]EDS AT [facility] Care Teams Tube Cleaner Relationship Specialty Start Date End Date No Pcp, [place] [address] PCP - General Family Medicine 07/21/24
--- OUTSIDE RECORDS SUMMARY | 2025-04-30 06:29 | XMS_ITS | Encounter Summary ---
Author Organization [facility] tem Address [id number] [address] [place] [address] Care Team Providers Care Sfdc Developer Name Role Phone No Pcp, No Pcp Primary Care Provider Unavailabl e Encounter Details Date Type Department Care Team (Late st Contact Info) Description 01/21/2025 Orders Only Maternal- Medicine at [facility] [address] [place] [phone] Ref Prov, [place] [address] Social History Tobacco Use Types Packs/Day Years [...] documented as of this encounter Care Teams Sfdc Developer Relationship Specialty Start Date End Date No Pcp, No Pcp [place] [address] PCP - General Family Medicine 07/21/24 documented as of this encounter
--- OUTSIDE RECORDS SUMMARY | 2025-04-30 06:29 | XMS_ITS | Encounter Summary ---
Author Organization [employer] Address [facility]-[id number] [address] [place] [address] Care Team Providers Care Chef Head Name Role Phone No Pcp, No Pcp Primary Care Provider Unavailabl e Encounter Details Date Type Department Care Team (Late st Contact Info) Description 07/12/2020 Orders Only [facility] [address] [place] [address] External, Scanning Provider Social History [...] Multiple labs (04/01/2020) us Scanning Provider External [facility] Final Result MANUALLY TRANSCRIBED RESULTS documented in this encounter Visit Diagnoses Not on filedocumented in this encounter Care Teams Chef Head Relationship Specialty Start Date End Date No Pcp, [place] [address] PCP - General Family Medicine 07/21/24 documented as of this encounter
--- OUTSIDE RECORDS SUMMARY | 2025-04-30 06:29 | XMS_ITS | Encounter Summary ---
Author Organization [facility] Address [address] [facility] [place] [address] Care Team Providers Care Indoor Landscape Architect Name Role Phone Kimmy Carey MD Primary Care Provider Colleen Larios NP Unavailable [phone] Encounter Details Date Type Department Care Team (Late st Contact Info) Description 05/13/2023 Abstract [facility] Family Medicine [address] [place] [address] Kimmy Carey MD [address] [place], [place] [phone] Social History Tobacco Use Types Packs/Day Years [...] AM EDT Routine [facility] [address] [place] [address] Vignesh Holman DO [address] [facility] [address] [place] [address] documented as of this encounter Visit Diagnoses Not on filedocumented in this encounter Care Teams Indoor Landscape Architect Relationship Specialty Start Date End Date Kimmy Carey MD [address] [facility] [place] [address] PCP - General Family Medicine 02/04/23 Colleen Larios NP [address] [facility] [place] [address] PCP - Brock Fleming 03/15/24 documented as of this encounter
--- OUTSIDE RECORDS SUMMARY | 2025-04-30 06:29 | XMS_ITS | Encounter Summary ---
Author Organization [facility] Address [address] [facility] [place] [address] Care Team Providers Care Inside Sales Lead Name Role Phone Kimmy Carey MD Primary Care Provider [phone] Colleen Larios NP Unavailable [phone] Encounter Details Date Type Department Care Team (Late st Contact Info) Description 10/15/2024 Abstract [facility] [address] [place] [phone] Vignesh Holman DO [address] [place], [place] [phone] Social History Tobacco Use Types Packs/Day Years [...] How often do you attend chur or anglican services? Never 01/22/2024 Do you belong to [...] Recorded Patient Health Questionnaire-2 Score 0 02/04/2023 [facility] - Occupational Stress Questionnaire Answer [...] the past [address] [facility], were you homeless or living in a custodial (including now)? No 01/22/2024 Comments No Sex [...] Routine [facility] [address] [place] [address] Vignesh Holman DO [address] [place], [place] [phone] documented as of this encounter Visit Diagnoses Not on filedocumented in this encounter Care Teams Inside Sales Lead Relationship Specialty Start Date End Date Kimmy Carey MD [address] [facility] [address] [place], [place] [phone] PCP - General Family Medicine 02/04/23 Colleen Larios NP [address] [facility] [address] [place], [place] [address] PCP - Champ Commercial 03/15/24 documented as of this encounter
--- OUTSIDE RECORDS SUMMARY | 2025-04-30 06:29 | XMS_ITS | Encounter Summary ---
Author Organization [facility] Address [address] [place] [address] Care Team Providers Care Director Shopper Marketing Name Role Phone Kimmy Carey MD Primary Care Provider [phone] Encounter Details Date Type Department Care Team (Late st Contact Info) Description 03/11/2025 Abstract [facility] [address] [facility] [place] [address] Vignesh Holman DO [address] [address] Social History Tobacco Use Types Packs/Day Years [...] often do you attend chur ch or presybeterian services? Never 01/22/2024 Do you belong to any clubs o r organizations such as baptist groups, unions, fraternal or athletic groups, or [...] Patient Health Questionnaire-2 Score 0 02/04/2023 [facility] Occupat ional Health - Occupational [...] any time in the past 12 m [facility], were you homeless or living in a [...] [address] [place] [address] Vignesh Holman DO [address] [place] [address] documented as of this encounter Goals Goal Patient Goal Type Associated Problems Recent Progress Patient-Stated? Author Reminders Care Plan OB Reminders No Open Scheduling, Background documented as of this encounter Visit Diagnoses Not on filedocumented in this encounter Additional Health Concerns Active Problems Noted Date Diagnosed Date OB Reminders 01/19/2025 documented as of this encounter Care Teams Director Shopper Marketing Relationship Specialty Start Date End Date Kimmy Carey MD [address] [place] [address] PCP - General Family Medicine 02/04/23 documented as of this encounter
[2025-04-30 06:43] VITALS: BP 124/80; PULSE 104
[2025-04-30 06:57] LABS: Glucose Urine UA NEGATIVE (NEGATIVE)
[2025-04-30 07:23] LABS: Cast Seen? NONE SEEN #/LPF (NONE SEEN); Crystals Seen? None Seen #/HPF (None Seen); Urine Culture Indicated YES-LC
== END 2025-04-30 07:10 | disposition home or self-care (01) ==
PROVIDERS: Admitting Provider Obstetrics & Gynecology; Family Provider Family Medicine; Visit Provider Obstetrics & Gynecology
DX: O99.891 Other specified diseases and conditions complicating pregnancy (principal); R10.9 Unspecified abdominal pain; Z3A.24 24 weeks gestation of pregnancy
CPT/HCPCS: 81001; 87086; G0378; G0379

== ENCOUNTER 2025-05-06 07:37 | Outpatient (OUT) | payer BC, SELFPAY ==
--- OUTSIDE RECORDS SUMMARY | 2025-04-23 10:40 | XMS_ITS | Encounter Summary ---
Author Organization [facility] Address [address] [facility] [place] [address] Care Team Providers Care Yard Operator Name Role Phone Dee Dee Lariosah Primary Care Provider Unavailabl e Reason for Visit * ReasonCommentsFollow-upPatient is here today for a follow up appointment. Patient had recent ECHO. Patient states her OB is leaving it up to Cardiology as to weather she can have her baby delivered here or if she need to deliver in [place].POTSPSVTPVC'SHyperlipidemiaShortness of BreathDue to being 23 weeks PalpitationsAfter heavy meal Encounter Details DateTypeDepartmentCare Team (Latest Contact Info)Hmhcjqbtilx63/10/2025 10:40 AM EDTOffice Visit [facility] [address] [place] [address] Crow Corey MD [address] [place] [address] POTS (postural orthostatic tachycardia syndrome) (Primary Dx); Dyspnea on exertion; Palpitations; 23 weeks gestation of ; Pure hypercholesterolemia Social History Tobacco UseTypesPacks/DayYears UsedDateSmoking Tobacco: NeverSmokeless Tobacco: NeverAlcohol UseStandard Drinks/WeekCommentsNot Currently0 (1 standard drink = 0.6 oz pure alcohol)CommentsYesSex and Gender InformationValueDate RecordedSex Assigned at MxzokFuxtnk74/05/2025 3:28 PM EDTLegal SexFemale 01/29/2025 12:33 PM EDTGender PpkitghkYnsels31/05/2025 3:28 PM EDTSexual OrientationHeterosexual or Dmghwgkm54/05/2025 3:28 PM EDTdocumented as of this encounter Last Filed Vital Signs Vital SignReadingTime TakenCommentsBlood Yojxpuao341/ 10:41 AM EDT Pxmmc320804/23/2025 10:41 AM EDTTemperature--Respiratory Rate--Oxygen Saturation 100%04/23/2025 10:41 AM EDTInhaled Oxygen Concentration--Vapkkz24.3 kg (144 lb) 04/23/2025 10:41 AM XMMZopvdy681.5 cm (5' 2 )04/23/2025 10:41 AM EDTBody Mass Index26.341 10:41 AM EDTdocumented in this encounter Functional Status * BPAnswerDate of SzdvaiybvrNjujxi844/ 10:41 AM Stephanie Shah MA * PulseAnswerDate of AsecjiphiwXtvdmk1459/10/2025 10:41 AM Stephanie Shah MA * Patient PositionAnswerDate of XaakfcxezoOnuhzvGhiqrdx27/10/2025 10:41 AM EDT Stephanie Ponce MA * BPAnswerDate of WgywbajuljXldzwl117/7204/23/2025 10:41 AM Stephanie Shah MA * PulseAnswerDate of OltzbijpluJjymzi4434/10/2025 10:41 AM Stephanie Shah MA * CuS8AcftxtVzrx of TqtgkmjvisHtoqrp09889/10/2025 10:41 AM Stephanie Shah MA * BP LocationAnswerDate of AssessmentAuthorR[facility] arm04/23/2025 10:41 AM EDT Stephanie Ponce MA * Patient PositionAnswerDate of DwemhdnughQyzavfFkmybjx78/10/2025 10:41 AM EDStephanie Sanchez MA documented as of this encounter Progress Notes * Crow Corey MD - 04/23/2025 10:40 AM EDT Images from the original note were not included. [facility] Note Reason for cardiology [...] syndrome with constipation Patient was seen by school photograph editor Dr. Tom Tavares at [facility] in the past and she wasdiagnosed [...] root dimension. Tilt table test 03/24/2024 [facility] in [place] Study Conclusions: Abnormal head upright tilt study. [...] with their primary care physician and/ or school photograph editor as previously scheduled. Event monitor 02/26/2024 at [facility] in [place] - Predominant rhythm: NSR - Ectopic Atrial [...] she was followed in the past by [facility] cardiology in [place] History of PVCs History of hyperlipidemia, per [...] months or sooner if needed Crow Core[facility] MD,[facility] [1] Family History Problem Relation Name Age of Onset Other (atria flutter) Mother Hyperlipidemia Mother Hypertension Father [2] Current Outpatient Medications: aspirin 81 mg EC tablet, Take 81 mg by mouth in the morning., Disp: , Rfl: 1-AKHM-VAWLW ACID-OM3 ORAL, Take 1 tablet by mouth in the morning., Disp: , Rfl: documented in this encounter Plan of Treatment DateTypeDepartmentCare Team (Latest Contact Info)Qqujtjkjhtq33/15/2025 9:00 AM ESTOffice Visit [facility] [address] [place] [address] Crow Corey MD [address] MS:[address] [place] [address] documented as of this encounter Visit Diagnoses Diagnosis POTS (postural orthostatic tachycardia syndrome)- Primary Unspecified tachycardia Dyspnea on exertion Other dyspnea and respiratory abnormality Palpitations 23 weeks gestation of Pure hypercholesterolemia documented in this encounter Care Teams Team MemberRelationshipSpecialtyStart DateEnd Date Colleen Larios [address] [place] [address] PCP - [facility]02/22/25documented as of this encounter
--- OUTSIDE RECORDS SUMMARY | 2025-05-05 10:50 | XMS_ITS | Encounter Summary ---
Author Organization [facility] Address [address] [place] [address] Care Team Providers Care Forger Helper Name Role Phone Kimmy Carey MD Primary Care Provider [phone] Reason for Visit * ReasonCommentsRoutine Visit Encounter Details DateTypeDepartmentCare Team (Latest Contact Info)Dfbnaazqwvw70/22/2025 10:50 AM EDTRoutine [facility] [address] [place] [address] Vignesh Holman DO [address] [place], [place] [id number] Second trimester ([facility]); 25 weeks gestation of ([facility]); Vaginal discharge; Diabetes mellitus screening Social History Tobacco UseTypesPacks/DayYears UsedDateSmoking Tobacco: NeverSmokeless Tobacco: NeverAlcohol UseStandard Drinks/WeekCommentsNever0 (1 standard drink = 0.6 oz pure alcohol)Caffeine:B1300 Health LiteracyAnswerDate RecordedHow often do you need to have someone help you when you read instructions, pamphlets, or other written material from your doctor or pharmacy?Never01/22/2024Social Connection and Isolation PanelAnswerDate RecordedIn a typical week, how many times do you talk on the phone with family, friends, or neighbors?More than three times a week01/22/2024How often do you get together with friends or relatives?Twice a week01/22/2024How often do you attend sikh or judaism services?Never 01/22/2024o you belong to any clubs or organizations such as sikh groups, unions, fraternal or athletic groups, or school groups?No01/22/2024How often do you attend meetings of the clubs or organizations you belong to?Never01/22/2024 Are you , , , , never , or living with a partner?Jewgyff4101/22/2024UDIT-CAnswerDate RecordedQ1: How often do you have a drink containing alcohol?Never01/22/2024Q2: How many drinks containing alcohol do you have on a typical day when you are drinking?Patient does not drink 01/22/2024Q3: How often do you have six or more drinks on one occasion?Never 01/22/2024Overall Financial Resource Strain (CARDIA)AnswerDate RecordedHow hard is it for you to pay for the very basics like food, housing, medical care, and heating?Not very hard01/22/2024HQ-2AnswerDate RecordedPatient Health Questionnaire-2 Jourd419Finbrigham city [facility] hospital [place] of Occupational Health - Occupational Stress QuestionnaireAnswerDate RecordedDo you feel stress - tense, restless, nervous, or anxious, or unable to sleep at night because yourmind is troubled all the time - these days?Only a drubvs3901/22/2024Exercise Vital Sign AnswerDate RecordedOn average, how many days per week do you engage in moderate to strenuous exercise (like a brisk walk)?7 days01/22/2024On average, how many minutes do you engage in exercise at this level?80 min01/22/2024Hunger Vital SignAnswerDate RecordedWithin the past 12 months, you worried that your food would run out before you got the money to buymore.Never true01/22/2024Within the past 12 months, the food you bought just didn't last and you didn't have money to get more.Never true01/22/2024RAPARE - TransportationAnswerDate RecordedIn the past 12 months, has lack of transportation kept you from medical appointments or from getting medications?No01/22/2024In the past 12 months, has lack of transportation kept you from meetings, work, or from getting things needed for daily living?No01/22/2024Housing Stability Vital SignAnswerDate RecordedIn the last 12 months, was there a time when you were not able to pay the mortgage or rent on time?No01/22/2024In the past 12 months, how many times have you moved where you were living?t any time in the past 12 months, were you homeless or living in a penitentiary (including now)?No01/22/2024 Estimated Date of CasjxzzsGmpbzpneHln96/02/2026ased on last menstrual period of 11/09/2024Sex and Gender InformationValueDate RecordedSex Assigned at BirthNot on fileLegal ZnkKldqui03/15/2023 7:12 PM EDTGender IdentityFemale 09/26/2022 7:12 PM EDTSexual EfvuwzcusvyZzrmghgl74/22/2023 8:43 AM EDTdocumented as of this encounter Last Filed Vital Signs Vital SignReadingTime TakenCommentsBlood Gahxwdxd383/6805/05/2025 11:10 AM EDT Pulse--Temperature--Respiratory Rate--Oxygen Saturation--Inhaled Oxygen Concentration--Vrwzuc73.7 kg (147 lb)05/05/2025 11:10 AM EDTHeight--Body Mass Index26.8911 9:31 AM EDTdocumented in this encounter Progress Notes * Pati Varghese LPN - 05/05/2025 10:50 AM EDT Reason for Appointment: Patient ID: Sammi Chapa is a 35 y.o. female who presents for Routine Visit Patient presents today for Return OB appointment. MEDICATIONS Current Outpatient Medications Medication Instructions aspirin 81 mg, Daily MV-Min-Fe Fum-FA-DHA ( 1 PO) 1 tablet, Daily valACYclovir (VALTREX) 500 mg, Oral, Daily ALLERGIES No Known Allergies PROBLEMS Active Ambulatory Problems Diagnosis Date Noted Palpitations 07/11/2020 Tachycardia 08/11/2021 Miscarriage ([facility]) Irritable bowel syndrome with predominant constipation Resolved Ambulatory Problems Diagnosis Date Noted No Resolved Ambulatory Problems Past Medical History: Diagnosis Date POTS (postural orthostatic tachycardia syndrome) 03/2024 HISTORY PAST MEDICAL HISTORY SOCIAL HISTORY Past Medical History: Diagnosis Date Irritable bowel syndrome with predominant constipation Miscarriage ([facility]) POTS (postural orthostatic tachycardia syndrome) 03/2024 Social [...] Constitutional: Appearance: Normal appearance. She is well-developed. Cardiovascular: Rate and Rhythm: Normal rate and [...] nursing note reviewed. Exam conducted with a safety spec present. Vitals: Estimated body mass index is 26.89 kg/m?? as calculated from the following: Height as of 24: 5' 2 . Weight as of this encounter: 147 lb. BP: 116/68 Patient's last menstrual period was 11/09/2024. Assessment/Plan ICD-10-CM 1. Second trimester ([facility]) Z34.92 CBC and differential 2. 25 weeks gestation of ([facility]) Z3A.25 POCT urinalysis dipstick manually resulted 3. Vaginal discharge N89.8 SURESWAB(R) ADVANCED VAGINITIS PLUS, TMA CHLAMYDIA TRACHOMATIS (GENITO/STI) Neisseria gonorrhea DNA probe, direct 4. Diabetes mellitus screening Z13.1 CBC Glucose tolerance, 1 hour CBC Glucose tolerance, 1 hour Patient presents today for a routine obstetrics appointment. Patient is currently 25w2d with a Estimated Date of Delivery: 08/16/25. Pt given glucola and cbc orders to have obtained. Pt to return in 4 weeks for scheduled OB appt. Documented by Pati Varghese LPN on behalf of: Vignesh Holman DO documented in this encounter Plan of Treatment DateTypeDepartmentCare Team (Latest Contact Info)Rskrmoytmhf71/11/2025 9:40 AM ESTRoutine [facility] [address] [place] [phone] Vignesh Holman DO [address] [place], [place] [address] NameTypePriorityAssociated DiagnosesOrder ScheduleCBCLabRoutine Diabetes mellitus screening Expected: 05/05/2025 (Approximate), Expires: 05/05/2026Glucose tolerance, 1 hour LabRoutine Diabetes mellitus screening Expected: 05/05/2025 (Approximate), Expires: 05/05/2026BC and differentialLab Routine Second trimester ([facility]) Ordered: 05/05/2025documented as of this encounter Goals GoalPatient Goal TypeAssociated ProblemsRecent ProgressPatient-Stated?Author Reminders Care PlanOB RemindersNoOpen Scheduling, Backgrounddocumented as of this encounter Procedures Procedure NamePriorityDate/TimeAssociated DiagnosisCommentsPOCT URINALYSIS DZDAUEJLZorvfkq18/22/2025 11:10 AM EDT 25 weeks gestation of ([facility]) documented in this encounter Results * POCT urinalysis dipstick manually resulted (05/05/2025 11:10 AM EDT)Component ValueRef RangeTest MethodAnalysis TimePerformed AtPathologist SignatureColor, UAYellowClarity, UAClearGlucose, UANegativeNegative - 2000(110) ++++ mg/dL Bilirubin, UANegativeNegative - 4(70) +++ mg/dLKetones, UANegativeNegative - 160(16) ++++ mg/dLSpec Grav, UA1.0051 - 1.03Blood, UANegativeNegative - 50 Piter/mcLpH, UA6.05 - 9Protein, UANegativeNegative - 2000(20) ++++ mg/dL Urobilinogen, UA2.00.2 - 12 mg/dLLeukocytes, UANegativeNegative - 500+++ Nikki/mcLNitrite, UANegativeNegative - PositiveSpecimen (Source)Anatomical Location / LateralityCollection Method / VolumeCollection TimeReceived Time Urine05/05/2025 11:10 AM EDT Narrative Authorizing ProviderResult TypeResult StatusCorey River DOPOINT OF CARE TEST ENTER/EDIT ORDERABLESFinal Result documented in this encounter Visit Diagnoses Diagnosis Second trimester ([facility]) state, incidental 25 weeks gestation of ([facility]) Vaginal discharge Leukorrhea, not specified as infective Diabetes mellitus screening Screening for diabetes mellitus documented in this encounter Additional Health Concerns Active ProblemsNoted DateDiagnosed DateOB Ftrfrknjz99/08/2025 documented as of this encounter Care Teams Team MemberRelationshipSpecialtyStart DateEnd Date Kimmy Carey MD [address] [place] [address] PCP - GeneralFamily Medicine02/04/23documented as of this encounter
--- OUTSIDE RECORDS SUMMARY | 2025-05-06 07:41 | XMS_ITS ---
Author Organization [facility] Source Produ ction (ClinicalSummary Clone) Address Unknown Care Team Providers Care Public Service Director Name Role Phone Unavailable Primary Care Physician Unavailab le Results * [UNITY] ANEUPLOIDY NIPT Performed by: [employer] Component Value Range Date Fraction 7.0% 02/03/2025 03:40 am UTCRh(D) NIPTRhD NDXPNHBQ59/23/2025 03:40 am UTCSex Chromosome AneuploidyNOT IUFAWNJV74/23/2025 03:40 am UTCMonosomy XLOW RISK <1 in , 03:40 am UTCTrisomy 13LOW RISK <1 in 03:40 am UTCTrisomy 18LOW RISK <1 in 03:40 am UTCTrisomy 21LOW RISK <1 in , 03:40 am UTCFetal MhqSTFN0802/03/2025 03:40 am UTCPregnancy LakcapdhjWAZACIFXA45/23/2025 03:40 am UTCFor detailed report, see PDFSee PDF 02/03/2025 03:40 am UTC02/03/2025 03:40 am UTC Social History Observation Value Start Date End Date
--- OUTSIDE RECORDS SUMMARY | 2025-05-06 07:41 | XMS_ITS | Clinical Summary ---
Author Organization [facility] Address [address], [address] [place] [address] Care Team Providers Care Senior Datastage Developer Name Role Phone Unavailable Primary Care Provider Unavailabl e Allergies No known active allergies Medications MedicationSigDispense QuantityRefillsLast FilledStart DateEnd DateStatus Vit-DSS-Fe Cbn-FA ( AD PO) Take by mouth dailyActive Multiple Vitamin (MULTIVITAMIN ADULT PO) Take by mouthActive VITAMIN D PO Take by mouthActive [place]-3 Fatty Acids (FISH OIL) 300 MG CAPS Take by mouthActive atorvastatin (LIPITOR) 20 MG tablet Indications:Intermittent palpitations,Chest heaviness,SOB (shortness of breath), Lightheaded,Mixed hyperlipidemiaTake 1 tablet by mouth daily 90 tablet 308ctive Additional Information Patient not taking.Reported on 04/15/2024 metoprolol succinate (TOPROL XL) 25 MG extended release tablet Take 1 tablet by mouth daily 90 tablet 309ctive Additional Information Patient not taking.Reported on 04/15/2024 ezetimibe (ZETIA) 10 MG tablet Take 1 tablet by mouth daily 90 tablet 1104Active Active Problems ProblemNoted DateDiagnosed DatePSVT (paroxysmal supraventricular tachycardia) 01/13/2021 Family History Medical HistoryRelationNameCommentsHypertensionFatherHypotensionMotherRelation NameStatusCommentsFatherAliveMotherAliveSisterAlive Social History Tobacco UseTypesPacks/DayYears UsedDateSmoking Tobacco: NeverSmokeless Tobacco: NeverAlcohol UseStandard Drinks/WeekCommentsYes6 (1 standard drink = 0.6 oz pure alcohol)twice per weekCommentsNoSex and Gender InformationValueDate RecordedSex Assigned at FddpuVuevhk89/01/2025 8:52 AM EDTLegal SexFemale 12/02/2020 2:26 PM EDTGender SnhpuxesMfymsz04/01/2025 8:52 AM EDTSexual GyemoilzedeZstvfcuk47/01/2025 8:52 AM EDT Last Filed Vital Signs Vital SignReadingTime TakenCommentsBlood Xoxxlzsl862/7204/15/2024 3:09 PM EDT Gurea157504/15/2024 3:09 PM EDTTemperature--Respiratory Phds7443 3:09 PM EDTOxygen Mbrdkvspnx62%04/15/2024 3:09 PM EDTInhaled Oxygen Concentration-- Tlpmkn54.3 kg (122 lb)04/15/2024 3:09 PM HVLSodtva898.9 cm (5' 1 )04/15/2024 3:09 PM EDTBody Mass Index23.0504/15/2024 3:09 PM EDT Plan of Treatment Health MaintenanceDue DateLast KzeeBbfodmfiNpqski59/13/1999Depression Screen 2001Varicella vaccine (1 of 2 - 13+ 2-dose series)2002HIV screen 2004Hepatitis C lxixgn7703/27/2007DTaP/Tdap/Td vaccine (1 - Tdap)2008 Hepatitis B vaccine (1 of 3 - 19+ 3-dose series)2008Pap smear2010 Cervical cancer evenfa7003/27/2019HPV (without or with Pap)2019Flu vaccine (#1)COVID-19 Vaccine ( season)2025HPV vaccine (No Doses Required)CompletedHepatitis A vaccineAged OutNo longer eligible based on patient's age to complete this topicHib vaccineAged OutNo longer eligible based on patient's age to complete this topicMeningococcal (ACWY) vaccineAged OutNo longer eligible based on patient's age to complete this topicMeningococcal B vaccineAged OutNo longer eligible based on patient's age to complete this topicPneumococcal 0-49 years VaccineAged OutNo longer eligible based on patient's age to complete this topicPolio vaccineAged OutNo longer eligible based on patient's age to complete this topic Insurance * Guarantor: Elvin Chapa TypeRelation to PatientDate of BirthPhone Billing AddressPersonal/OzjtueJidu1990 [facility] [place] [address] MemberSubscriberPlan / Payer (Effective 2023-Present)Name:Sammi Chapa Relation to Subscriber:SelfName:Sammi Chapa Payer ID:[id number] (NAIC) Type:Not on file Address: [facility] [id number] [place] [id number]
--- OUTSIDE RECORDS SUMMARY | 2025-05-06 07:41 | XMS_ITS | Encounter Summary ---
Author Organization [facility] Address [address] [place] [address] Care Team Providers Care Varnisher Apprentice Name Role Phone Kimmy Carey MD Primary Care Provider [phone] Encounter Details DateTypeDepartmentCare Team (Latest Contact Info)Rpfgrvaagij11/15/2025Travel Social History Tobacco UseTypesPacks/DayYears UsedDateSmoking Tobacco: NeverSmokeless [...] relatives?Twice a week01/22/2024How often do you attend druze or bahai services?Never 4Do you belong to any clubs or organizations such as druze groups, unions, fraternal or athletic groups, or school groups?No01/22/2024How often do you attend meetings of the clubs or organizations you belong to?Never01/22/2024 Are you , , , , never , or living with a partner?Xpkapxf8401/22/2024UDIT-CAnswerDate RecordedQ1: How often do you have a [...] and heating?Not very hard01/22/2024HQ-2AnswerDate RecordedPatient Health Questionnaire-2 Siebb849FinDeaconess Cross [facility] of Occupational Health - Occupational Stress QuestionnaireAnswerDate RecordedDo you feel stress - tense, restless, nervous, or anxious, or unable to sleep at night because yourmind is troubled all the time - these days?Only a iyrqye3501/22/2024Exercise Vital Sign AnswerDate RecordedOn average, how many [...] homeless or living in a snf (including now)?No07/04/2024 Estimated Date of OovmullcJadmnylrDbi09/02/2026Based on last menstrual period of 11/09/2024Sex and Gender InformationValueDate RecordedSex Assigned at BirthNot on fileLegal IcqCwoodp74/15/2023 7:12 PM EDTGender IdentityFemale 09/26/2022 7:12 PM EDTSexual LrasyxsicgfJtkdcyua53/22/2023 8:43 AM EDTdocumented as of this encounter Plan of Treatment DateTypeDepartmentCare Team (Latest Contact Info)Cpfermclldl57/11/2025 9:40 AM ESTRoutine [facility] [address] [place] [phone] Vignesh Holman DO [address] [place], [place] [id number] documented as of this encounter Goals GoalPatient Goal TypeAssociated ProblemsRecent ProgressPatient-Stated?Author Reminders Care PlanOB RemindersNoOpen Scheduling, Backgrounddocumented as of this encounter Visit Diagnoses Not on filedocumented in this encounter Additional Health Concerns Active ProblemsNoted DateDiagnosed DateOB Autzhhiec04/08/2025 documented as of this encounter Care Teams Team MemberRelationshipSpecialtyStart DateEnd Date Kimmy Carey MD [address] [place] [address] PCP - GeneralFamily Medicine02/04/23documented as of this encounter
--- OUTSIDE RECORDS SUMMARY | 2025-05-06 07:41 | XMS_ITS | Encounter Summary ---
Author Organization [facility] Address [address] [place] [address] Care Team Providers Care Tool Procurement Coordinator Name Role Phone Kimmy Carey MD Primary Care Provider Encounter Details DateTypeDepartmentCare Team (Latest Contact Info)Wkgxtxgimur43/17/2025Telephone [facility] [address] [place] [address] Vignesh Holman DO [address] [place], [place] [phone] Social History Tobacco UseTypesPacks/DayYears UsedDateSmoking Tobacco: NeverSmokeless [...] relatives?Twice a week01/22/2024How often do you attend islam or islam services?Never 01/22/2024o you belong to any clubs or organizations such as islam groups, unions, fraternal or athletic groups, or school groups?No01/22/2024How often do you attend meetings of the clubs or organizations you belong to?Never01/22/2024 Are you , , , , never , or living with a partner?Rjkwyfl2201/22/2024UDIT-CAnswerDate RecordedQ1: How often do you have a [...] and heating?Not very hard01/22/2024HQ-2AnswerDate RecordedPatient Health Questionnaire-2 Cuhog117[facility] [place] of Occupational Health - Occupational Stress QuestionnaireAnswerDate RecordedDo you feel stress - tense, restless, nervous, or anxious, or unable to sleep at night because yourmind is troubled all the time - these days?Only a xoyjcy8401/22/2024Exercise Vital Sign AnswerDate RecordedOn average, how many [...] homeless or living in a long-term (including now)?No01/22/2024 Estimated Date of PuarolgoBiynqhucTma47/02/2026ased on last menstrual period of 11/09/2024Sex and Gender InformationValueDate RecordedSex Assigned at BirthNot on fileLegal NdjPqqxfo16/15/2023 7:12 PM EDTGender IdentityFemale 09/26/2022 7:12 PM EDTSexual YiwexpqjpufPsamepjy38/22/2023 8:43 AM EDTdocumented as of this encounter Miscellaneous Notes * Telephone Encounter - Kendra Voss LPN - 04/30/2025 11:00 AM EDT Patient call was returned and she wanted to let office know increased movement of baby, cramping started about midway through night went back to sleep and moving around a lot and went and got monitored and wanted to let the office know and moving all over the place good strong steady heartbeat. Patient does have follow up appointment this week. * Telephone Encounter - Kendra Voss LPN - 04/30/2025 10:32 AM EDT just calling to speak to a nurse. It is nothing urgent. I just wanted to add something to my chart just so that you guys and Dr. Holman had it. So, yeah, like I said, nothing urgent. I just wanted to call. Patient call was returned and she was left a detailed message to return call to the office. documented in this encounter Plan of Treatment DateTypeDepartmentCare Team (Latest Contact Info)Nbfkbvzzcir26/11/2025 9:40 AM ESTRoutine [facility] [address] [place] [address] [place] [phone] Vignesh Holman, DO [address] [place] [address] documented as of this encounter Goals GoalPatient Goal TypeAssociated ProblemsRecent ProgressPatient-Stated?Author Reminders Care PlanOB RemindersNoOpen Scheduling, Backgrounddocumented as of this encounter Visit Diagnoses Not on filedocumented in this encounter Additional Health Concerns Active ProblemsNoted DateDiagnosed DateOB Ybarwsdmv93/08/2025 documented as of this encounter Care Teams Team MemberRelationshipSpecialtyStart DateEnd Date Kimmy Carey MD [address] [place] [address] PCP - GeneralFamily Medicine02/04/23documented as of this encounter
--- OUTSIDE RECORDS SUMMARY | 2025-05-06 07:41 | XMS_ITS | Encounter Summary ---
Author Organization [facility] Address [address] [place] [address] Care Team Providers Care Director Of Compensation Name Role Phone Kimmy Carey MD Primary Care Provider [phone] Encounter Details DateTypeDepartmentCare Team (Latest Contact Info)Brmmjkkhijh62/22/2025amboo flowsheet [facility] [address] [place] [place] [address] Vignesh Holman DO [address] [place], [place] [phone] Social History Tobacco UseTypesPacks/DayYears UsedDateSmoking Tobacco: NeverSmokeless [...] relatives?Twice a week01/22/2024How often do you attend sikhism or orthodox services?Never 01/22/2024o you belong to any clubs or organizations such as sikhism groups, unions, fraternal or athletic groups, or school groups?No01/22/2024How often do you attend meetings of the clubs or organizations you belong to?Never01/22/2024 Are you , , , , never , or living with a partner?Vhnjwns0801/22/2024UDIT-CAnswerDate RecordedQ1: How often do you have a [...] and heating?Not very hard01/22/2024HQ-2AnswerDate RecordedPatient Health Questionnaire-2 Yahlc146Fin[facility] [place] of Occupational Health - Occupational Stress QuestionnaireAnswerDate RecordedDo you feel stress - tense, restless, nervous, or anxious, or unable to sleep at night because yourmind is troubled all the time - these days?Only a nausad1101/22/2024Exercise Vital Sign AnswerDate RecordedOn average, how many [...] homeless or living in a assisted (including now)?No01/22/2024 Estimated Date of QzxeagrjLhzfzwqnOee45/02/2026ased on last menstrual period of 11/09/2024Sex and Gender InformationValueDate RecordedSex Assigned at BirthNot on fileLegal OdfLakrqm53/15/2023 7:12 PM EDTGender IdentityFemale 09/26/2022 7:12 PM EDTSexual ZfzgqgmgppxIixluzji48/22/2023 8:43 AM EDTdocumented as of this encounter Plan of Treatment DateTypeDepartmentCare Team (Latest Contact Info)Ehsmnoysgia47/11/2025 9:40 AM ESTRoutine [facility] [address] [place] [phone] Vignesh Holman DO [address] [place] [address] documented as of this encounter Goals GoalPatient Goal TypeAssociated ProblemsRecent ProgressPatient-Stated?Author Reminders Care PlanOB RemindersNoOpen Scheduling, Backgrounddocumented as of this encounter Visit Diagnoses Not on filedocumented in this encounter Additional Health Concerns Active ProblemsNoted DateDiagnosed DateOB Cujoncrxq05/08/2025 documented as of this encounter Care Teams Team MemberRelationshipSpecialtyStart DateEnd Date Kimmy Carey MD [address] [place] [address] PCP - GeneralFamily Medicine02/04/23documented as of this encounter
--- OUTSIDE RECORDS SUMMARY | 2025-05-06 07:41 | XMS_ITS | Encounter Summary ---
Author Organization [facility] Address [address] [place] [address] Care Team Providers Care Drill Sharpener Name Role Phone Kimmy Carey MD Primary Care Provider [phone] Encounter Details DateTypeDepartmentCare Team (Latest Contact Info)Luzhnusurbp45/14/2025Telephone [facility] [address] [place] [address] Vignesh Holman DO [address] [place], [place] [id number] Social History Tobacco UseTypesPacks/DayYears UsedDateSmoking Tobacco: NeverSmokeless [...] relatives?Twice a week01/22/2024How often do you attend voodoo or taoism services?Never 01/22/2024o you belong to any clubs or organizations such as voodoo groups, unions, fraternal or athletic groups, or school groups?No01/22/2024How often do you attend meetings of the clubs or organizations you belong to?Never01/22/2024 Are you , , , , never , or living with a partner?Ftkppyq3101/22/2024UDIT-CAnswerDate RecordedQ1: How often do you have a [...] and heating?Not very hard01/22/2024HQ-2AnswerDate RecordedPatient Health Questionnaire-2 Bsgjk373[facility] [place] [facility] - Occupational Stress QuestionnaireAnswerDate RecordedDo you feel stress - tense, restless, nervous, or anxious, or unable to sleep at night because yourmind is troubled all the time - these days?Only a gajeky2301/22/2024Exercise Vital Sign AnswerDate RecordedOn average, how many [...] homeless or living in a fci (including now)?No01/22/2024 Estimated Date of UdoemtggAwbktjxtMko13/02/2026ased on last menstrual period of 11/09/2024Sex and Gender InformationValueDate RecordedSex Assigned at BirthNot on fileLegal RspOuhfwe56/15/2023 7:12 PM EDTGender IdentityFemale 09/26/2022 7:12 PM EDTSexual CwdlzzpdtqcWmmlcsav44/22/2023 8:43 AM EDTdocumented as of this encounter [...] Plan of Treatment DateTypeDepartmentCare Team (Latest Contact Info)Dllbgsiqctn91/11/2025 9:40 AM ESTRoutine [facility] [address] [place] [id number] Vignesh Holman DO [address] [address] documented as of this encounter Goals GoalPatient Goal TypeAssociated ProblemsRecent ProgressPatient-Stated?Author Reminders Care PlanOB RemindersNoOpen Scheduling, Backgrounddocumented as of this encounter Visit Diagnoses Diagnosis Cold sore Herpes simplex without mention of complication documented in this encounter Additional Health Concerns Active ProblemsNoted DateDiagnosed DateOB Wguhxvrjg91/08/2025 documented as of this encounter Care Teams Team MemberRelationshipSpecialtyStart DateEnd Date Kimmy Carey MD [address] [place] [address] PCP - GeneralFamily Medicine02/04/23documented as of this encounter
--- OUTSIDE RECORDS SUMMARY | 2025-05-06 07:41 | XMS_ITS | Clinical Summary ---
Author Organization [facility] Address [address] [place] [address] Care Team Providers Care Quality Control Associate Name Role Phone Colleen Larios Primary Care Provider Unavailabl e Allergies No known active allergies Medications MedicationSigDispense QuantityRefillsLast FilledStart DateEnd DateStatus aspirin 81 mg EC tablet Take 81 mg by mouth in the morning.Active 2-URIB-VINKY ACID-OM3 ORAL Take 1 tablet by mouth in the morning.Active Active Problems ProblemNoted DateDiagnosed DateDyspnea on gjepvdxw003 weeks gestation of clgpmrojd30/11/2025Pure bxawyxobajillswdousw46/11/5408Jfbgqqketrn11/06/2025 Irritable bowel syndrome with kzvvjkaadyxi59/10/2025POTS (postural orthostatic tachycardia syndrome)01/21/2025Microscopic jwxoptige92/08/2022 Overview (02/17/2025): 01/19/22: Recent back pain, left [...] blood. Denies gross blood. Continues to have left-sidedflank pain. We will get updated renal ultrasound. Would like to avoid radiation if possible. Patient actively trying to conceive. Urine sent for microscopic evaluation Etqcilpkdcd94/28/2022PSVT (paroxysmal supraventricular tachycardia)01/13/2021 Jltwfzpfrlsc76/28/2020PVC's (premature ventricular contractions)07/11/2020 CommentsYes Encounters DateTypeDepartmentCare HtkbTvatypikora65/10/2025 10:40 AM EDTOffice Visit [facility] [address] [address] Crow Corey MD POTS (postural orthostatic tachycardia syndrome) (Primary Dx); Dyspnea on exertion; Palpitations; 23 weeks gestation of ; Pure ldofzzzqdllkcicczlor19/21/2025Results Follow-Up [facility] [address] [place] [address] Crow Corey MD Complete Echo (TTE) w/wo Imaging Agent, Strain, 3D, Bubble Study03/25/2025Orders Only [facility] [address] [facility] [address] Brandon Ang MD 02/22/2025Orders Only [facility] [address] [facility] [address] Brandon Ang MD 02/18/2025 10:20 AM EDTOffice Visit [facility] [address] [place] [address] Crow Corey MD Dyspnea on exertion (Primary Dx); Palpitations; Tachycardia; 16 weeks gestation of ; POTS (postural orthostatic tachycardia syndrome); Pure hypercholesterolemiafrom Last 3 Months Family History Medical HistoryRelationNameCommentsHypertensionFatherHyperlipidemiaMotheratria flutterMotherRelationNameStatusCommentsFatherAliveMotherAlive Social History Tobacco UseTypesPacks/DayYears UsedDateSmoking Tobacco: NeverSmokeless Tobacco: NeverAlcohol UseStandard Drinks/WeekCommentsNot Currently0 (1 standard drink = 0.6 oz pure alcohol)CommentsYesSex and Gender InformationValueDate RecordedSex Assigned at YitakDfqjqr97/05/2025 3:28 PM EDTLegal SexFemale 01/29/2025 12:33 PM EDTGender QuhyngmbYkgdoi96/05/2025 3:28 PM EDTSexual OrientationHeterosexual or Tsqmdznh99/05/2025 3:28 PM EDT Last Filed Vital Signs Vital SignReadingTime TakenCommentsBlood Suthalgz541/7204/23/2025 10:41 AM EDT Kduis974304/23/2025 10:41 AM EDTTemperature--Respiratory Rate--Oxygen Saturation 100%04/23/2025 10:41 AM EDTInhaled Oxygen Concentration--Gewpaq54.3 kg (144 lb) 04/23/2025 10:41 AM GKKIyusru116.5 cm (5' 2 )04/23/2025 10:41 AM EDTBody Mass Index26.3410 10:41 AM EDT Plan of Treatment DateTypeDepartmentCare Team (Latest Contact Info)Adeyvlqblfm87/15/2025 9:00 AM ESTOffice Visit [facility] [address] [place] [address] Crow Corey MD [address] [place] [address] Health MaintenanceDue DateLast DoneCommentsDepression Bgtekhkkh87/13/2001 Varicella Vaccines (1 of 2 - 13+ 2-dose series)2002Hepatitis B Vaccines (1 of 3 - 19+ 3-dose series)2008dult Lhrtxxl6003/27/2011HPV Vaccines (1 - 3- dose SCDM series)2016HPV/Wekyac3803/27/2019COVID-19 Vaccine (1 - 2024- season)2025Influenza Vaccine (#1)/Cervical Cancer Vvrcvonyh59/23/2028Pap Smear8004/06/2025Zoster Vaccines (1 of 2) 2039HIB VaccinesAged OutNo longer eligible based on patient's age to complete this topicIPV VaccinesAged OutNo longer eligible based on patient's age to complete this topicMeningococcal B VaccineAged OutNo longer eligible based on patient's age to complete this topicMeningococcal VaccineAged OutNo longer eligible based on patient's age to complete this topicPneumococcal Vaccine: Pediatrics (0 to 5 Years) and At-Risk Patients (6 to 64 Years)Aged OutNo longer eligible based on patient's age to complete this topicRotavirus VaccinesAged Out No longer eligible based on patient's age to complete this topic Procedures Procedure NamePriorityDate/TimeAssociated DiagnosisCommentsCOMPLETE TRANSTHORACIC ECHO (TTE) W/WO IMAGING AGENT, STRAIN, 3D, BUBBLE STUDYRoutine 03/25/2025 10:53 AM EDT ECG 12-YVJLFbbdbry08/11/2025 3:09 PM EDT Dyspnea on exertion Palpitations ECG 12-ILJRRqgjhpq17/07/2025 9:49 AM EDTfrom Last 3 Months Results * Complete Echo (TTE) w/wo Imaging Agent, Strain, 3D, Bubble Study (03/25/2025 10:53 AM EDT)Anatomical RegionLateralityModalityUltrasound Narrative Authorizing ProviderResult TypeResult StatusHistorical Provider [facility] [place] ECHO PROCEDURESFinal Result * ECG 12 lead (02/22/2025 3:09 PM EDT) Only the most recent of2 resultswithin the time period is included. Specimen (Source)Anatomical Location / LateralityCollection Method / Volume Collection TimeReceived Time Narrative Crow Corey MD - 02/22/2025 3:09 PM EDT Sinus rhythm, heart rate 98 bpm, normal EKG Authorizing ProviderResult TypeResult StatusCrow Corey MDECG ORDERABLESFinal Result from Last 3 Months Insurance Care Teams Team MemberRelationshipSpecialtyStart DateEnd Date Colleen Larios [address] [place] [address] PCP - General02/22/25
--- OUTSIDE RECORDS SUMMARY | 2025-05-06 07:41 | XMS_ITS | Clinical Summary ---
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)Irritable bowel syndrome with predominant constipation Estimated Date of XuhhfdhdBdffmmgsAkq63/02/2026Based on last menstrual period of 11/09/2024 Encounters DateTypeDepartmentCare FhkgEqhejbmzddj21/22/2025 10:50 AM EDTRoutine [facility] [address] [place] [address] Vignesh Holman DO Second trimester ([facility]); 25 weeks gestation of ([facility]); Vaginal discharge; Diabetes mellitus cxrftedrh08/22/2025amboo flowsheet [facility] [address] [place] [address] Vignesh Holman DO 04/30/2025Telephone [facility] [address] [place] [address] Vignesh Holman, DO 04/28/20255879Nfueem64/14/2025Telephone [facility] [address] [place] [phone] Vignesh Holman, DO 04/20/2025Orders Only [facility] [address] [place] [phone] Lynne Ayers, NICKI 04/10/2025linisync Result Encounter [facility] External Department Unsolicited Vignesh Holman, DO 04/07/2025Telephone [facility] [address] [place] [address] Vignesh Holman, DO 04/06/2025 10:30 AM EDTRoutine [facility] [address] [place] [phone] Vignesh Holman, DO Second trimester ([facility]); 21 weeks gestation of ([facility]); Well woman exam with routine gynecological exam04/06/2025linisync Result Encounter [facility] External Department Unsolicited Vignesh Holman, DO 04/06/2025amboo flowsheet [facility] [address] [place] [phone] Vignesh Homlan, DO 03/30/20250601Wzcqik30/15/2025bstract [facility] [address] [place] [address] [phone] Vignesh Holman, DO 03/11/2025 9:30 AM EDTRoutine [facility] [address] [place] [address] Vignesh Holman, DO Second trimester ([facility]); 18 weeks gestation of ([facility])03/11/2025bstract [facility] [address] [place] [address] Vignesh Holman, 03/11/2025amboo flowsheet [facility] [address] [place] [address] Vignesh Holman, 03/07/20253721Prvwsx27/05/2025 11:20 AM EDTRoutine [facility] [address] [place] [address] Vignesh Holman, Second trimester ([facility]); 14 weeks gestation of ([facility])02/16/2025amboo flowsheet [facility] [address] [place] [address] Vignesh Holman, 02/09/2025Travelfrom Last 3 Months Immunizations ImmunizationAdministration DatesNext DueInfluenza, seasonal, injectable 05/05/2013 Family History Medical HistoryRelationNameCommentsHypertensionFatherDiabetesMaternal GrandmotherMultiple myelomaNeg HxRelationNameStatusCommentsFatherAliveMaternal GrandmotherMotherAlive Social History Tobacco UseTypesPacks/DayYears UsedDateSmoking Tobacco: NeverSmokeless Tobacco: Never Tobacco Cessation:Counseling Given: Not Answered Alcohol UseStandard Drinks/WeekCommentsNever0 (1 standard drink = 0.6 oz pure alcohol)Caffeine:B1300 Health LiteracyAnswerDate RecordedHow often do you need to have someone help you when you read instructions, pamphlets, or other written material from your doctor or pharmacy?Never01/22/2024Social Connection and Isolation PanelAnswerDate RecordedIn a typical week, how many times do you talk on the phone with family, friends, or neighbors?More than three times a week 01/22/2024How often do you get together with friends or relatives?Twice a week 01/22/2024How often do you attend sikhism or synagogue services?Never01/22/2024o you belong to any clubs or organizations such as sikhism groups, unions, fraternal or athletic groups, or school groups?No01/22/2024How often do you attend meetings of the clubs or organizations you belong to?Never01/22/2024re you , , , , never , or living with a partner?Eatvqbf5501/22/2024UDIT-CAnswerDate RecordedQ1: How often do you have a [...] and heating?Not very hard01/22/2024HQ-2AnswerDate RecordedPatient Health Questionnaire-2 Uiugw775FinMedical [facility] - Occupational Stress QuestionnaireAnswerDate RecordedDo you feel stress - tense, restless, nervous, or anxious, or unable to sleep at night because yourmind is troubled all the time - these days?Only a qcwgtm9301/22/2024Exercise Vital Sign AnswerDate RecordedOn average, how many [...] were you homeless or living in a nursing home (including now)?No01/22/2024 Estimated Date of CpdbmefqAnonrkqkNqm54/02/2026ased on last menstrual period of 11/09/2024Sex and Gender InformationValueDate RecordedSex Assigned at BirthNot on fileLegal DafTkwmeg03/15/2023 7:12 PM EDTGender IdentityFemale 09/26/2022 7:12 PM EDTSexual AwgflaywpycHaosbcmh63/22/2023 8:43 AM EDT Last Filed Vital Signs Vital SignReadingTime TakenCommentsBlood Ngwhymlz704/6805/05/2025 11:10 AM EDT Hemmn1866/01/2024 9:31 AM EDTTemperature--Respiratory Rate--Oxygen Cuqpoardqt70% 05/15/2024 9:31 AM EDTInhaled Oxygen Concentration--Guyege31.7 kg (147 lb) 05/05/2025 11:10 AM ZNUEhrhkj293.5 cm (5' 2 )05/15/2024 9:31 AM EDTBody Mass Index26.8905/15/2024 9:31 AM EDT Plan of Treatment DateTypeDepartmentCare Team (Latest Contact Info)Alemuxqjeag35/11/2025 9:40 AM ESTRoutine [facility] [address] [place] [address] Vignesh Holman, [address] [place] [address] Health MaintenanceDue DateLast DoneCommentsInfluenza Vaccine (#1)03/15/2025 05/05/2013Cervical Cancer Ucefsnuev44/23/2026HPV/Bwevot33Pap Smear609/, 12/26/2021, 12/26/2021 Goals GoalPatient Goal TypeAssociated ProblemsRecent ProgressPatient-Stated?Author Reminders Care PlanOB RemindersNoOpen Scheduling, Background Procedures Procedure NamePriorityDate/TimeAssociated DiagnosisCommentsPOCT URINALYSIS TKNRRNFEEksocsu58/22/2025 11:10 AM EDT 25 weeks gestation of ([facility]) AFP, SERUM, OPEN SPINA ITXDIYKyeakqu23/27/2025 11:16 AM EDT POCT URINALYSIS NBWLOIGCKfsdlyv22/23/2025 10:43 AM EDT Second trimester ([facility]) 21 weeks gestation of ([facility]) IGP,APTIMA HPV,AGE OWCCPbhuwkn79/23/2025 10:23 AM EDT PAP OAHJCNvtxsef94/23/2025 12:00 AM EDTPOCT URINALYSIS JQWAIFDCVdgjvxp10/28/2025 10:03 AM EDT Second trimester ([facility]) 18 weeks gestation of ([facility]) Q - THINPREP(R) TIS AND HPV MRNA E6/E7 RFL HPV 16,18/22Mhozgdv11/13/2019 from Last 3 Months or Most Recently Relevant to Health Maintenance Results * POCT urinalysis dipstick manually resulted (05/05/2025 11:10 AM EDT) Only the most recent of3 resultswithin the time period is included. ComponentValueRef RangeTest MethodAnalysis TimePerformed AtPathologist Signature Color, UAYellowClarity, UAClearGlucose, UANegativeNegative - 2000(110) ++++ mg/dLBilirubin, UANegativeNegative - 4(70) +++ mg/dLKetones, UANegativeNegative - 160(16) ++++ mg/dLSpec Grav, UA1.0051 - 1.03Blood, UANegativeNegative - 50 Piter/mcLpH, UA6.05 - 9Protein, UANegativeNegative - 2000(20) ++++ mg/dL Urobilinogen, UA2.00.2 - 12 mg/dLLeukocytes, UANegativeNegative - 500+++ Nikki/mcL Nitrite, UANegativeNegative - PositiveSpecimen (Source)Anatomical Location / LateralityCollection Method / VolumeCollection TimeReceived MxmdSuizi35/22/2025 11:10 AM EDT Narrative Authorizing ProviderResult TypeResult StatusCorey River DOPOINT OF CARE TEST ENTER/EDIT ORDERABLESFinal Result * AFP, SERUM, OPEN SPINA BIFIDA (04/10/2025 11:16 AM EDT)ComponentValueRef Range Test MethodAnalysis TimePerformed AtPathologist SignatureRESULTSReport.TBHTEST RESULTS:*Screen Negative*.TBHGEST. AGE ON COLLECTION DATE21.7. weeksTBHGESTAT. AGE BASED ONLMP.TBHComment: Recalculations are not recommended when gestational dating by LMP and ultrasound are within 10 days. MATERNAL AGE AT EDD35.3. yrTBHRACECaucasian.NRQWAPVBT954. lbsTBHINSULIN DEP DIABETESNo.TBHMULTIPLE GESTATIONNo.TBHAFP QRJZJ867.6. ng/mLTBHAFP MOM1.48.TBH OSBR RISK 1 IK4505.TBHINTERPRETATIONComment.TBHComment: Interpretation: Screen Negative This result is screen [...] Genetic Customer Services to discuss available options. ??The [employer] recommends amniocentesis be offered to women age 35 and older. COMMENT:Comment.TBHComment: Jenna Ennis, Ph.D., [facility] Director References: Available Upon Request. Multiples Of Median Cutoffs ?For AFP Elevations Leone ?? 2.5 ? Black ?2.8 IDD ? 2.0 ? Twins ?4.5 ?Abbreviation Definitions IDD - Insulin Dep Diabetes OSBR - Open Spina Bifida Risk For further inquiries contact [facility] at [phone]. This test was developed and its performance characteristics determined by [employer]. It has not been cleared or approved by the Food and Drug Administration. Performed at: ??[facility] [address], [place] ??[id number] Donation Specialist: Elbert Villalta [facility], Phone: ??[phone] Specimen (Source)Anatomical Location / LateralityCollection Method / Volume Collection TimeReceived Time04/10/2025 11:16 AM EDT04/10/2025 11:22 AM EDT Narrative [facility] - 04/14/2025 12:08 AM EDT PREGNANY N N LMP [id number] 1 21 N 1 Y 141 N N N N N White/ Authorizing ProviderResult TypeResult StatusCorey River DOLAB BLOOD ORDERABLES Final ResultPerforming OrganizationAddressCity/State/ZIP CodePhone Number CLINISYNC [facility] * IGP,APTIMA HPV,AGE GDLN (04/06/2025 10:23 AM EDT)ComponentValueRef RangeTest MethodAnalysis TimePerformed AtPathologist SignatureAGE GDLN ACOG TESTINGNote. TBHComment: ?? TESTS ? RESULT ??FLAG ??UNITS ?REF RANGE ??LAB ?? Clinician Provided Cytology Information ?? Source.............Cervix ?? No. of containers..01 ThinPrep Vial Age Algo ACOG Pat... ??30-65 ? 01 ?FLAG LEGEND: ?L-Low Normal,H-High Normal,LL-Alert Low,HH-Alert High <-Panic Low,>-Panic High,A-Abnormal,AA-Critical Abnormal Performed at: 01 =G ?[facility] ?? [address] [place] ??[phone] ?? Kaitlyn Henry MD, IGP, APTIMA HPV, RFX 16/18,45Note.TBHComment: ?? TESTS ? RESULT ??FLAG ??UNITS ?REF RANGE ??LAB DIAGNOSIS: ?02 ?? NEGATIVE FOR INTRAEPITHELIAL LESION OR MALIGNANCY. Specimen adequacy: ?02 ?? Satisfactory for evaluation. No endocervical component is identified. Performed by: ? 02 ?? Chandu Camacho Drill Operator (ASCP) . ? 02 Note: ? Note ?02 ?? The Pap smear is a screening test designed to aid in the ?? detection of premalignant and malignant conditions of the ?? uterine cervix. ??It is not a diagnostic procedure and ?? should not be used as the sole means of detecting cervical ?? cancer. ??Both false-positive and false-negative reports do ?? occur. Test Methodology: ? Note ?02 ?? This liquid based ThinPrep(R) pap test was screened with ?? the use of an image guided system. HPV Genotype Reflex ?? Note ?02 ?? Criteria not met, HPV Genotype not performed. ?FLAG LEGEND: ?L-Low Normal,H-High Normal,LL-Alert Low,HH-Alert High <-Panic Low,>-Panic High,A-Abnormal,AA-Critical Abnormal Performed at: 02 WB ?[facility] ?? [address] [facility], [place] ??[phone] ?? Kaitlyn Henry MD, HPV APTIMANegativeNegativeTBHComment: This nucleic acid amplification test detects fourteen high- risk HPV types (16,18,31,33,35,39,45,51,52,56,58,59,66,68) without differentiation. Performed at: ??=G - [facility] [address] [facility], [place] ??[id number] Donation Specialist: Kaitlyn Henry MD, Phone: ??[phone] Performed at: ??WB - [facility] [address] ??[id number] Donation Specialist: Kaitlyn Henry MD, Phone: ??[phone] Specimen (Source)Anatomical Location / LateralityCollection Method / Volume Collection TimeReceived Time04/06/2025 10:23 AM EDT04/06/2025 7:55 PM EDT Narrative [facility] - 04/12/2025 7:08 PM EDT SPATULA-ALONE CERVIX Authorizing ProviderResult TypeResult StatusCorey River DOLAB BLOOD ORDERABLES Final ResultPerforming OrganizationAddressCity/State/ZIP CodePhone Number [facility] * Pap Smear (04/06/2025 12:00 AM EDT)Specimen (Source)Anatomical Location / LateralityCollection Method / VolumeCollection TimeReceived TimeSwabCervical swab / Unknown Narrative Authorizing ProviderResult TypeResult StatusCorey River DOLAB CYTOLOGY ORDERABLESFinal ResultPerforming OrganizationAddressCity/State/ZIP CodePhone Number EXTERNAL LAB * (ABNORMAL) Q - THINPREP(R) TIS AND HPV MRNA E6/E7 RFL HPV 16,18/45 (06/26/2019)ComponentValueRef RangeTest MethodAnalysis TimePerformed At Pathologist SignatureCLINICAL INFORMATION:None givenN[facility]S [facility]GAC[facility]TER[facility] LMP:NONE GIVENNOMS LEGACY EXTERNAL LABPREV. PAP:NONE GIVENNOMS LEGACY EXTERNAL LABPREV. BX:NONE GIVENNOMS LEGACY EXTERNAL LABSOURCE:None givenNOMS LEGACY EXTERNAL LABSTATEMENT OF ADEQUACY:SEE NOTENOKS LEGACY EXTERNAL LABComment: Satisfactory for evaluation. Endocervical/transformation zone component present. INTERPRETATION/RESULT:Negative for intraepithelial lesion or malignancy.[facility] LABCOMMENT:This Pap test has been evaluated with computer assisted technology.[facility] LABCYTOTECHNOLOGIST:SEE NOTENOKS LEGACY EXTERNAL LABComment: NNO, CT(ASCP) CT screening location: [facility] [place] [address]. REVIEW FRONT ELEVATOR OPERATOR:SEE NOTENOKS LEGACY EXTERNAL LABComment: JEH, CT(ASCP) CT screening location: [place] [address]. COMMENTSEE NOTENOKS LEGACY EXTERNAL LABComment: EXPLANATORY NOTE: The Pap is a screening test for cervical cancer. It is not a diagnostic test and is subject to false negative and false positive results. It is most reliable when a satisfactory sample, regularly obtained, is submitted with relevant clinical findings and history, and when the Pap result is evaluated along with historic and current clinical information. HPV MRNA E6/M9Aeqtnmle(A)Not DetectedNOKS LEGACY EXTERNAL LABComment: This test was performed using the APTIMA HPV Assay ([employer] This assay detects E6/E7 viral messenger RNA (mRNA) from 14 high-risk HPV types (16,18,31,33,35,39,45,51,52,56,58,59,66,68). The analytical performance characteristics of this assay have been determined by [employer]. The modifications have not been cleared or approved by the FDA. This assay has been validated pursuant to the CLIA regulations and is used for clinical purposes. Specimen (Source)Anatomical Location / LateralityCollection Method / Volume Collection TimeReceived Time06/26/2019 Narrative Authorizing ProviderResult TypeResult StatusValelillie ARIZAPROVIDENCE [facility] LABSFinal ResultPerforming OrganizationAddressCity/State/ZIP CodePhone Number [facility] from Last 3 Months or Most Recently Relevant to Health Maintenance Additional Health Concerns Active ProblemsNoted DateDiagnosed DateOB Vmcyrwzwt56/08/2025 Insurance Care Teams Team MemberRelationshipSpecialtyStart DateEnd Date Kimmy Carey MD [address] [place] [address] PCP - GeneralFamily Medicine02/04/23
--- OUTSIDE RECORDS SUMMARY | 2025-05-06 07:42 | XMS_ITS | Clinical Summary ---
Author Organization Remitlys tem Address [id number] [address] [place] [address] Care Team Providers Care Duco Polisher Name Role Phone No Pcp, No Pcp Primary Care Provider Unavailabl e Allergies No known active allergies Medications MedicationSigDispense QuantityRefillsLast FilledStart DateEnd DateStatus no115/iron/folic acid ( 19 ORAL) Take by mouth.Active aspirin 81 mg Take 1 tablet (81 mg total) by mouth in the morning.Active Active Problems ProblemNoted DateDiagnosed DateIrritable bowel syndrome with constipation 01/21/2025POTS (postural orthostatic tachycardia syndrome)01/21/2025Microscopic /08/2022 Overview (05/22/2024): 01/19/22: Recent back pain, left [...] sooner if any problems. PVC's (premature ventricular contractions)07/11/20207690Hixxjtzlsnme95/28/2020 Estimated Date of LmnfoohrFbodxjnkTiu59/02/2026Based on Ultrasound Encounters DateTypeDepartmentCare JayjTmqunnlazfz33/15/2025 3:30 PM EDTOffice Visit Maternal- Medicine at [facility] [address] [place] [address] Gill Mejia MD Advanced maternal age, 1st , second trimester (Primary Dx); POTS (postural orthostatic tachycardia syndrome); PVC's (premature ventricular contractions); PAC (premature atrial contraction); 20 weeks gestation of jhluvxbit43/15/2025 1:37 PM EDT - 03/29/2025 11:59 PM EDT Hospital Encounter [facility] - [facility] Imaging [address] [place] [address] Multigravida of advanced maternal age in second trimester; Screening, , for anatomic survey Discharge Disposition: Home03/27/20251202Nhnkdi90/24/2025Telephone Maternal- Medicine at [facility] [address] [place] [address] Jose Middleton, [facility] 02/04/2025Orders Only Maternal- Medicine at [facility] [address] [place] [address] Margot Holman DO from Last 3 Months Family History Medical HistoryRelationNameCommentsHypertensionFatherKeith ShowalterDiabetes Maternal GrandmotherBarb RaseyHeart murmurMotherHigh CholesterolMotherCancer Paternal GrandfatherBen ShowalterprostateProstate cancerPaternal GrandfatherBen ShowalterBreast cancerPaternal GrandmotherAnnette ShowalterAutismNeg Hx Autoimmune diseaseNeg HxBleeding DisorderNeg HxClotting disorderNeg HxColon cancerNeg HxDown syndromeNeg HxHeart defectNeg HxOvarian cancerNeg HxPancreatic cancerNeg HxSudden deathNeg HxUterine cancerNeg HxRelationNameStatusComments FatherKeith ShowalterAliveMaternal GrandmotherBarb RaseyMotherAlivePaternal GrandfatherBen ShowalterPaternal GrandmotherAnnette ShowalterDeceased Social History Tobacco UseTypesPacks/DayYears UsedDateSmoking Tobacco: NeverSmokeless Tobacco: Never Tobacco Cessation:Counseling Given: Not Answered Alcohol UseStandard Drinks/WeekCommentsNot Currently0 (1 standard drink = 0.6 oz pure alcohol)Stopped drinking this yearPHQ-2AnswerDate RecordedTotal Score1 4ChildcareAnswerDate UavguuayOwkpsioxdIoamaxf38/21/2020EmploymentAnswer Date UdcrymmgIpciqjacitJakufif12/21/2020Hunger ScreeningAnswerDate Recorded Within the past 12 months we worried whether our food would run out before we got money to buy more.Never True03/29/2025Within the past 12 months the food we bought just didn't last and we didn't have money to get more.Never True 03/29/2025Purpose - LifeAnswerDate RecordedPurpose and direction in lifeUnknown 1Estimated Date of RqylwlxtSijlyvkdHdn20/02/2026Based on UltrasoundSex and Gender InformationValueDate RecordedSex Assigned at BirthNot on fileLegal FptAmrpdq88/21/2020 8:44 AM EDTGender IdentityNot on fileSexual OrientationNot on file Last Filed Vital Signs Vital SignReadingTime TakenCommentsBlood Yqvejryh558/7509 1:47 PM EDT Hbkey244103/29/2025 1:47 PM EDTTemperature--Respiratory Ydwq0967 10:38 AM EDTOxygen Sxsbmjfywb87%07/11/2020 9:51 AM ESTInhaled Oxygen Concentration-- Dyezai93.9 kg (138 lb 9.6 oz)03/29/2025 1:47 PM ALCOwxjss332.9 cm (5' 0.98 ) 03/29/2025 1:47 PM EDTBody Mass Index26. 1:47 PM EDT Plan of Treatment Health MaintenanceDue DateLast DoneCommentsAdult BMI Follow Up Plan2007 DTaP,Tdap and Td Vaccines (1 - Tdap)2008Pap Smear2010Influenza Swyiwzu49Depression Jkftboroh54dult BMI Ytmcnweeg48Tobacco Yfxsgixpb66 Medical Devices Not on file Procedures Procedure NamePriorityDate/TimeAssociated DiagnosisCommentsUS [facility] COMPREHENSIVE ANATOMIC WYLUDSSnkvndl94/15/2025 3:29 PM EDT Multigravida of advanced maternal age in second trimester Screening, , for anatomic survey from Last 3 Months Results * [facility] COMPREHENSIVE ANATOMIC SURVEY (03/29/2025 3:29 PM EDT)Anatomical RegionLateralityModalityOB-GYNUltrasoundSpecimen (Source)Anatomical Location / LateralityCollection Method / VolumeCollection TimeReceived Time03/29/2025 1:57 PM EDT Narrative 03/29/2025 4:32 PM EDT NAME: ??JJ PISANO : 1990 SEX: F Accession Number: [id number] ORDERING PHYSICIAN: GILL MEJIA REFERRING PHYSICIAN: MARGOT HOLMAN Coding Procedures ? 20377: Ultrasound, uterus, real time with image documentation, and maternal evaluation ? plus detailed anatomic examination, transabdominal approach;single or first gestation ? 31159: Transvaginal Ultrasound (OB) Indication Screening for Anatomic Survey , Screening for cervical length, POTS, AMA- Supervision of elderly. History OB History ? 2. Para 0 ? [id number] Current Cell free DNA ?Low risk analysis Maternal Assessment Physical Exam ??Height 155 cm, 5 ft 1 in. Weight 63 kg, 138 lb. Initial weight 57 kg, 125 lb. BMI 26.08 kg/m??. Initial ? BMI 23.62 kg/m??. Weight gain 6 kg, 13 lb Method Transabdominal and transvaginal ultrasound examination. Leone . Number of fetuses: 1 Dating LMP on: ?10/20/2024 GA by LMP ?22 w + 6 d LUCIEN by LMP: ?07/27/2025 Previous Ultrasound on: ?12/31/2024 Type of prior assessment: ?GA GA at prior assessment date ?7 w + 3 d GA by previous U/S ? 20 w + 0 d LUCIEN by previous Ultrasound: ?08/16/2025 Ultrasound examination on: ? 03/29/2025 GA by U/S based upon: ??AC, BPD, Femur, HC GA by U/S ?20 w + 0 d LUCIEN by U/S: ?08/16/2025 Assigned: ?based on ultrasound (GA), selected on 03/29/2025 Assigned GA (weeks days) ? 20 w + 0 d Assigned LUCIEN: ??08/16/2025 General Evaluation Cardiac activity Present. FHR 148 bpm. Presentation: variable Placenta: Placental site: anterior, away from cervical os Umbilical cord: Cord vessels: 3 vessel cord. Insertion site: normal insertion Amniotic fluid: Amount of AF: normal amount. MVP 4.1 cm Biometry Standard BPD ?48.0 mm 20w 4d 71% Hadlock OFD ?59.9 mm 20w 5d 75% Sommer HC ? 171.8 mm ?19w 5d 31% Hadlock Cerebellum tr ??21.2 mm 20w 1d 79% Hill Nuchal fold ?4.3 mm AC ? 151.5 mm ?20w 3d 57% Hadlock Femur ??29.5 mm 19w 1d 14% Hadlock Humerus ?30.3 mm 20w 0d 55% Sommer HC / AC ?1.13 ? 27% Hadlock EFW ?314 g ?35% Hadlock EFW (lb) ? 0 lb EFW (oz) ? 11 oz EFW by: ?Hadlock (DOI-ND-VX-FL) Extended Tibia ??25.0 mm 18w 6d 21% Sommer Self Storage Manager ? 7.7 mm CM ? 2.9 mm ?? 3% Nicolaides Inner IOD ?14.0 mm Outer IOD ?30.6 mm Nasal bone ? 4.8 mm ?? 2% Sonek Head / Face / Neck Cephalic index 0.80 ? 65% Nicolaides Nasal bone: ?present Extremities / Bony Struc FL / BPD ? 0.61 ? 2% Hadlock FL / HC ?0.17 ? 5% Hadlock FL / AC ?0.19 ? 4% Hadlock Other Structures FHR ?148 bpm Anatomy The following structures appear normal: Head/Neck: Cranium. Lateral ventricles. Choroid plexus. Midline falx. Cavum septi pellucidi. Cerebellum. Cisterna ? magna. Parenchyma. Vermis. ? Neck. Nuchal fold. Face: Lips. Profile. Nose. Nasal bone. Maxilla. Mandible. Orbits. Heart/Thorax: 4-chamber view. RVOT view. LVOT view. 3-vessel view. 6-ahapww-akmlfhn view. Situs. Aortic arch view. ? Bicaval view. Ductal arch view. Interventricular septum. Great vessels. Cardiac position. Cardiac axis. ? Cardiac size. Cardiac rhythm. ? Right lung. Left lung. Diaphragm. Abdomen: Abdom. wall. Cord insertion. Stomach. Kidneys. Bladder. Small bowel. Large bowel. Right renal artery. ? Left renal artery. Genitals. Spine: Cervical spine. Thoracic spine. Lumbar spine. Sacral spine. Extremities/Skeleton: Right upper arm. Right forearm. Right hand. Left upper arm. Left forearm. Left hand. Right upper leg. ? Right lower leg. Right foot. Left upper leg. Left lower leg. Left foot. Maternal Structures Uterus Visualized Cervix Visualized ? Approach - Transvaginal: Cervical length 3.00 cm Right Ovary ?Not visualized Left Ovary ? Not visualized Cul de Sac ? Visualized. No free fluid visualized Impression Single live intrauterine consistent with 20w 0d with an LUCIEN of 08/16/2025. Normal growth. EFW measures at the 35%, AC measures at the 57%. anatomic survey did not reveal sonographic evidence of any gross structural abnormalities. Transvaginal cervical length measures 3 cm. Amniotic fluid MVP measures 4.1 cm. Recommendations Please see M documentation from today. Subsequent follow up or other follow up as clinically determined by primary OB provider unless otherwise specified by MFM. Results forwarded to ordering provider so they can follow up with the patient as necessary. Procedure Note Gill Mejia MD - 03/29/2025 NAME: JJ PISANO : 1990 SEX: F Accession Number: [id number] ORDERING PHYSICIAN: GILL MEJIA REFERRING PHYSICIAN: MARGOT HOLMAN Coding Procedures 26403: Ultrasound, uterus, real time with image documentation, and maternal evaluation plus detailed anatomic examination, transabdominalapproach;single or first gestation 11248: Transvaginal Ultrasound (OB) Indication Screening for Anatomic Survey , Screening for cervical length, POTS, AMA- Supervision of elderly. History OB History 2. Para 0 [id number] Current Cell free DNA Low risk analysis Maternal Assessment Physical Exam Height 155 cm, 5 ft 1 in. Weight 63 kg, 138 lb. Initialweight 57 kg, 125 lb. BMI 26.08 kg/m??. Initial BMI 23.62 kg/m??. Weight gain 6 kg, 13 lb Method Transabdominal and transvaginal ultrasound examination. Leone . Number of fetuses: 1 Dating LMP on: 10/20/2024 GA by LMP 22 [...] 0 d Assigned LUCIEN: 08/16/2025 General Evaluation Cardiac activity Present. FHR 148 bpm. Presentation: variable Placenta: Placental site: anterior, away from cervical os Umbilical cord: Cord vessels: 3 vessel cord. Insertion site: normalinsertion Amniotic fluid: Amount of AF: normal amount. MVP 4.1 cm Biometry Standard BPD 48.0 mm 20w 4d 71% [...] EFW (oz) 11 oz EFW by: Hadlock (MKV-QH-NM-FL) Extended Tibia 25.0 mm 18w 6d 21% Sommer Self Storage Manager 7.7 mm CM 2.9 mm 3% Nicolaides Inner IOD 14.0 mm Outer IOD 30.6 mm Nasal bone 4.8 mm 2% Sonek Head / Face / Neck Cephalic index 0.80 65% Nicolaides Nasal bone: present Extremities / Bony Struc FL / BPD 0.61 2% Hadlock FL / HC 0.17 5% Hadlock FL / AC 0.19 4% Hadlock Other Structures FHR 148 bpm Anatomy The following structures appear normal: Head/Neck: Cranium. Lateral ventricles. Choroid plexus. Midline falx.Cavum septi pellucidi. Cerebellum. Cisterna magna. Parenchyma. Vermis. Neck. Nuchal fold. Face: Lips. Profile. Nose. Nasal bone. Maxilla. Mandible. Orbits. Heart/Thorax: 4-chamber view. RVOT view. LVOT view. 3-vessel view. 8-jbclph-dwjadzq view. Situs. Aortic arch view. Bicaval view. [...] leg. Left lower leg. Leftfoot. Maternal Structures Uterus Visualized Cervix Visualized Approach - Transvaginal: Cervical length 3.00 cm Right Ovary Not visualized Left Ovary Not visualized Cul de Sac Visualized. No free fluid visualized Impression Single live intrauterine consistent with 20w 0d with an LUCIEN of 08/16/2025. Normal growth. EFW measures at the 35%, AC measures at the 57%. anatomic survey did not reveal sonographic evidence of any grossstructural abnormalities. Transvaginal cervical length measures 3 cm. Amniotic fluid MVP measures 4.1 cm. Recommendations Please see [facility] documentation from today. Subsequent follow up or other follow up as clinically determined byprimary OB provider unless otherwise specified by M. Results forwarded to ordering provider so they can follow up with thepatient as necessary. Authorizing ProviderResult TypeResult StatusIra Roberto REDDYIMG US ORDERABLES Final Result from Last 3 Months Insurance Care Teams Team MemberRelationshipSpecialtyStart DateEnd Date [place], [place] [address] [facility]
[2025-05-06 08:49] LABS: Hematocrit 37.6 % (36.0-48.0); Hemoglobin 12.7 g/dL (12.0-16.0); Immature Granulocytes Abs Auto 0.03 10^3/uL (0.00-0.03); Immature Granulocytes Pct Auto 0.3 % (0.0-0.5); Lymphocytes Absolute Auto 2.1 10^3/uL (1.2-3.8); Mean Corpuscular HGB Conc 33.8 g/dL (29.9-35.2); Mean Corpuscular Hemoglobin 33.9 pg (26.7-34.0); Mean Corpuscular Volume 100.3 fL (81.0-99.0); Platelet Count 270 10^3/uL (150-450); Red Blood Count 3.75 10^6/uL (4.20-5.40); White Blood Count 9.5 10^3/uL (4.0-11.0)
[2025-05-06 09:05] LABS: Glucose 1 Hour 91 mg/dL (<130)
== END 2025-05-06 07:38 | disposition home or self-care (01) ==
LOC: LAB 07:38
PROVIDERS: Family Provider Family Medicine; Visit Provider Obstetrics & Gynecology
DX: Z34.92 Encounter for supervision of normal pregnancy, unspecified, second trimester (principal); Z3A.25 25 weeks gestation of pregnancy
CPT/HCPCS: 36415; 82950; 85025

== ENCOUNTER 2025-07-03 07:58 | Outpatient (OUT) | payer BC, SELFPAY ==
--- OUTSIDE RECORDS SUMMARY | 2025-06-21 14:00 | XMS_ITS | Encounter Summary ---
Author Organization [facility] tem Address [id number] [address] [place] [address] Care Team Providers Care Hat And Cap Sewer Name Role Phone No Pcp, No Pcp Primary Care Provider Unavailabl e Encounter Details DateTypeDepartmentCare Team (Latest Contact Info)Nuffyksnyov79/08/2025 2:00 PM ESTTelemedicine Maternal- Medicine at [facility] [address] [place] [phone] Gill Mejia MD [address] [facility] [place] [address] POTS (postural orthostatic tachycardia syndrome) (Primary Dx); Advanced maternal age, 1st , second trimester; PAC (premature atrial contraction); PVC's (premature ventricular contractions); 32 week Social History Tobacco UseTypesPacks/DayYears UsedDateSmoking Tobacco: NeverSmokeless Tobacco: NeverAlcohol UseStandard Drinks/WeekCommentsNot Currently0 (1 standard drink = 0.6 oz pure alcohol)Stopped drinking this yearPHQ-2AnswerDate RecordedTotal Sznit5814ChildcareAnswerDate SsapwkwiXrycaoqoeThfxriv21/21/2020Employment AnswerDate NdgyyarvMnbbfkmkpnNqfvfza65/21/2020Hunger ScreeningAnswerDate RecordedWithin the past 12 months we worried whether our food would run out before we got money to buy more.Never True03/29/2025Within the past 12 months the food we bought just didn't last and we didn't have money to get more.Never True03/29/2025Purpose - LifeAnswerDate RecordedPurpose and direction in life Falhmdo72/08/2021Estimated Date of BksyvrwjQmvumdjpNii98/02/2026Based on UltrasoundSex and Gender InformationValueDate RecordedSex Assigned at BirthNot on fileLegal XgfDpsajh10/21/2020 8:44 AM EDTGender IdentityNot on fileSexual OrientationNot on filedocumented as of this encounter Progress Notes * Gill Mejia MD - 06/21/2025 2:00 PM EST Video Visit via Real-time Synchronous Audiovisual Provider Location: [facility]- MEDICINE AT [address] [phone] Patient Location: Patient's home Patient Location [employer]: None Video Visit Consent Statement: I discussed risks, benefits, and alternatives of a real-time synchronous audiovisual consultation with the patient (and any accompanying persons) including the risks that the patient's personal health details and medical records will be discussed over real-time, synchronous, interactive video/audio/telecommunication technology, the visit will not be recorded withoutthe express consent of both the provider and the patient, and that there are some limitations compared to znlk-ss-jetl evaluations. We elected to proceed. REASON FOR OFFICE VISIT: AMA, h/o POTS HISTORY OF PRESENT ILLNESS: Sammi Chapa is a pleasant 35 y.o. at 31w6d due on Estimated Date of Delivery: 08/16/25. [...] on pts my chart) Patient reports that pots symptoms are stable and well-controlled. She has noticed some increased episodes of heart rate in the 100s, typically after meals. She overall feels comfortable with delivering at her local hospital as symptoms have not worsened. She has had an echocardiogram and repeat EKG that were reassuring. Records are not currently available for review. She denies headaches, vision changes, nausea, vomiting, [...] not limited to notes, labs and images. ALLERGIES: No Known Allergies CURRENT MEDICATIONS: Current Outpatient Medications: aspirin 81 mg, Take 1 tablet (81 mg total) by mouth in the morning., Disp: , Rfl: no115/iron/folic acid ( 19 ORAL), Take by mouth., Disp: , Rfl: PHYSICAL EXAMINATION: LMP 10/20/2024 Well-appearing in no distress. Respirations not labored, [...] 110. Largely unremarkable study. Clinical correlation required. 02/22/2025 EKG nl sinus rhythm, HR 98 OVERALL ASSESSMENT -Sammi Chapa is a pleasant 35 y.o. at 31w6d -advanced maternal age -POTs -maternal PVCs and PACs COUNSELING/MEDICAL DECISION-MAKING SUMMARY/RECOMMENDATION: - encourage hydration and compression stockings - delivery can occur at local hospital without telemetry. - consider early epidural in labor to minimize triggering POTS and manage the increased heart rate/volume shifts of labor/delivery -continue routine care with primary OB -continue baby aspirin for attempted preeclampsia prevention -anticipate term vaginal delivery at local hospital. [place] for usual obstetrical indications. -echocardiogram requested from [facility] DISPOSITION: At this point the patient is in complete care of her structural rigger. Patient does have office visit scheduled with us. Thank you for allowing me to participate in the care of Sammi Chapa. If there any questionsplease do not hesitate to contact us. Gill Mejia MD Maternal- Medicine [facility] [address] [place] [address] This document was created with [employer] technology. Though I make every effort to review the dictation as it is transcribed, on occasion the spoken word can be misinterpreted by the technology leading to inappropriate words, phrases, or sentences. This note is addressed to the requesting provider as a consultation for clinical guidance. Specificmedical abbreviations are occasionally used and those are generally approved by the [place]?Board of?Obstetrics and?Gynecology?as well as?[place]???s abbreviations. The above plan of care was based solely on the diagnoses for which a consultation was requested. ?More frequent testing may be indicated based on her other medical/obstetrical conditions. The management of other or medical conditions is beyond the scope of requested consultation and will c ontinue to be followed by the primary structural rigger or primary care provider. Note to patient: The Century Cures Act makes medical notes like these [...] (postural orthostatic tachycardia syndrome)- Primary Unspecified tachycardia Advanced maternal age, 1st , second trimester PAC (premature atrial contraction) Supraventricular premature beats PVC's (premature ventricular contractions) Other premature beats 32 week documented in this encounter Additional Health Concerns AssessmentNoted TimePHQ-9 Depression Total Score: 110 8:55 AM EDT documented as of this encounter Care Teams Team MemberRelationshipSpecialtyStart DateEnd Date No Pcp, [place] [address] PCP - GeneralFamily Medicine07/21/24documented as of this encounter
--- OUTSIDE RECORDS SUMMARY | 2025-06-23 13:00 | XMS_ITS | Encounter Summary ---
Author Organization [facility] Address [address] [facility] [place] [place] [address] Care Team Providers Care Woven Wood Shade Assembler Name Role Phone Kimmy Carey MD Primary Care Provider [phone] Reason for Visit * ReasonCommentsRoutine Visit Encounter Details DateTypeDepartmentCare Team (Latest Contact Info)Riuumfcwaxz08/10/2025 1:00 PM ESTRoutine [facility] [address] [phone] Vignesh Holman DO [address] [place], [place] [id number] Primigravida of advanced maternal age in third trimester (HHS-HCC) (Primary Dx); Third trimester ([facility]); 32 weeks gestation of ([facility]); Hematuria, unspecified type Social History Tobacco UseTypesPacks/DayYears UsedDateSmoking Tobacco: NeverSmokeless Tobacco: NeverAlcohol UseStandard Drinks/WeekCommentsYes0 (1 standard drink = 0.6 oz pure alcohol)1-5 drinks once a [id number] Health LiteracyAnswerDate RecordedHow often do you need [...] relatives?Twice a week01/22/2024How often do you attend religious or protestant services?Never01/22/2024o you belong to any clubs or organizations such as religious groups, unions, fraternal or athletic groups, or school groups?No 01/22/2024How often do you attend meetings of the clubs or organizations you belong to?Never01/22/2024re you , , , , never , or living with a partner?Mgkpdsy8301/22/2024UDIT-CAnswerDate RecordedQ1: How often do you have a drink containing alcohol?Never01/22/2024Q2: How many drinks containing alcohol do you have on a typical day when you are drinking? Patient does not drink01/22/2024Q3: How often do you have six or more drinks on one occasion?Never01/22/2024Overall Financial Resource Strain (CARDIA)AnswerDate RecordedHow hard is it for you to pay for the very basics like food, housing, medical care, and heating?Not very hard01/22/2024HQ-2AnswerDate RecordedPatient Health Questionnaire-2 [id number] of Occupational Health - Occupational Stress QuestionnaireAnswerDate RecordedDo you feel stress - tense, restless, nervous, or anxious, or unable to sleep at night because your mind is troubled all the time - these days?Only a ixjzau9201/22/2024Exercise Vital SignAnswerDate RecordedOn average, how many days per week do you engage in moderate to strenuous exercise (like a brisk walk)?7 days01/22/2024On average, how many minutes do you engage in exercise at this level?80 min01/22/2024Hunger Vital SignAnswerDate RecordedWithin the past 12 months, you worried that your food would run out before you got the money to buymore.Never true01/22/2024 Within the past 12 months, the food you bought just didn't last and you didn't have money to get more.Never true01/22/2024RAPARE - TransportationAnswerDate RecordedIn the past 12 months, has lack of transportation kept you from medical appointments or from getting medications?No01/22/2024In the past 12 months, has lack of transportation kept you from meetings, work, or from getting things needed for daily living?01/22/2024Housing Stability Vital SignAnswerDate RecordedIn the last 12 months, was there a time when you were not able to pay the mortgage or rent on time?No01/22/2024In the past 12 months, how many times have you moved where you were living?t any time in the past 12 months, were you homeless or living in a long term (including now)?No01/22/2024 Estimated Date of FeqsjuprWsadmcmtKbv68/02/2026ased on last menstrual period of 11/09/2024Sex and Gender InformationValueDate RecordedSex Assigned at BirthNot on fileLegal NwhRrexxy72/15/2023 7:12 PM EDTGender IdentityFemale 09/26/2022 7:12 PM EDTSexual XmzseutxoszXaeyysis31/22/2023 8:43 AM EDTdocumented as of this encounter Last Filed Vital Signs Vital SignReadingTime TakenCommentsBlood Qjolvlxd233/7006/23/2025 1:04 PM EST Pulse--Temperature--Respiratory Rate--Oxygen Saturation--Inhaled Oxygen Concentration--Krwqlt14.9 kg (154 lb)06/23/2025 1:04 PM ESTHeight--Body Mass Index28.17107/15/2023 9:31 AM EDTdocumented in this encounter Progress Notes * Sammi Briones NP - 06/23/2025 1:00 PM EST Reason for Appointment: Patient ID: Sammi Chapa is a 35 y.o. female who presents for Routine Visit Patient presents today for Return OB appointment. MEDICATIONS Current Outpatient Medications Medication Instructions aspirin 81 mg, Daily MV-Min-Fe Fum-FA-DHA ( 1 PO) 1 tablet, Daily ALLERGIES No Known Allergies PROBLEMS Active Ambulatory Problems Diagnosis Date Noted Palpitations 07/11/2020 Tachycardia 08/11/2021 Miscarriage ([facility]) Irritable bowel syndrome with predominant constipation Resolved Ambulatory Problems Diagnosis Date Noted No Resolved Ambulatory Problems Past Medical History: Diagnosis Date Abnormal Pap smear of cervix 2018 Allergic Anxiety Female infertility Inflammatory bowel disease Ovarian cyst 09/08 POTS (postural orthostatic tachycardia syndrome) 03/2024 Urinary tract infection 2020 HISTORY PAST MEDICAL HISTORY SOCIAL HISTORY Past Medical History: Diagnosis Date Abnormal Pap smear of cervix 2019 Allergic Anxiety Female infertility Inflammatory bowel disease Irritable bowel syndrome with predominant constipation Miscarriage ([facility]) Ovarian cyst 09/08 POTS (postural orthostatic tachycardia syndrome) 03/2024 Urinary tract infection 2020 Social History Tobacco Use Smoking status: Never Smokeless tobacco: Never Vaping Use Vaping status: Never Used Substance Use Topics Alcohol use: Yes Comment: 1-5 drinks once a month Drug use: Never FAMILY HISTORY Family History Problem Relation Name Age of Onset Hypertension Father Dwain Sawant Diabetes Maternal Grandmother Winifred Rasey Cancer Paternal Grandfather Baldo Savana Breast cancer Paternal Grandmother Ana Savana Alcohol abuse Father's Brother Wallace Savana Drug abuse Father's Brother Wallace Savana Alcohol abuse Father's Brother Carlyn Savana Drug abuse Father's Brother Carlyn Savana Multiple myeloma Neg Hx SURGICAL HISTORY Past Surgical History: Procedure Laterality Date COLONOSCOPY 12/2015 COSMETIC SURGERY HYSTEROSCOPY 10/06 PAP SMEAR 2017 REVIEW OF SYSTEMS Review [...] nursing note reviewed. Exam conducted with a chef & owner present. Vitals: Estimated body mass index is 28.17 kg/m?? as calculated from the following: Height as of 24: 5' 2 . Weight as of this encounter: 154 lb. BP: 110/70 Patient's last menstrual period was 11/09/2024. Assessment/Plan ICD-10-CM 1. Third trimester ([facility]) Z34.93 2. 32 weeks gestation of ([facility]) Z3A.32 POCT urinalysis dipstick manually resulted Assessment/Plan Return OB: Patient presents today for a routine obstetrics appointment. Patient is currently 32w2d . Patient states she is doing well but has complaints of being tired due to current . Patient has verbalizes frequent movement. labor precautions was discussed/given and patient was instructed to perform kick counts three times a day. Orders Placed This Encounter Procedures POCT urinalysis dipstick manually resulted Follow Up: Patient is to return to office in 2 week for routine OB appointment. Documented by Sammi Briones NP on behalf of: Vignesh Holman DO documented in this encounter Miscellaneous Notes * Addendum Note - Antione Whyte - 06/23/2025 1:00 PM ESTAddended by: ANTIONE WHYTE on: 06/23/2025 01:53 PM Modules accepted: Orders documented in this encounter Plan of Treatment DateTypeDepartmentCare Team (Latest Contact Info)Mekzczikvbl87/30/2025 9:20 AM ESTRoutine [facility] [address] [address] Marie Santiago PA [address] [place] [address] NameTypePriorityAssociated DiagnosesOrder ScheduleUS biophysical profile w non stress testImagingRoutine Primigravida of advanced maternal age in third trimester ([facility]) Expected: 06/23/2025 (Approximate), Expires: 12/22/2025Urine cultureMicrobiology Routine Hematuria, unspecified type Ordered: 06/23/2025documented as of this encounter Goals GoalPatient Goal TypeAssociated ProblemsRecent ProgressPatient-Stated?Author Reminders Care PlanOB RemindersNoOpen Scheduling, Backgrounddocumented as of this encounter Procedures Procedure NamePriorityDate/TimeAssociated DiagnosisCommentsPOCT URINALYSIS GMCEXDDMZdnqzrw84/10/2025 1:04 PM EST 32 weeks gestation of ([facility]) documented in this encounter Results * (ABNORMAL) POCT urinalysis dipstick manually resulted (06/23/2025 1:04 PM EST) ComponentValueRef RangeTest MethodAnalysis TimePerformed AtPathologist SignatureColor, UAYellowClarity, UAClearGlucose, UANegativeNegative - 2000(110) ++++ mg/dLBilirubin, UANegativeNegative - 4(70) +++ mg/dLKetones, UA PositiveNegative - 160(16) ++++ mg/dLSpec Grav, UA1.0151 - 1.03Blood, UA PositiveNegative - 50 Piter/mcLpH, UA5.55 - 9Protein, UANegativeNegative - 2000(20) ++++ mg/dLUrobilinogen, UA1.00.2 - 12 mg/dLLeukocytes, UANegative Negative - 500+++ Nikki/mcLNitrite, UANegativeNegative - PositiveSpecimen (Source)Anatomical Location / LateralityCollection Method / VolumeCollection TimeReceived NcifXhyfw18/10/2025 1:04 PM EST Narrative Authorizing ProviderResult TypeResult StatusCorey River DOPOINT OF CARE TEST ENTER/EDIT ORDERABLESFinal Result documented in this encounter Visit Diagnoses Diagnosis Primigravida of advanced maternal age in third trimester ([facility])- Primary Third trimester ([facility]) state, incidental 32 weeks gestation of ([facility]) Hematuria, unspecified type documented in this encounter Additional Health Concerns Active ProblemsNoted DateDiagnosed DateOB Wlzopuqee67/08/2025 documented as of this encounter Care Teams Team MemberRelationshipSpecialtyStart DateEnd Date Kimmy Carey MD [address] [address] PCP - GeneralFamily Medicine02/04/23documented as of this encounter
--- OUTSIDE RECORDS SUMMARY | 2025-06-28 09:00 | XMS_ITS | Encounter Summary ---
Author Organization [facility] Address [address] [place] [address] Care Team Providers Care Hand Woodworking Sander Name Role Phone Colleen Larios Primary Care Provider Reason for Visit * ReasonCommentsFollow-upPatient is here today for a 2 month follow up. Patient states she is feeling well. Patient states she is able to manage symptoms better with diet. 33 Weeks POTSPSVTPalpitationsOccasional Encounter Details DateTypeDepartmentCare Team (Latest Contact Info)Gwrmnavbhqq14/15/2025 9:00 AM ESTOffice Visit [facility] at [facility] [address] [place] [address] Crow Corey MD [address] [place] [address] Palpitations (Primary Dx); Tachycardia; POTS (postural orthostatic tachycardia syndrome); Pure hypercholesterolemia; 33 weeks gestation of Social History Tobacco UseTypesPacks/DayYears UsedDateSmoking Tobacco: NeverSmokeless Tobacco: NeverAlcohol UseStandard Drinks/WeekCommentsNot Currently0 (1 standard drink = 0.6 oz pure alcohol)CommentsYesSex and Gender InformationValueDate RecordedSex Assigned at RqwauJuhxdv18/05/2025 3:28 PM EDTLegal SexFemale 01/29/2025 12:33 PM EDTGender CneyvlryYqlkwi10/05/2025 3:28 PM EDTSexual OrientationHeterosexual or Xpkdymyf50/05/2025 3:28 PM EDTdocumented as of this encounter Last Filed Vital Signs Vital SignReadingTime TakenCommentsBlood Oyaczdfc529/7706/28/2025 8:49 AM EST Xhxfp33124/15/2025 8:49 AM ESTTemperature--Respiratory Rate--Oxygen Saturation 97%06/28/2025 8:49 AM ESTInhaled Oxygen Concentration--Owckac60.8 kg (156 lb) 06/28/2025 8:49 AM JPBItdurz137.5 cm (5' 2 )06/28/2025 8:49 AM ESTBody Mass Index28.5306/28/2025 8:49 AM ESTdocumented in this encounter Progress Notes * Crow Corey MD - 06/28/2025 9:00 AM EST Images from the original note were not included. [place] [facility] Note Reason for cardiology [...] syndrome with constipation Patient was seen by general farmworker Dr. Tom Tavares at [facility] in the past and she wasdiagnosed with [...] aortic root dimension. Tilt [facility]: Abnormal head upright tilt [...] with their primary care physician and/ or general farmworker as previously scheduled. Event monitor 02/26/2024 at [facility] in [place] - Predominant rhythm: NSR - Ectopic Atrial [...] she was followed in the past by [facility] cardiology in [place] History of PVCs History of hyperlipidemia, per [...] months or sooner if needed Crow Core[facility] MD,[facility] [1] Family History Problem Relation Name Age of Onset Other (atria flutter) Mother Hyperlipidemia Mother Hypertension Father [2] Current Outpatient Medications: aspirin 81 mg EC tablet, Take 81 mg by mouth in the morning., Disp: , Rfl: 9-HDBR-WBOSN ACID-OM3 ORAL, Take 1 tablet by mouth [...] DateEnd Date Colleen Larios [address] [place] [address] [facility]02/22/25documented as of this encounter
--- OUTSIDE RECORDS SUMMARY | 2025-07-03 08:02 | XMS_ITS | Clinical Summary ---
Author Organization [facility] Address [address] [place] [address] Care Team Providers Care Property Analyst Name Role Phone Colleen Larios Primary Care Provider [phone] Allergies No known active allergies Medications MedicationSigDispense QuantityRefillsLast FilledStart DateEnd DateStatus aspirin 81 mg EC tablet Take 81 mg by mouth in the morning.Active 4-CQUG-ISSIW ACID-OM3 ORAL Take 1 tablet by mouth in the morning.Active Active Problems ProblemNoted DateDiagnosed WjneXjefw24/12/2025Influenza A108/26/2024Dyspnea on jhzrxeet963 weeks gestation of aroqpiuzn15/11/2025Pure diizdvhbnfpzepthgnoh55/11/3839Ffxdaimiibn80/06/2025Irritable bowel syndrome with zviabksfzpwr70/10/2025POTS (postural orthostatic tachycardia syndrome)01/21/2025 Microscopic nbdwqxsuh65/08/2022 Overview (02/17/2025): 01/19/22: Recent back pain, left [...] to conceive. Urine sent for microscopic evaluation Ttybjhwjgvd24/28/2022PSVT (paroxysmal supraventricular tachycardia)01/13/2021 Uhuquwxrdtou70/28/2020PVC's (premature ventricular contractions)07/11/2020 CommentsYes Encounters DateTypeDepartmentCare IwdtGhvpaljdnnh37/15/2025 9:00 AM ESTOffice Visit [facility] [address] [place] [address] Crow Corey MD Palpitations (Primary Dx); Tachycardia; POTS (postural orthostatic tachycardia syndrome); Pure hypercholesterolemia; 33 weeks gestation of upkiqokyf69/10/2025 10:40 AM EDTOffice Visit [facility] [address] [place] [address] Crow Corey MD POTS (postural orthostatic tachycardia syndrome) (Primary Dx); Dyspnea on exertion; Palpitations; 23 weeks gestation of ; Pure icjjvnhdxtqluugxvblu02/21/2025Results Follow-Up [facility] [address] [place] [facility] [address] Crow Corey MD Complete Echo (TTE) w/wo Imaging Agent, Strain, 3D, Bubble Studyfrom Last 3 Months Family History Medical HistoryRelationNameCommentsHypertensionFatherHyperlipidemiaMotheratria flutterMotherRelationNameStatusCommentsFatherAliveMotherAlive Social History Tobacco UseTypesPacks/DayYears UsedDateSmoking Tobacco: NeverSmokeless Tobacco: NeverAlcohol UseStandard Drinks/WeekCommentsNot Currently0 (1 standard drink = 0.6 oz pure alcohol)CommentsYesSex and Gender InformationValueDate RecordedSex Assigned at GafofNibaoq61/05/2025 3:28 PM EDTLegal SexFemale 01/29/2025 12:33 PM EDTGender UqeghwtrBfaucv95/05/2025 3:28 PM EDTSexual OrientationHeterosexual or Hmuoskql79/05/2025 3:28 PM EDT Last Filed Vital Signs Vital SignReadingTime TakenCommentsBlood Qcmdblxo828/7706/28/2025 8:49 AM EST Pprfs80250/15/2025 8:49 AM ESTTemperature--Respiratory Rate--Oxygen Saturation 97%06/28/2025 8:49 AM ESTInhaled Oxygen Concentration--Qidofu88.8 kg (156 lb) 06/28/2025 8:49 AM WAORefddh705.5 cm (5' 2 )06/28/2025 8:49 AM ESTBody Mass Index28.5306/28/2025 8:49 AM EST Plan of Treatment Health MaintenanceDue DateLast DoneCommentsDepression Vfckaskex34/13/2001 Varicella Vaccines (1 of 2 - 13+ 2-dose series)2002Hepatitis B Vaccines (1 of 3 - 19+ 3-dose series)2008dult Dxtqkqf0003/27/2011HPV Vaccines (1 - 3- dose SCDM series)2016HPV/Ygtyba7103/27/2019COVID-19 Vaccine ( - season)2025Influenza Vaccine (#1)/Cervical Cancer Dawzmmxiw98/23/2028Pap Smear8004/06/2025Zoster Vaccines (1 of 2) 2039HIB VaccinesAged [...] patient's age to complete this topic Insurance Care Teams Team MemberRelationshipSpecialtyStart DateEnd Date Colleen Larios [address] [place] [address] [facility]02/22/25
--- OUTSIDE RECORDS SUMMARY | 2025-07-03 08:02 | XMS_ITS | Clinical Summary ---
Author Organization [facility] Address [address] [place] [address] Care Team Providers Care Media Assistant Name Role Phone Kimmy Carye MD Primary Care Provider [phone] Allergies No known active allergies Medications MedicationSigDispense QuantityRefillsLast FilledStart DateEnd DateStatus MV-Min-Fe Fum-FA-DHA ( 1 PO) Take 1 tablet by mouth DailyActive aspirin 81 MG EC tablet Take 81 mg by mouth DailyActive Active Problems ProblemNoted DateDiagnosed LzjtUevorznsqtp14/28/1436Eulmowvbfkbh39/28/2020 Miscarriage ([facility])Irritable bowel syndrome with predominant constipation Estimated Date of KwshucmiMrorjygaLyq01/02/2026Based on last menstrual period of 11/09/2024 Encounters DateTypeDepartmentCare QtnzDnklnfypquz43/17/2025[place] [address] Vignesh Holman DO 06/23/2025 1:00 PM [place] [address] Vignesh Holman DO Primigravida of advanced maternal age in third trimester ([facility]) (Primary Dx); Third trimester ([facility]); 32 weeks gestation of ([facility]); Hematuria, unspecified type06/23/2025amboo [place] [address] Vignesh Holman, DO 06/16/20250561Kjyvcs06/01/2025bstract [facility] [place] [address] Vignesh Holman, DO 06/08/2025 11:20 AM ESTRoutine [facility] [place] [phone] Vignesh Holman, DO 30 weeks gestation of ([facility]); Third trimester ([facility])06/08/2025 10:30 AM ESTAncillary Procedure [facility] [place] [phone] size inconsistent with dates ([facility])06/02/20256868Jdoibq47/11/2025 9:40 AM ESTRoutine [facility] [place] [address] Vignesh Holman, DO 28 weeks gestation of ([facility]); Third trimester ([facility]); size inconsistent with dates ([facility])05/25/2025amboo flowsheet [facility] [place] [address] Vignesh Holman, DO 05/24/2025Telephone [facility] [place] [address] Manda Ojeda MA 05/18/20256638Tqbrve52/23/2025linisync Result Encounter [facility] External Department Unsolicited Vignesh Holman, DO 05/05/2025 10:50 AM EDTRoutine [facility] [place] [phone] Vignesh Holman, DO Second trimester ([facility]); 25 weeks gestation of ([facility]); Vaginal discharge; Diabetes mellitus vexkgrrro44/22/2025amboo flowsheet [facility] [address] [facility] [place] [address] Vignesh Holman, DO 04/30/2025Telephone [facility] [address] [facility] [place] [address] Vignesh Holman, DO 04/28/20256406Vwexmw70/14/2025Telephone [facility] [address] [facility] [place] [address] Vignesh Holman, 04/20/2025Orders Only [facility] [address] [facility] [place] [phone] Lynne Ayers MA 04/10/2025linisync Result Encounter [facility]OM[facility] External Department Unsolicited Vignesh Holman, 04/07/2025Telephone [facility] [address] [facility] [place] [address] Vignesh Holman, 04/06/2025 10:30 AM EDTRoutine [facility] [address] [place] [phone] Vignesh Holman, Second trimester ([facility]); 21 weeks gestation of ([facility]); Well woman exam with routine gynecological exam5Clinisync Result Encounter [facility] External Department Unsolicited Vignesh Holman, DO 04/06/2025amboo flowsheet [facility] [address] [place] [phone] Vignesh Holman, from Last 3 Months Immunizations ImmunizationAdministration DatesNext DueInfluenza, seasonal, injectable 05/05/2013 Family History Medical HistoryRelationNameCommentsHypertensionFatherKeith ShowalterAlcohol abuseFather's Brother 1Kevin ShowalterDrug abuseFather's Brother 1Kevin ShowalterAlcohol abuseFather's Brother 2Kerry ShowalterDrug abuseFather's Brother 2Kerry ShowalterDiabetesMaternal GrandmotherBarb RaseyCancerPaternal GrandfatherBen ShowalterBreast cancerPaternal GrandmotherAnnette Savana Multiple myelomaNeg HxRelationNameStatusCommentsFatherKeith ShowalterAlive Father's Brother 1Kevin ShowalterAliveFather's Brother 2Kerry ShowalterAlive Maternal GrandmotherBarb RaseyMotherAlivePaternal GrandfatherBen ShowalterAlive Paternal GrandmotherAnnette ShowalterAlive Social History Tobacco UseTypesPacks/DayYears UsedDateSmoking Tobacco: NeverSmokeless Tobacco: Never Tobacco Cessation:Counseling Given: Not Answered Alcohol UseStandard Drinks/WeekCommentsYes0 (1 standard drink = 0.6 oz pure alcohol)1-5 drinks once a [id number] Health LiteracyAnswerDate RecordedHow often do you need [...] relatives?Twice a week01/22/2024How often do you attend yazidism or mosque services?Never01/22/2024o you belong to any clubs or organizations such as yazidism groups, unions, fraternal or athletic groups, or school groups?No 01/22/2024How often do you attend meetings of the clubs or organizations you belong to?Never01/22/2024re you , , , , never , or living with a partner?Lrehjbo7501/22/2024UDIT-CAnswerDate RecordedQ1: How often do you have a [...] and heating?Not very hard01/22/2024HQ-2AnswerDate RecordedPatient Health Questionnaire-2 Rzavs585[place] [facility] [place] [facility] - Occupational Stress QuestionnaireAnswerDate RecordedDo you feel stress - tense, restless, nervous, or anxious, or unable to sleep at night because your mind is troubled all the time - these days?Only a ajnaij6601/22/2024Exercise Vital SignAnswerDate RecordedOn average, how many days [...] homeless or living in a prison (including now)?No01/22/2024 Estimated Date of HrwzshmwYqwggkucMlj67/02/2026ased on last menstrual period of 11/09/2024Sex and Gender InformationValueDate RecordedSex Assigned at BirthNot on fileLegal RpkXilvka96/15/2023 7:12 PM EDTGender IdentityFemale 09/26/2022 7:12 PM EDTSexual EkoinadvbypEfrplgxo27/22/2023 8:43 AM EDT Last Filed Vital Signs Vital SignReadingTime TakenCommentsBlood Acykocoh511/7006/23/2025 1:04 PM EST Zwvlu5722/01/2024 9:31 AM EDTTemperature--Respiratory Rate--Oxygen Ifhskglglh86% 05/15/2024 9:31 AM EDTInhaled Oxygen Concentration--Pfrmvo52.9 kg (154 lb) 06/23/2025 1:04 PM FTIRaxgwe123.5 cm (5' 2 )05/15/2024 9:31 AM EDTBody Mass Index28.17107/15/2023 9:31 AM EDT Plan of Treatment DateTypeDepartmentCare Team (Latest Contact Info)Wyjlhtfbfxb15/30/2025 9:20 AM ESTRoutine [facility] [address] [facility] [place] [address] Marie Santiago PA [address] [place] [address] Health MaintenanceDue DateLast DoneCommentsCOVID-19 Vaccine ( season) 2025Influenza Vaccine (#1)/Cervical Cancer Screening 04/06/2026HPV/Hzhlim86/Pap Smear/, 12/26/2021, 12/26/2021neumococcal Vaccine: Pediatrics (0 to 5 Years) and At- Risk Patients (6 to 64 Years)Aged OutNo longer eligible based on patient's age to complete this topic Goals GoalPatient Goal TypeAssociated ProblemsRecent ProgressPatient-Stated?Author Reminders Care PlanOB RemindersNoOpen Scheduling, Background Procedures Procedure NamePriorityDate/TimeAssociated DiagnosisCommentsURINARY TRACT INFECTION (HTRX)Cfwrnsp7206/23/2025 3:32 PM EST POCT URINALYSIS AVRUPAMLGoosxhi08/10/2025 1:04 PM EST 32 weeks gestation of ([facility]) POCT URINALYSIS PTXGAVDFDcbhwke47/25/2025 11:55 AM EST 30 weeks gestation of ([facility]) Third trimester ([facility]) US OB FOLLOW UP TRANSABDOMINAL QHSWGXCJInwocwa86/25/2025 10:42 AM EST size inconsistent with dates ([facility]) GLUCOSE TOLERANCE, 1 JCURXwhgjaw50/11/2025 10:39 AM EST Diabetes mellitus screening JMEQonitqk49/11/2025 10:39 AM EST Diabetes mellitus screening CBC (INCLUDES DIFF/PLT)Pexkvmo3105/25/2025 10:39 AM EST Second trimester ([facility]) POCT URINALYSIS UZEPEHNBFmpxlja62/11/2025 9:54 AM EST 28 weeks gestation of ([facility]) GLUCOSE 1 VENCTrpqjlf50/23/2025 8:43 AM EDT ALL CBC WITH AUTO PMBAFhehwwy99/23/2025 8:43 AM EDT POCT URINALYSIS NQQZXLSFUusumov46/22/2025 11:10 AM EDT 25 weeks gestation of ([facility]) AFP, SERUM, OPEN SPINA OFUPIAAoighxw41/27/2025 11:16 AM EDT POCT URINALYSIS STUTSTVFGswavoh07/23/2025 10:43 AM EDT Second trimester ([facility]) 21 weeks gestation of ([facility]) IGP,APTIMA HPV,AGE NOHWSrpgowj22/23/2025 10:23 AM EDT PAP AKREPJuhstka30/23/2025 12:00 AM EDTQ - THINPREP(R) TIS AND HPV MRNA E6/E7 RFL HPV 16,18/98Ynggfys99/13/2019 from Last 3 Months or Most Recently Relevant to Health Maintenance Results * URINARY TRACT INFECTION (HTRX) (06/23/2025 3:32 PM EST)ComponentValueRef Range Test MethodAnalysis TimePerformed AtPathologist SignatureACINETOBACTER SVNDEPCV226.961 - 24.689 ppm06/24/2025 8:25 AM ESTHealthTrackRx at [facility] ACINETOBACTER BAUMANIINot Xtxxhtya43.961 - 24.689 ppm06/24/2025 8:25 AM EST [facility] at LabPortCITROBACTER VRIJBDWM579.000 - 32.015 ppm06/24/2025 8:25 AM ESTHealthTrackRx at LabPortCITROBACTER FREUNDIINot Fmwxzypw99.000 - 32.015 ppm06/24/2025 8:25 AM ESTHealthTrackRx at LabPortENTEROBACTER AEROGENES, KYNBHRJ784.000 - 32.290 ppm06/24/2025 8:25 AM ESTHealthTrackRx at LabPortENTEROBACTER AEROGENES, CLOACAENot Zoqobusc09.000 - 32.290 ppm 06/24/2025 8:25 AM ESTHealthTrackRx at LabPortENTEROCOCCUS FAECALIS, FAECIUM0 26.000 - 33.043 ppm06/24/2025 8:25 AM ESTHealthTrackRx at LabPortENTEROCOCCUS FAECALIS, FAECIUMNot Fdagxffu94.000 - 33.043 ppm06/24/2025 8:25 AM EST [facility] at LabPortESCHERICHIA BROY550.000 - 28.500 ppm06/24/2025 8:25 AM ESTHealthTrackRx at LabPortESCHERICHIA COLINot Rdvfoslk96.000 - 28.500 ppm 06/24/2025 8:25 AM ESTHealthTrackRx at LabPortKLEBSIELLA PNEUMONIAE, OXYTOCA0 23.000 - 31.865 ppm06/24/2025 8:25 AM ESTHealthTrackRx at LabPortKLEBSIELLA PNEUMONIAE, OXYTOCANot Njpfwecd79.000 - 31.865 ppm06/24/2025 8:25 AM EST [facility] at LabPortMORGANELLA HCODKDXG206.961 - 24.689 ppm06/24/2025 8:25 AM ESTHealthTrackRx at LabPortMORGANELLA MORGANIINot Zibaquzp06.961 - 24.689 ppm06/24/2025 8:25 AM ESTHealthTrackRx at LabPortPROTEUS MIRABILIS, VULGARIS0 23.000 - 28.500 ppm06/24/2025 8:25 AM ESTHealthTrackRx at LabPortPROTEUS MIRABILIS, VULGARISNot Owsoxyqt24.000 - 28.500 ppm06/24/2025 8:25 AM EST [facility] at LabPortPSEUDOMONAS BLMNSXJLTS932.000 - 31.801 ppm06/24/2025 8:25 AM ESTHealthTrackRx at LabPortPSEUDOMONAS AERUGINOSANot Tdptuhxp21.000 - 31.801 ppm06/24/2025 8:25 AM ESTHealthTrackRx at LabPortSTAPHYLOCOCCUS AUREUS0 26.000 - 31.595 ppm06/24/2025 8:25 AM ESTHealthTrackRx at [facility] STAPHYLOCOCCUS AUREUSNot Kvxwavmn36.000 - 31.595 ppm06/24/2025 8:25 AM EST [facility] at LabPortSTREPTOCOCCUS AGALACTIAE (GROUP B STREP)026.000 - 32.435 ppm06/24/2025 8:25 AM ESTHealthTrackRx at LabPortSTREPTOCOCCUS AGALACTIAE (GROUP B STREP)Not Dkjtzfcf23.000 - 32.435 ppm06/24/2025 8:25 AM ESTHealthTrackRx at LabPortCANDIDA ALBICANS, PARAPSILOSIS, EDPZCBFGQH031.000 - 30.347 ppm06/24/2025 8:25 AM ESTHealthTrackRx at LabPortCANDIDA ALBICANS, PARAPSILOSIS, TROPICALISNot Jhqxjxfd56.000 - 30.347 ppm06/24/2025 8:25 AM EST [facility] LabPortCANDIDA EBUEXPOX911.000 - 31.618 ppm06/24/2025 8:25 AM ESTHealthTrackRx at LabPortCANDIDA GLABRATANot Yllvsizh40.000 - 31.618 ppm 06/24/2025 8:25 AM ESTHealthTrackRx at LabPortCANDIDA BUIFGC547.000 - 30.873 ppm06/24/2025 8:25 AM ESTHealthTrackRx at LabPortCANDIDA KRUSEINot Detected 23.000 - 30.873 ppm06/24/2025 8:25 AM ESTHealthTrackRx at LabPortSERRATIA NTMVSGYQOI921.000 - 31.581 ppm06/24/2025 8:25 AM ESTHealthTrackRx at [facility] SERRATIA MARCESCENSNot Iosogpjv59.000 - 31.581 ppm06/24/2025 8:25 AM EST [facility] at LabPortSTREPTOCOCCUS PYOGENES (GROUP A STREP)019.961 - 24.689 ppm06/24/2025 8:25 AM ESTHealthTrackRx at LabPortSTREPTOCOCCUS PYOGENES (GROUP A STREP)Not Yaxjzhdy94.961 - 24.689 ppm06/24/2025 8:25 AM ESTHealthTrackRx at LabPortSTAPHYLOCOCCUS EPIDERMIDIS, HAEMOLYTICUS, LUGDUNENSIS, SAPROPHYTICUS (EQEUK053.961 - 24.689 ppm06/24/2025 8:25 AM ESTHealthTrackRx [facility] STAPHYLOCOCCUS EPIDERMIDIS, HAEMOLYTICUS, LUGDUNENSIS, SAPROPHYTICUS (URINANot Iphsponz96.961 - 24.689 ppm06/24/2025 8:25 AM ESTHealthTrackRx at [facility] STAPHYLOCOCCUS EPIDERMIDIS, HAEMOLYTICUS, LUGDUNENSIS, SAPROPHYTICUS (URINA0 19.961 - 24.689 ppm06/24/2025 8:25 AM ESTHealth[facility]Rx [facility] STAPHYLOCOCCUS EPIDERMIDIS, HAEMOLYTICUS, LUGDUNENSIS, SAPROPHYTICUS (URINANot Swguxpoc95.961 - 24.689 ppm06/24/2025 8:25 AM ESTHealth[facility]Rx [facility] Specimen (Source)Anatomical Location / LateralityCollection Method / Volume Collection TimeReceived UyliGbadc81/10/2025 3:32 PM EST06/24/2025 2:14 AM EST Narrative Authorizing ProviderResult TypeResult StatusKristina Anali NPLAB BLOOD ORDERABLESFinal ResultPerforming OrganizationAddressCity/State/ZIP CodePhone Number [facility] [address] [address] * (ABNORMAL) POCT urinalysis dipstick manually resulted (06/23/2025 1:04 PM EST) Only the most recent of5 resultswithin the time period is included. ComponentValueRef RangeTest MethodAnalysis TimePerformed AtPathologist Signature Color, UAYellowClarity, UAClearGlucose, UANegativeNegative - 2000(110) ++++ mg/dLBilirubin, UANegativeNegative - 4(70) +++ mg/dLKetones, UAPositiveNegative - 160(16) ++++ mg/dLSpec Grav, UA1.0151 - 1.03Blood, UAPositiveNegative - 50 Piter/mcLpH, UA5.55 - 9Protein, UANegativeNegative - 2000(20) ++++ mg/dL Urobilinogen, UA1.00.2 - 12 mg/dLLeukocytes, UANegativeNegative - 500+++ Nikki/mcL Nitrite, UANegativeNegative - PositiveSpecimen (Source)Anatomical Location / LateralityCollection Method / VolumeCollection TimeReceived QxopSewhv09/10/2025 1:04 PM EST Narrative Authorizing ProviderResult TypeResult StatusCorey River DOPOINT OF CARE TEST ENTER/EDIT ORDERABLESFinal Result * US OB follow up transabdominal approach (06/08/2025 10:42 AM EST)Anatomical RegionLateralityModalityBodyUltrasoundSpecimen (Source)Anatomical Location / LateralityCollection Method / VolumeCollection TimeReceived Time06/08/2025 4:32 PM EST Impressions 06/09/2025 8:08 AM EST Single, live intrauterine , current sonographic age of 31 weeks and 1 day, with an estimated date of delivery of August 09, 2025 (prior LUCIEN August 21, 2025) . * ??Estimated Weight (g) by Percentile is based upon an accurate estimated age based onlast menstrual period. ?? TRANSCRIBED BY: ? ELECTRONICALLY SIGNED BY: Steve Irizarry MD Narrative 06/09/2025 8:08 AM EST FINDINGS: Comparison December 31, 2024. A single, live intrauterine is present with normal cardiac rate of 144 beats per minute. Normal activity and amniotic fluid volume. Amniotic fluid index is 15 cm. ??Morphology is grossly normal. The cervix is obscured due to positioning. ??The current sonographic age is 31 weeks and 1 day, based on the following measurements: ?BPD ? 8.1 cm (32 weeks, 3 days) ?Head Circumference ?29.4 cm (32 weeks, 3 days) ?Abdominal Circumference ?26.4 cm (30 weeks, 4 days) ?Femur Length ?5.5 cm (29 weeks, 1 day) ?Presentation ? Cephalic ? Weight (g) by Percentile ??47.6 % * These measurements result in an estimated date of delivery of August 09, 2025. ??The current estimated weight is 1574 grams (3 pounds, 8 ounces). ?? Procedure Note Steve Irizarry MD - 06/09/2025 FINDINGS: Comparison December 31, 2024. A single, live intrauterine is present with normal cardiacrate of 144 beats per minute. Normal activity and amniotic fluidvolume. Amniotic fluid index is 15 cm. Morphology is grossly normal. Thecervix is obscured due to positioning. The current sonographic ageis 31 weeks and 1 day, based on the following measurements: BPD 8.1 cm (32 weeks, 3 days) Head Circumference 29.4 cm (32 weeks, 3 days) Abdominal Circumference 26.4 cm (30 weeks, 4 days) Femur Length 5.5 cm (29 weeks, 1 day) Presentation Cephalic Weight (g) by Percentile 47.6 % * These measurements result in an estimated date of delivery of July. The current estimated weight is 1574 grams (3 pounds, 8ounces). IMPRESSION: Single, live intrauterine , current sonographic age of 31 weeksand 1 day, with an estimated date of delivery of August 09, 2025 (priorEDD August 21, 2025) . * Estimated Weight (g) by Percentile is based upon an accurateestimated age based on last menstrual period. TRANSCRIBED BY: ELECTRONICALLY SIGNED BY: Steve Irizarry MD Authorizing ProviderResult TypeResult StatusCorey River DOIMG OB US PROCEDURES Final Result * Glucose tolerance, 1 hour (05/25/2025 10:39 AM EST)Specimen (Source)Anatomical Location / LateralityCollection Method / VolumeCollection TimeReceived Time BloodVenous blood specimen / Unknown Narrative Authorizing ProviderResult TypeResult StatusCorey River DOLAB BLOOD ORDERABLES Final ResultPerforming OrganizationAddressCity/State/ZIP CodePhone Number EXTERNAL LAB * CBC (05/25/2025 10:39 AM EST)Specimen (Source)Anatomical Location / Laterality Collection Method / VolumeCollection TimeReceived TimeBloodVenous blood specimen / Unknown Narrative Authorizing ProviderResult TypeResult StatusCorey River DOLAB BLOOD ORDERABLES Final ResultPerforming OrganizationAddressCity/State/ZIP CodePhone Number EXTERNAL LAB * CBC and differential (05/25/2025 10:39 AM EST)Specimen (Source)Anatomical Location / LateralityCollection Method / VolumeCollection TimeReceived Time BloodVenous blood specimen / Unknown Narrative Authorizing ProviderResult TypeResult StatusCorey River DOLAB BLOOD ORDERABLES Final ResultPerforming OrganizationAddressCity/State/ZIP CodePhone Number EXTERNAL LAB * GLUCOSE 1 HOUR (05/06/2025 8:43 AM EDT)ComponentValueRef RangeTest Method Analysis TimePerformed AtPathologist SignatureGLUCOSE 1 HOUR91<130 mg/dLTBH Specimen (Source)Anatomical Location / LateralityCollection Method / Volume Collection TimeReceived Time05/06/2025 8:43 AM EDT1 8:45 AM EDT Narrative CLINISYNC - 05/06/2025 9:05 AM EDT Authorizing ProviderResult TypeResult StatusCorey River DOLAB BLOOD ORDERABLES Final ResultPerforming OrganizationAddressCity/State/ZIP CodePhone Number [facility] * (ABNORMAL) ALL CBC WITH AUTO DIFF (05/06/2025 8:43 AM EDT)ComponentValueRef RangeTest MethodAnalysis TimePerformed AtPathologist SignatureTBH WBC9.54.0 - 11.0 10 3/uLTBHTBH RBC3.75(L)4.20 - 5.40 10 6/uLTBHTBH HGB12.712.0 - 16.0 g/dL TBHTBH HCT37.636.0 - 48.0 %TBHTBH JIK024.3(H)81.0 - 99.0 fLTBHTBH MCH33.926.7 - 34.0 pgTBHTBH MCHC33.829.9 - 35.2 g/dLTBHTBH RDW12.911.0 - 15.0 %TBHTBH PLT 289689 - 450 10 3/uLTBHTBH MPV8.9(L)9.5 - 13.5 fLTBHNEUTROPHILS PERCENT AUTO 66.243.0 - 75.0 %TBHLYMPHOCYTES PERCENT AUTO22.420.5 - 60.0 %TBHMONOCYTES PERCENT AUTO8.31.7 - 12.0 %TBHTBH EO %2.50.9 - 7.0 %TBHBASOPHILS PERCENT AUTO 0.30.2 - 2.0 %TBHIMMATURE GRANULOCYTES PCT AUTO0.30.0 - 0.5 %TBHNEUTROPHILS ABSOLUTE AUTO6.31.4 - 6.5 10 3/uLTBHLYMPHOCYTES ABSOLUTE AUTO2.11.2 - 3.8 10 3/uLTBHMONOCYTES ABSOLUTE AUTO0.80.3 - 0.8 10 3/uLTBHTBH EO #0.20.0 - 0.7 10 3/uLTBHBASOPHILS ABSOLUTE AUTO0.00.0 - 0.1 10 3/uLTBHIMMATURE GRANULOCYTES ABS AUTO0.030.00 - 0.03 10 3/uLTBHSpecimen (Source)Anatomical Location / LateralityCollection Method / VolumeCollection TimeReceived Time05/06/2025 8:43 AM EDT1 8:45 AM EDT Narrative CLINISYNC - 05/06/2025 8:53 AM EDT Authorizing ProviderResult TypeResult StatusCorey River DOCLINISYNCFinal Result Performing OrganizationAddressCity/State/ZIP CodePhone Number CLINISYCRISTIANO TBH * AFP, SERUM, OPEN SPINA BIFIDA (04/10/2025 11:16 AM EDT)ComponentValueRef Range Test MethodAnalysis TimePerformed AtPathologist SignatureRESULTSReport.TBHTEST RESULTS:*Screen Negative*.TBHGEST. AGE ON COLLECTION DATE21.7. weeksTBHGESTAT. AGE BASED ONLMP.TBHComment: Recalculations are not recommended when gestational dating by LMP and ultrasound are within 10 days. MATERNAL AGE AT EDD36.3. yrTBHRACECaucasian.COUUGRBWY869. lbsTBHINSULIN DEP DIABETESNo.TBHMULTIPLE GESTATIONNo.TBHAFP VTZAF241.6. ng/mLTBHAFP MOM1.48.TBH OSBR RISK 1 OD3640.TBHINTERPRETATIONComment.TBHComment: Interpretation: Screen Negative This result is screen [...] Customer Services to discuss available options. ??The [employer] recommends amniocentesis be offered to women age 35 and older. COMMENT:Comment.TBHComment: Jenna Ennis, Ph.D., [facility] Director References: Available Upon Request. Multiples Of Median Cutoffs ?For AFP Elevations Leone ?? 2.5 ? Black ?2.8 IDD ? 2.0 ? Twins ?4.5 ?Abbreviation Definitions IDD - Insulin Dep Diabetes OSBR - Open Spina Bifida Risk For further inquiries contact [facility] at [phone]. This test was developed and its performance characteristics determined by [facility]. It has not been cleared or approved by the Food and Drug Administration. Performed at: ??[facility] [address] [place], [place] ??[id number] Trans Router: Elbert Villalta [facility], Phone: ??[phone] Specimen (Source)Anatomical Location / LateralityCollection Method / Volume Collection TimeReceived Time04/10/2025 11:16 AM EDT04/10/2025 11:22 AM EDT Narrative CLINISYNC - 04/14/2025 12:08 AM EDT PREGNANY N N LMP [id number] 1 21 N 1 Y 141 N [...] at: 01 =G ?[facility] ?? [address] [place], [place] ??[phone] ?? Kaitlyn Henry MD, IGP, APTIMA HPV, RFX 16/18,45Note.TBHComment: ?? TESTS ? RESULT ??FLAG ??UNITS ?REF RANGE ??LAB DIAGNOSIS: ?02 ?? NEGATIVE FOR INTRAEPITHELIAL LESION OR MALIGNANCY. Specimen adequacy: ?02 ?? Satisfactory for evaluation. No endocervical component is identified. Performed by: ? 02 ?? Chandu Camacho Weatherization Operations Manager (ASCP) . ? 02 Note: ? Note [...] High,A-Abnormal,AA-Critical Abnormal Performed at: 02 WB ?[facility] ?? [address] [place] ??[phone] ?? Kaitlyn Henry MD, HPV APTIMANegativeNegativeTBHComment: This nucleic acid amplification test detects fourteen high- risk HPV types (16,18,31,33,35,39,45,51,52,56,58,59,66,68) without differentiation. Performed at: ??=G - [facility] [address] ??[id number] Trans Router: Kaitlyn Henry MD, Phone: ??[phone] Performed at: ?? - [facility] [address] ??[id number] Trans Router: Kaitlyn Henry MD, Phone: ??[phone] Specimen (Source)Anatomical Location / LateralityCollection Method / Volume Collection TimeReceived Time04/06/2025 10:23 AM EDT04/06/2025 7:55 PM EDT Narrative CLINISYNC - 04/12/2025 7:08 PM EDT SPATULA-ALONE CERVIX Authorizing ProviderResult TypeResult StatusCorey River DOLAB BLOOD ORDERABLES Final ResultPerforming OrganizationAddressCity/State/ZIP CodePhone Number [facility] * Pap Smear (04/06/2025 12:00 AM EDT)Specimen [...] LABSOURCE:None givenNOMS LEGACY EXTERNAL LABSTATEMENT OF ADEQUACY:SEE NOTENOMS LEGACY EXTERNAL LABComment: Satisfactory for evaluation. Endocervical/transformation zone component present. INTERPRETATION/RESULT:Negative for intraepithelial lesion or malignancy.[facility] EXTERNAL LABCOMMENT:This Pap test has been evaluated with computer assisted technology.[facility] EXTERNAL LABCYTOTECHNOLOGIST:SEE [facility]OR[facility] EXTERNAL LABComment: NNO, CT(ASCP) CT screening location: [place] [address]. REVIEW INSPECTOR COLD WORKING:SEE [facility] EXTERNAL LABComment: JEH, CT(ASCP) CT screening location: [place] [address]. COMMENTSEE NOTENONORTHWEST HOSPITAL EXTERNAL LABComment: EXPLANATORY NOTE: The Pap is a screening test for cervical cancer. It is not a diagnostic test and is subject to false negative and false positive results. It is most reliable when a satisfactory sample, regularly obtained, is submitted with relevant clinical findings and history, and when the Pap result is evaluated along with historic and current clinical information. HPV MRNA E6/F7Hpibdqlw(A)Not DetectedNONORTHWEST HOSPITAL EXTERNAL LABComment: This test was performed using the APTIMA HPV Assay ([employer] This assay detects E6/E7 viral messenger RNA (mRNA) from 14 high-risk HPV types (16,18,31,33,35,39,45,51,52,56,58,59,66,68). The analytical performance characteristics of this assay have been determined by [employer]. The modifications have not been cleared or approved by the FDA. This assay has been validated pursuant to the CLIA regulations and is used for clinical purposes. Specimen (Source)Anatomical Location / LateralityCollection Method / Volume Collection TimeReceived Time06/26/2019 Narrative Authorizing ProviderResult TypeResult StatusAdela Xavier CNMECW LABSFinal ResultPerforming OrganizationAddressCity/State/ZIP CodePhone Number [facility] from Last 3 Months or Most Recently Relevant to Health Maintenance Additional Health Concerns Active ProblemsNoted DateDiagnosed DateOB Tjnfmhfbk90/08/2025 Insurance Care Teams Team MemberRelationshipSpecialtyStart DateEnd Date Kimmy Carey MD [address] [place] [address] PCP - GeneralFamily Medicine02/04/23
--- OUTSIDE RECORDS SUMMARY | 2025-07-03 08:02 | XMS_ITS | Clinical Summary ---
Author Organization [employer] tem Address [id number] [address] [place] [address] Care Team Providers Care Shipping Weigher Name Role Phone No Pcp, No Pcp Primary Care Provider Unavailabl e Allergies No known active allergies Medications MedicationSigDispense QuantityRefillsLast FilledStart DateEnd DateStatus no115/iron/folic acid ( 19 ORAL) Take by mouth.Active aspirin 81 mg Take 1 tablet (81 mg total) by mouth in the morning.Active Active Problems ProblemNoted DateDiagnosed DateIrritable bowel syndrome with constipation 01/21/2025POTS (postural orthostatic tachycardia syndrome)01/21/2025Microscopic bfjuvccke68/08/2022 Overview (05/22/2024): 01/19/22: Recent back pain, left [...] sooner if any problems. PVC's (premature ventricular contractions)07/11/20204342Uckrrtwyprpq37/28/2020 Estimated Date of ZdhohkqkAddiktpwLfd53/02/2026Based on Ultrasound Encounters DateTypeDepartmentCare QgymYyirkgiwgkf33/11/2025Orders Only Maternal- Medicine at [facility] [address] [place] [address] Ref Prov, Not In System 06/21/2025 2:00 PM ESTTelemedicine Maternal- Medicine at [facility] [address] [place] [address] Gill Mejia MD POTS (postural orthostatic tachycardia syndrome) (Primary Dx); Advanced maternal age, 1st , second trimester; PAC (premature atrial contraction); PVC's (premature ventricular contractions); 32 week06/20/2025Travelfrom Last 3 Months Family History Medical HistoryRelationNameCommentsHypertensionFatherKeith [...] alcohol)Stopped drinking this yearPHQ-2AnswerDate RecordedTotal Score1 4ChildcareAnswerDate AvfxcrnjMqwrtldzbYkhsdbg73/21/2020EmploymentAnswer Date WursuyidIvfsmobsmxWbejxxl45/21/2020Hunger ScreeningAnswerDate Recorded Within the past 12 months we worried whether our food would run out before we got money to buy more.Never True03/29/2025Within the past 12 months the food we bought just didn't last and we didn't have money to get more.Never True 03/29/2025Purpose - LifeAnswerDate RecordedPurpose and direction in lifeUnknown 1Estimated Date of ChertofuOabpmiajZlv29/02/2026ased on UltrasoundSex and Gender InformationValueDate RecordedSex Assigned at BirthNot on fileLegal IvmEylqvs83/21/2020 8:44 AM EDTGender IdentityNot on fileSexual OrientationNot on file Last Filed Vital Signs Vital SignReadingTime TakenCommentsBlood Lmpebmxl337/7509 1:47 PM EDT Onyla119303/29/2025 1:47 PM EDTTemperature--Respiratory Okxy4924 10:38 AM EDTOxygen Itjdgelzsc08%07/11/2020 9:51 AM ESTInhaled Oxygen Concentration-- Lxfekf91.9 kg (138 lb 9.6 oz)03/29/2025 1:47 PM HSBLjknai646.9 cm (5' 0.98 ) 03/29/2025 1:47 PM EDTBody Mass Index26. 1:47 PM EDT Plan of Treatment Health MaintenanceDue DateLast DoneCommentsAdult BMI Follow Up Plan2007 DTaP,Tdap and Td Vaccines (1 - Tdap)2008Influenza Ifnvspa3603/15/2025 05/05/2013Depression Vhcstripq72SV ( or age 60+ yrs) (1 - Risk 1-dose series)06/21/2025dult BMI Mcamemvsb06/15/2026 03/29/2025Tobacco Rxlmepqqx39/15/862086/Pap Smear809/ Medical Devices Not on file Procedures Procedure NamePriorityDate/TimeAssociated DiagnosisCommentsECHO COMPLETE WO EUAUULGCMhafgyx86/21/2025 2:30 PM EDTfrom Last 3 Months Results * Echo complete W/O contrast (04/04/2025 2:30 PM EDT)Anatomical RegionLaterality ModalityChestN/AUltrasound Narrative Authorizing ProviderResult TypeResult StatusNot In System Ref ProvCV ECHO ORDERABLESFinal Result from Last 3 Months Insurance * Guarantor: Sammi Chapa TypeRelation to PatientDate of PhoneBilling AddressPersonal/MhapnmAawx1990 [facility] [place] [address] Care Teams Team MemberRelationshipSpecialtyStart DateEnd Date No Pcp, [place] [address] [facility]/24
--- OUTSIDE RECORDS SUMMARY | 2025-07-03 08:02 | XMS_ITS | Encounter Summary ---
Author Organization [facility] Address [address] [place] [address] Care Team Providers Care Asbestos Siding Installer Name Role Phone Kimmy Carey MD Primary Care Provider [phone] Encounter Details DateTypeDepartmentCare Team (Latest Contact Info)Tpafjkjyxlc49/17/2025Telephone [facility] [address] [place] [address] Vignesh Holman DO [address] [place], [place] [id number] Social History Tobacco UseTypesPacks/DayYears UsedDateSmoking Tobacco: NeverSmokeless Tobacco: NeverAlcohol UseStandard Drinks/WeekCommentsYes0 (1 standard drink = 0.6 oz pure alcohol)1-5 drinks once a pqlfdR1098 Health LiteracyAnswerDate RecordedHow often do you need [...] relatives?Twice a week01/22/2024How often do you attend oriental orthodox or hinduism services?Never01/22/2024o you belong to any clubs or organizations such as oriental orthodox groups, unions, fraternal or athletic groups, or school groups?No 01/22/2024How often do you attend meetings of the clubs or organizations you belong to?Never01/22/2024re you , , , , never , or living with a partner?Tcnjrjb1901/22/2024UDIT-CAnswerDate RecordedQ1: How often do you have a [...] and heating?Not very hard01/22/2024HQ-2AnswerDate RecordedPatient Health Questionnaire-2 Ufvjm084Finmoab regional hospital [place] of Occupational Health - Occupational Stress QuestionnaireAnswerDate RecordedDo you feel stress - tense, restless, nervous, or anxious, or unable to sleep at night because your mind is troubled all the time - these days?Only a owkfko3101/22/2024Exercise Vital SignAnswerDate RecordedOn average, how many days [...] a alf (including now)?No01/22/2024 Estimated Date of McffufsjYhvtyxoyEqn57/02/2026ased on last menstrual period of 11/09/2024Sex and Gender InformationValueDate RecordedSex Assigned at BirthNot on fileLegal RaiMawqsz75/15/2023 7:12 PM EDTGender IdentityFemale 09/26/2022 7:12 PM EDTSexual UnpgnopgiflAcpwwyew54/22/2023 8:43 AM EDTdocumented as of this encounter Miscellaneous Notes * Telephone Encounter - Kendra Voss LPN - 06/30/2025 11:56 AM EST Patient call was returned and she was advised of NST/BPP to be done at 36 weeks we gave order for her to schedule as we are just doing for AMA, but to ease her mind if she would like to have done nowshe can. Patient states that she will do this now to ease her Anxiety. * Telephone Encounter - Kendra Voss LPN - 06/30/2025 8:06 AM EST Patient called the office and she asked for a return call. Patient call was returned and she was asking about the NST/BPP she wanted to make sure when she was to start this. Patient thought said 36 weeks but she is second guessing herself. Patient state that she will wait until then but is ok ifshe needs to start them earlier. Patient did ask if she is able to take colace for constipation andshe was advised she can and she can also use Miralax for this. PVU and advised would talk to provider and return call to her this afternoon when he is in. PVU documented in this encounter Plan of Treatment DateTypeDepartmentCare Team (Latest Contact Info)Rsprwqszmvz25/30/2025 9:20 AM ESTRoutine [facility] [address] [place] [phone] Marie Santiago PA [address] [place] [address] documented as of this encounter Goals GoalPatient Goal TypeAssociated ProblemsRecent ProgressPatient-Stated?Author Reminders Care PlanOB RemindersNoOpen Scheduling, Backgrounddocumented as of this encounter Visit Diagnoses Not on filedocumented in this encounter Additional Health Concerns Active ProblemsNoted DateDiagnosed DateOB Meuslwckt19/08/2025 documented as of this encounter Care Teams Team MemberRelationshipSpecialtyStart DateEnd Date Kimmy Carey MD [address] [place] [address] PCP - GeneralFamily Medicine02/04/23documented as of this encounter
--- OUTSIDE RECORDS SUMMARY | 2025-07-03 08:02 | XMS_ITS | Clinical Summary ---
Author Organization [facility] Address [address], [address] [place] [address] Care Team Providers Care Whiskey Regauger Name Role Phone Unavailable Primary Care Provider Unavailabl e Allergies No known active allergies Medications MedicationSigDispense QuantityRefillsLast FilledStart DateEnd DateStatus Vit-DSS-Fe Cbn-FA ( AD PO) Take by mouth dailyActive Multiple Vitamin (MULTIVITAMIN ADULT PO) Take by mouthActive VITAMIN D PO Take by mouthActive Durham-3 Fatty Acids (FISH OIL) 300 MG CAPS [...] weekCommentsNoSex and Gender InformationValueDate RecordedSex Assigned at TtoayTdfcws73/01/2025 8:52 AM EDTLegal SexFemale 12/02/2020 2:26 PM EDTGender YmsceufoJnzpwx09/01/2025 8:52 AM EDTSexual KejecpjxqsyAxrhajjr40/01/2025 8:52 AM EDT Last Filed Vital Signs Vital SignReadingTime TakenCommentsBlood Rigpkzmq692/7204/15/2024 3:09 PM EDT Xzbur022604/15/2024 3:09 PM EDTTemperature--Respiratory Pkyf8210 3:09 PM EDTOxygen Ddrozopefg09%04/15/2024 3:09 PM EDTInhaled Oxygen Concentration-- Bicwkh15.3 kg (122 lb)04/15/2024 3:09 PM RWDHahhox730.9 cm (5' 1 )04/15/2024 3:09 PM EDTBody Mass Index23.0504/15/2024 3:09 PM EDT Plan of Treatment Health MaintenanceDue DateLast PekdXaqikylhSbrofg01/13/1999Depression Screen 2001Varicella vaccine (1 of 2 - 13+ 2-dose series)2002HIV screen 2004Hepatitis C guqxiv0103/27/2007DTaP/Tdap/Td vaccine (1 - Tdap)2008 Hepatitis B vaccine (1 of 3 - 19+ 3-dose series)2008Pap smear2010 Cervical cancer sjdxqf0903/27/2019HPV (without or with Pap)2019Flu vaccine (#1)COVID-19 Vaccine [...] Chapa TypeRelation to PatientDate of BirthPhone Billing AddressPersonal/CsyyeoXklb1990 [facility] [address] MemberSubscriberPlan / Payer (Effective 2023-Present)Name:Sammi Chapa Relation to Subscriber:SelfName:Sammi Chapa Payer ID:[id number] (NAIC) Type:Not on file Address: [facility] [address] [place] [id number]
--- OUTSIDE RECORDS SUMMARY | 2025-07-03 08:02 | XMS_ITS | Encounter Summary ---
Author Organization [facility] Address [facility] [address] [place] [address] Care Team Providers Care Bobbin Winder Name Role Phone No Pcp, No Pcp Primary Care Provider Unavailabl e Encounter Details DateTypeDepartmentCare Team (Latest Contact Info)Lzthmhusqgu42/07/2025Travel Social History Tobacco UseTypesPacks/DayYears UsedDateSmoking Tobacco: NeverSmokeless Tobacco: NeverAlcohol UseStandard Drinks/WeekCommentsNot Currently0 (1 standard drink = 0.6 oz pure alcohol)Stopped drinking this yearPHQ-2AnswerDate RecordedTotal Omiep5044ChildcareAnswerDate GotfgjhsByyjhrqaqNtlfmxw65/21/2020Employment AnswerDate ZxxojrthUpbvqjyxxvTaftaba83/21/2020Hunger ScreeningAnswerDate RecordedWithin the past 12 months we worried whether our food would run out before we got money to buy more.Never True03/29/2025Within the past 12 months the food we bought just didn't last and we didn't have money to get more.Never True03/29/2025Purpose - LifeAnswerDate RecordedPurpose and direction in life Ljeuxhq98/08/2021Estimated Date of DuxpsmgrHrrczkznSri03/02/2026Based on UltrasoundSex and Gender InformationValueDate RecordedSex Assigned at BirthNot on fileLegal VykTlklbt81/21/2020 8:44 AM EDTGender IdentityNot on fileSexual OrientationNot on filedocumented as of this encounter Plan of Treatment Not on file documented as of this encounter Visit Diagnoses Not on filedocumented in this encounter Additional Health Concerns AssessmentNoted TimePHQ-9 Depression Total Score: 110 8:55 AM EDT documented as of this encounter Care Teams Team MemberRelationshipSpecialtyStart DateEnd Date No Pcp, [place] [address] PCP - GeneralFamily Medicine07/21/24documented as of this encounter
--- OUTSIDE RECORDS SUMMARY | 2025-07-03 08:02 | XMS_ITS | Encounter Summary ---
Author Organization [facility] tem Address [facility] [place] [address] Care Team Providers Care Hair Tinter Name Role Phone No Pcp, No Pcp Primary Care Provider Unavailabl e Encounter Details DateTypeDepartmentCare Team (Latest Contact Info)Kkgcocjvjuz37/11/2025Orders Only Maternal- Medicine at [facility] [address] [place] [id number] Ref Prov, [place] [address] Social History Tobacco UseTypesPacks/DayYears UsedDateSmoking Tobacco: NeverSmokeless Tobacco: NeverAlcohol UseStandard Drinks/WeekCommentsNot Currently0 (1 standard drink = 0.6 oz pure alcohol)Stopped drinking this yearPHQ-2AnswerDate RecordedTotal Edowb7384ChildcareAnswerDate IcaqnwguVenmmqhgbWnixouo06/21/2020Employment AnswerDate DefshcneUzodosuiojInkudhp51/21/2020Hunger ScreeningAnswerDate RecordedWithin the past 12 months we worried whether our food would run out before we got money to buy more.Never True03/29/2025Within the past 12 months the food we bought just didn't last and we didn't have money to get more.Never True03/29/2025Purpose - LifeAnswerDate RecordedPurpose and direction in life Omrkjmc18/08/2021Estimated Date of XmfalzfdLlqzpnnkUoo12/02/2026Based on UltrasoundSex and Gender InformationValueDate RecordedSex Assigned at BirthNot on fileLegal JwsAwyiah48/21/2020 8:44 AM EDTGender IdentityNot on fileSexual OrientationNot on filedocumented as of this encounter Plan of Treatment Not on file documented as of this encounter Procedures Procedure NamePriorityDate/TimeAssociated DiagnosisCommentsECHO COMPLETE WO TNGIUVSTTfvmzdw41/21/2025 2:30 PM EDTECG 12-YVEFIinmqrj09/11/2025 2:27 PM EDT documented in this encounter Results * Echo complete W/O contrast (04/04/2025 2:30 PM EDT)Anatomical RegionLaterality ModalityChestN/AUltrasound Narrative Authorizing ProviderResult TypeResult StatusNot In System Ref ProvCV ECHO ORDERABLESFinal Result * ECG 12 lead (02/22/2025 2:27 PM EDT) Narrative Authorizing ProviderResult TypeResult StatusNot In System Ref ProvECG ORDERABLES Final ResultPerforming OrganizationAddressCity/State/ZIP CodePhone Number MANUALLY TRANSCRIBED RESULTS documented in this encounter Visit Diagnoses Not on filedocumented in this encounter Additional Health Concerns AssessmentNoted TimePHQ-9 Depression Total Score: 8:55 AM EDT documented as of this encounter Care Teams Team MemberRelationshipSpecialtyStart DateEnd Date No Pcp, [place] [address] PCP - GeneralFamily Medicine07/21/24documented as of this encounter
--- OUTSIDE RECORDS SUMMARY | 2025-07-03 08:02 | XMS_ITS | Encounter Summary ---
Author Organization [facility] Address [address] [place] [address] Care Team Providers Care Vice President Of Software Engineering Name Role Phone Kimmy Carey MD Primary Care Provider [phone] Encounter Details DateTypeDepartmentCare Team (Latest Contact Info)Tksosumgqnx71/10/2025amboo flowsheet [facility] [address] [place] [address] Vignesh Holman DO [address] [place], [facility] Social History Tobacco UseTypesPacks/DayYears UsedDateSmoking Tobacco: NeverSmokeless Tobacco: NeverAlcohol UseStandard Drinks/WeekCommentsYes0 (1 standard drink = 0.6 oz pure alcohol)1-5 drinks once a tiwsfK3364 Health LiteracyAnswerDate RecordedHow often do you need [...] relatives?Twice a week01/22/2024How often do you attend moravian or jew services?Never01/22/2024o you belong to any clubs or organizations such as moravian groups, unions, fraternal or athletic groups, or school groups?No 01/22/2024How often do you attend meetings of the clubs or organizations you belong to?Never01/22/2024re you , , , , never , or living with a partner?Thsrdkc2401/22/2024UDIT-CAnswerDate RecordedQ1: How often do you have a [...] and heating?Not very hard01/22/2024HQ-2AnswerDate RecordedPatient Health Questionnaire-2 Myhhl392Finsalt [facility] [place] of Occupational Health - Occupational Stress QuestionnaireAnswerDate RecordedDo you feel stress - tense, restless, nervous, or anxious, or unable to sleep at night because your mind is troubled all the time - these days?Only a mhtavv4701/22/2024Exercise Vital SignAnswerDate RecordedOn average, how many days [...] homeless or living in a mcc (including now)?No01/22/2024 Estimated Date of AbmfohkbLgtpnxezDtb57/02/2026ased on last menstrual period of 11/09/2024Sex and Gender InformationValueDate RecordedSex Assigned at BirthNot on fileLegal OprThwujh67/15/2023 7:12 PM EDTGender IdentityFemale 09/26/2022 7:12 PM EDTSexual MtmzvskyppvUmwcmgdz87/22/2023 8:43 AM EDTdocumented as of this encounter Plan of Treatment DateTypeDepartmentCare Team (Latest Contact Info)Iechcwzoatn25/30/2025 9:20 AM ESTRoutine [facility] [address] [place] [address] Marie Santiago PA [address] [place] [address] documented as of this encounter Goals GoalPatient Goal TypeAssociated ProblemsRecent ProgressPatient-Stated?Author Reminders Care PlanOB RemindersNoOpen Scheduling, Backgrounddocumented as of this encounter Visit Diagnoses Not on filedocumented in this encounter Additional Health Concerns Active ProblemsNoted DateDiagnosed DateOB Cgzfxngsy26/08/2025 documented as of this encounter Care Teams Team MemberRelationshipSpecialtyStart DateEnd Date Kimmy Carey MD [address] [address] PCP - GeneralFamily Medicine02/04/23documented as of this encounter
--- NOTE | 2025-07-03 08:04 | US_ITS ---
[place] [id number] Patient Name: NORRIS GARDNER MRN: [id number] date: 1990 Sex: F Assigned Patient Location: [facility] Current Patient Location: [facility] Accession/Order Number: [id number] Exam Date: 07/03/2025 08:07 Report Date: 07/03/2025 08:31 At the request of: MARGOT RIVAS DO Procedure: US OB BPP w non-stress Biophysical profile. Reason for exam: Advanced maternal age COMPARISON: None TECHNIQUE: Transabdominal imaging of the gravid uterus was obtained. FINDINGS: The information [employer] reports a BPP of 8 out of 8. TAYA is normal at 19 cm. heart rate 167 bpm. US/US OB BPP w non-stress IMPRESSION: BPP 8 out of 8. Impression dictated by: Steve Lara Jr. DRolando 07/03/2025 8:31 AM Dictation Location: [place] Electronically authenticated by: [id number] Y Date: 07/03/2025 08:31
[2025-07-03 08:30] VITALS: BP 116/75; PULSE 93
== END 2025-07-03 08:53 | disposition home or self-care (01) ==
LOC: US 07:59 → FBC 08:00
PROVIDERS: Family Provider Family Medicine; Visit Provider Obstetrics & Gynecology
DX: O09.513 Supervision of elderly primigravida, third trimester (principal); Z3A.33 33 weeks gestation of pregnancy
CPT/HCPCS: 76818

== ENCOUNTER 2025-07-07 07:26 | Outpatient (OUT) | payer BC, SELFPAY ==
--- OUTSIDE RECORDS SUMMARY | 2025-06-23 13:00 | XMS_ITS | Encounter Summary ---
Author Organization [facility] Address [address] [place] [address] Care Team Providers Care Manufacturing Technologist Name Role Phone Kimmy Carey MD Primary Care Provider [phone] Reason for Visit * ReasonCommentsRoutine Visit Encounter Details DateTypeDepartmentCare Team (Latest Contact Info)Bfbrzewvgba01/10/2025 1:00 PM ESTRoutine [facility] [address] [place] [phone] Vignesh Holman DO [address] [place], [place] [id number] Primigravida of advanced maternal age in third trimester (HHS-HCC) (Primary Dx); Third trimester ([facility]); 32 weeks gestation of ([facility]); Hematuria, unspecified type Social History Tobacco UseTypesPacks/DayYears UsedDateSmoking Tobacco: NeverSmokeless Tobacco: NeverAlcohol UseStandard Drinks/WeekCommentsYes0 (1 standard drink = 0.6 oz pure alcohol)1-5 drinks once a [id number] Health LiteracyAnswerDate RecordedHow often do you need [...] relatives?Twice a week01/22/2024How often do you attend hinduism or yazdanism services?Never01/22/2024o you belong to any clubs or organizations such as hinduism groups, unions, fraternal or athletic groups, or school groups?No 01/22/2024How often do you attend meetings of the clubs or organizations you belong to?Never01/22/2024re you , , , , never , or living with a partner?Xrnqpfl8801/22/2024UDIT-CAnswerDate RecordedQ1: How often do you have a [...] and heating?Not very hard01/22/2024HQ-2AnswerDate RecordedPatient Health Questionnaire-2 Tuqqq553[facility] [place] of Occupational Health - Occupational Stress QuestionnaireAnswerDate RecordedDo you feel stress - tense, restless, nervous, or anxious, or unable to sleep at night because your mind is troubled all the time - these days?Only a oighms1001/22/2024Exercise Vital SignAnswerDate RecordedOn average, how many days [...] homeless or living in a alf (including now)?No01/22/2024 Estimated Date of BndgrebtFogetxljJwf22/02/2026ased on last menstrual period of 11/09/2024Sex and Gender InformationValueDate RecordedSex Assigned at BirthNot on fileLegal MolPgsztx15/15/2023 7:12 PM EDTGender IdentityFemale 09/26/2022 7:12 PM EDTSexual RrrapfskngvYodvzrfy04/22/2023 8:43 AM EDTdocumented as of this encounter Last Filed Vital Signs Vital SignReadingTime TakenCommentsBlood Fnssrrut384/7006/23/2025 1:04 PM EST Pulse--Temperature--Respiratory Rate--Oxygen Saturation--Inhaled Oxygen Concentration--Mxgwcg63.9 kg (154 lb)06/23/2025 1:04 PM ESTHeight--Body Mass [...] Date Noted Palpitations 07/11/2020 Tachycardia 08/11/2021 Miscarriage ([facility]) Irritable bowel syndrome with predominant constipation Resolved [...] Irritable bowel syndrome with predominant constipation Miscarriage ([facility]) Ovarian cyst 09/08 POTS (postural orthostatic tachycardia [...] nursing note reviewed. Exam conducted with a carpenter general present. Vitals: Estimated body mass index is 28.17 kg/m?? as calculated from the following: Height as of 24: 5' 2 . Weight as of this encounter: 154 lb. BP: 110/70 Patient's last menstrual period was 11/09/2024. Assessment/Plan ICD-10-CM 1. Third trimester ([facility]) Z34.93 2. 32 weeks gestation of ([facility]) Z3A.32 POCT urinalysis dipstick manually resulted Assessment/Plan [...] Plan of Treatment DateTypeDepartmentCare Team (Latest Contact Info)Dcuxklgeahe17/30/2025 9:20 AM ESTRoutine [facility] [address] [address] Marie Santiago PA [address] [place] [address] NameTypePriorityAssociated DiagnosesOrder ScheduleUS biophysical profile w non stress testImagingRoutine Primigravida of advanced maternal age in third trimester ([facility]) Expected: 06/23/2025 (Approximate), Expires: 12/22/2025Urine cultureMicrobiology Routine Hematuria, unspecified type Ordered: 06/23/2025documented as of this encounter Goals GoalPatient Goal TypeAssociated ProblemsRecent ProgressPatient-Stated?Author Reminders Care PlanOB RemindersNoOpen Scheduling, Backgrounddocumented as of this encounter Procedures Procedure NamePriorityDate/TimeAssociated DiagnosisCommentsPOCT URINALYSIS HDTPUCIAMwkycfg25/10/2025 1:04 PM EST 32 weeks gestation of ([facility]) documented in this encounter Results * [...] Location / LateralityCollection Method / VolumeCollection TimeReceived JutfHfsdl21/10/2025 1:04 PM EST Narrative Authorizing ProviderResult TypeResult StatusCorey River DOPOINT OF CARE TEST ENTER/EDIT ORDERABLESFinal Result documented in this encounter Visit Diagnoses Diagnosis Primigravida of advanced maternal age in third trimester ([facility])- Primary Third trimester ([facility]) state, incidental 32 weeks gestation of ([facility]) Hematuria, unspecified type documented in this encounter Additional Health Concerns Active ProblemsNoted DateDiagnosed DateOB Vemokyqld27/08/2025 documented as of this encounter Care Teams Team MemberRelationshipSpecialtyStart DateEnd Date Kimmy Carey MD [address] [place] [address] PCP - GeneralFamily Medicine02/04/23documented as of this encounter
--- OUTSIDE RECORDS SUMMARY | 2025-06-28 09:00 | XMS_ITS | Encounter Summary ---
Author Organization [facility] Address [address] [place] [address] Care Team Providers Care Metal Tester Name Role Phone Colleen Larios Primary Care Provider [phone] Reason for Visit * ReasonCommentsFollow-upPatient is here today for a 2 month follow up. Patient states she is feeling well. Patient states she is able to manage symptoms better with diet. 33 Weeks POTSPSVTPalpitationsOccasional Encounter Details DateTypeDepartmentCare Team (Latest Contact Info)Myrfdcxfqtp24/15/2025 9:00 AM ESTOffice Visit [facility] [address] [place] [address] Crow Corey MD [address] [place] [address] Palpitations (Primary Dx); Tachycardia; POTS (postural orthostatic tachycardia syndrome); Pure hypercholesterolemia; 33 weeks gestation of Social History Tobacco UseTypesPacks/DayYears UsedDateSmoking Tobacco: NeverSmokeless Tobacco: NeverAlcohol UseStandard Drinks/WeekCommentsNot Currently0 (1 standard drink = 0.6 oz pure alcohol)CommentsYesSex and Gender InformationValueDate RecordedSex Assigned at NbnzqFfazsb43/05/2025 3:28 PM EDTLegal SexFemale 01/29/2025 12:33 PM EDTGender YhthckwnCsopwl37/05/2025 3:28 PM EDTSexual OrientationHeterosexual or Kogjtftm42/05/2025 3:28 PM EDTdocumented as of this encounter Last Filed Vital Signs Vital SignReadingTime TakenCommentsBlood Nnjrbqxd453/7706/28/2025 8:49 AM EST Zqpkz37847/15/2025 8:49 AM ESTTemperature--Respiratory Rate--Oxygen Saturation 97%06/28/2025 8:49 AM ESTInhaled Oxygen Concentration--Tgmgth78.8 kg (156 lb) 06/28/2025 8:49 AM RSGEehrai232.5 cm (5' 2 )06/28/2025 8:49 AM ESTBody Mass Index28.5306/28/2025 8:49 AM ESTdocumented in this encounter Progress Notes * Crow Corey MD - 06/28/2025 9:00 AM EST Images from the original note were not included. [place] [facility] Note Reason for cardiology visit: Follow-up increasing heart rate and shortness of breath during and follow-up on echo result HPI: 06/28/2025 Patient is here today for follow-up visit. She reports that she is feeling very good. She reports that she is managing her symptoms of fast heart rate by diet. She notices that she has the palpitation more if she eats heavy meal or a lot of carbs therefore she has been eating instead more small meals and cutting down on carbs. She denies any chest pain or shortness of breath at rest or with exerti on. She denies orthopnea or paroxysmal nocturnal dyspnea or dizziness or legs edema. 04/23/2025 Patient is here today for follow-up [...] syndrome with constipation Patient was seen by pulley worker Dr. Tom Tavares at [facility] in the past and she wasdiagnosed [...] Medications[2] Last Recorded Vitals Visit Vitals BP 108/77 (BP Location: Right arm, Patient Position: Sitting) Pulse 102 Ht 1.575 m (5' 2 ) Wt 70.8 kg (156 lb) LMP 11/09/2024 (Approximate) SpO2 97% BMI 28.53 kg/m?? OB Status Smoking Status Never BSA 1.76 m?? Physical Examination: GENERAL: alert and oriented [...] aortic root dimension. Tilt table [facility]: Abnormal head upright tilt study. [...] with their primary care physician and/ or pulley worker as previously scheduled. Event monitor 02/26/2024 at [facility] in [place] - Predominant rhythm: NSR - Ectopic Atrial [...] most likely due to POTS exacerbated by , doing better by eating smaller and frequent meals Echo 03/25/2025 was totally normal 33 weeks History of POTS, she was followed in the past by [facility] cardiology in [place] History of PVCs History of hyperlipidemia, per [...] she may have some vasovagal reaction during delivery. But in general I think she should do well Follow-up with me in 4 months or sooner if needed Crow Corey MD,[facility] [1] Family History Problem Relation Name Age of Onset Other (atria flutter) Mother Hyperlipidemia Mother Hypertension Father [2] Current Outpatient Medications: aspirin 81 mg EC tablet, Take 81 mg by mouth in the morning., Disp: , Rfl: 8-BYNY-EBBHX ACID-OM3 ORAL, Take 1 tablet by mouth in the morning., Disp: , Rfl: documented in this encounter Plan of Treatment Not on file documented as of this encounter Visit Diagnoses Diagnosis Palpitations- Primary Tachycardia Unspecified tachycardia POTS (postural orthostatic tachycardia syndrome) Unspecified tachycardia Pure hypercholesterolemia 33 weeks gestation of documented in this encounter Care Teams Team MemberRelationshipSpecialtyStart DateEnd Date Colleen Larios [address] [place] [address] [facility]02/22/25documented as of this encounter
--- OUTSIDE RECORDS SUMMARY | 2025-07-07 07:29 | XMS_ITS | Encounter Summary ---
Author Organization [facility] Address [address] [place] [place] [address] Care Team Providers Care Choke Reamer Name Role Phone Kimmy Carey MD Primary Care Provider [phone] Encounter Details DateTypeDepartmentCare Team (Latest Contact Info)Ewzbleqaraq64/20/2025linisync Result Encounter [facility] Unsolicited Margot Holman, DO [address] [place], [place] [id number] Social History Tobacco UseTypesPacks/DayYears UsedDateSmoking Tobacco: NeverSmokeless Tobacco: NeverAlcohol UseStandard Drinks/WeekCommentsYes0 (1 standard drink = 0.6 oz pure alcohol)1-5 drinks once a [id number] Health LiteracyAnswerDate RecordedHow often do you need [...] relatives?Twice a week01/22/2024How often do you attend presybeterian or mu-ism services?Never4Do you belong to any clubs or organizations such as presybeterian groups, unions, fraternal or athletic groups, or school groups?No 01/22/2024How often do you attend meetings of the clubs or organizations you belong to?Never01/22/2024re you , , , , never , or living with a partner?Ydmxgky3501/22/2024UDIT-CAnswerDate RecordedQ1: How often do you have a [...] and heating?Not very hard01/22/2024HQ-2AnswerDate RecordedPatient Health Questionnaire-2 Lmvba713Finhighland [facility] [place] of Occupational Health - Occupational Stress QuestionnaireAnswerDate RecordedDo you feel stress - tense, restless, nervous, or anxious, or unable to sleep at night because your mind is troubled all the time - these days?Only a ehrfus6501/22/2024Exercise Vital SignAnswerDate RecordedOn average, how many days [...] homeless or living in a detention (including now)?No01/22/2024 Estimated Date of WtljhmmeUvihxdftBgb10/02/2026ased on last menstrual period of 11/09/2024Sex and Gender InformationValueDate RecordedSex Assigned at BirthNot on fileLegal UrxFjchxg54/15/2023 7:12 PM EDTGender IdentityFemale 09/26/2022 7:12 PM EDTSexual TptgcqyppteEjljmbaz30/22/2023 8:43 AM EDTdocumented as of this encounter Plan of Treatment DateTypeDepartmentCare Team (Latest Contact Info)Dpcnyhfuhbc80/30/2025 9:20 AM ESTRoutine [facility] [address] [place] [phone] Marie Santiago PA [address] [place], [place] [phone] documented as of this encounter Goals GoalPatient Goal TypeAssociated ProblemsRecent ProgressPatient-Stated?Author Reminders Care PlanOB RemindersNoOpen Scheduling, Backgrounddocumented as of this encounter Procedures Procedure NamePriorityDate/TimeAssociated DiagnosisCommentsUS OB BPP W NON-KMDQEB4607/03/2025 8:31 AM EST documented in this encounter Results * US OB BPP W NON-STRESS (07/03/2025 8:31 AM EST)Anatomical Region LateralityModalityOtherSpecimen (Source)Anatomical Location / Laterality Collection Method / VolumeCollection TimeReceived Time07/03/2025 8:31 AM EST Narrative 07/03/2025 8:34 AM EST [facility] ?[address] ? [place] [address] ? Ultrasound Report ? Signed ? Patient: MARIANA GARDNERISTINHe Herbert ?MR#: [id number] ?? : 1990 ?Acct:[id number] ?? Age/Sex: 35 / F ?ADM Date: 12/20/25 ?? Loc: [facility] ??250-1 ? Attending Dr: Margot Holman D.O. ? Ordering Physician: Margot Holman D.O. ?? Date of Service: 07/03/25 ?? Procedure(s): US OB BPP w non-stress ?? Accession Number(s): [id number] ? cc: Margot Holman D.O.; Physician,Non-Staff [place] ? [facility] ? [address] ? [place] [address] ? Patient Name: ?? SAMMI GARDNER ? MRN: [facility]:[id number] ? date: 1990 ?Sex: F ?? Assigned Patient Location: [facility] ?? Current Patient Location: FB ?? Accession/Order Number: [id number] ?? Exam Date: 07/03/2025 ??08:07 ?Report Date: 07/03/2025 ??08:31 ? At the request of: ?? MARGOT ??RIVER ??DO ? Procedure: ??US OB BPP w non-stress ? Biophysical profile. ? Reason for exam: Advanced maternal age ? COMPARISON: None ? TECHNIQUE: Transabdominal imaging of the gravid uterus was obtained. ? FINDINGS: The bargeman reports a BPP of 8 out of 8. ??TAYA is normal at 19 ?? cm. ?? heart rate 167 bpm. ? US/US OB BPP w non-stress ?? IMPRESSION: BPP 8 out of 8. ? Impression dictated by: Steve Lara Jr., D.O. ??07/03/2025 8:31 AM ? Dictation Location: [facility]--18 ? Electronically authenticated by: [id number] ??Y ?? Date: 07/03/2025 ??08:31 ? Dictated By: ?Steve Lara M.D. ? Signed By: ?07/03/25 0834 ? DD/ 0831 ? TD/TT: ? Pluck Trimmer: Procedure Note Radiology, Radiologist, MD - 07/03/2025 The [place] [id number] Ultrasound Report Signed Patient: [facility]ARDNER [facility]#: [id number] : 1990Acct:[id number] Age/Sex: 35 / FADM Date: 07/03/25 Loc: [facility] 250-[address]: Margot Holman D.O. Ordering Physician: Margot Holman D.O. Date of Service: 07/03/25 Procedure(s): US OB BPP w non-stress Accession Number(s): [id number] cc: Margot Holman D.O.; Physician,Non-Staff [place] [address] Patient Name: SAMMI GARDNER MRN: [facility]:[id number] date: 1990 Sex: F Assigned Patient Location: [facility] Current Patient Location: [facility] Accession/Order Number: [id number] Exam Date: 07/03/2025 08:07 Report Date: 07/03/2025 08:31 At the request of: MARGOT HOLMAN DO Procedure: US OB BPP w non-stress Biophysical profile. Reason for exam: Advanced maternal age COMPARISON: None TECHNIQUE: Transabdominal imaging of the gravid uterus was obtained. FINDINGS: The bargeman reports a BPP of 8 out of 8. TAYA is normal at19 cm. heart rate 167 bpm. US/US OB BPP w non-stress IMPRESSION: BPP 8 out of 8. Impression dictated by: Steve Lara Jr., D.O. 07/03/2025 8:31 AM Dictation Location: [place] [address] Electronically authenticated by: [id number] Y Date: 508:31 Dictated By: Steve Lara M.D. Signed By:07/03/2534 DD/ 0 TD/TT: Pluck Trimmer: Authorizing ProviderResult TypeResult StatusCorey River DOCLINISYNC IMAGINGFinal Result documented in this encounter Visit Diagnoses Not on filedocumented in this encounter Additional Health Concerns Active ProblemsNoted DateDiagnosed DateOB Auwxxrqbv83/08/2025 documented as of this encounter Care Teams Team MemberRelationshipSpecialtyStart DateEnd Date Kimmy Carey MD [address] [place] [address] PCP - GeneralFamily Medicine7/24/23documented as of this encounter
--- OUTSIDE RECORDS SUMMARY | 2025-07-07 07:29 | XMS_ITS | Clinical Summary ---
Author Organization [facility] Address [address] [place] [address] Care Team Providers Care Lead Game Designer Name Role Phone Kimmy Carey MD Primary Care Provider [phone] Allergies No known active allergies Medications MedicationSigDispense QuantityRefillsLast FilledStart DateEnd DateStatus MV-Min-Fe Fum-FA-DHA ( 1 PO) Take 1 tablet by mouth DailyActive aspirin 81 MG EC tablet Take 81 mg by mouth DailyActive Active Problems ProblemNoted DateDiagnosed HugbJyiinojvlcw01/28/1951Qcsowagdzuoq59/28/2020 Miscarriage ([facility])Irritable bowel syndrome with predominant constipation Estimated Date of AkxnoyzsCwijxnabGzz86/02/2026Based on last menstrual period of 11/09/2024 Encounters DateTypeDepartmentCare XqxmXxszfinzpnv10/24/1159Ifnsod72/20/2025Clinisync Result Encounter [facility] External Department Unsolicited Margot Holman, 06/30/2025Telephone [facility] [place] [facility] [place] [address] Margot Holman, 06/23/2025 1:00 PM ESTRoutine [facility] [place] [facility] [address] [place] [address] Margot Holman, DO Primigravida of advanced maternal age in third trimester ([facility]) (Primary Dx); Third trimester ([facility]); 32 weeks gestation of ([facility]); Hematuria, unspecified type12/10/2025Bamboo flowsheet [facility] [place] [facility] [address] [address] Margot Holman, DO 06/16/20250047Izzlwx30/01/2025bstract [facility] [place] [facility] [address] [place] [address] Margot Holman, DO 06/08/2025 11:20 AM ESTRoutine [facility] [place] [facility] [address] [place] [address] Margot Holman, DO 30 weeks gestation of ([facility]); Third trimester ([facility])06/08/2025 10:30 AM ESTAncillary Procedure [facility] [place] [facility] [address] [place] [address] size inconsistent with dates ([facility])06/02/20256931Lplisb80/11/2025 9:40 AM ESTRoutine [facility] [place] [facility] [address] [address] Margot Holman, DO 28 weeks gestation of ([facility]); Third trimester ([facility]); size inconsistent with dates ([facility])05/25/2025amboo flowsheet [facility] [place] [facility] [address] [address] Margot Holman, DO 05/24/2025Telephone [facility] [place] [facility] [address] [place] [address] Manda Ojeda MA 05/18/20255231Ivnhjb38/23/2025linisync Result Encounter [facility]OMS External Department Unsolicited Margot Holman, DO 05/05/2025 10:50 AM EDTRoutine [facility] [place] [facility] [address] [place] [address] Margot Holman, DO Second trimester ([facility]); 25 weeks gestation of ([facility]); Vaginal discharge; Diabetes mellitus vlrusyqva55/22/2025amboo flowsheet [facility] [place] [facility] [address] [address] Margot Holman, DO 04/30/2025Telephone [facility] [place] [facility] [address] [place] [address] Margot Holman, DO 04/28/20255183Suxxky74/14/2025Telephone [facility] [place] [facility] [address] [place] [address] Margot Holman, DO 04/20/2025Orders Only [facility] [place] [facility] [address] [place] [address] Lynne Ayers MA 5Clinisync Result Encounter [facility]OMS External Department Unsolicited Margot Holman, DO 04/07/2025Telephone [facility] [place] [facility] [address] [address] Margot Holman, DO from Last 3 Months Immunizations ImmunizationAdministration DatesNext [...] 0.6 oz pure alcohol)1-5 drinks once a vuuhvO6260 Health LiteracyAnswerDate RecordedHow often do you need [...] relatives?Twice a week01/22/2024How often do you attend congregation or samaritan services?Never01/22/2024o you belong to any clubs or organizations such as congregation groups, unions, fraternal or athletic groups, or school groups?No 01/22/2024How often do you attend meetings of the clubs or organizations you belong to?Never01/22/2024re you , , , , never , or living with a partner?Lgohgbb0101/22/2024UDIT-CAnswerDate RecordedQ1: How often do you have a [...] and heating?Not very hard01/22/2024HQ-2AnswerDate RecordedPatient Health Questionnaire-2 Afest939[facility] [place] of Occupational Health - Occupational Stress QuestionnaireAnswerDate RecordedDo you feel stress - tense, restless, nervous, or anxious, or unable to sleep at night because your mind is troubled all the time - these days?Only a widnrf3101/22/2024Exercise Vital SignAnswerDate RecordedOn average, how many days [...] were you homeless or living in a chcf (including now)?No01/22/2024 Estimated Date of CtkkvriaXerosuoePpt79/02/2026ased on last menstrual period of 11/09/2024Sex and Gender InformationValueDate RecordedSex Assigned at BirthNot on fileLegal FuwPbooqb43/15/2023 7:12 PM EDTGender IdentityFemale 09/26/2022 7:12 PM EDTSexual OtddcjjgxggJqelsztc55/22/2023 8:43 AM EDT Last Filed Vital Signs Vital SignReadingTime TakenCommentsBlood Tnpoyyti039/7006/23/2025 1:04 PM EST Hzalr7777/01/2024 9:31 AM EDTTemperature--Respiratory Rate--Oxygen Uhamwvvmhk32% 05/15/2024 9:31 AM EDTInhaled Oxygen Concentration--Yxcqkc08.9 kg (154 lb) 06/23/2025 1:04 PM AAXHutyog196.5 cm (5' 2 )05/15/2024 9:31 AM EDTBody Mass Index28.17107/15/2023 9:31 AM EDT Plan of Treatment DateTypeDepartmentCare Team (Latest Contact Info)Trsraltzavh95/30/2025 9:20 AM ESTRoutine [facility] [place] [facility] [address] [address] Marie Santiago PA [address] [place] [address] Health MaintenanceDue DateLast DoneCommentsInfluenza Vaccine (#1)03/15/2025 05/05/2013Cervical Cancer Nqopnlgws70/23/2026HPV/Uhotug99/Pap Smear/, 12/26/2021, 12/26/2021neumococcal Vaccine: Pediatrics (0 to 5 Years) and At-Risk Patients (6 to 64 Years)Aged OutNo longer eligible based on patient's age to complete this topic Goals GoalPatient Goal TypeAssociated ProblemsRecent ProgressPatient-Stated?Author Reminders Care PlanOB RemindersNoOpen Scheduling, Background Procedures Procedure NamePriorityDate/TimeAssociated DiagnosisCommentsUS OB BPP W NON-MESHKZ2807/03/2025 8:31 AM EST URINARY TRACT INFECTION (HTRX)Kghrqpr0406/23/2025 3:32 PM EST POCT URINALYSIS NKKPFUXWOdlglor87/10/2025 1:04 PM EST 32 weeks gestation of ([facility]) POCT URINALYSIS NXCICNLAOsgkkee07/25/2025 11:55 AM EST 30 weeks gestation of ([facility]) Third trimester ([facility]) US OB FOLLOW UP TRANSABDOMINAL EXLSDRYTAmmhhoc97/25/2025 10:42 AM EST size inconsistent with dates ([facility]) GLUCOSE TOLERANCE, 1 RDCDYlglbcn43/11/2025 10:39 AM EST Diabetes mellitus screening PSMKngnnma36/11/2025 10:39 AM EST Diabetes mellitus screening CBC (INCLUDES DIFF/PLT)Xtpczrl9505/25/2025 10:39 AM EST Second trimester ([facility]) POCT URINALYSIS GVHGPRLRAccidvx15/11/2025 9:54 AM EST 28 weeks gestation of ([facility]) GLUCOSE 1 QNCTXjoliye93/23/2025 8:43 AM EDT ALL CBC WITH AUTO XDVEKigbsle41/23/2025 8:43 AM EDT POCT URINALYSIS FJQRFGTQIbesitu42/22/2025 11:10 AM EDT 25 weeks gestation of ([facility]) AFP, SERUM, OPEN SPINA NUGICJTycrbdd84/27/2025 11:16 AM EDT PAP STZIILanbioi95/23/2025 12:00 AM EDTQ - THINPREP(R) TIS AND HPV MRNA E6/E7 RFL HPV 16,18/24Ndqfhkb10/13/2019 from Last 3 Months or Most Recently Relevant to Health Maintenance Results * US OB BPP W NON-STRESS (07/03/2025 8:31 AM EST)Anatomical Region LateralityModalityOtherSpecimen (Source)Anatomical Location / Laterality Collection Method / VolumeCollection TimeReceived Time07/03/2025 8:31 AM EST Narrative 07/03/2025 8:[address] [facility] ?[address] ? [place] [address] ? Ultrasound Report ? Signed ? Patient: MARIANA CHAPAISTINHe Herbert ?MR#: [id number] ?? : 1990 ?Acct:[id number] ?? Age/Sex: 35 / F ?ADM Date: 12/20/25 ?? Loc: [facility] ??250-1 ? Attending Dr: Margot Holman D.O. ? Ordering Physician: Margot Holman D.O. ?? Date of Service: 07/03/25 ?? Procedure(s): US OB BPP w non-stress ?? Accession Number(s): [id number] ? cc: Margot Holman D.O.; Physician,Non-Staff Vinny ? [facility] ? [address] ? [place] [address] ? Patient Name: ?? SAMMI CHAPA ? MRN: [facility]:[id number] ? date: 1990 ?Sex: F ?? Assigned Patient Location: FB ?? Current Patient Location: FB ?? Accession/Order Number: [id number] ?? Exam Date: 07/03/2025 ??08:07 ?Report Date: 07/03/2025 ??08:31 ? At the request of: ?? MARGOT ??RIVER ??DO ? Procedure: ??US OB BPP w non-stress ? Biophysical profile. ? Reason for exam: Advanced maternal age ? COMPARISON: None ? TECHNIQUE: Transabdominal imaging of the gravid uterus was obtained. ? FINDINGS: The hand shoes sewer reports a BPP of 8 out of 8. ??TAYA is normal at 19 ?? cm. ?? heart rate 167 bpm. ? US/US OB BPP w non-stress ?? IMPRESSION: BPP 8 out of 8. ? Impression dictated by: Steve Lara Jr., D.O. ??07/03/2025 8:31 AM ? Dictation Location: [facility]--18 ? Electronically authenticated by: [id number] ??Y ?? Date: 07/03/2025 ??08:31 ? Dictated By: ?Steve Lara M.D. ? Signed By: ?07/03/25 0834 ? DD/ 0831 ? TD/TT: ? Oral And Maxillofacial Pathologist: Procedure Note Radiology, Radiologist, MD - 07/03/2025 [place] [address] Ultrasound Report Signed Patient: SAMMI CHAPA [facility]#: [id number] : 1990Acct:[id number] Age/Sex: 35 / FADM Date: 07/03/25 Loc: [facility] 250-[address]: Margot Holman D.O. Ordering Physician: Margot Holman D.O. Date of Service: 07/03/25 Procedure(s): US OB BPP w non-stress Accession Number(s): [id number] cc: Margot Holman D.O.; Physician,Non-Staff [place] [address] Patient Name: SAMMI CHAPA MRN: [facility]:[id number] date: 1990 Sex: F Assigned Patient Location: [facility] Current Patient Location: [facility] Accession/Order Number: [id number] Exam Date: 07/03/2025 08:07 Report Date: 07/03/2025 08:31 At the request of: MARGOT HOLMAN DO Procedure: US OB BPP w non-stress Biophysical profile. Reason for exam: Advanced maternal age COMPARISON: None TECHNIQUE: Transabdominal imaging of the gravid uterus was obtained. FINDINGS: The hand shoes sewer reports a BPP of 8 out of 8. TAYA is normal at19 cm. heart rate 167 bpm. US/US OB BPP w non-stress IMPRESSION: BPP 8 out of 8. Impression dictated by: Steve Lara Jr., D.O. 07/03/2025 8:31 AM Dictation Location: [place] [address] Electronically authenticated by: [id number] Y Date: 508:31 Dictated By: Steve Lara M.D. Signed By:07/03/25 0834 DD/ TD/TT: Oral And Maxillofacial Pathologist: Authorizing ProviderResult TypeResult StatusCorey River DOCLINISYNC IMAGINGFinal Result * URINARY TRACT INFECTION (HTRX) (06/23/2025 3:32 PM EST)ComponentValueRef Range Test MethodAnalysis TimePerformed AtPathologist SignatureACINETOBACTER QNILPGZY025.961 - 24.689 ppm06/24/2025 8:25 AM ESTHealthTrackRx at LabPort ACINETOBACTER BAUMANIINot Cthrztza15.961 - 24.689 ppm06/24/2025 8:25 AM EST [facility] at LabPortCITROBACTER GIQOISBK691.000 - 32.015 ppm06/24/2025 8:25 AM ESTHealthTrackRx at LabPortCITROBACTER FREUNDIINot Dehiishz11.000 - 32.015 ppm06/24/2025 8:25 AM ESTHealthTrackRx at LabPortENTEROBACTER AEROGENES, RVMRBSX028.000 - 32.290 ppm06/24/2025 8:25 AM ESTHealthTrackRx at LabPortENTEROBACTER AEROGENES, CLOACAENot Ymuebbaz98.000 - 32.290 ppm 06/24/2025 8:25 AM ESTHealthTrackRx at LabPortENTEROCOCCUS FAECALIS, FAECIUM0 26.000 - 33.043 ppm06/24/2025 8:25 AM ESTHealthTrackRx at LabPortENTEROCOCCUS FAECALIS, FAECIUMNot Qdbyqubb94.000 - 33.043 ppm06/24/2025 8:25 AM EST [facility] at LabPortESCHERICHIA PPDW382.000 - 28.500 ppm06/24/2025 8:25 AM ESTHealthTrackRx at LabPortESCHERICHIA COLINot Hstkhvco91.000 - 28.500 ppm 06/24/2025 8:25 AM ESTHealthTrackRx at LabPortKLEBSIELLA PNEUMONIAE, OXYTOCA0 23.000 - 31.865 ppm06/24/2025 8:25 AM ESTHealthTrackRx at LabPortKLEBSIELLA PNEUMONIAE, OXYTOCANot Vxquupqc06.000 - 31.865 ppm06/24/2025 8:25 AM EST [facility] at LabPortMORGANELLA RCKMCVKQ541.961 - 24.689 ppm06/24/2025 8:25 AM ESTHealthTrackRx at LabPortMORGANELLA MORGANIINot Vswkolqb22.961 - 24.689 ppm06/24/2025 8:25 AM ESTHealthTrackRx at LabPortPROTEUS MIRABILIS, VULGARIS0 23.000 - 28.500 ppm06/24/2025 8:25 AM ESTHealthTrackRx at LabPortPROTEUS MIRABILIS, VULGARISNot Mhskqmyp86.000 - 28.500 ppm06/24/2025 8:25 AM EST [facility] at LabPortPSEUDOMONAS CCHYYXUTCM981.000 - 31.801 ppm06/24/2025 8:25 AM ESTHealthTrackRx at LabPortPSEUDOMONAS AERUGINOSANot Dvrokpsg42.000 - 31.801 ppm06/24/2025 8:25 AM ESTHealthTrackRx at LabPortSTAPHYLOCOCCUS AUREUS0 26.000 - 31.595 ppm06/24/2025 8:25 AM ESTHealthTrackRx at [facility]Port STAPHYLOCOCCUS AUREUSNot Jxnznsmq21.000 - 31.595 ppm06/24/2025 8:25 AM EST [facility] at LabPortSTREPTOCOCCUS AGALACTIAE (GROUP B STREP)026.000 - 32.435 ppm06/24/2025 8:25 AM ESTHealthTrackRx at LabPortSTREPTOCOCCUS AGALACTIAE (GROUP B STREP)Not Gvlexhtc43.000 - 32.435 ppm06/24/2025 8:25 AM ESTHealthTrackRx at LabPortCANDIDA ALBICANS, PARAPSILOSIS, HXCUDYZIRW649.000 - 30.347 ppm06/24/2025 8:25 AM ESTHealthTrackRx at LabPortCANDIDA ALBICANS, PARAPSILOSIS, TROPICALISNot Wpqexgys02.000 - 30.347 ppm06/24/2025 8:25 AM EST [facility] at LabPortCANDIDA FLLVYBNT966.000 - 31.618 ppm06/24/2025 8:25 AM ESTHealthTrackRx at LabPortCANDIDA GLABRATANot Hgwxxide29.000 - 31.618 ppm 06/24/2025 8:25 AM ESTHealthTrackRx at LabPortCANDIDA FHDDBL478.000 - 30.873 ppm06/24/2025 8:25 AM ESTHealthTrackRx at LabPortCANDIDA KRUSEINot Detected 23.000 - 30.873 ppm06/24/2025 8:25 AM ESTHealthTrackRx at LabPortSERRATIA UCYDLPMMUO488.000 - 31.581 ppm06/24/2025 8:25 AM ESTHealthTrackRx at [facility]Port SERRATIA MARCESCENSNot Mdufnimn00.000 - 31.581 ppm06/24/2025 8:25 AM EST [facility] at LabPortSTREPTOCOCCUS PYOGENES (GROUP A STREP)019.961 - 24.689 ppm06/24/2025 8:25 AM ESTHealthTrackRx at LabSt. [facility] Mercy HospitalSTREPTOCOCCUS PYOGENES (GROUP A STREP)Not Zwklfudt38.961 - 24.689 ppm06/24/2025 8:25 AM ESTHealthTrackRx [facility] HospitalSTAPHYLOCOCCUS EPIDERMIDIS, HAEMOLYTICUS, LUGDUNENSIS, SAPROPHYTICUS (QMSJV057.961 - 24.689 ppm06/24/2025 8:25 AM ESTHealthTrackRx at LabSt[facility] STAPHYLOCOCCUS EPIDERMIDIS, HAEMOLYTICUS, LUGDUNENSIS, SAPROPHYTICUS (URINANot Tnsvbuvf42.961 - 24.689 ppm06/24/2025 8:25 AM ESTHealthTrackRx [address] [facility] STAPHYLOCOCCUS EPIDERMIDIS, HAEMOLYTICUS, LUGDUNENSIS, SAPROPHYTICUS (URINA0 19.961 - 24.689 ppm06/24/2025 8:25 AM ESTHealthTrackRx at [facility]St[facility] STAPHYLOCOCCUS EPIDERMIDIS, HAEMOLYTICUS, LUGDUNENSIS, SAPROPHYTICUS (URINANot Bzsufeze42.961 - 24.689 ppm06/24/2025 8:25 AM ESTHealthTrackRx at [facility] Specimen (Source)Anatomical Location / LateralityCollection Method / Volume Collection TimeReceived DhspZcaii40/10/2025 3:32 PM EST06/24/2025 2:14 AM EST Narrative Authorizing ProviderResult TypeResult StatusSammi Briones NPLAB BLOOD ORDERABLESFinal ResultPerforming OrganizationAddressCity/State/ZIP CodePhone Number [facility]St[facility] [address] [address] * (ABNORMAL) POCT urinalysis dipstick manually resulted (06/23/2025 1:04 PM EST) Only the most recent of4 resultswithin the time period is included. ComponentValueRef [...] Location / LateralityCollection Method / VolumeCollection TimeReceived DbvwYvwiq94/10/2025 1:04 PM EST Narrative Authorizing ProviderResult TypeResult [...] Irizarry MD Authorizing ProviderResult TypeResult StatusCorey [place] [facility] US PROCEDURES Final Result * Glucose tolerance, [...] StatusCorey [place] DOLAB BLOOD ORDERABLES Final ResultPerforming OrganizationAddressty/State/ZIP CodePhone Number CLINIS[facility]NC [facility] * (ABNORMAL) ALL CBC WITH AUTO DIFF (05/06/2025 8:43 AM EDT)ComponentValueRef RangeTest MethodAnalysis TimePerformed AtPathologist SignatureTBH WBC9.54.0 - 11.0 10 3/uLTBHTBH RBC3.75(L)4.20 - 5.40 10 6/uLTBHTBH HGB12.712.0 - 16.0 g/dL TBHTBH HCT37.636.0 - 48.0 %TBHTBH OES002.3(H)81.0 - 99.0 fLTBHTBH MCH33.926.7 - 34.0 pgTBHTBH MCHC33.829.9 - 35.2 g/dLTBHTBH RDW12.911.0 - 15.0 %TBHTBH PLT 455982 - 450 10 3/uLTBHTBH MPV8.9(L)9.5 - 13.5 [...] [place] DOCLINISYNCFinal Result Performing OrganizationAddressCity/State/ZIP CodePhone Number [facility]ITALSHANNANUNC [facility] * AFP, SERUM, OPEN SPINA BIFIDA (04/10/2025 11:16 AM EDT)ComponentValueRef Range Test MethodAnalysis TimePerformed AtPathologist SignatureRESULTSReport.TBHTEST RESULTS:*Screen Negative*.TBHGEST. AGE ON COLLECTION DATE21.7. weeksTBHGESTAT. AGE BASED ONLMP.TBHComment: Recalculations are not recommended when gestational dating by LMP and ultrasound are within 10 days. MATERNAL AGE AT EDD36.3. yrTBHRACECaucasian.XYNHLVBNX039. lbsTBHINSULIN DEP DIABETESNo.TBHMULTIPLE GESTATIONNo.TBHAFP OEETW371.6. ng/mLTBHAFP MOM1.48.TBH OSBR RISK 1 OL6901.TBHINTERPRETATIONComment.TBHComment: Interpretation: Screen Negative This result is screen [...] Customer Services to discuss available options. ??The [employer] [place] [employer] recommends amniocentesis be offered to women age 35 and older. COMMENT:Comment.TBHComment: Jenna Ennis, Ph.D., [facility] Director References: Available Upon Request. Multiples Of Median Cutoffs ?For AFP Elevations Leone ?? 2.5 ? Black ?2.8 IDD ? 2.0 ? Twins ?4.5 ?Abbreviation Definitions IDD - Insulin Dep Diabetes OSBR - Open Spina Bifida Risk For further inquiries contact [employer] [facility] at [phone]. This test was developed and its performance characteristics determined by [employer]. It has not been cleared or approved by the Food and Drug Administration. Performed at: ??[facility] - [facility] [place], [place] ??[phone] Vest Front Presser: [facility], Phone: ??[phone] Specimen (Source)Anatomical Location / LateralityCollection Method / Volume Collection TimeReceived Time04/10/2025 11:16 AM EDT04/10/2025 11:22 AM EDT Narrative CLINISYNC - 04/14/2025 12:08 AM EDT PREGNANY N N LMP [id number] 1 21 N 1 Y 141 N N N N N White/ Authorizing ProviderResult TypeResult StatusCorey [place] DOLAB BLOOD ORDERABLES Final ResultPerforming OrganizationAddressCity/State/ZIP CodePhone Number CLINCHRISTOPHE [facility] * Pap Smear (04/06/2025 12:00 AM EDT)Specimen [...] LABSOURCE:None givenNOMS LEGACY EXTERNAL LABSTATEMENT OF ADEQUACY:SEE NOTENOIL LEGACY EXTERNAL LABComment: Satisfactory for evaluation. Endocervical/transformation zone component present. INTERPRETATION/RESULT:Negative for intraepithelial lesion or malignancy.[facility] LEGACY EXTERNAL LABCOMMENT:This Pap test has been evaluated with computer assisted technology.[facility]GAC[facility] EXTERNAL LABCYTOTECHNOLOGIST:SEE NOTENOIL LEGACY EXTERNAL LABComment: NNO, CT(ASCP) CT screening location: [facility] [place] [address]. REVIEW PYTHON CONSULTANT:SEE NOTENOIL LEGACY EXTERNAL LABComment: JE, CT(ASCP) CT screening location: [facility] [place] [address]. COMMENTSEE NOTENOIL LEGACY EXTERNAL LABComment: EXPLANATORY NOTE: The Pap [...] historic and current clinical information. HPV MRNA E6/S0Vkoqqcql(A)Not DetectedNOMS LEGACY EXTERNAL LABComment: This test was performed using the APTIMA HPV Assay ([employer] This assay detects E6/E7 viral messenger RNA (mRNA) from 14 high-risk HPV types (16,18,31,33,35,39,45,51,52,56,58,59,66,68). The analytical performance characteristics of this assay have been determined by [employer]. The modifications have not been cleared or approved by the FDA. This assay has been validated pursuant to the CLIA regulations and is used for clinical purposes. Specimen (Source)Anatomical Location / LateralityCollection Method / Volume Collection TimeReceived Time06/26/2019 Narrative Authorizing ProviderResult TypeResult StatusValericris Xavier CNFIRELANDS REGIONAL MEDICAL CENTERW LABSFinal ResultPerforming OrganizationAddressCity/State/ZIP CodePhone Number [facility] LAB from Last 3 Months or Most Recently Relevant to Health Maintenance Additional Health Concerns Active ProblemsNoted DateDiagnosed DateOB Xifuuqojv69[birth year]08[birth year]2025 [place] [address] Care Teams Team MemberRelationshipSpecialtyStart DateEnd Kimmy Carey MD [address] [facility] [place] [address] PCP - GeneralFamily Medicine02/04/23
--- OUTSIDE RECORDS SUMMARY | 2025-07-07 07:29 | XMS_ITS | Clinical Summary ---
Author Organization [facility] Address [address] [place] [address] Care Team Providers Care Brim Greaser Operator Name Role Phone Colleen Larios Primary Care Provider [phone] Allergies No known active allergies Medications MedicationSigDispense QuantityRefillsLast FilledStart DateEnd DateStatus aspirin 81 mg EC tablet Take 81 mg by mouth in the morning.Active 1-DZZC-HJPRR ACID-OM3 ORAL Take 1 tablet by mouth in the morning.Active Active Problems ProblemNoted DateDiagnosed LyoqModzn51/12/2025Influenza A108/26/2024Dyspnea on kzjzaxju423 weeks gestation of mxwggbxyp55/11/2025Pure offikcuhlfbhnrgsrwkq77/11/8764Wjlfribqigc08/06/2025Irritable bowel syndrome with utoezjvehzlh32/10/2025POTS (postural orthostatic tachycardia syndrome)01/21/2025 Microscopic thrrpmbve67/08/2022 Overview (02/17/2025): 01/19/22: Recent back pain, left [...] to conceive. Urine sent for microscopic evaluation Ljdolguzlmy63/28/2022SVT (paroxysmal supraventricular tachycardia)01/13/2021 Qiyrskoppdyc69/28/2020PVC's (premature ventricular contractions)07/11/2020 CommentsYes Encounters DateTypeDepartmentCare MazeTwvyjspgrql66/15/2025 9:00 AM ESTOffice Visit [facility] [address] [place] [address] Crow Corey MD Palpitations (Primary Dx); Tachycardia; POTS (postural orthostatic tachycardia syndrome); Pure hypercholesterolemia; 33 weeks gestation of mknskaycr86/10/2025 10:40 AM EDTOffice Visit [facility] [address] [place] [address] Crow Corey MD POTS (postural orthostatic tachycardia syndrome) (Primary Dx); Dyspnea on exertion; Palpitations; 23 weeks gestation of ; Pure hypercholesterolemiafrom Last 3 Months Family History Medical HistoryRelationNameCommentsHypertensionFatherHyperlipidemiaMotheratria flutterMotherRelationNameStatusCommentsFatherAliveMotherAlive Social History Tobacco UseTypesPacks/DayYears UsedDateSmoking Tobacco: NeverSmokeless Tobacco: NeverAlcohol UseStandard Drinks/WeekCommentsNot Currently0 (1 standard drink = 0.6 oz pure alcohol)CommentsYesSex and Gender InformationValueDate RecordedSex Assigned at MlwumWklehb79/05/2025 3:28 PM EDTLegal SexFemale 01/29/2025 12:33 PM EDTGender XqtfcailJgocyf73/05/2025 3:28 PM EDTSexual OrientationHeterosexual or Qmzmtyue04/05/2025 3:28 PM EDT Last Filed Vital Signs Vital SignReadingTime TakenCommentsBlood Umdwledr044/7706/28/2025 8:49 AM EST Wovco66920/15/2025 8:49 AM ESTTemperature--Respiratory Rate--Oxygen Saturation 97%06/28/2025 8:49 AM ESTInhaled Oxygen Concentration--Kszdxp45.8 kg (156 lb) 06/28/2025 8:49 AM ZXJDhybgi672.5 cm (5' 2 )06/28/2025 8:49 AM ESTBody Mass Index28.5306/28/2025 8:49 AM EST Plan of Treatment Health MaintenanceDue DateLast DoneCommentsDepression Xpnqrugvc07/13/2001 Varicella Vaccines (1 of 2 - 13+ 2-dose series)2002Hepatitis B Vaccines (1 of 3 - 19+ 3-dose series)2008dult Abgoqym0503/27/2011HPV Vaccines (1 - 3- dose SCDM series)2016HPV/Lopvut6103/27/2019COVID-19 Vaccine ( - 2024- season)2025Influenza Vaccine (#1)/Cervical Cancer Ojqepiubh32/23/2028Pap Smear809/Zoster Vaccines (1 of 2) 2039HIB VaccinesAged OutNo [...] Insurance Care Teams Team MemberRelationshipSpecialtyStart DateEnd Date Ric Colleen [address] [place] [address] [facility]02/22/25
--- OUTSIDE RECORDS SUMMARY | 2025-07-07 07:29 | XMS_ITS | Encounter Summary ---
Author Organization [facility] Address [address] [place] [address] Care Team Providers Care Rehabilitation Director Name Role Phone Kimmy Carey MD Primary Care Provider [phone] Encounter Details DateTypeDepartmentCare Team (Latest Contact Info)Ppohtehernz34/10/2025amboo flowsheet [facility] [address] [address] Vignesh Holman DO [address] [place], [facility] Social History Tobacco UseTypesPacks/DayYears UsedDateSmoking Tobacco: NeverSmokeless Tobacco: NeverAlcohol UseStandard Drinks/WeekCommentsYes0 (1 standard drink = 0.6 oz pure alcohol)1-5 drinks once a hvzytE3226 Health LiteracyAnswerDate RecordedHow often do you need [...] relatives?Twice a week01/22/2024How often do you attend bahai or rastafari services?Never01/22/2024o you belong to any clubs or organizations such as bahai groups, unions, fraternal or athletic groups, or school groups?No 01/22/2024How often do you attend meetings of the clubs or organizations you belong to?Never01/22/2024re you , , , , never , or living with a partner?Mpkrmzs6001/22/2024UDIT-CAnswerDate RecordedQ1: How often do you have a [...] and heating?Not very hard01/22/2024HQ-2AnswerDate RecordedPatient Health Questionnaire-2 Votiq811Finun[facility] [place] of Occupational Health - Occupational Stress QuestionnaireAnswerDate RecordedDo you feel stress - tense, restless, nervous, or anxious, or unable to sleep at night because your mind is troubled all the time - these days?Only a ikqevl9201/22/2024Exercise Vital SignAnswerDate RecordedOn average, how many days [...] or living in a senior living (including now)?No01/22/2024 Estimated Date of ZdxutitkJlqjabxcQgp23/02/2026ased on last menstrual period of 11/09/2024Sex and Gender InformationValueDate RecordedSex Assigned at BirthNot on fileLegal FweFwdjlb24/15/2023 7:12 PM EDTGender IdentityFemale 09/26/2022 7:12 PM EDTSexual SnzhkctmrrqNphzqdbo98/22/2023 8:43 AM EDTdocumented as of this encounter Plan of Treatment DateTypeDepartmentCare Team (Latest Contact Info)Oyyddbgebwa76/30/2025 9:20 AM ESTRoutine [facility] [address] [place] [address] Marie Santiago PA [address] [facility] [place] [address] documented as of this encounter Goals GoalPatient Goal TypeAssociated ProblemsRecent ProgressPatient-Stated?Author Reminders Care PlanOB RemindersNoOpen Scheduling, Backgrounddocumented as of this encounter Visit Diagnoses Not on filedocumented in this encounter Additional Health Concerns Active ProblemsNoted DateDiagnosed DateOB Amssuitqe27/08/2025 documented as of this encounter Care Teams Team MemberRelationshipSpecialtyStart DateEnd Date Kimmy Carey MD [address] [place] [address] PCP - GeneralFamily Medicine02/04/23documented as of this encounter
--- OUTSIDE RECORDS SUMMARY | 2025-07-07 07:29 | XMS_ITS | Encounter Summary ---
Author Organization [facility] Address [address] [place] [place] [address] Care Team Providers Care Building Tech Name Role Phone Kimmy Carey MD Primary Care Provider [phone] Encounter Details DateTypeDepartmentCare Team (Latest Contact Info)Sycgfkhefgo98/24/2025Travel Social History Tobacco UseTypesPacks/DayYears UsedDateSmoking Tobacco: NeverSmokeless Tobacco: NeverAlcohol UseStandard Drinks/WeekCommentsYes0 (1 standard drink = 0.6 oz pure alcohol)1-5 drinks once a ichelY6556 Health LiteracyAnswerDate RecordedHow often do you need [...] relatives?Twice a week01/22/2024How often do you attend jew or islam services?Never4Do you belong to any clubs or organizations such as jew groups, unions, fraternal or athletic groups, or school groups?No 01/22/2024How often do you attend meetings of the clubs or organizations you belong to?Never01/22/2024re you , , , , never , or living with a partner?Wegiipr2001/22/2024UDIT-CAnswerDate RecordedQ1: How often do you have a [...] and heating?Not very hard01/22/2024HQ-2AnswerDate RecordedPatient Health Questionnaire-2 Rclgx121FinSt. [facility] of Occupational Health - Occupational Stress QuestionnaireAnswerDate RecordedDo you feel stress - tense, restless, nervous, or anxious, or unable to sleep at night because your mind is troubled all the time - these days?Only a ywgbrh4501/22/2024Exercise Vital SignAnswerDate RecordedOn average, how many days [...] a fci (including now)?No01/22/2024 Estimated Date of AssudzimUeprfkxlNvu71/02/2026ased on last menstrual period of 11/09/2024Sex and Gender InformationValueDate RecordedSex Assigned at BirthNot on fileLegal KskFztvym99/15/2023 7:12 PM EDTGender IdentityFemale 09/26/2022 7:12 PM EDTSexual UmqjbrfvvbbUruwqcfk80/22/2023 8:43 AM EDTdocumented as of this encounter Plan of Treatment DateTypeDepartmentCare Team (Latest Contact Info)Goktpxairgq55/30/2025 9:20 AM ESTRoutine [facility] [address] [place] [address] Marie Santiago PA [address] [place], [place] [address] documented as of this encounter Goals GoalPatient Goal TypeAssociated ProblemsRecent ProgressPatient-Stated?Author Reminders Care PlanOB RemindersNoOpen Scheduling, Backgrounddocumented as of this encounter Visit Diagnoses Not on filedocumented in this encounter Additional Health Concerns Active ProblemsNoted DateDiagnosed DateOB Dpnmzyfxc72/08/2025 documented as of this encounter Care Teams Team MemberRelationshipSpecialtyStart DateEnd Date Kimmy Carey MD [address] [place] [address] PCP - GeneralFamily Medicine02/04/23documented as of this encounter
--- OUTSIDE RECORDS SUMMARY | 2025-07-07 07:29 | XMS_ITS | Clinical Summary ---
Author Organization [facility] Address [address] [facility] [place] [address] Care Team Providers Care Grade And Center Marker Name Role Phone Unavailable Primary Care Provider Unavailabl e Social History Tobacco UseTypesPacks/DayYears UsedDateSmoking Tobacco: Never Assessed CommentsUnknownSex and Gender InformationValueDate RecordedSex Assigned at Ylwyoq1205/22/2021 4:24 PM ESTLegal EvgHrqwdh06/08/2021 4:20 PM ESTGender Identity Dsruwn9305/22/2021 4:24 PM ESTSexual RtwpmclethhUsyghepv12/08/2021 4:24 PM EST Plan of Treatment Not on file Medical Devices Not on file Insurance
--- OUTSIDE RECORDS SUMMARY | 2025-07-07 07:29 | XMS_ITS | Clinical Summary ---
Author Organization [facility] Address [address], [address] [place] [address] Care Team Providers Care Health Care Manager Name Role Phone Unavailable Primary Care Provider Unavailabl e Allergies No known active allergies Medications MedicationSigDispense QuantityRefillsLast FilledStart DateEnd DateStatus Vit-DSS-Fe Cbn-FA ( AD PO) Take by mouth dailyActive Multiple Vitamin (MULTIVITAMIN ADULT PO) Take by mouthActive VITAMIN D PO Take by mouthActive [place]-3 Fatty Acids (FISH OIL) 300 MG CAPS [...] weekCommentsNoSex and Gender InformationValueDate RecordedSex Assigned at VreyjHoqmcr12/01/2025 8:52 AM EDTLegal SexFemale 12/02/2020 2:26 PM EDTGender AhlkkbrrZybsfu87/01/2025 8:52 AM EDTSexual GljfvdybbosDjwxdjck36/01/2025 8:52 AM EDT Last Filed Vital Signs Vital SignReadingTime TakenCommentsBlood Swgpjmtf959/7204/15/2024 3:09 PM EDT Eyhgh512104/15/2024 3:09 PM EDTTemperature--Respiratory Bufh0938 3:09 PM EDTOxygen Cdbrhnlktr04%04/15/2024 3:09 PM EDTInhaled Oxygen Concentration-- Wdggml84.3 kg (122 lb)04/15/2024 3:09 PM VNBNmjxea704.9 cm (5' 1 )04/15/2024 3:09 PM EDTBody Mass Index23.0504/15/2024 3:09 PM EDT Plan of Treatment Health MaintenanceDue DateLast AuipAoksbvluGpkaro14/13/1999Depression Screen 2001Varicella vaccine (1 of 2 - 13+ 2-dose series)2002HIV screen 2004Hepatitis C vpqdhq7703/27/2007DTaP/Tdap/Td vaccine (1 - Tdap)2008 Hepatitis B vaccine (1 of 3 - 19+ 3-dose series)2008Pap smear2010 Cervical cancer nmfufg1603/27/2019HPV (without or with Pap)2019Flu vaccine (#1)COVID-19 Vaccine [...] Chapa TypeRelation to PatientDate of BirthPhone Billing AddressPersonal/JrguvoZytd1990 [facility] [place] [address] MemberSubscriberPlan / Payer (Effective 2023-Present)Name:Sammi Chapa Relation to Subscriber:SelfName:Sammi Chapa Payer ID:[id number] (NAIC) Type:Not on file Address: [facility] [id number] [place] [id number]
--- OUTSIDE RECORDS SUMMARY | 2025-07-07 07:29 | XMS_ITS | Clinical Summary ---
Author Organization [facility] Address [id number] [address] [place] [address] Care Team Providers Care Past Due Accounts Clerk Name Role Phone No Pcp, No Pcp Primary Care Provider Unavailabl e Allergies No known active allergies Medications MedicationSigDispense QuantityRefillsLast FilledStart DateEnd DateStatus no115/iron/folic acid ( 19 ORAL) Take by mouth.Active aspirin 81 mg Take 1 tablet (81 mg total) by mouth in the morning.Active Active Problems ProblemNoted DateDiagnosed DateIrritable bowel syndrome with constipation 01/21/2025POTS (postural orthostatic tachycardia syndrome)01/21/2025Microscopic oamnbudyq33/08/2022 Overview (05/22/2024): 01/19/22: Recent back pain, left [...] sooner if any problems. PVC's (premature ventricular contractions)07/11/20202028Yquvacbtrxxf67/28/2020 Estimated Date of UejymdxhImumszejIxv59/02/2026Based on Ultrasound Encounters DateTypeDepartmentCare JpafDveupaitetb65/11/2025Orders Only Maternal- Medicine at [facility] [address] [place] [address] Ref Prov, Not In System 06/21/2025 2:00 PM ESTTelemedicine Maternal- Medicine at [facility] [address] [place] [address] Gill Mejia MD POTS (postural orthostatic tachycardia [...] alcohol)Stopped drinking this yearPHQ-2AnswerDate RecordedTotal Score1 4ChildcareAnswerDate EzlfvzgoCdzrohayyFmvvlxw14/21/2020EmploymentAnswer Date UwczumlzEmijivqotbAcmuqam63/21/2020Hunger ScreeningAnswerDate Recorded Within the past 12 months we worried whether our food would run out before we got money to buy more.Never True03/29/2025Within the past 12 months the food we bought just didn't last and we didn't have money to get more.Never True 03/29/2025Purpose - LifeAnswerDate RecordedPurpose and direction in lifeUnknown 1Estimated Date of WjzpiwukFohllpkvPti34/02/2026ased on UltrasoundSex and Gender InformationValueDate RecordedSex Assigned at BirthNot on fileLegal EbmLhsunl77/21/2020 8:44 AM EDTGender IdentityNot on fileSexual OrientationNot on file Last Filed Vital Signs Vital SignReadingTime TakenCommentsBlood Kjwswpor964/7509 1:47 PM EDT Bkqbo640803/29/2025 1:47 PM EDTTemperature--Respiratory Jlws6687 10:38 AM EDTOxygen Jbpoxgemqp52%07/11/2020 9:51 AM ESTInhaled Oxygen Concentration-- Xshftw79.9 kg (138 lb 9.6 oz)03/29/2025 1:47 PM WYQJgqwkg624.9 cm (5' 0.98 ) 03/29/2025 1:47 PM EDTBody Mass Index26. 1:47 PM EDT Plan of Treatment Health MaintenanceDue DateLast DoneCommentsAdult BMI Follow Up Plan2007 DTaP,Tdap and Td Vaccines (1 - Tdap)2008Influenza Mucfqqi3503/15/2025 05/05/2013Depression Hnxdrbpjk27SV ( or age 60+ yrs) (1 - Risk 1-dose series)06/21/2025dult BMI Wfgwbvnwo17/15/2026 03/29/2025Tobacco Ownewiafu46/609/Pap Smear809/ Medical Devices Not on file Insurance * Guarantor: Sammi Chapa TypeRelation to PatientDate of PhoneBilling AddressPersonal/PpwzsyVegm[address] [place] [address] Care Teams Team MemberRelationshipSpecialtyStart DateEnd Date No Pcp, No Pcp [place] [address] PCP - GeneralFamily Medicine07/21/24
--- OUTSIDE RECORDS SUMMARY | 2025-07-07 07:29 | XMS_ITS | Encounter Summary ---
Author Organization [facility] Address [id number] [address] [place] [address] Care Team Providers Care Farmworker Bulbs Name Role Phone No Pcp, No Pcp Primary Care Provider Unavailabl e Encounter Details DateTypeDepartmentCare Team (Latest Contact Info)Qqbfjgnabmr64/11/2025Orders Only Maternal- Medicine at [facility] [address] [place] [phone] Ref Prov, [place] [address] Social History Tobacco UseTypesPacks/DayYears UsedDateSmoking Tobacco: NeverSmokeless Tobacco: NeverAlcohol UseStandard Drinks/WeekCommentsNot Currently0 (1 standard drink = 0.6 oz pure alcohol)Stopped drinking this yearPHQ-2AnswerDate RecordedTotal Ewxoe6664ChildcareAnswerDate QscwagubFrkzbsghwTgbjlps80/21/2020Employment AnswerDate BbdyhyawLmrcpjriljFmjgltz99/21/2020Hunger ScreeningAnswerDate RecordedWithin the past 12 months we worried whether our food would run out before we got money to buy more.Never True03/29/2025Within the past 12 months the food we bought just didn't last and we didn't have money to get more.Never True03/29/2025Purpose - LifeAnswerDate RecordedPurpose and direction in life Ynhmqei37/08/2021Estimated Date of WljunekiKfpbyiooWow12/02/2026Based on UltrasoundSex and Gender InformationValueDate RecordedSex Assigned at BirthNot on fileLegal DspDzaniu93/21/2020 8:44 AM EDTGender IdentityNot on fileSexual OrientationNot on filedocumented as of this encounter Plan of Treatment Not on file documented as of this encounter Procedures Procedure NamePriorityDate/TimeAssociated DiagnosisCommentsECHO COMPLETE WO NXPSRTOILweasbw50/21/2025 2:30 PM EDTECG 12-IOXPGuqwiqw75/11/2025 2:27 PM EDT documented in this encounter [...] DateEnd Date No Pcp, [place] [address] PCP - GeneralFamily Medicine07/21/24documented as of this encounter
--- OUTSIDE RECORDS SUMMARY | 2025-07-07 07:29 | XMS_ITS | Encounter Summary ---
Author Organization [facility] Address [address] [place] [address] Care Team Providers Care Prop Setter Name Role Phone Kimmy Carey MD Primary Care Provider [phone] Encounter Details DateTypeDepartmentCare Team (Latest Contact Info)Fnxpwtfmlwq95/17/2025Telephone [facility] [address] [place] [place] [address] Vignesh Holman DO [address] [place], [place] [address] Social History Tobacco UseTypesPacks/DayYears UsedDateSmoking Tobacco: NeverSmokeless Tobacco: NeverAlcohol UseStandard Drinks/WeekCommentsYes0 (1 standard drink = 0.6 oz pure alcohol)1-5 drinks once a ffwkmS6834 Health LiteracyAnswerDate RecordedHow often do you need [...] relatives?Twice a week01/22/2024How often do you attend rastafarian or denominational services?Never01/22/2024o you belong to any clubs or organizations such as rastafarian groups, unions, fraternal or athletic groups, or school groups?No 01/22/2024How often do you attend meetings of the clubs or organizations you belong to?Never01/22/2024re you , , , , never , or living with a partner?Vrvriop6001/22/2024UDIT-CAnswerDate RecordedQ1: How often do you have a [...] and heating?Not very hard01/22/2024HQ-2AnswerDate RecordedPatient Health Questionnaire-2 Kwitf859Finun[facility] of [facility] [place] of Occupational Health - Occupational Stress QuestionnaireAnswerDate RecordedDo you feel stress - tense, restless, nervous, or anxious, or unable to sleep at night because your mind is troubled all the time - these days?Only a ipnzma7101/22/2024Exercise Vital SignAnswerDate RecordedOn average, how many days [...] a prison (including now)?No01/22/2024 Estimated Date of LxigbkxxIkbdxxhyLka37/02/2026ased on last menstrual period of 11/09/2024Sex and Gender InformationValueDate RecordedSex Assigned at BirthNot on fileLegal YtaJcotgr89/15/2023 7:12 PM EDTGender IdentityFemale 09/26/2022 7:12 PM EDTSexual GelkqewzcvwIlfutsgk66/22/2023 8:43 AM EDTdocumented as of this encounter [...] Plan of Treatment DateTypeDepartmentCare Team (Latest Contact Info)Ljrxoqgadub47/30/2025 9:20 AM ESTRoutine [facility] [address] [place] [place] [address] Marie Santiago PA [address] [place] [address] documented as of this encounter Goals GoalPatient Goal TypeAssociated ProblemsRecent ProgressPatient-Stated?Author Reminders Care PlanOB RemindersNoOpen Scheduling, Backgrounddocumented as of this encounter Visit Diagnoses Not on filedocumented in this encounter Additional Health Concerns Active ProblemsNoted DateDiagnosed DateOB Duokmtygg37/08/2025 documented as of this encounter Care Teams Team MemberRelationshipSpecialtyStart DateEnd Date Kimmy Carey MD [address] [place] [address] PCP - GeneralFamily Medicine02/04/23documented as of this encounter
[2025-07-07 07:30] VITALS: BP 129/86; PULSE 105
== END 2025-07-07 08:12 | disposition home or self-care (01) ==
LOC: FBCO 07:28 → FBC 07:29
PROVIDERS: Family Provider Family Medicine; Visit Provider Obstetrics & Gynecology
DX: O09.523 Supervision of elderly multigravida, third trimester (principal); Z3A.34 34 weeks gestation of pregnancy
CPT/HCPCS: 59025

== ENCOUNTER 2025-07-10 10:49 | Outpatient (OUT) | payer BC, SELFPAY ==
--- OUTSIDE RECORDS SUMMARY | 2025-06-28 09:00 | XMS_ITS | Encounter Summary ---
Author Organization [facility] Address [address] [place] [address] Care Team Providers Care Door Frame Builder Name Role Phone Colleen Larios Primary Care Provider [phone] Reason for Visit * ReasonCommentsFollow-upPatient is here today for a 2 month follow up. Patient states she is feeling well. Patient states she is able to manage symptoms better with diet. 33 Weeks POTSPSVTPalpitationsOccasional Encounter Details DateTypeDepartmentCare Team (Latest Contact Info)Qgejlmxgsaz79/15/2025 9:00 AM ESTOffice Visit [facility] [address] [place] [address] Crow Corey MD [address] [place] [address] Palpitations (Primary Dx); Tachycardia; POTS (postural orthostatic tachycardia syndrome); Pure hypercholesterolemia; 33 weeks gestation of Social History Tobacco UseTypesPacks/DayYears UsedDateSmoking Tobacco: NeverSmokeless Tobacco: NeverAlcohol UseStandard Drinks/WeekCommentsNot Currently0 (1 standard drink = 0.6 oz pure alcohol)CommentsYesSex and Gender InformationValueDate RecordedSex Assigned at XyrbjWwswlf47/05/2025 3:28 PM EDTLegal SexFemale 01/29/2025 12:33 PM EDTGender HlzgtfkfMwryxh94/05/2025 3:28 PM EDTSexual OrientationHeterosexual or Hwrhaokh86/05/2025 3:28 PM EDTdocumented as of this encounter Last Filed Vital Signs Vital SignReadingTime TakenCommentsBlood Wxjwktgu397/7706/28/2025 8:49 AM EST Pmgem85791/15/2025 8:49 AM ESTTemperature--Respiratory Rate--Oxygen Saturation 97%06/28/2025 8:49 AM ESTInhaled Oxygen Concentration--Trqebh46.8 kg (156 lb) 06/28/2025 8:49 AM PEDRajhcz549.5 cm (5' 2 )06/28/2025 8:49 AM ESTBody Mass Index28.5306/28/2025 8:49 AM ESTdocumented in this encounter Progress Notes * Crow Corey MD - 06/28/2025 9:00 AM EST Images from the original note were not included. [facility] Reason for cardiology [...] syndrome with constipation Patient was seen by chief engineer Dr. Tom Tavares at [facility] in the past and she wasdiagnosed [...] aortic root dimension. T[facility] table [facility]: Abnormal head upright tilt [...] with their primary care physician and/ or chief engineer as previously scheduled. Event monitor 02/26/2024 at [facility] in [place] - Predominant rhythm: NSR - Ectopic Atrial [...] followed in the past by [facility] cardiology in [place] History of PVCs History of hyperlipidemia, per [...] months or sooner if needed Crow Corey MD,[facility] [1] Family History Problem Relation Name Age of Onset Other (atria flutter) Mother Hyperlipidemia Mother Hypertension Father [2] Current Outpatient Medications: aspirin 81 mg EC tablet, Take 81 mg by mouth in the morning., Disp: , Rfl: 8-BPKR-NSCQX ACID-OM3 ORAL, Take 1 tablet by mouth [...] DateEnd Date Colleen Larios [address] [place] [address] [facility]02/22/25documented as of this encounter
--- OUTSIDE RECORDS SUMMARY | 2025-07-10 10:52 | XMS_ITS | Clinical Summary ---
Author Organization [facility] Address [id number] [address] [place] [address] Care Team Providers Care Librarian Special Library Name Role Phone No Pcp, No Pcp Primary Care Provider Unavailabl e Allergies No known active allergies Medications MedicationSigDispense QuantityRefillsLast FilledStart DateEnd DateStatus no115/iron/folic acid ( 19 ORAL) Take by mouth.Active aspirin 81 mg Take 1 tablet (81 mg total) by mouth in the morning.Active Active Problems ProblemNoted DateDiagnosed DateIrritable bowel syndrome with constipation 01/21/2025POTS (postural orthostatic tachycardia syndrome)01/21/2025Microscopic axooerald32/08/2022 Overview (05/22/2024): 01/19/22: Recent back pain, left [...] sooner if any problems. PVC's (premature ventricular contractions)07/11/20201751Hzjkvjiflcje07/28/2020 Estimated Date of TlkwrkdfTtiwwsqgBgg17/02/2026Based on Ultrasound Encounters DateTypeDepartmentCare GzszZxktcsaedmf60/11/2025Orders Only Maternal- Medicine at [facility] [address] [place] [address] Ref Prov, Not In System 06/21/2025 2:00 PM ESTTelemedicine Maternal- Medicine at [facility] [address] [place] [address] Gill Mejia MD POTS (postural orthostatic tachycardia [...] alcohol)Stopped drinking this yearPHQ-2AnswerDate RecordedTotal Score1 4ChildcareAnswerDate DpklmcjnGvwhljyecXcdlbxc96/21/2020EmploymentAnswer Date ZgcwdrdxEmvnirwyozJrkolrm60/21/2020Hunger ScreeningAnswerDate Recorded Within the past 12 months we worried whether our food would run out before we got money to buy more.Never True03/29/2025Within the past 12 months the food we bought just didn't last and we didn't have money to get more.Never True 03/29/2025Purpose - LifeAnswerDate RecordedPurpose and direction in lifeUnknown 1Estimated Date of DzajjuruHtisunusSqd82/02/2026ased on UltrasoundSex and Gender InformationValueDate RecordedSex Assigned at BirthNot on fileLegal XpyJtuasm80/21/2020 8:44 AM EDTGender IdentityNot on fileSexual OrientationNot on file Last Filed Vital Signs Vital SignReadingTime TakenCommentsBlood Njtuxnuw202/7509 1:47 PM EDT Ebwes119403/29/2025 1:47 PM EDTTemperature--Respiratory Mkkg0857 10:38 AM EDTOxygen Lkrwhxgdla78%07/11/2020 9:51 AM ESTInhaled Oxygen Concentration-- Mseecu75.9 kg (138 lb 9.6 oz)03/29/2025 1:47 PM CDLIrwmrz360.9 cm (5' 0.98 ) 03/29/2025 1:47 PM EDTBody Mass Index26. 1:47 PM EDT Plan of Treatment Health MaintenanceDue DateLast DoneCommentsAdult BMI Follow Up Plan2007 DTaP,Tdap and Td Vaccines (1 - Tdap)2008Influenza Fxbpybu3503/15/2025 05/05/2013Depression Pkiqkixua48SV ( or age 60+ yrs) (1 - Risk 1-dose series)06/21/2025dult BMI Ryfsbzvzj21/15/2026 03/29/2025Tobacco Tpsaynvbw76/609/Pap Smear809/ Medical Devices Not on file Insurance * Guarantor: Sammi Chapa TypeRelation to PatientDate of PhoneBilling AddressPersonal/JsasfpYeul1990 [facility] [place] [address] Care Teams Team MemberRelationshipSpecialtyStart DateEnd Date No Pcp, No Pcp [place] [address] PCP - GeneralFamily Medicine07/21/24
--- OUTSIDE RECORDS SUMMARY | 2025-07-10 10:52 | XMS_ITS | Encounter Summary ---
Author Organization [facility] Address [address] [place] [address] Care Team Providers Care Dry Kiln Operator Helper Name Role Phone Kimmy Carey MD Primary Care Provider [phone] Encounter Details DateTypeDepartmentCare Team (Latest Contact Info)Ixzqzwvmpck65/20/2025linisync Result Encounter [facility] External Department Unsolicited Vignesh Holman, DO [address] [place], [place] [id number] Social History Tobacco UseTypesPacks/DayYears UsedDateSmoking Tobacco: NeverSmokeless Tobacco: NeverAlcohol UseStandard Drinks/WeekCommentsYes0 (1 standard drink = 0.6 oz pure alcohol)1-5 drinks once a [id number] Health LiteracyAnswerDate RecordedHow often do you need [...] relatives?Twice a week01/22/2024How often do you attend restorationist or jew services?Never4Do you belong to any clubs or organizations such as restorationist groups, unions, fraternal or athletic groups, or school groups?No 01/22/2024How often do you attend meetings of the clubs or organizations you belong to?Never01/22/2024re you , , , , never , or living with a partner?Ofzfhnf1201/22/2024UDIT-CAnswerDate RecordedQ1: How often do you have a [...] and heating?Not very hard01/22/2024HQ-2AnswerDate RecordedPatient Health Questionnaire-2 Bhkez925Finuint[facility] [place] of Occupational Health - Occupational Stress QuestionnaireAnswerDate RecordedDo you feel stress - tense, restless, nervous, or anxious, or unable to sleep at night because your mind is troubled all the time - these days?Only a spkzrb6501/22/2024Exercise Vital SignAnswerDate RecordedOn average, how many days [...] were you homeless or living in a intermediate (including now)?No01/22/2024 Estimated Date of OnotrdptEoovghidWlb15/02/2026ased on last menstrual period of 11/09/2024Sex and Gender InformationValueDate RecordedSex Assigned at BirthNot on fileLegal JfiVdsdly61/15/2023 7:12 PM EDTGender IdentityFemale 09/26/2022 7:12 PM EDTSexual OveppbjtohyCbucuazc07/22/2023 8:43 AM EDTdocumented as of this encounter Plan of Treatment DateTypeDepartmentCare Team (Latest Contact Info)Yaenqpkzpjj54/30/2025 9:20 AM ESTRoutine [facility] [address] [place] [phone] Marie Santiago PA [address] [place], [place] [address] documented as of this encounter Goals GoalPatient Goal TypeAssociated ProblemsRecent ProgressPatient-Stated?Author Reminders Care PlanOB RemindersNoOpen Scheduling, Backgrounddocumented as of this encounter Procedures Procedure NamePriorityDate/TimeAssociated DiagnosisCommentsUS OB BPP W NON-GEMJQJ0707/03/2025 8:31 AM EST documented in this encounter Results * US OB BPP W NON-STRESS (07/03/2025 8:31 AM EST)Anatomical Region LateralityModalityOtherSpecimen (Source)Anatomical Location / Laterality Collection Method / VolumeCollection TimeReceived Time07/03/2025 8:31 AM EST Narrative 07/03/2025 8:34 AM EST [facility] ?[address] ? [place] [address] ? Ultrasound Report ? Signed ? Patient: MARIANA GARDNERISTINHe Herbert ?MR#: [id number] ?? : 1990 ?Acct:[id number] ?? Age/Sex: 35 / F ?ADM Date: 12/20/25 ?? Loc: [facility] ??250-1 ? Attending Dr: Vignesh Holman D.O. ? Ordering Physician: Vignesh Holman D.O. ?? Date of Service: 07/03/25 ?? Procedure(s): US OB BPP w non-stress ?? Accession Number(s): [id number] ? cc: Vignesh Holman D.O.; Physician,Non-Staff Vinny ? [facility] ? [address] ? [place] [address] ? Patient Name: ?? NORRIS GARDNER ? MRN: [facility]:[id number] ? date: 1990 ?Sex: F ?? Assigned Patient Location: [facility] ?? Current Patient Location: FB ?? Accession/Order Number: [id number] ?? Exam Date: 07/03/2025 ??08:07 ?Report Date: 07/03/2025 ??08:31 ? At the request of: ?? VIGNESH ??RIVER ??DO ? Procedure: ??US OB BPP w non-stress ? Biophysical profile. ? Reason for exam: Advanced maternal age ? COMPARISON: None ? TECHNIQUE: Transabdominal imaging of the gravid uterus was obtained. ? FINDINGS: The stamp classifier reports a BPP of 8 out of 8. ??TAYA is normal at 19 ?? cm. ?? heart rate 167 bpm. ? US/US OB BPP w non-stress ?? IMPRESSION: BPP 8 out of 8. ? Impression dictated by: Steve Lara Jr., D.O. ??07/03/2025 8:31 AM ? Dictation Location: [facility]--18 ? Electronically authenticated by: [id number] ??Y ?? Date: 07/03/2025 ??08:31 ? Dictated By: ?Steve Lara M.D. ? Signed By: ?07/03/25 0834 ? DD/ 0831 ? TD/TT: ? Electrical Construction Project Manager: Procedure Note Radiology, Radiologist, MD - 07/03/2025 The [place] [id number] Ultrasound Report Signed Patient: NORRIS GARDNER [facility]#: [id number] : 1990Acct:[id number] Age/Sex: 35 / FADM Date: 07/03/25 Loc: [facility] 250-[address]: Vignesh Holman D.O. Ordering Physician: Vignesh Holman D.O. Date of Service: 07/03/25 Procedure(s): US OB BPP w non-stress Accession Number(s): [id number] cc: Vignesh Holman D.O.; Physician,Non-Staff Vinny [place] [address] Patient Name: NORRIS GARDNER MRN: [facility]:[id number] date: 1990 Sex: F Assigned Patient Location: [facility] Current Patient Location: [facility] Accession/Order Number: [id number] Exam Date: 07/03/2025 08:07 Report Date: 07/03/2025 08:31 At the request of: VIGNESH HOLMAN DO Procedure: US OB BPP w non-stress Biophysical profile. Reason for exam: Advanced maternal age COMPARISON: None TECHNIQUE: Transabdominal imaging of the gravid uterus was obtained. FINDINGS: The stamp classifier reports a BPP of 8 out of 8. TAYA is normal at19 cm. heart rate 167 bpm. US/US OB BPP w non-stress IMPRESSION: BPP 8 out of 8. Impression dictated by: Steve Lara Jr., D.O. 07/03/2025 8:31 AM Dictation Location: [place] [address] Electronically authenticated by: [id number] Y Date: 508:31 Dictated By: Steve Lara M.D. Signed By:07/03/2534 DD/ 0 TD/TT: Electrical Construction Project Manager: Authorizing ProviderResult TypeResult StatusCorey River DOCLINISYNC IMAGINGFinal Result documented in this encounter Visit Diagnoses Not on filedocumented in this encounter Additional Health Concerns Active ProblemsNoted DateDiagnosed DateOB Xycbcyook17/08/2025 documented as of this encounter Care Teams Team MemberRelationshipSpecialtyStart DateEnd Date Kimmy Carey MD [address] [place] [address] PCP - GeneralFamily Medicine7/24/23documented as of this encounter
--- OUTSIDE RECORDS SUMMARY | 2025-07-10 10:52 | XMS_ITS | Encounter Summary ---
Author Organization [facility] Address [address] [facility] [place] [address] Care Team Providers Care Skin Former Name Role Phone Kimmy Carey MD Primary Care Provider [phone] Encounter Details DateTypeDepartmentCare Team (Latest Contact Info)Wgetzztnkwj83/24/2025Travel Social History Tobacco UseTypesPacks/DayYears UsedDateSmoking Tobacco: NeverSmokeless Tobacco: NeverAlcohol UseStandard Drinks/WeekCommentsYes0 (1 standard drink = 0.6 oz pure alcohol)1-5 drinks once a [id number] Health LiteracyAnswerDate RecordedHow often do you need [...] relatives?Twice a week01/22/2024How often do you attend zoroastrianism or mandaen services?Never4Do you belong to any clubs or organizations such as zoroastrianism groups, unions, fraternal or athletic groups, or school groups?No 01/22/2024How often do you attend meetings of the clubs or organizations you belong to?Never01/22/2024re you , , , , never , or living with a partner?Sraytze4101/22/2024UDIT-CAnswerDate RecordedQ1: How often do you have a [...] and heating?Not very hard01/22/2024HQ-2AnswerDate RecordedPatient Health Questionnaire-2 Mwaaa173FinSelect [facility] Hospital [facility] [place] of Occupational Health - Occupational Stress QuestionnaireAnswerDate RecordedDo you feel stress - tense, restless, nervous, or anxious, or unable to sleep at night because your mind is troubled all the time - these days?Only a wgyqts9101/22/2024Exercise Vital SignAnswerDate RecordedOn average, how many days [...] or living in a skilled nursing (including now)?No01/22/2024 Estimated Date of MrszxmnzLpsqoksxPxo39/02/2026ased on last menstrual period of 11/09/2024Sex and Gender InformationValueDate RecordedSex Assigned at BirthNot on fileLegal SdtDdpmtt94/15/2023 7:12 PM EDTGender IdentityFemale 09/26/2022 7:12 PM EDTSexual QvfplhhfbhfNddfpeuj95/22/2023 8:43 AM EDTdocumented as of this encounter Plan of Treatment DateTypeDepartmentCare Team (Latest Contact Info)Cqedrujsjgp64/30/2025 9:20 AM ESTRoutine [facility] [address] [place] [phone] Marie Santiago PA [address] [place], [place] [address] documented as of this encounter Goals GoalPatient Goal TypeAssociated ProblemsRecent ProgressPatient-Stated?Author Reminders Care PlanOB RemindersNoOpen Scheduling, Backgrounddocumented as of this encounter Visit Diagnoses Not on filedocumented in this encounter Additional Health Concerns Active ProblemsNoted DateDiagnosed DateOB Yvemjkatk66/08/2025 documented as of this encounter Care Teams Team MemberRelationshipSpecialtyStart DateEnd Date Kimmy Carey MD [address] [address] PCP - GeneralFamily Medicine02/04/23documented as of this encounter
--- OUTSIDE RECORDS SUMMARY | 2025-07-10 10:52 | XMS_ITS | Clinical Summary ---
Author Organization [facility] Address [address], [address] [place] [address] Care Team Providers Care Healthcare Applications Analyst Name Role Phone Unavailable Primary Care Provider Unavailabl e Allergies No known active allergies Medications MedicationSigDispense QuantityRefillsLast FilledStart DateEnd DateStatus Vit-DSS-Fe Cbn-FA ( AD PO) Take by mouth dailyActive Multiple Vitamin (MULTIVITAMIN ADULT PO) Take by mouthActive VITAMIN D PO Take by mouthActive Bellflower-3 Fatty Acids (FISH OIL) 300 MG CAPS [...] weekCommentsNoSex and Gender InformationValueDate RecordedSex Assigned at MdhslIzdxzp74/01/2025 8:52 AM EDTLegal SexFemale 12/02/2020 2:26 PM EDTGender LyhgnwnuZngwna35/01/2025 8:52 AM EDTSexual GoapfxxghaaIbusqewv37/01/2025 8:52 AM EDT Last Filed Vital Signs Vital SignReadingTime TakenCommentsBlood Ywdnaaht208/7204/15/2024 3:09 PM EDT Ybsgh854104/15/2024 3:09 PM EDTTemperature--Respiratory Fpfm4030 3:09 PM EDTOxygen Orzotqarte42%04/15/2024 3:09 PM EDTInhaled Oxygen Concentration-- Uytlvw31.3 kg (122 lb)04/15/2024 3:09 PM KYLSrccii648.9 cm (5' 1 )04/15/2024 3:09 PM EDTBody Mass Index23.0504/15/2024 3:09 PM EDT Plan of Treatment Health MaintenanceDue DateLast SkqhOscrsewoRwsudc84/13/1999Depression Screen 2001Varicella vaccine (1 of 2 - 13+ 2-dose series)2002HIV screen 2004Hepatitis C lgbvip2403/27/2007DTaP/Tdap/Td vaccine (1 - Tdap)2008 Hepatitis B vaccine (1 of 3 - 19+ 3-dose series)2008Pap smear2010 Cervical cancer wutifa0703/27/2019HPV (without or with Pap)2019Flu vaccine (#1)COVID-19 Vaccine [...] Chapa TypeRelation to PatientDate of BirthPhone Billing AddressPersonal/LnboioFbhd1990 [facility] [place] [address] MemberSubscriberPlan / Payer (Effective 2023-Present)Name:Sammi Chapa Relation to Subscriber:SelfName:Sammi Chapa Payer ID:[id number] (NAIC) Type:Not on file Address: [facility] [id number] [place] [id number]
--- OUTSIDE RECORDS SUMMARY | 2025-07-10 10:52 | XMS_ITS | Clinical Summary ---
Author Organization [facility] Address [address] [facility] [address] [address] Care Team Providers Care Loom Starter Name Role Phone Unavailable Primary Care Provider Unavailabl e Social History Tobacco UseTypesPacks/DayYears UsedDateSmoking Tobacco: Never Assessed CommentsUnknownSex and Gender InformationValueDate RecordedSex Assigned at Oxbsnk0105/22/2021 4:24 PM ESTLegal EdxNtcfns06/08/2021 4:20 PM ESTGender Identity Djhvqj3105/22/2021 4:24 PM ESTSexual UhagrbgiuvzQydsottn75/08/2021 4:24 PM EST Plan of Treatment Not on file Medical Devices Not on file Insurance
--- OUTSIDE RECORDS SUMMARY | 2025-07-10 10:52 | XMS_ITS | Encounter Summary ---
Author Organization [facility] Address [address] [place] [address] Care Team Providers Care Student Recruiter Name Role Phone Kimmy Carey MD Primary Care Provider [phone] Encounter Details DateTypeDepartmentCare Team (Latest Contact Info)Kjokxawejhf42/17/2025Telephone [facility] [address] [place] [address] Vignesh Holman DO [address] [place], [place] [address] Social History Tobacco UseTypesPacks/DayYears UsedDateSmoking Tobacco: NeverSmokeless Tobacco: NeverAlcohol UseStandard Drinks/WeekCommentsYes0 (1 standard drink = 0.6 oz pure alcohol)1-5 drinks once a [id number] Health LiteracyAnswerDate RecordedHow often do you need [...] relatives?Twice a week01/22/2024How often do you attend nondenominational or catholic services?Never01/22/2024o you belong to any clubs or organizations such as nondenominational groups, unions, fraternal or athletic groups, or school groups?No 01/22/2024How often do you attend meetings of the clubs or organizations you belong to?Never01/22/2024re you , , , , never , or living with a partner?Btvejqw3001/22/2024UDIT-CAnswerDate RecordedQ1: How often do you have a [...] and heating?Not very hard01/22/2024HQ-2AnswerDate RecordedPatient Health Questionnaire-2 Msyif778[facility] [place] of Occupational Health - Occupational Stress QuestionnaireAnswerDate RecordedDo you feel stress - tense, restless, nervous, or anxious, or unable to sleep at night because your mind is troubled all the time - these days?Only a zlsorf3901/22/2024Exercise Vital SignAnswerDate RecordedOn average, how many days [...] a intermediate (including now)?No01/22/2024 Estimated Date of NeqqagcuHpgoqhczSpw42/02/2026ased on last menstrual period of 11/09/2024Sex and Gender InformationValueDate RecordedSex Assigned at BirthNot on fileLegal WslMsveam99/15/2023 7:12 PM EDTGender IdentityFemale 09/26/2022 7:12 PM EDTSexual IhihznxqzjmMemqsbli87/22/2023 8:43 AM EDTdocumented as of this encounter [...] Plan of Treatment DateTypeDepartmentCare Team (Latest Contact Info)Optocptcnbh95/30/2025 9:20 AM ESTRoutine [facility] [address] [place] [phone] Marie Santiago PA [address] [place] [address] documented as of this encounter Goals GoalPatient Goal TypeAssociated ProblemsRecent ProgressPatient-Stated?Author Reminders Care PlanOB RemindersNoOpen Scheduling, Backgrounddocumented as of this encounter Visit Diagnoses Not on filedocumented in this encounter Additional Health Concerns Active ProblemsNoted DateDiagnosed DateOB Vwralqzzp64/08/2025 documented as of this encounter Care Teams Team MemberRelationshipSpecialtyStart DateEnd Date Kimmy Carey MD [address] [place] [address] PCP - GeneralFamily Medicine02/04/23documented as of this encounter
--- OUTSIDE RECORDS SUMMARY | 2025-07-10 10:52 | XMS_ITS | Clinical Summary ---
Author Organization [facility] Address [address] [place] [address] Care Team Providers Care Hims Clerk Name Role Phone Kimmy Carey MD Primary Care Provider [phone] Allergies No known active allergies Medications MedicationSigDispense QuantityRefillsLast FilledStart DateEnd DateStatus MV-Min-Fe Fum-FA-DHA ( 1 PO) Take 1 tablet by mouth DailyActive aspirin 81 MG EC tablet Take 81 mg by mouth DailyActive Active Problems ProblemNoted DateDiagnosed NmmlDwjxlmnqroz90/28/6222Jfwhlnnelalu86/28/2020 Miscarriage ([facility])Irritable bowel syndrome with predominant constipation Estimated Date of FhpdoifeEcwtfzmtJzo74/02/2026Based on last menstrual period of 11/09/2024 Encounters DateTypeDepartmentCare MnvjYwhxxsiiouh19/24/2429Hzzglx79/20/2025Clinisync Result Encounter [facility] External Department Unsolicited Margot Holman, 06/30/2025Telephone [facility] [place] [address] Margot Holman, 06/23/2025 1:00 PM ESTRoutine [facility] [address] [place] [address] Margot Holman, DO Primigravida of advanced maternal age in third trimester ([facility]-HCC) (Primary Dx); Third trimester ([facility]-HCC); 32 weeks gestation of ([facility]); Hematuria, unspecified type12/10/2025Bamboo flowsheet [facility] [address] [address] Margot Holman, DO 06/16/20259727Dajwms78/01/2025bstract [facility] [address] [place] [address] Margot Holman, DO 06/08/2025 11:20 AM ESTRoutine [facility] [address] [address] Margot Holman, DO 30 weeks gestation of ([facility]); Third trimester ([facility])06/08/2025 10:30 AM ESTAncillary Procedure [facility] [address] [address] size inconsistent with dates ([facility])06/02/20254389Luvoxh76/11/2025 9:40 AM ESTRoutine [facility] [address] [address] Margot Holman, DO 28 weeks gestation of ([facility]); Third trimester ([facility]); size inconsistent with dates ([facility])05/25/2025amboo flowsheet [facility] [address] [address] Margot Holman, DO 05/24/2025Telephone [facility] [address] [address] Manda Ojeda MA 05/18/20250237Vpbotp58/23/2025linisync Result Encounter NOMS External Department Unsolicited Margot Holman, DO 05/05/2025 10:50 AM EDTRoutine [facility] [address] [address] Margot Holman, DO Second trimester ([facility]); 25 weeks gestation of ([facility]); Vaginal discharge; Diabetes mellitus qzxasibdy41/22/2025amboo flowsheet [facility] [address] [place] [address] Margot Holman, DO 04/30/2025Telephone [facility] [address] [place] [address] Margot Holman, DO 04/28/20256468Eijyvl45/14/2025Telephone [facility] [address] [place] [address] Margot Holman, DO 04/20/2025Orders Only [facility] [address] [place] [address] Lynne Ayers MA 5Clinisync Result Encounter NOMS External Department Unsolicited Margot Holman, from Last 3 Months Immunizations ImmunizationAdministration [...] 0.6 oz pure alcohol)1-5 drinks once a vczggJ7765 Health LiteracyAnswerDate RecordedHow often do you need [...] relatives?Twice a week01/22/2024How often do you attend adventism or caodaism services?Never01/22/2024o you belong to any clubs or organizations such as adventism groups, unions, fraternal or athletic groups, or school groups?No 01/22/2024How often do you attend meetings of the clubs or organizations you belong to?Never01/22/2024re you , , , , never , or living with a partner?Jppcmud2501/22/2024UDIT-CAnswerDate RecordedQ1: How often do you have a [...] and heating?Not very hard01/22/2024HQ-2AnswerDate RecordedPatient Health Questionnaire-2 Xckye645Finblue mountain hospital, inc. [place] of Occupational Health - Occupational Stress QuestionnaireAnswerDate RecordedDo you feel stress - tense, restless, nervous, or anxious, or unable to sleep at night because your mind is troubled all the time - these days?Only a leuhyh3101/22/2024Exercise Vital SignAnswerDate RecordedOn average, how many days [...] a detention (including now)?No01/22/2024 Estimated Date of GneyyohkIsflhbdpXsg17/02/2026ased on last menstrual period of 11/09/2024Sex and Gender InformationValueDate RecordedSex Assigned at BirthNot on fileLegal XirFgarjx67/15/2023 7:12 PM EDTGender IdentityFemale 09/26/2022 7:12 PM EDTSexual MdxpvtgxjpoCnscmurb78/22/2023 8:43 AM EDT Last Filed Vital Signs Vital SignReadingTime TakenCommentsBlood Eckojcln832/7006/23/2025 1:04 PM EST Orkaf9943/01/2024 9:31 AM EDTTemperature--Respiratory Rate--Oxygen Ilcgnggyoc37% 05/15/2024 9:31 AM EDTInhaled Oxygen Concentration--Zyoydp88.9 kg (154 lb) 06/23/2025 1:04 PM EHRPpuabn500.5 cm (5' 2 )05/15/2024 9:31 AM EDTBody Mass Index28.17107/15/2023 9:31 AM EDT Plan of Treatment DateTypeDepartmentCare Team (Latest Contact Info)Irgiosisulv11/30/2025 9:20 AM ESTRoutine [facility] [address] [place] [address] Marie Santiago PA [address] [place] [address] Health MaintenanceDue DateLast DoneCommentsInfluenza Vaccine (#1)03/15/2025 05/05/2013Cervical Cancer Jgsczokxv55/23/2026HPV/Spmlbk38Pap Smear/, 12/26/2021, 12/26/2021neumococcal Vaccine: Pediatrics (0 to 5 Years) and At-Risk Patients (6 to 64 Years)Aged OutNo longer eligible based on patient's age to complete this topic Goals GoalPatient Goal TypeAssociated ProblemsRecent ProgressPatient-Stated?Author Reminders Care PlanOB RemindersNoOpen Scheduling, Background Procedures Procedure NamePriorityDate/TimeAssociated DiagnosisCommentsUS OB BPP W NON-CSMFCU4807/03/2025 8:31 AM EST URINARY TRACT INFECTION (HTRX)Wbrjmrt4806/23/2025 3:32 PM EST POCT URINALYSIS RNORDBKMPnqeats66/10/2025 1:04 PM EST 32 weeks gestation of ([facility]) POCT URINALYSIS NMICAHDWCbumoon68/25/2025 11:55 AM EST 30 weeks gestation of ([facility]) Third trimester ([facility]) OB FOLLOW UP TRANSABDOMINAL ZMKOVUUGBchbaly16/25/2025 10:42 AM EST size inconsistent with dates ([facility]) GLUCOSE TOLERANCE, 1 FFIDObmaupb07/11/2025 10:39 AM EST Diabetes mellitus screening JSNKvfyhtn05/11/2025 10:39 AM EST Diabetes mellitus screening CBC (INCLUDES DIFF/PLT)Ptxjzih4005/25/2025 10:39 AM EST Second trimester ([facility]) POCT URINALYSIS PEUIXYEPQuvsblz35/11/2025 9:54 AM EST 28 weeks gestation of ([facility]) GLUCOSE 1 VZBQCeuqeps90/23/2025 8:43 AM EDT ALL CBC WITH AUTO HXXNLmtoekw93/23/2025 8:43 AM EDT POCT URINALYSIS BZCFXECSFsyczdg42/22/2025 11:10 AM EDT 25 weeks gestation of ([facility]) AFP, SERUM, OPEN SPINA QUSTVHIaiiotw81/27/2025 11:16 AM EDT PAP XBMLKPbezicl48/23/2025 12:00 AM EDTQ - THINPREP(R) TIS AND HPV MRNA E6/E7 RFL HPV 16,18/87Ixibeqx75/13/2019 from Last 3 Months or Most Recently Relevant to Health Maintenance Results * US OB BPP W NON-STRESS (07/03/2025 8:31 AM EST)Anatomical Region LateralityModalityOtherSpecimen (Source)Anatomical Location / Laterality Collection Method / VolumeCollection TimeReceived Time07/03/2025 8:31 AM EST Narrative 07/03/2025 8:34 AM EST [facility] ?[address] ? [place] [address] ? Ultrasound Report ? Signed ? Patient: SAMMI CHAPA ?MR#: [id number] ?? : 1990 ?Acct:[id number] ?? Age/Sex: 35 / F ?ADM Date: 07/03/25 ?? Loc: [facility] ??250-1 ? Attending Dr: Margot Holman D.O. ? Ordering Physician: Margot Holman D.O. ?? Date of Service: 07/03/25 ?? Procedure(s): US OB BPP w non-stress ?? Accession Number(s): [id number] ? cc: Margot Holman D.O.; Physician,Non-Staff MKiyaDKiya ? [facility] ? [address] ? [place] [address] ? Patient Name: ?? SAMMI CHAPA ? MRN: [facility]:[id number] ? date: 1990 ?Sex: F ?? Assigned Patient Location: [facility] ?? Current Patient Location: [facility] ?? Accession/Order Number: [id number] ?? Exam Date: 07/03/2025 ??08:07 ?Report Date: 07/03/2025 ??08:31 ? At the request of: ?? MARGOT ??RIVER ??DO ? Procedure: ??US OB BPP w non-stress ? Biophysical profile. ? Reason for exam: Advanced maternal age ? COMPARISON: None ? TECHNIQUE: Transabdominal imaging of the gravid uterus was obtained. ? FINDINGS: The dairy clerk reports a BPP of 8 out of 8. ??TAYA is normal at 19 ?? cm. ?? heart rate 167 bpm. ? US/US OB BPP w non-stress ?? IMPRESSION: BPP 8 out of 8. ? Impression dictated by: Steve Lara Jr., D.O. ??07/03/2025 8:31 AM ? Dictation Location: RADIO-PC-18 ? Electronically authenticated by: [id number] ??Y ?? Date: 07/03/2025 ??08:31 ? Dictated By: ?Steve Lara M.D. ? Signed By: ?07/03/25 0834 ? DD/ 0831 ? TD/TT: ? Sausage Linker: Procedure Note Radiology, Radiologist, - 07/03/2025 [place] [address] Ultrasound Report Signed Patient: SAMMI CHAPA MMR#: [id number] : 1990Acct:[id number] Age/Sex: 35 / FADM Date: 07/03/25 Loc: [facility] 250-[address]: Margot Holman D.O. Ordering Physician: Margot Holman D.O. Date of Service: 07/03/25 Procedure(s): US OB BPP w non-stress Accession Number(s): [id number] cc: Margot Holman D.O.; Physician,Non-Staff Vinny The [place] [id number] Patient Name: SAMMI CHAPA MRN: [facility]:[id number] date: 1990 Sex: F Assigned Patient Location: [facility] Current Patient Location: [facility] Accession/Order Number: [id number] Exam Date: 07/03/2025 08:07 Report Date: 07/03/2025 08:31 At the request of: MARGOT HOLMAN DO Procedure: US OB BPP w non-stress Biophysical profile. Reason for exam: Advanced maternal age COMPARISON: None TECHNIQUE: Transabdominal imaging of the gravid uterus was obtained. FINDINGS: The dairy clerk reports a BPP of 8 out of 8. TAYA is normal at19 cm. heart rate 167 bpm. US/US OB BPP w non-stress IMPRESSION: BPP 8 out of 8. Impression dictated by: Steve Lara Jr., D.O. 07/03/2025 8:31 AM Dictation Location: [place] [address] Electronically authenticated by: [id number] Y Date: 508:31 Dictated By: Steve Lara M.D. Signed By:07/03/2534 DD/ 0 TD/TT: Sausage Linker: Authorizing ProviderResult TypeResult StatusCorey River DOCLINISYNC IMAGINGFinal Result * URINARY TRACT INFECTION (HTRX) (06/23/2025 3:32 PM EST)ComponentValueRef Range Test MethodAnalysis TimePerformed AtPathologist SignatureACINETOBACTER IVZEEUPJ743.961 - 24.689 ppm06/24/2025 8:25 AM ESTHealthTrackRx at [facility] ACINETOBACTER BAUMANIINot Kqsngltm00.961 - 24.689 ppm06/24/2025 8:25 AM EST [facility] at LabPortCITROBACTER AHADOSYF798.000 - 32.015 ppm06/24/2025 8:25 AM ESTHealthTrackRx at LabPortCITROBACTER FREUNDIINot Puzrdwhx73.000 - 32.015 ppm06/24/2025 8:25 AM ESTHealthTrackRx at LabPortENTEROBACTER AEROGENES, IWKIIIY948.000 - 32.290 ppm06/24/2025 8:25 AM ESTHealthTrackRx at LabPortENTEROBACTER AEROGENES, CLOACAENot Annhoait28.000 - 32.290 ppm 06/24/2025 8:25 AM ESTHealthTrackRx at LabPortENTEROCOCCUS FAECALIS, FAECIUM0 26.000 - 33.043 ppm06/24/2025 8:25 AM ESTHealthTrackRx at LabPortENTEROCOCCUS FAECALIS, FAECIUMNot Nsngwoov76.000 - 33.043 ppm06/24/2025 8:25 AM EST [facility] at LabPortESCHERICHIA NCOD342.000 - 28.500 ppm06/24/2025 8:25 AM ESTHealthTrackRx at LabPortESCHERICHIA COLINot Udixbgrs15.000 - 28.500 ppm 06/24/2025 8:25 AM ESTHealthTrackRx at LabPortKLEBSIELLA PNEUMONIAE, OXYTOCA0 23.000 - 31.865 ppm06/24/2025 8:25 AM ESTHealthTrackRx at LabPortKLEBSIELLA PNEUMONIAE, OXYTOCANot Dvdwcoap67.000 - 31.865 ppm06/24/2025 8:25 AM EST [facility] at LabPortMORGANELLA IEJEGJBI654.961 - 24.689 ppm06/24/2025 8:25 AM ESTHealthTrackRx at LabPortMORGANELLA MORGANIINot Cfrcpmgc15.961 - 24.689 ppm06/24/2025 8:25 AM ESTHealthTrackRx at LabPortPROTEUS MIRABILIS, VULGARIS0 23.000 - 28.500 ppm06/24/2025 8:25 AM ESTHealthTrackRx at LabPortPROTEUS MIRABILIS, VULGARISNot Fyggqjid42.000 - 28.500 ppm06/24/2025 8:25 AM EST [facility] at LabPortPSEUDOMONAS HHJLWODPRB932.000 - 31.801 ppm06/24/2025 8:25 AM ESTHealthTrackRx at LabPortPSEUDOMONAS AERUGINOSANot Xlcwdqvx13.000 - 31.801 ppm06/24/2025 8:25 AM ESTHealthTrackRx at LabPortSTAPHYLOCOCCUS AUREUS0 26.000 - 31.595 ppm06/24/2025 8:25 AM ESTHealthTrackRx at [facility] STAPHYLOCOCCUS AUREUSNot Imdouqba86.000 - 31.595 ppm06/24/2025 8:25 AM EST [facility] at LabPortSTREPTOCOCCUS AGALACTIAE (GROUP B STREP)026.000 - 32.435 ppm06/24/2025 8:25 AM ESTHealthTrackRx at LabPortSTREPTOCOCCUS AGALACTIAE (GROUP B STREP)Not Fsfwkpda33.000 - 32.435 ppm06/24/2025 8:25 AM ESTHealthTrackRx at LabPortCANDIDA ALBICANS, PARAPSILOSIS, UNWBCDHMJF080.000 - 30.347 ppm06/24/2025 8:25 AM ESTHealthTrackRx at LabPortCANDIDA ALBICANS, PARAPSILOSIS, TROPICALISNot Iiznicnb36.000 - 30.347 ppm06/24/2025 8:25 AM EST [facility] LabPortCANDIDA RCCGOIUA479.000 - 31.618 ppm06/24/2025 8:25 AM ESTHealthTrackRx at LabPortCANDIDA GLABRATANot Fjtrvnsn80.000 - 31.618 ppm 06/24/2025 8:25 AM ESTHealthTrackRx at LabPortCANDIDA CUILQF098.000 - 30.873 ppm06/24/2025 8:25 AM ESTHealthTrackRx at LabPortCANDIDA KRUSEINot Detected 23.000 - 30.873 ppm06/24/2025 8:25 AM ESTHealthTrackRx at LabPortSERRATIA YLVEKRGKPF017.000 - 31.581 ppm06/24/2025 8:25 AM ESTHealthTrackRx at [facility] SERRATIA MARCESCENSNot Snwmitls51.000 - 31.581 ppm06/24/2025 8:25 AM EST [facility] at LabPortSTREPTOCOCCUS PYOGENES (GROUP A STREP)019.961 - 24.689 ppm06/24/2025 8:25 AM ESTHealthTrackRx at LabPortSTREPTOCOCCUS PYOGENES (GROUP A STREP)Not Abszoyty76.961 - 24.689 ppm06/24/2025 8:25 AM ESTHealthTrackRx at LabLuther[facility] IndianaSTAPHYLOCOCCUS EPIDERMIDIS, HAEMOLYTICUS, LUGDUNENSIS, SAPROPHYTICUS (PTBDB977.961 - 24.689 ppm06/24/2025 8:25 AM ESTHealthTrackRx at [facility] STAPHYLOCOCCUS EPIDERMIDIS, HAEMOLYTICUS, LUGDUNENSIS, SAPROPHYTICUS (URINANot Balgxvxb38.961 - 24.689 ppm06/24/2025 8:25 AM ESTHealthTrackRx at [facility] STAPHYLOCOCCUS EPIDERMIDIS, HAEMOLYTICUS, LUGDUNENSIS, SAPROPHYTICUS (URINA0 19.961 - 24.689 ppm06/24/2025 8:25 AM ESTHealthTrackRx at [facility] STAPHYLOCOCCUS EPIDERMIDIS, HAEMOLYTICUS, LUGDUNENSIS, SAPROPHYTICUS (URINANot Eqeuggir26.961 - 24.689 ppm06/24/2025 8:25 AM ESTHealth[facility] Specimen (Source)Anatomical Location / LateralityCollection Method / Volume Collection TimeReceived QraqSthke90/10/2025 3:32 PM EST06/24/2025 2:14 AM EST Narrative Authorizing ProviderResult TypeResult StatusSammi Briones NPLAB BLOOD ORDERABLESFinal ResultPerforming OrganizationAddressCity/State/ZIP CodePhone Number [facility] [address] [place] [address] * (ABNORMAL) POCT urinalysis dipstick manually resulted [...] Location / LateralityCollection Method / VolumeCollection TimeReceived ZhadSebqk70/10/2025 1:04 PM EST Narrative Authorizing ProviderResult TypeResult [...] Irizarry MD Authorizing ProviderResult TypeResult StatusCorey River [facility] PROCEDURES Final Result * Glucose tolerance, 1 hour (05/25/2025 10:39 AM EST)Specimen (Source)Anatomical Location / LateralityCollection Method / VolumeCollection TimeReceived Time BloodVenous blood specimen / Unknown Narrative Authorizing ProviderResult TypeResult StatusCorejerilyn Holman DOLAB BLOOD ORDERABLES Final ResultPerforming OrganizationAddressCity/State/ZIP CodePhone [...] ResultPerforming OrganizationAddressCity/State/ZIP CodePhone Number [facility] * (ABNORMAL) ALL CBC WITH AUTO DIFF (05/06/2025 8:43 AM EDT)ComponentValueRef RangeTest MethodAnalysis TimePerformed AtPathologist SignatureTBH WBC9.54.0 - 11.0 10 3/uLTBHTBH RBC3.75(L)4.20 - 5.40 10 6/uLTBHTBH HGB12.712.0 - 16.0 g/dL TBHTBH HCT37.636.0 - 48.0 %TBHTBH WNS526.3(H)81.0 - 99.0 fLTBHTBH MCH33.926.7 - 34.0 pgTBHTBH MCHC33.829.9 - 35.2 g/dLTBHTBH RDW12.911.0 - 15.0 %TBHTBH PLT 598435 - 450 10 3/uLTBHTBH MPV8.9(L)9.5 - 13.5 [...] River DOCLINISYNCFinal Result Performing OrganizationAddressCity/State/ZIP CodePhone Number [facility] * AFP, SERUM, OPEN SPINA BIFIDA (04/10/2025 11:16 AM EDT)ComponentValueRef Range Test MethodAnalysis TimePerformed AtPathologist SignatureRESULTSReport.TBHTEST RESULTS:*Screen Negative*.TBHGEST. AGE ON COLLECTION DATE21.7. weeksTBHGESTAT. AGE BASED ONLMP.TBHComment: Recalculations are not recommended when gestational dating by LMP and ultrasound are within 10 days. MATERNAL AGE AT EDD36.3. yrTBHRACECaucasian.PYFLFHZTE493. lbsTBHINSULIN DEP DIABETESNo.TBHMULTIPLE GESTATIONNo.TBHAFP DSOYC912.6. ng/mLTBHAFP MOM1.48.TBH OSBR RISK 1 VV6269.TBHINTERPRETATIONComment.TBHComment: Interpretation: Screen Negative This result is screen [...] Customer Services to discuss available options. ??The [employer] recommends amniocentesis be offered to women age 35 and older. COMMENT:Comment.TBHComment: Jenna Ennis, Ph.D., [facility] Director References: Available Upon Request. Multiples Of Median Cutoffs ?For AFP Elevations Leone ?? 2.5 ? Black ?2.8 IDD ? 2.0 ? Twins ?4.5 ?Abbreviation Definitions IDD - Insulin Dep Diabetes OSBR - Open Spina Bifida Risk For further inquiries contact [facility] at [phone]. This test was developed and its performance characteristics determined by [facility]. It has not been cleared or approved by the Food and Drug Administration. Performed at: ??[facility] [address] [place], [place] ??[id number] Loader Technician: Elbert Villalta [facility], Phone: ??[phone] Specimen (Source)Anatomical Location / LateralityCollection Method / Volume Collection TimeReceived Time04/10/2025 11:16 AM EDT04/10/2025 11:22 AM EDT Narrative [facility] - 04/14/2025 12:08 AM EDT PREGNANY N N LMP [id number] 1 21 N 1 Y 141 N N N N N White/ Authorizing ProviderResult TypeResult StatusCorey River DOLAB BLOOD ORDERABLES Final ResultPerforming OrganizationAddressCity/State/ZIP CodePhone Number [facility] * Pap Smear (04/06/2025 12:00 AM EDT)Specimen (Source)Anatomical Location / LateralityCollection Method / VolumeCollection TimeReceived TimeSwabCervical swab / Unknown Narrative Authorizing ProviderResult TypeResult StatusCorey [facility] DOL CYTOLOGY ORDERABLESFinal ResultPerforming OrganizationAddressCity/State/ZIP CodePhone Number EXTERNAL LAB * (ABNORMAL) Q - THINPREP(R) TIS AND HPV MRNA E6/E7 RFL HPV 16,18/45 (06/26/2019)ComponentValueRef RangeTest MethodAnalysis TimePerformed At Pathologist SignatureCLINICAL INFORMATION:None givenNOMS LEGACY EXTERNAL LAB LMP:NONE GIVENNOMS LEGACY EXTERNAL LABPREV. PAP:NONE GIVENNOMS LEGACY EXTERNAL LABPREV. BX:NONE GIVENNOMS LEGACY EXTERNAL LABSOURCE:None givenNOMS LEGACY EXTERNAL LABSTATEMENT OF ADEQUACY:SEE NOTENOMN LEGACY EXTERNAL LABComment: Satisfactory for evaluation. Endocervical/transformation zone component present. INTERPRETATION/RESULT:Negative for intraepithelial lesion or malignancy.[facility] EXTERNAL LABCOMMENT:This Pap test has been evaluated with computer assisted technology.[facility] EXTERNAL LABCYTOTECHNOLOGIST:SEE NOTENOMS LEGACY EXTERNAL LABComment: GERMANIA BRAXTON(ASCP) CT screening location: [place] [address]. REVIEW KEY CARRIER:SEE NOTENOMN LEGACY EXTERNAL LABComment: TRISTIANGERMANIA(ASCP) CT screening location: [email or web address] [address]. COMMENTSEE NOTENOMS LEGACY EXTERNAL LABComment: EXPLANATORY NOTE: The Pap [...] historic and current clinical information. HPV MRNA E6/O8Wazfrtxz(A)Not DetectedNOMS LEGACY EXTERNAL LABComment: This test was performed using the APTIMA HPV Assay ([employer] This assay detects E6/E7 viral messenger RNA (mRNA) from 14 high-risk HPV types (16,18,31,33,35,39,45,51,52,56,58,59,66,68). The analytical performance characteristics of this assay have been determined by [employer]. The modifications have not been cleared or approved by the FDA. This assay has been validated pursuant to the CLIA regulations and is used for clinical purposes. Specimen (Source)Anatomical Location / LateralityCollection Method / Volume Collection TimeReceived Time06/26/2019 Narrative Authorizing ProviderResult TypeResult StatusValericris Xavier CNMECW LABSFinal ResultPerforming OrganizationAddressCity/State/ZIP CodePhone Number [facility] from Last 3 Months or Most Recently Relevant to Health Maintenance Additional Health Concerns Active ProblemsNoted DateDiagnosed DateOB Dvzbxsqov52/08/2025 Insurance Care Teams Team MemberRelationshipSpecialtyStart DateEnd Kimmy Carey MD [address] [place] [address] PCP - GeneralFamily Medicine02/04/23
--- OUTSIDE RECORDS SUMMARY | 2025-07-10 10:52 | XMS_ITS | Clinical Summary ---
Author Organization [facility] Address [address] [place] [address] Care Team Providers Care Tank Car Reconditioner Name Role Phone Colleen Larios Primary Care Provider [phone] Allergies No known active allergies Medications MedicationSigDispense QuantityRefillsLast FilledStart DateEnd DateStatus aspirin 81 mg EC tablet Take 81 mg by mouth in the morning.Active 2-QGDV-JSDLL ACID-OM3 ORAL Take 1 tablet by mouth in the morning.Active Active Problems ProblemNoted DateDiagnosed NwkkFbmcd68/12/2025Influenza A108/26/2024Dyspnea on lxvapzil543 weeks gestation of zaipggvto01/11/2025Pure vfgpdhonqiatlmliwouh95/11/6674Coydfhlbgmf44/06/2025Irritable bowel syndrome with tbjolggbvyoa97/10/2025POTS (postural orthostatic tachycardia syndrome)01/21/2025 Microscopic hasyldyvv83/08/2022 Overview (02/17/2025): 01/19/22: Recent back pain, left [...] to conceive. Urine sent for microscopic evaluation Ighectragpa18/28/2022SVT (paroxysmal supraventricular tachycardia)01/13/2021 Govjmdkfycyl08/28/2020PVC's (premature ventricular contractions)07/11/2020 CommentsYes Encounters DateTypeDepartmentCare OfbdYleulbqcwin94/15/2025 9:00 AM ESTOffice Visit [facility] [address] [place] [address] Crow Corey MD Palpitations (Primary Dx); Tachycardia; POTS (postural orthostatic tachycardia syndrome); Pure hypercholesterolemia; 33 weeks gestation of teerhxgjp88/10/2025 10:40 AM EDTOffice Visit [facility] [address] [place] [address] Crow Corey MD POTS (postural orthostatic tachycardia syndrome) (Primary Dx); Dyspnea on exertion; Palpitations; 23 weeks gestation of ; Pure hypercholesterolemiafrom Last 3 Months Family History Medical HistoryRelationNameCommentsHypertensionFatherHyperlipidemiaMotheratria flutterMotherRelationNameStatusCommentsFatherAliveMotherAlive Social History Tobacco UseTypesPacks/DayYears UsedDateSmoking Tobacco: NeverSmokeless Tobacco: NeverAlcohol UseStandard Drinks/WeekCommentsNot Currently0 (1 standard drink = 0.6 oz pure alcohol)CommentsYesSex and Gender InformationValueDate RecordedSex Assigned at WwvgoKjrdgj58/05/2025 3:28 PM EDTLegal SexFemale 01/29/2025 12:33 PM EDTGender PdpmrrviHenpcj08/05/2025 3:28 PM EDTSexual OrientationHeterosexual or Oukjnazq47/05/2025 3:28 PM EDT Last Filed Vital Signs Vital SignReadingTime TakenCommentsBlood Insalcow104/7706/28/2025 8:49 AM EST Mnmrj79596/15/2025 8:49 AM ESTTemperature--Respiratory Rate--Oxygen Saturation 97%06/28/2025 8:49 AM ESTInhaled Oxygen Concentration--Orlpsa06.8 kg (156 lb) 06/28/2025 8:49 AM QKZOnsbkz485.5 cm (5' 2 )06/28/2025 8:49 AM ESTBody Mass Index28.5306/28/2025 8:49 AM EST Plan of Treatment Health MaintenanceDue DateLast DoneCommentsDepression Wpzhriojk73/13/2001 Varicella Vaccines (1 of 2 - 13+ 2-dose series)2002Hepatitis B Vaccines (1 of 3 - 19+ 3-dose series)2008dult Jonhjni9103/27/2011HPV Vaccines (1 - 3- dose SCDM series)2016HPV/Rwxjzb3103/27/2019COVID-19 Vaccine ( - 2024- season)2025Influenza Vaccine (#1)/Cervical Cancer Oqnydxvnv70/23/2028Pap Smear809/Zoster Vaccines (1 of 2) 2039HIB VaccinesAged [...] Team MemberRelationshipSpecialtyStart DateEnd Date Ric Colleen [address] [place] [address] [facility]02/22/25
--- NOTE | 2025-07-10 11:00 | US_ITS ---
[place] [id number] Patient Name: NORRIS GARDNER MRN: [id number] date: 1990 Sex: F Assigned Patient Location: [facility] Current Patient Location: Accession/Order Number: [id number] Exam Date: 07/10/2025 11:01 Report Date: 07/10/2025 18:24 At the request of: MARGOT RIVAS DO Procedure: US OB BPP w non-stress Ultrasound biophysical profile HISTORY: Advanced maternal age Adequate breathing movement, gross body movement, tone and amniotic fluid volume for total score of 8 out of 8. The amniotic fluid index is 20.7cm within normal limits. The heart rate 139 bpm. US/US OB BPP w non-stress IMPRESSION: Adequate ultrasound biophysical profile Impression dictated by: Navid Dickinson M.D. 07/10/2025 6:24 PM Dictation Location: [place] [address] Electronically authenticated by: [id number] Y Date: 07/10/2025 18:24
== END 2025-07-10 11:40 | disposition home or self-care (01) ==
LOC: US 10:50 → FBC 10:51
PROVIDERS: Family Provider Family Medicine; Visit Provider Obstetrics & Gynecology
DX: O26.893 Other specified pregnancy related conditions, third trimester (principal); O09.513 Supervision of elderly primigravida, third trimester
CPT/HCPCS: 76818

== ENCOUNTER 2025-07-14 07:24 | Outpatient (OUT) | payer BC, SELFPAY ==
--- OUTSIDE RECORDS SUMMARY | 2025-07-13 09:20 | XMS_ITS | Encounter Summary ---
Author Organization [facility] Address [address] [facility] [address] Care Team Providers Care Application Engineer Name Role Phone Kimmy Carey MD Primary Care Provider [phone] Reason for Visit * ReasonCommentsRoutine Visit Encounter Details DateTypeDepartmentCare Team (Latest Contact Info)Zjzfukixolu29/30/2025 9:20 AM ESTRoutine [facility] [address] [place] [address] Marie Santiago PA [address] [place] [address] Third trimester ([facility] 35 weeks gestation of ([facility]); Tachycardia; Multigravida of advanced maternal age in third trimester ([facility]); Hx of cold sores Social History Tobacco UseTypesPacks/DayYears UsedDateSmoking Tobacco: NeverSmokeless Tobacco: NeverAlcohol UseStandard Drinks/WeekCommentsYes0 (1 standard drink = 0.6 oz pure alcohol)1-5 drinks once a aqrcsF2831 Health LiteracyAnswerDate RecordedHow often do you need [...] relatives?Twice a week01/22/2024How often do you attend samaritan or sikh services?Never01/22/2024o you belong to any clubs or organizations such as samaritan groups, unions, fraternal or athletic groups, or school groups?No 01/22/2024How often do you attend meetings of the clubs or organizations you belong to?Never01/22/2024re you , , , , never , or living with a partner?Cbqwgkd1501/22/2024UDIT-CAnswerDate RecordedQ1: How often do you have a [...] and heating?Not very hard01/22/2024HQ-2AnswerDate RecordedPatient Health Questionnaire-2 Hbcfc765Finprimary [facility]'s hospital [place] of Occupational [facility] - Occupational Stress QuestionnaireAnswerDate RecordedDo you feel stress - tense, restless, nervous, or anxious, or unable to sleep at night because your mind is troubled all the time - these days?Only a rcpktg9801/22/2024Exercise Vital SignAnswerDate RecordedOn average, how many days [...] homeless or living in a retirement (including now)?No01/22/2024 Estimated Date of ExrmzwioMforjjcnAgv14/02/2026ased on last menstrual period of 11/09/2024Sex and Gender InformationValueDate RecordedSex Assigned at BirthNot on fileLegal XhqYotohj75/15/2023 7:12 PM EDTGender IdentityFemale 09/26/2022 7:12 PM EDTSexual SaiaaqheterSgjpyame91/22/2023 8:43 AM EDTdocumented as of this encounter Last Filed Vital Signs Vital SignReadingTime TakenCommentsBlood Zlxecuba093/7007/13/2025 9:29 AM EST Pulse--Temperature--Respiratory Rate--Oxygen Saturation--Inhaled Oxygen Concentration--Szscth62.8 kg (156 lb)07/13/2025 9:29 AM ESTHeight--Body Mass Index28.5311 9:31 AM EDTdocumented in this encounter Progress Notes * SHANNON Butler - 07/13/2025 9:20 AM EST Reason for Appointment: Patient ID: Sammi Chapa is a 35 y.o. female who presents for Routine Visit Patient presents today for Return OB appointment. MEDICATIONS Current Outpatient Medications Medication Instructions aspirin 81 mg, Daily MV-Min-Fe Fum-FA-DHA ( 1 PO) 1 tablet, Daily ALLERGIES No Known Allergies PROBLEMS Active Ambulatory Problems Diagnosis Date Noted Palpitations 07/11/2020 Tachycardia 08/11/2021 Miscarriage ([facility]) Irritable bowel syndrome with predominant constipation Multigravida of advanced maternal age in third trimester ([facility]) 07/13/2025 Hx of cold sores 07/13/2025 Resolved Ambulatory Problems Diagnosis Date Noted No [...] Irritable bowel syndrome with predominant constipation Miscarriage ([facility]) Ovarian cyst 09/08 POTS (postural [...] Grandmother Winifred Rasey Cancer Paternal Grandfather Baldo RoachSavana Breast cancer Paternal Grandmother Ana Savana Alcohol [...] Exam Constitutional: Appearance: Normal appearance. She is normal weight. HENT: Head: Normocephalic. Cardiovascular: Rate and Rhythm: Normal rate. Pulses: Normal pulses. Pulmonary: Effort: Pulmonary effort is normal. Breath sounds: Normal breath sounds. Abdominal: Palpations: Abdomen is soft. Musculoskeletal: General: Normal range of motion. Neurological: General: No focal deficit present. Mental Status: She is alert and oriented to person, place, and time. Psychiatric: Mood and Affect: Mood normal. Behavior: Behavior normal. Thought Content: Thought content normal. Judgment: Judgment normal. Vitals and nursing note reviewed. Vitals: Estimated body mass index is 28.17 kg/m?? as calculated from the following: Height as of 05/15/24: 5' 2 . Weight as of 06/23/25: 154 lb. BP: Patient's last menstrual period was 11/09/2024. Assessment/Plan ICD-10-CM 1. Third trimester ([facility]) Z34.93 POCT urinalysis dipstick manually resulted 2. 35 weeks gestation of ([facility]) Z3A.35 3. Tachycardia R00.0 4. Multigravida of advanced maternal age in third trimester ([facility]) O09.523 5. Hx of cold sores Z86.19 Assessment/Plan Return OB: Patient presents today for a routine obstetrics appointment. Patient is currently 35w1d . Patient states she is doing well [...] week for routine OB appointment. Documented by Lynne Ayers MA on behalf of: SHANNON Butler documented in this encounter Plan of Treatment DateTypeDepartmentCare Team (Latest Contact Info)Pgacgkwpifp47/06/2026 11:00 AM ESTRoutine [facility] [address] [place] [id number] Vignesh Holman DO [address] [place] [address] documented as of this encounter Goals GoalPatient Goal TypeAssociated ProblemsRecent ProgressPatient-Stated?Author Reminders Care PlanOB RemindersNoOpen Scheduling, Backgrounddocumented as of this encounter Procedures Procedure NamePriorityDate/TimeAssociated DiagnosisCommentsPOCT URINALYSIS RXSBUDGTSapclyk81/30/2025 9:35 AM EST Third trimester ([facility]) documented in this encounter Results * (ABNORMAL) POCT urinalysis dipstick manually resulted (07/13/2025 9:35 AM EST) ComponentValueRef RangeTest MethodAnalysis TimePerformed AtPathologist SignatureColor, UAYellowClarity, UAClearGlucose, UANegativeNegative - 1999(110) ++++ mg/dLBilirubin, UANegativeNegative - 4(70) +++ mg/dLKetones, UA NegativeNegative - 160(16) ++++ mg/dLSpec Grav, UA1.0151 - 1.03Blood, UA PositiveNegative - 50 Piter/mcLpH, UA6.05 - 9Protein, UANegativeNegative - 1999(20) ++++ mg/dLUrobilinogen, UA1.00.2 - 12 mg/dLLeukocytes, UA1+Negative - 500+++ Nikki/mcLNitrite, UANegativeNegative - PositiveSpecimen (Source) Anatomical Location / LateralityCollection Method / VolumeCollection Time Received NugbJmark71/30/2025 9:35 AM EST Narrative Authorizing ProviderResult TypeResult StatusStoneSprings Hospital Center TEST ENTER/EDIT ORDERABLESFinal Result documented in this encounter Visit Diagnoses Diagnosis Third trimester ([facility]) state, incidental 35 weeks gestation of ([facility]) Tachycardia Unspecified tachycardia Multigravida of advanced maternal age in third trimester ([facility]) Hx of cold sores documented in this encounter Additional Health Concerns Active ProblemsNoted DateDiagnosed DateOB Xojpmuaah54/08/2025 documented as of this encounter Care Teams Team MemberRelationshipSpecialtyStart DateEnd Date Kimmy Carey MD [address] [place] [address] PCP - GeneralFamily Medicine02/04/23documented as of this encounter
--- OUTSIDE RECORDS SUMMARY | 2025-07-14 07:26 | XMS_ITS | Clinical Summary ---
Author Organization [facility] Address [address] [place] [address] Care Team Providers Care Bobbin Cleaner Name Role Phone Kimmy Carey MD Primary Care Provider [phone] Allergies No known active allergies Medications MedicationSigDispense QuantityRefillsLast FilledStart DateEnd DateStatus MV-Min-Fe Fum-FA-DHA ( 1 PO) Take 1 tablet by mouth DailyActive aspirin 81 MG EC tablet Take 81 mg by mouth DailyActive Active Problems ProblemNoted DateDiagnosed DateMultigravida of advanced maternal age in third trimester ([facility])07/13/2025Hx of cold sores07/13/20254218Shxgnmkiuvi63/28/2022 Zmynoloctwxl01/28/2020Miscarriage ([facility])Irritable bowel syndrome with predominant constipationEstimated Date of UqaiwsvhDczuqrsxQoa35/02/2026 Based on last menstrual period of 11/09/2024 Encounters DateTypeDepartmentCare QcujNgckfrzlkgu94/31/9202Zksift04/30/2025 9:20 AM EST Routine [facility] [place] [facility] [address] [place] [address] Marie Santiago PA Third trimester ([facility]); 35 weeks gestation of ([facility]); Tachycardia; Multigravida of advanced maternal age in third trimester ([facility]); Hx of cold sores07/13/2025amboo flowsheet [facility] [place] [facility] [address] [place] [address] Marie Santiago PA 07/10/2025linisync Result Encounter [facility] External Department Unsolicited Margot Holman, DO 07/07/20253569Jipulj85/20/2025linisync Result Encounter [facility] External Department Unsolicited Margot Holman, DO 06/30/2025Telephone [facility] [place] [facility] [address] [place] [address] Margot Holman, DO 06/23/2025 1:00 PM ESTRoutine [facility] [place] [facility] [address] [place] [address] Margot Holman, Primigravida of advanced maternal age in third trimester ([facility]) (Primary Dx); Third trimester ([facility]); 32 weeks gestation of ([facility]); Hematuria, unspecified type06/23/2025amboo flowsheet [facility] [place] [address] [place] [address] Margot Holman, DO 06/16/20254462Gteuak35/01/2025bstract [facility] [place] [address] Margot Holman, DO 06/08/2025 11:20 AM ESTRoutine [facility] [place] [address] Margot Holman, 30 weeks gestation of ([facility]); Third trimester ([facility])06/08/2025 10:30 AM ESTAncillary Procedure [facility] [place] [address] size inconsistent with dates ([facility])06/02/20257945Nomqvj23/11/2025 9:40 AM ESTRoutine [facility] [place] [address] Margot Holman, DO 28 weeks gestation of ([facility]); Third trimester ([facility]); size inconsistent with dates ([facility])05/25/2025amboo flowsheet [facility] [place] [facility] [address] [place] [address] Margot Holman, DO 05/24/2025Telephone [facility] [place] [facility] [address] [place] [address] Manda Ojeda MA 05/18/20252166Gkurmv96/23/2025linisync Result Encounter [facility] External Department Unsolicited Margot Holman, DO 05/05/2025 10:50 AM EDTRoutine [facility] [place] [facility] [address] [place] [address] Margot Holman, DO Second trimester ([facility]); 25 weeks gestation of ([facility]); Vaginal discharge; Diabetes mellitus brxhaarqn68/22/2025amboo flowsheet [facility] [place] [facility] [address] [place] [address] Margot Holman, DO 04/30/2025Telephone [facility] [place] [facility] [address] [place] [address] Margot Holman, DO 04/28/20253408Ufrfad91/14/2025Telephone [facility] [place] [facility] [address] [place] [address] Margot Holman, DO 04/20/2025Orders Only [facility] [place] [facility] [address] [place] [address] Lynne Ayers MA from Last 3 Months Immunizations ImmunizationAdministration DatesNext [...] 0.6 oz pure alcohol)1-5 drinks once a qjoatU6092 Health LiteracyAnswerDate RecordedHow often do you need [...] relatives?Twice a week01/22/2024How often do you attend anglican or muslim services?Never01/22/2024o you belong to any clubs or organizations such as anglican groups, unions, fraternal or athletic groups, or school groups?No 01/22/2024How often do you attend meetings of the clubs or organizations you belong to?Never01/22/2024re you , , , , never , or living with a partner?Jzsusul5201/22/2024UDIT-CAnswerDate RecordedQ1: How often do you have a [...] and heating?Not very hard01/22/2024HQ-2AnswerDate RecordedPatient Health Questionnaire-2 Mgktn267Finsevier [facility] [place] of Occupational Health - Occupational Stress QuestionnaireAnswerDate RecordedDo you feel stress - tense, restless, nervous, or anxious, or unable to sleep at night because your mind is troubled all the time - these days?Only a mymkyg8401/22/2024Exercise Vital SignAnswerDate RecordedOn average, how many days [...] a retirement (including now)?No01/22/2024 Estimated Date of MynxtstqWbjijtfhWav90/02/2026ased on last menstrual period of 11/09/2024Sex and Gender InformationValueDate RecordedSex Assigned at BirthNot on fileLegal OvkVlakjh88/15/2023 7:12 PM EDTGender IdentityFemale 09/26/2022 7:12 PM EDTSexual GqwpzinqdruYeblqbhm84/22/2023 8:43 AM EDT Last Filed Vital Signs Vital SignReadingTime TakenCommentsBlood Vmbnnvyh485/7007/13/2025 9:29 AM EST Cuban1742/01/2024 9:31 AM EDTTemperature--Respiratory Rate--Oxygen Xsgsppojas38% 05/15/2024 9:31 AM EDTInhaled Oxygen Concentration--Rwqipr63.8 kg (156 lb) 07/13/2025 9:29 AM YIKMnmcgn773.5 cm (5' 2 )05/15/2024 9:31 AM EDTBody Mass Index28.5305/15/2024 9:31 AM EDT Plan of Treatment DateTypeDepartmentCare Team (Latest Contact Info)Xmuepdkywwr29/06/2026 11:00 AM ESTRoutine [facility] [place] [facility] [address] [place] [address] Margot Holman, [address] [place] [address] Health MaintenanceDue DateLast DoneCommentsInfluenza Vaccine (#1)03/15/2025 05/05/2013Cervical Cancer Xixaaanva40/23/2026HPV/Vzafwj45/Pap Smear/, 12/26/2021, 2Pneumococcal Vaccine: Pediatrics (0 to 5 Years) and At-Risk Patients (6 to 64 Years)Aged OutNo longer eligible based on patient's age to complete this topic Goals GoalPatient Goal TypeAssociated ProblemsRecent ProgressPatient-Stated?Author Reminders Care PlanOB RemindersNoOpen Scheduling, Background Procedures Procedure NamePriorityDate/TimeAssociated DiagnosisCommentsPOCT URINALYSIS EXALRLFGEgbalfo95/30/2025 9:35 AM EST Third trimester ([facility]) US OB BPP W NON-KNKGVG2607/10/2025 6:24 PM EST US OB BPP W NON-MKIRLO8807/03/2025 8:31 AM EST URINARY TRACT INFECTION (HTRX)Hlcxoqk7606/23/2025 3:32 PM EST POCT URINALYSIS NZXUJWDQEcysiix40/10/2025 1:04 PM EST 32 weeks gestation of ([facility]) POCT URINALYSIS YOOGVPLHTpcvgfc75/25/2025 11:55 AM EST 30 weeks gestation of ([facility]) Third trimester ([facility]) US OB FOLLOW UP TRANSABDOMINAL XUHFYDVGHsuaprr15/25/2025 10:42 AM EST size inconsistent with dates ([facility]) GLUCOSE TOLERANCE, 1 OFRUVwofabc83/11/2025 10:39 AM EST Diabetes mellitus screening JNCTsrlgvc74/11/2025 10:39 AM EST Diabetes mellitus screening CBC (INCLUDES DIFF/PLT)Txmjpee4905/25/2025 10:39 AM EST Second trimester ([facility]) POCT URINALYSIS BPIMQWVNStjsshi46/11/2025 9:54 AM EST 28 weeks gestation of ([facility]) GLUCOSE 1 LEZILeqjhzh59/23/2025 8:43 AM EDT ALL CBC WITH AUTO XUBPJtjsujo94/23/2025 8:43 AM EDT POCT URINALYSIS VRAPYJVZPnmvxgw05/22/2025 11:10 AM EDT 25 weeks gestation of ([facility]) PAP ESWPUDzptlct53/23/2025 12:00 AM EDTQ - THINPREP(R) TIS AND HPV MRNA E6/E7 RFL HPV 16,18/65Dqyumnb23/13/2019 from Last 3 Months or Most Recently Relevant to Health Maintenance Results * (ABNORMAL) POCT urinalysis dipstick manually resulted (07/13/2025 9:35 AM EST) Only the most recent of5 resultswithin the time period is included. ComponentValueRef RangeTest MethodAnalysis TimePerformed AtPathologist Signature Color, UAYellowClarity, UAClearGlucose, UANegativeNegative - 2000(110) ++++ mg/dLBilirubin, UANegativeNegative - 4(70) +++ mg/dLKetones, UANegativeNegative - 160(16) ++++ mg/dLSpec Grav, UA1.0151 - 1.03Blood, UAPositiveNegative - 50 Piter/mcLpH, UA6.05 - 9Protein, UANegativeNegative - 2000(20) ++++ mg/dL Urobilinogen, UA1.00.2 - 12 mg/dLLeukocytes, UA1+Negative - 500+++ Nikki/mcL Nitrite, UANegativeNegative - PositiveSpecimen (Source)Anatomical Location / LateralityCollection Method / VolumeCollection TimeReceived RmwdIjvcl09/30/2025 9:35 AM EST Narrative Authorizing ProviderResult TypeResult StatusClover Hill HospitalOINT OF CARE TEST ENTER/EDIT ORDERABLESFinal Result * US OB BPP W NON-STRESS (07/10/2025 6:24 PM EST) Only the most recent of2 resultswithin the time period is included. Anatomical RegionLateralityModalityOtherSpecimen (Source)Anatomical Location / LateralityCollection Method / VolumeCollection TimeReceived Time07/10/2025 6:24 PM EST Narrative 07/10/2025 6:26 PM EST [facility] ?[address] ? [place] [address] ? Ultrasound Report ? Signed ? Patient: SAMMI CHAPA ?MR#: [id number] ?? : 1990 ?Acct:[id number] ?? Age/Sex: 35 / F ?ADM Date: 07/10/25 ?? Loc: US ? Attending Dr: Margot Holman D.O. ? Ordering Physician: Margot Holman D.O. ?? Date of Service: 07/10/25 ?? Procedure(s): US OB BPP w non-stress ?? Accession Number(s): [id number] ? cc: Margot Holman D.O.; Physician,Non-Staff Vinny ? [facility] ? [address] ? [place] [address] ? Patient Name: ?? SAMMI CHAPA ? MRN: [facility]:[id number] ? date: 1990 ?Sex: F ?? Assigned Patient Location: [facility] ?? Current Patient Location: ? Accession/Order Number: [id number] ?? Exam Date: 07/10/2025 ??11:01 ?Report Date: 07/10/2025 ??18:24 ? At the request of: ?? MARGOT ??RIVER ??DO ? Procedure: ??US OB BPP w non-stress ? Ultrasound biophysical profile ? HISTORY: Advanced maternal age ? Adequate breathing movement, gross body movement, tone and ?? amniotic fluid volume for total score of 8 out of 8. ??The amniotic fluid index ?? is 20.7cm within normal limits. ??The heart rate 139 bpm. ? US/US OB BPP w non-stress ?? IMPRESSION: Adequate ultrasound biophysical profile ? Impression dictated by: Navid Dickinson M.D. ??07/10/2025 6:24 PM ? Dictation Location: [facility]--[facility] ? Electronically authenticated by: [id number] ??Y ?? Date: 07/10/2025 ??18:24 ? Dictated By: ?Navid Dickinson D.O. ? Signed By: ?07/10/25 1826 ? DD/ 1824 ? TD/TT: ? Shell Machine Operator: Procedure Note Radiology, Radiologist, MD - 07/10/2025 [place] [address] Ultrasound Report Signed Patient: SAMMI CHAPA [facility]#: [id number] : 1990Acct:[id number] Age/Sex: 35 / FADM Date: 07/10/25 Loc: US Attending Dr: Margot Holman D.O. Ordering Physician: Margot Holman D.O. Date of Service: 07/10/25 Procedure(s): US OB BPP w non-stress Accession Number(s): [id number] cc: Margot Holman D.O.; Physician,Non-Staff Vinny [place] [id number] Patient Name: SAMMI CHAPA MRN: [facility]:[id number] date: 1990 Sex: F Assigned Patient Location: [facility] Current Patient Location: Accession/Order Number: [id number] Exam Date: 07/10/2025 11:01 Report Date: 07/10/2025 18:24 At the request of: MARGOT HOLMAN DO Procedure: US OB BPP w non-stress Ultrasound biophysical profile HISTORY: Advanced maternal age Adequate breathing movement, gross body movement, tone and amniotic fluid volume for total score of 8 out of 8. The amniotic fluidindex is 20.7cm within normal limits. The heart rate 139 bpm. US/US OB BPP w non-stress IMPRESSION: Adequate ultrasound biophysical profile Impression dictated by: Navid Dickinson M.D. 07/10/2025 6:24 PM Dictation Location: [place] [address] Electronically authenticated by: [id number] Y Date: 8:24 Dictated By: Navid Dickinson D.O. Signed By:07/10/251825 DD/ 23 TD/TT: Shell Machine Operator: Authorizing ProviderResult TypeResult StatusCorey River DOCLINISYNC IMAGINGFinal Result * URINARY TRACT INFECTION (HTRX) (06/23/2025 3:32 PM EST)ComponentValueRef Range Test MethodAnalysis TimePerformed AtPathologist SignatureACINETOBACTER VADLTOSG667.961 - 24.689 ppm06/24/2025 8:25 AM ESTHealthTrackRx at [facility]Port ACINETOBACTER BAUMANIINot Hhgxgvil06.961 - 24.689 ppm06/24/2025 8:25 AM EST [facility] at LabPortCITROBACTER QJKHOLUE243.000 - 32.015 ppm06/24/2025 8:25 AM ESTHealthTrackRx at LabPortCITROBACTER FREUNDIINot Tbdtqumm07.000 - 32.015 ppm06/24/2025 8:25 AM ESTHealthTrackRx at LabPortENTEROBACTER AEROGENES, OGEHWGM091.000 - 32.290 ppm06/24/2025 8:25 AM ESTHealthTrackRx at LabPortENTEROBACTER AEROGENES, CLOACAENot Atqvydcu79.000 - 32.290 ppm 06/24/2025 8:25 AM ESTHealthTrackRx at LabPortENTEROCOCCUS FAECALIS, FAECIUM0 26.000 - 33.043 ppm06/24/2025 8:25 AM ESTHealthTrackRx at LabPortENTEROCOCCUS FAECALIS, FAECIUMNot Ngyccvdo20.000 - 33.043 ppm06/24/2025 8:25 AM EST [facility] at LabPortESCHERICHIA CTSZ761.000 - 28.500 ppm06/24/2025 8:25 AM ESTHealthTrackRx at LabPortESCHERICHIA COLINot Jebyjsfq32.000 - 28.500 ppm 06/24/2025 8:25 AM ESTHealthTrackRx at LabPortKLEBSIELLA PNEUMONIAE, OXYTOCA0 23.000 - 31.865 ppm06/24/2025 8:25 AM ESTHealthTrackRx at LabPortKLEBSIELLA PNEUMONIAE, OXYTOCANot Uivqajhv27.000 - 31.865 ppm06/24/2025 8:25 AM EST [facility] at LabPortMORGANELLA UTIEQGDI722.961 - 24.689 ppm06/24/2025 8:25 AM ESTHealthTrackRx at LabPortMORGANELLA MORGANIINot Oxmiequi06.961 - 24.689 ppm06/24/2025 8:25 AM ESTHealthTrackRx at LabPortPROTEUS MIRABILIS, VULGARIS0 23.000 - 28.500 ppm06/24/2025 8:25 AM ESTHealthTrackRx at LabPortPROTEUS MIRABILIS, VULGARISNot Iqhrhkdt28.000 - 28.500 ppm06/24/2025 8:25 AM EST [facility] at LabPortPSEUDOMONAS VBHDNXZLTQ577.000 - 31.801 ppm06/24/2025 8:25 AM ESTHealthTrackRx at LabPortPSEUDOMONAS AERUGINOSANot Wmzhbqzd71.000 - 31.801 ppm06/24/2025 8:25 AM ESTHealthTrackRx at LabPortSTAPHYLOCOCCUS AUREUS0 26.000 - 31.595 ppm06/24/2025 8:25 AM ESTHealthTrackRx at [facility] STAPHYLOCOCCUS AUREUSNot Glqclfce12.000 - 31.595 ppm06/24/2025 8:25 AM EST [facility] at LabPortSTREPTOCOCCUS AGALACTIAE (GROUP B STREP)026.000 - 32.435 ppm06/24/2025 8:25 AM ESTHealthTrackRx at LabPortSTREPTOCOCCUS AGALACTIAE (GROUP B STREP)Not Fhlznaqk54.000 - 32.435 ppm06/24/2025 8:25 AM ESTHealthTrackRx at LabPortCANDIDA ALBICANS, PARAPSILOSIS, YWPTZKHPXM148.000 - 30.347 ppm06/24/2025 8:25 AM ESTHealthTrackRx at LabPortCANDIDA ALBICANS, PARAPSILOSIS, TROPICALISNot Tdupkkpo21.000 - 30.347 ppm06/24/2025 8:25 AM EST [facility] LabPortCANDIDA INBYTKBR410.000 - 31.618 ppm06/24/2025 8:25 AM ESTHealthTrackRx at LabPortCANDIDA GLABRATANot Rcrxhjhp59.000 - 31.618 ppm 06/24/2025 8:25 AM ESTHealthTrackRx at LabPortCANDIDA JAPTGO772.000 - 30.873 ppm06/24/2025 8:25 AM ESTHealthTrackRx at LabPortCANDIDA KRUSEINot Detected 23.000 - 30.873 ppm06/24/2025 8:25 AM ESTHealthTrackRx at LabPortSERRATIA GHJRDJQBXA003.000 - 31.581 ppm06/24/2025 8:25 AM ESTHealthTrackRx at [facility] SERRATIA MARCESCENSNot Llazwals86.000 - 31.581 ppm06/24/2025 8:25 AM EST [facility] at LabPortSTREPTOCOCCUS PYOGENES (GROUP A STREP)019.961 - 24.689 ppm06/24/2025 8:25 AM ESTHealthTrackRx at LabPortSTREPTOCOCCUS PYOGENES (GROUP A STREP)Not Qrffqbnx41.961 - 24.689 ppm06/24/2025 8:25 AM ESTHealthTrackRx at LabMedical Behavioral HospitalSTAPHYLOCOCCUS EPIDERMIDIS, HAEMOLYTICUS, LUGDUNENSIS, SAPROPHYTICUS (CWFOC835.961 - 24.689 ppm06/24/2025 8:25 AM ESTHealthTrackRx at [facility] STAPHYLOCOCCUS EPIDERMIDIS, HAEMOLYTICUS, LUGDUNENSIS, SAPROPHYTICUS (URINANot Dipfrmfp42.961 - 24.689 ppm06/24/2025 8:25 AM ESTHealthTrackRx at [facility] STAPHYLOCOCCUS EPIDERMIDIS, HAEMOLYTICUS, LUGDUNENSIS, SAPROPHYTICUS (URINA0 19.961 - 24.689 ppm06/24/2025 8:25 AM ESTHealth[facility]Rx [facility] STAPHYLOCOCCUS EPIDERMIDIS, HAEMOLYTICUS, LUGDUNENSIS, SAPROPHYTICUS (URINANot Zvybcsqi01.961 - 24.689 ppm06/24/2025 8:25 AM ESTHealthTrackRx at [facility] Specimen (Source)Anatomical Location / LateralityCollection Method / Volume Collection TimeReceived NdrrIzcfk25/10/2025 3:32 PM EST06/24/2025 2:14 AM EST Narrative Authorizing ProviderResult TypeResult StatusSammi Briones NPLAB BLOOD ORDERABLESFinal ResultPerforming OrganizationAddressCity/State/ZIP CodePhone Number [facility] [address] [place] [address] * US OB follow up transabdominal approach [...] BY: Steve Irizarry MD Authorizing ProviderResult TypeResult StatusMagrot Holman DOI OB US PROCEDURES Final Result * Glucose tolerance, 1 hour (05/25/2025 10:39 AM EST)Specimen (Source)Anatomical Location / LateralityCollection Method / VolumeCollection TimeReceived Time BloodVenous blood specimen / Unknown Narrative Authorizing ProviderResult TypeResult StatusCorejerilyn River DOLAB BLOOD ORDERABLES Final ResultPerforming OrganizationAddressCity/State/ZIP [...] 8:43 AM EDT1 8:45 AM EDT Narrative VICENTE - 05/06/2025 9:05 AM EDT Authorizing ProviderResult TypeResult StatusCorey [place] SAAB BLOOD ORDERABLES Final ResultPerforming OrganizationAddressCity/State/ZIP CodePhone Number VICENTE [facility] * (ABNORMAL) ALL CBC WITH AUTO DIFF (05/06/2025 8:43 AM EDT)ComponentValueRef RangeTest MethodAnalysis TimePerformed AtPathologist SignatureTBH WBC9.54.0 - 11.0 10 3/uLTBHTBH RBC3.75(L)4.20 - 5.40 10 6/uLTBHTBH HGB12.712.0 - 16.0 g/dL TBHTBH HCT37.636.0 - 48.0 %TBHTBH FIV018.3(H)81.0 - 99.0 fLTBHTBH MCH33.926.7 - 34.0 pgTBHTBH MCHC33.829.9 - 35.2 g/dLTBHTBH RDW12.911.0 - 15.0 %TBHTBH PLT 074213 - 450 10 3/uLTBHTBH MPV8.9(L)9.5 - 13.5 [...] River DOCLINISYNCFinal Result Performing OrganizationAddressCity/State/ZIP CodePhone Number CLINISYNC [facility] * Pap [...] LEGACY EXTERNAL LABCYTOTECHNOLOGIST:SEE NOTENOMS LEGACY EXTERNAL LABComment: NNO, CT(ASCP) CT screening location: [place] [address]. REVIEW PRODUCTION OR PLANT ENGINEER:SEE NOTENOMS LEGACY EXTERNAL LABComment: JEH, CT(ASCP) CT screening location: [place] [address]. COMMENTSEE NOTENOMS LEGACY EXTERNAL LABComment: EXPLANATORY NOTE: [...] historic and current clinical information. HPV MRNA E6/W7Cekdbnab(A)Not DetectedNOMS LEGACY EXTERNAL LABComment: This test was performed using the APTIMA HPV Assay ([employer] This assay detects E6/E7 viral messenger RNA (mRNA) from 14 high-risk HPV types (16,18,31,33,35,39,45,51,52,56,58,59,66,68). The analytical performance characteristics of this assay have been determined by [facility]. The modifications have not been cleared or [...] Additional Health Concerns Active ProblemsNoted DateDiagnosed DateOB Butkkfale90/08/2025 Insurance Care Teams Team MemberRelationshipSpecialtyStart DateEnd Kimmy Carey MD [address] [facility] [place] [address] PCP - GeneralFamily Medicine02/04/23
[2025-07-14 07:27] VITALS: BP 118/77; PULSE 96
--- OUTSIDE RECORDS SUMMARY | 2025-07-14 07:27 | XMS_ITS | Encounter Summary ---
Author Organization [facility] Address [address] [place] [address] Care Team Providers Care Multigrapher Name Role Phone Kimmy Carey MD Primary Care Provider [phone] Encounter Details DateTypeDepartmentCare Team (Latest Contact Info)Aqbxckyvgtw86/30/2025amboo flowsheet [facility] [place] [facility] [address] [address] Marie Santiago PA [address] [place], [place] [id number] Social History Tobacco UseTypesPacks/DayYears UsedDateSmoking Tobacco: NeverSmokeless Tobacco: NeverAlcohol UseStandard Drinks/WeekCommentsYes0 (1 standard drink = 0.6 oz pure alcohol)1-5 drinks once a svwydX8328 Health LiteracyAnswerDate RecordedHow often do you need [...] relatives?Twice a week01/22/2024How often do you attend anabaptist or yarsanism services?Never01/22/2024o you belong to any clubs or organizations such as anabaptist groups, unions, fraternal or athletic groups, or school groups?No 01/22/2024How often do you attend meetings of the clubs or organizations you belong to?Never01/22/2024re you , , , , never , or living with a partner?Wkffusr1201/22/2024UDIT-CAnswerDate RecordedQ1: How often do you have a [...] and heating?Not very hard01/22/2024HQ-2AnswerDate RecordedPatient Health Questionnaire-2 Qklfn222[facility] [place] of Occupational Health - Occupational Stress QuestionnaireAnswerDate RecordedDo you feel stress - tense, restless, nervous, or anxious, or unable to sleep at night because your mind is troubled all the time - these days?Only a irwbgh6301/22/2024Exercise Vital SignAnswerDate RecordedOn average, how many days [...] homeless or living in a fdc (including now)?No01/22/2024 Estimated Date of XeoyuuwvKyqwigftFpi09/02/2026ased on last menstrual period of 11/09/2024Sex and Gender InformationValueDate RecordedSex Assigned at BirthNot on fileLegal HeuPzyemu91/15/2023 7:12 PM EDTGender IdentityFemale 09/26/2022 7:12 PM EDTSexual SokqcfsxppsTycqijnk86/22/2023 8:43 AM EDTdocumented as of this encounter Plan of Treatment DateTypeDepartmentCare Team (Latest Contact Info)Emxapjmnusz51/06/2026 11:00 AM ESTRoutine [facility] [place] [facility] [address] [phone] Vignesh Holman DO [address] [place] [address] documented as of this encounter Goals GoalPatient Goal TypeAssociated ProblemsRecent ProgressPatient-Stated?Author Reminders Care PlanOB RemindersNoOpen Scheduling, Backgrounddocumented as of this encounter Visit Diagnoses Not on filedocumented in this encounter Additional Health Concerns Active ProblemsNoted DateDiagnosed DateOB Kkhqmvplx27/08/2025 documented as of this encounter Care Teams Team MemberRelationshipSpecialtyStart DateEnd Date Kimmy Carey MD [address] [facility] [place] [address] PCP - GeneralFamily Medicine02/04/23documented as of this encounter
--- OUTSIDE RECORDS SUMMARY | 2025-07-14 07:27 | XMS_ITS | Encounter Summary ---
Author Organization [facility] Address [address] [place] [address] Care Team Providers Care Copy Supervisor Name Role Phone Kimmy Carey MD Primary Care Provider [phone] Encounter Details DateTypeDepartmentCare Team (Latest Contact Info)Bbdcluefkdx09/24/2025Travel Social History Tobacco UseTypesPacks/DayYears UsedDateSmoking Tobacco: NeverSmokeless Tobacco: NeverAlcohol UseStandard Drinks/WeekCommentsYes0 (1 standard drink = 0.6 oz pure alcohol)1-5 drinks once a disziC1304 Health LiteracyAnswerDate RecordedHow often do you need [...] week01/22/2024How often do you attend yazidism or jain services?Never4Do you belong to any clubs or organizations such as yazidism groups, unions, fraternal or athletic groups, or school groups?No 01/22/2024How often do you attend meetings of the clubs or organizations you belong to?Never01/22/2024re you , , , , never , or living with a partner?Eivjkmz8001/22/2024UDIT-CAnswerDate RecordedQ1: How often do you have a [...] and heating?Not very hard01/22/2024HQ-2AnswerDate RecordedPatient Health Questionnaire-2 Ebdpv729FinFranciscan Health [facility] of Occupational Health - Occupational Stress QuestionnaireAnswerDate RecordedDo you feel stress - tense, restless, nervous, or anxious, or unable to sleep at night because your mind is troubled all the time - these days?Only a svjbqs1801/22/2024Exercise Vital SignAnswerDate RecordedOn average, how many days [...] skilled nursing (including now)?No01/22/2024 Estimated Date of RydtdiveWhxepfouZpr81/02/2026ased on last menstrual period of 11/09/2024Sex and Gender InformationValueDate RecordedSex Assigned at BirthNot on fileLegal ZjgUhjhpm52/15/2023 7:12 PM EDTGender IdentityFemale 09/26/2022 7:12 PM EDTSexual YkfdzajozqjLdrhlbci29/22/2023 8:43 AM EDTdocumented as of this encounter Plan of Treatment DateTypeDepartmentCare Team (Latest Contact Info)Lyrmkpgpeau65/06/2026 11:00 AM ESTRoutine [facility] [place] [facility] [address] [place] [address] Vignesh Holman DO [address] [place], [place] [id number] documented as of this encounter Goals GoalPatient Goal TypeAssociated ProblemsRecent ProgressPatient-Stated?Author Reminders Care PlanOB RemindersNoOpen Scheduling, Backgrounddocumented as of this encounter Visit Diagnoses Not on filedocumented in this encounter Additional Health Concerns Active ProblemsNoted DateDiagnosed DateOB Tiifgsaln21/08/2025 documented as of this encounter Care Teams Team MemberRelationshipSpecialtyStart DateEnd Date Kimmy Carey MD [address] [place] [address] PCP - GeneralFamily Medicine02/04/23documented as of this encounter
--- OUTSIDE RECORDS SUMMARY | 2025-07-14 07:27 | XMS_ITS | Clinical Summary ---
Author Organization [facility] Address [address] [place] [address] Care Team Providers Care Stave Grader Name Role Phone Colleen Larios Primary Care Provider [phone] Allergies No known active allergies Medications MedicationSigDispense QuantityRefillsLast FilledStart DateEnd DateStatus aspirin 81 mg EC tablet Take 81 mg by mouth in the morning.Active 5-MBVZ-IXERD ACID-OM3 ORAL Take 1 tablet by mouth in the morning.Active Active Problems ProblemNoted DateDiagnosed DnwzXquns20/12/2025Influenza A108/26/2024Dyspnea on tewvqdze323 weeks gestation of tixejklgl42/11/2025Pure seppzmfscpcfaksjqmqr37/11/2142Pvkazvkcewn32/06/2025Irritable bowel syndrome with esckgahzpbsc11/10/2025POTS (postural orthostatic tachycardia syndrome)01/21/2025 Microscopic /08/2022 Overview (02/17/2025): 01/19/22: Recent back pain, left [...] to conceive. Urine sent for microscopic evaluation Mecnhxoehsg21/28/2022PSVT (paroxysmal supraventricular tachycardia)01/13/2021 Akourxtnstyw54/28/2020PVC's (premature ventricular contractions)07/11/2020 CommentsYes Encounters DateTypeDepartmentCare DrqsWuvxlxbetgo37/15/2025 9:00 AM ESTOffice Visit [facility] [address] [place] [address] Crow Corey MD Palpitations (Primary Dx); Tachycardia; POTS (postural orthostatic tachycardia syndrome); Pure hypercholesterolemia; 33 weeks gestation of ozbqykmsc90/10/2025 10:40 AM EDTOffice Visit [facility] [address] [place] [address] Crow Corey MD POTS (postural orthostatic tachycardia syndrome) (Primary Dx); Dyspnea on exertion; Palpitations; 23 weeks gestation of ; Pure hypercholesterolemiafrom Last 3 Months Family History Medical HistoryRelationNameCommentsHypertensionFatherHyperlipidemiaMotheratria flutterMotherRelationNameStatusCommentsFatherAliveMotherAlive Social History Tobacco UseTypesPacks/DayYears UsedDateSmoking Tobacco: NeverSmokeless Tobacco: NeverAlcohol UseStandard Drinks/WeekCommentsNot Currently0 (1 standard drink = 0.6 oz pure alcohol)CommentsYesSex and Gender InformationValueDate RecordedSex Assigned at AjkvqGokdmq97/05/2025 3:28 PM EDTLegal SexFemale 01/29/2025 12:33 PM EDTGender WtjsbkpnExwkbu11/05/2025 3:28 PM EDTSexual OrientationHeterosexual or Louuzvfy09/05/2025 3:28 PM EDT Last Filed Vital Signs Vital SignReadingTime TakenCommentsBlood Doroxjvx565/7706/28/2025 8:49 AM EST Yqmox54081/15/2025 8:49 AM ESTTemperature--Respiratory Rate--Oxygen Saturation 97%06/28/2025 8:49 AM ESTInhaled Oxygen Concentration--Ljmsrk80.8 kg (156 lb) 06/28/2025 8:49 AM FCTJaxqhz455.5 cm (5' 2 )06/28/2025 8:49 AM ESTBody Mass Index28.5306/28/2025 8:49 AM EST Plan of Treatment Health MaintenanceDue DateLast DoneCommentsDepression Hrnxcotle28/13/2001 Varicella Vaccines (1 of 2 - 13+ 2-dose series)2002Hepatitis B Vaccines (1 of 3 - 19+ 3-dose series)2008dult Wjqhcip9803/27/2011HPV Vaccines (1 - 3- dose SCDM series)2016HPV/Tvopgu8603/27/2019COVID-19 Vaccine ( season)2025Influenza Vaccine (#1)/Cervical Cancer Trxbsyipi18/23/2028Pap Smear8004/06/2025Zoster Vaccines (1 of 2) 2039HIB VaccinesAged [...] to complete this topic Insurance * Guarantor: Sammi Chapa TypeRelation to PatientDate of BirthPhone Billing AddressPersonal/AdangxNmrl1990 [facility] [place] [address] Care Teams Team MemberRelationshipSpecialtyStart DateEnd Date Colleen Larios [address] [place] [address] [facility]02/22/25
--- OUTSIDE RECORDS SUMMARY | 2025-07-14 07:27 | XMS_ITS | Encounter Summary ---
Author Organization [facility] Address [address] [place] [address] Care Team Providers Care Installer Metal Flooring Name Role Phone Kimmy Carey MD Primary Care Provider [phone] Encounter Details DateTypeDepartmentCare Team (Latest Contact Info)Ozqnblrwvob75/31/2025Travel Social History Tobacco UseTypesPacks/DayYears UsedDateSmoking Tobacco: NeverSmokeless Tobacco: NeverAlcohol UseStandard Drinks/WeekCommentsYes0 (1 standard drink = 0.6 oz pure alcohol)1-5 drinks once a gkcsjD6182 Health LiteracyAnswerDate RecordedHow often do you need [...] relatives?Twice a week01/22/2024How often do you attend alevism or caodaism services?Never4Do you belong to any clubs or organizations such as alevism groups, unions, fraternal or athletic groups, or school groups?No 01/22/2024How often do you attend meetings of the clubs or organizations you belong to?Never01/22/2024re you , , , , never , or living with a partner?Qlqmces3301/22/2024UDIT-CAnswerDate RecordedQ1: How often do you have a [...] and heating?Not very hard01/22/2024HQ-2AnswerDate RecordedPatient Health Questionnaire-2 Ctfpi778FinSt. [facility]'s [facility] of Occupational Health - Occupational Stress QuestionnaireAnswerDate RecordedDo you feel stress - tense, restless, nervous, or anxious, or unable to sleep at night because your mind is troubled all the time - these days?Only a icldub3001/22/2024Exercise Vital SignAnswerDate RecordedOn average, how many days [...] a fdc (including now)?No01/22/2024 Estimated Date of MusdjcghDiprjsswVlj43/02/2026ased on last menstrual period of 11/09/2024Sex and Gender InformationValueDate RecordedSex Assigned at BirthNot on fileLegal ZznYhhyzo07/15/2023 7:12 PM EDTGender IdentityFemale 09/26/2022 7:12 PM EDTSexual WmrpwkmknjnNvwzwify35/22/2023 8:43 AM EDTdocumented as of this encounter Plan of Treatment DateTypeDepartmentCare Team (Latest Contact Info)Wypggtwmnwb68/06/2026 11:00 AM ESTRoutine [facility] [place] [facility] [address] [place] [address] Vignesh Holman DO [address] [facility] [place], [place] [address] documented as of this encounter Goals GoalPatient Goal TypeAssociated ProblemsRecent ProgressPatient-Stated?Author Reminders Care PlanOB RemindersNoOpen Scheduling, Backgrounddocumented as of this encounter Visit Diagnoses Not on filedocumented in this encounter Additional Health Concerns Active ProblemsNoted DateDiagnosed DateOB Bblvalltm38/08/2025 documented as of this encounter Care Teams Team MemberRelationshipSpecialtyStart DateEnd Date Kimmy Carey MD [address] [place] [address] PCP - GeneralFamily Medicine02/04/23documented as of this encounter
--- OUTSIDE RECORDS SUMMARY | 2025-07-14 07:27 | XMS_ITS | Encounter Summary ---
Author Organization [facility] Address [address] [facility] [place] [address] Care Team Providers Care Maintenance Service Technician Name Role Phone Kimmy Carey MD Primary Care Provider [phone] Encounter Details DateTypeDepartmentCare Team (Latest Contact Info)Nmuokmmnhap74/27/2025linisync Result Encounter [facility] External Department Unsolicited Vignesh Holman, DO [address] [place], [place] [address] Social History Tobacco UseTypesPacks/DayYears UsedDateSmoking Tobacco: NeverSmokeless Tobacco: NeverAlcohol UseStandard Drinks/WeekCommentsYes0 (1 standard drink = 0.6 oz pure alcohol)1-5 drinks once a vkqnnO9237 Health LiteracyAnswerDate RecordedHow often do you need [...] relatives?Twice a week01/22/2024How often do you attend gnosticist or denominational services?Never4Do you belong to any clubs or organizations such as gnosticist groups, unions, fraternal or athletic groups, or school groups?No 01/22/2024How often do you attend meetings of the clubs or organizations you belong to?Never01/22/2024re you , , , , never , or living with a partner?Yxoecaz0001/22/2024UDIT-CAnswerDate RecordedQ1: How often do you have a [...] and heating?Not very hard01/22/2024HQ-2AnswerDate RecordedPatient Health Questionnaire-2 Gxdyz128Finmount[facility] [place] of Occupational Health - Occupational Stress QuestionnaireAnswerDate RecordedDo you feel stress - tense, restless, nervous, or anxious, or unable to sleep at night because your mind is troubled all the time - these days?Only a cmeqpx0601/22/2024Exercise Vital SignAnswerDate RecordedOn average, how many days [...] a long-term (including now)?No01/22/2024 Estimated Date of BlnxlhuvEmhbhdjjAbs25/02/2026ased on last menstrual period of 11/09/2024Sex and Gender InformationValueDate RecordedSex Assigned at BirthNot on fileLegal WbbOaqptv44/15/2023 7:12 PM EDTGender IdentityFemale 09/26/2022 7:12 PM EDTSexual QikuwplzvjrXhfownba68/22/2023 8:43 AM EDTdocumented as of this encounter Plan of Treatment DateTypeDepartmentCare Team (Latest Contact Info)Xsfedpjzree85/06/2026 11:00 AM ESTRoutine [facility] [place] [facility] [address] [address] Vignesh Holman, DO [address] [place] [address] documented as of this encounter Goals GoalPatient Goal TypeAssociated ProblemsRecent ProgressPatient-Stated?Author Reminders Care PlanOB RemindersNoOpen Scheduling, Backgrounddocumented as of this encounter Procedures Procedure NamePriorityDate/TimeAssociated DiagnosisCommentsUS OB BPP W NON-QVORUC6507/10/2025 6:24 PM EST documented in this encounter Results * US OB BPP W NON-STRESS (07/10/2025 6:24 PM EST)Anatomical Region LateralityModalityOtherSpecimen (Source)Anatomical Location / Laterality Collection Method / VolumeCollection TimeReceived Time07/10/2025 6:24 PM EST Narrative 07/10/2025 6:26 PM EST [facility] ?[address] ? [place] [address] ? Ultrasound Report ? Signed ? Patient: MARIANA GARDNERISTINA Piedad ?MR#: [id number] ?? : 1990 ?Acct:[id number] ?? Age/Sex: 35 / F ?ADM Date: 12/27/25 ?? Loc: US ? Attending Dr: Vignesh Holman D.O. ? Ordering Physician: Vignesh Holman D.O. ?? Date of Service: 07/10/25 ?? Procedure(s): US OB BPP w non-stress ?? Accession Number(s): [id number] ? cc: Vignesh Holman D.O.; Physician,Non-Staff Vinny ? [facility] ? [address] ? [place] [address] ? Patient Name: ?? NORRIS GARDNER ? MRN: [facility]:[id number] ? date: 1990 ?Sex: F ?? Assigned Patient Location: [facility] ?? Current Patient Location: ? Accession/Order Number: [id number] ?? Exam Date: 07/10/2025 ??11:01 ?Report Date: 07/10/2025 ??18:24 ? At the request of: ?? VIGNESH [...] M.D. ??07/10/2025 6:24 PM ? Dictation Location: [facility]- ? Electronically authenticated by: [id number] ??Y ?? Date: 07/10/2025 ??18:24 ? Dictated By: ?Navid Dickinson D.O. ? Signed By: ?07/10/25 1826 ? DD/ 23 ? TD/TT: ? Glass Blower: Procedure Note Radiology, Radiologist, MD - 07/10/2025 [place] [address] Ultrasound Report Signed Patient: NORRIS GARDNER [facility]#: [id number] : 1990Acct:[id number] Age/Sex: 35 / FADM Date: 07/10/25 Loc: US Attending Dr: Vignesh Holman D.O. Ordering Physician: Vignesh Holman D.O. Date of Service: 07/10/25 Procedure(s): US OB BPP w non-stress Accession Number(s): [id number] cc: Vignesh Holman D.O.; Physician,Non-Staff Vinny [place] [address] Patient Name: NORRIS GARDNER MRN: [facility]:[id number] date: 1990 Sex: F Assigned Patient Location: [facility] Current Patient Location: Accession/Order Number: [id number] Exam Date: 07/10/2025 11:01 Report Date: 07/10/2025 18:24 At the request of: VIGNESH HOLMAN DO [...] Dickinson M.D. 07/10/2025 6:24 PM Dictation Location: [place] [address] Electronically authenticated by: [id number] Y Date: 8:24 Dictated By: Navid Dickinson D.O. Signed By:07/10/251825 DD/ 23 TD/TT: Glass Blower: Authorizing ProviderResult TypeResult StatusCorey River DOCLINISYNC IMAGINGFinal Result documented in this encounter Visit Diagnoses Not on filedocumented in this encounter Additional Health Concerns Active ProblemsNoted DateDiagnosed DateOB Cjvrincln99/08/2025 documented as of this encounter Care Teams Team MemberRelationshipSpecialtyStart DateEnd Date Kimmy Carey MD [address] [place] [address] PCP - GeneralFamily Medicine02/04/23documented as of this encounter
--- OUTSIDE RECORDS SUMMARY | 2025-07-14 07:27 | XMS_ITS | Encounter Summary ---
Author Organization [facility] Address [address] [place] [address] Care Team Providers Care Precision Lens Grinder Name Role Phone Kimmy Carey MD Primary Care Provider [phone] Encounter Details DateTypeDepartmentCare Team (Latest Contact Info)Woxysmsrskl34/17/2025Telephone [facility] [place] [facility] [address] [place] [address] Vignesh Holman DO [address] [place], [place] [address] Social History Tobacco UseTypesPacks/DayYears UsedDateSmoking Tobacco: NeverSmokeless Tobacco: NeverAlcohol UseStandard Drinks/WeekCommentsYes0 (1 standard drink = 0.6 oz pure alcohol)1-5 drinks once a ubtecB3892 Health LiteracyAnswerDate RecordedHow often do you need [...] week01/22/2024How often do you attend congregation or mormon services?Never01/22/2024o you belong to any clubs or organizations such as congregation groups, unions, fraternal or athletic groups, or school groups?No 01/22/2024How often do you attend meetings of the clubs or organizations you belong to?Never01/22/2024re you , , , , never , or living with a partner?Wbtjucp0501/22/2024UDIT-CAnswerDate RecordedQ1: How often do you have a [...] and heating?Not very hard01/22/2024HQ-2AnswerDate RecordedPatient Health Questionnaire-2 Yfdnl102Finsteward health care system [place] of Occupational Health - Occupational Stress QuestionnaireAnswerDate RecordedDo you feel stress - tense, restless, nervous, or anxious, or unable to sleep at night because your mind is troubled all the time - these days?Only a kkutur3801/22/2024Exercise Vital SignAnswerDate RecordedOn average, how many days [...] a penitentiary (including now)?No01/22/2024 Estimated Date of KwqtmpfcMeadomdaBkf77/02/2026ased on last menstrual period of 11/09/2024Sex and Gender InformationValueDate RecordedSex Assigned at BirthNot on fileLegal UziPsbpts38/15/2023 7:12 PM EDTGender IdentityFemale 09/26/2022 7:12 PM EDTSexual UrlzpgyupbhEbzirdes54/22/2023 8:43 AM EDTdocumented as of this encounter [...] Plan of Treatment DateTypeDepartmentCare Team (Latest Contact Info)Mhgkpuxtral27/06/2026 11:00 AM ESTRoutine [facility] [place] [facility] [address] [place] [address] Vignesh Holman DO [address] [place] [address] documented as of this encounter Goals GoalPatient Goal TypeAssociated ProblemsRecent ProgressPatient-Stated?Author Reminders Care PlanOB RemindersNoOpen Scheduling, Backgrounddocumented as of this encounter Visit Diagnoses Not on filedocumented in this encounter Additional Health Concerns Active ProblemsNoted DateDiagnosed DateOB Uioffninx10/08/2025 documented as of this encounter Care Teams Team MemberRelationshipSpecialtyStart DateEnd Date Kimmy Carey MD [address] [place] [address] PCP - GeneralFamily Medicine02/04/23documented as of this encounter
--- OUTSIDE RECORDS SUMMARY | 2025-07-14 07:27 | XMS_ITS | Encounter Summary ---
Author Organization [facility] Address [address] [place] [address] Care Team Providers Care Software Engineering Manager Name Role Phone Kimmy Carey MD Primary Care Provider Encounter Details DateTypeDepartmentCare Team (Latest Contact Info)Pxqwhggdxzw96/20/2025linisync Result Encounter [facility] External Department Unsolicited Vignesh Holman, DO [address] [facility] [address] [facility] [address] [place] [place], [place] [address] Social History Tobacco UseTypesPacks/DayYears UsedDateSmoking Tobacco: NeverSmokeless Tobacco: NeverAlcohol UseStandard Drinks/WeekCommentsYes0 (1 standard drink = 0.6 oz pure alcohol)1-5 drinks once a rtmlzN0695 Health LiteracyAnswerDate RecordedHow often do you need [...] week01/22/2024How often do you attend anglican or nondenominational services?Never4Do you belong to any clubs or organizations such as anglican groups, unions, fraternal or athletic groups, or school groups?No 01/22/2024How often do you attend meetings of the clubs or organizations you belong to?Never01/22/2024re you , , , , never , or living with a partner?Bdynksg4201/22/2024UDIT-CAnswerDate RecordedQ1: How often do you have a [...] and heating?Not very hard01/22/2024HQ-2AnswerDate RecordedPatient Health Questionnaire-2 Bhhba865Finst. [facility] [place] of Occupational Health - Occupational Stress QuestionnaireAnswerDate RecordedDo you feel stress - tense, restless, nervous, or anxious, or unable to sleep at night because your mind is troubled all the time - these days?Only a fhvtim6401/22/2024Exercise Vital SignAnswerDate RecordedOn average, how many days [...] skilled nursing (including now)?No01/22/2024 Estimated Date of WtevtxdhZafwurhtQak25/02/2026ased on last menstrual period of 11/09/2024Sex and Gender InformationValueDate RecordedSex Assigned at BirthNot on fileLegal VcxOldbtz30/15/2023 7:12 PM EDTGender IdentityFemale 09/26/2022 7:12 PM EDTSexual RboeizrlbppWenyfvom43/22/2023 8:43 AM EDTdocumented as of this encounter Plan of Treatment DateTypeDepartmentCare Team (Latest Contact Info)Vwoblxccakh76/06/2026 11:00 AM ESTRoutine [facility] [place] [facility] [address] [place] [address] Vignesh Holman, DO [address] [facility] [place] [address] documented as of this encounter Goals GoalPatient Goal TypeAssociated ProblemsRecent ProgressPatient-Stated?Author Reminders Care PlanOB RemindersNoOpen Scheduling, Backgrounddocumented as of this encounter Procedures Procedure NamePriorityDate/TimeAssociated DiagnosisCommentsUS OB BPP W NON-GZYYDZ2007/03/2025 8:31 AM EST documented in this encounter Results * US OB BPP W NON-STRESS (07/03/2025 8:31 AM EST)Anatomical Region LateralityModalityOtherSpecimen (Source)Anatomical Location / Laterality Collection Method / VolumeCollection TimeReceived Time07/03/2025 8:31 AM EST Narrative 07/03/2025 8:34 AM EST [facility] ?[address] ? [place] [address] ? Ultrasound Report ? Signed ? Patient: MARIANA GARDNERISTINHe Herbert ?MR#: [id number] ?? : 1990 ?Acct:[id number] ?? Age/Sex: 35 / F ?ADM Date: 12/20/25 ?? Loc: [facility]BC ??250-1 ? Attending Dr: Vignesh Holman D.O. ? Ordering Physician: Vignesh Holman D.O. ?? Date of Service: 07/03/25 ?? Procedure(s): US OB BPP w non-stress ?? Accession Number(s): [id number] ? cc: Vignesh Holman D.O.; Physician,Non-Staff Vinny ? [facility] ? [address] ? [place] [address] ? Patient Name: ?? NORRIS GARDNER ? MRN: [facility]:[id number] ? date: 1990 ?Sex: F ?? Assigned Patient Location: FB ?? Current Patient Location: [facility] ?? Accession/Order Number: [id number] ?? Exam Date: 07/03/2025 ??08:07 ?Report Date: 07/03/2025 ??08:31 ? At the request of: ?? VIGNESH ??RIVER ??DO ? Procedure: ??US OB BPP w non-stress ? Biophysical profile. ? Reason for exam: Advanced maternal age ? COMPARISON: None ? TECHNIQUE: Transabdominal imaging of the gravid uterus was obtained. ? FINDINGS: The building rental manager reports a BPP of 8 out of 8. ??TAYA is normal at 19 ?? cm. ?? heart rate 167 bpm. ? US/US OB BPP w non-stress ?? IMPRESSION: BPP 8 out of 8. ? Impression dictated by: Steve Lara Jr., D.O. ??07/03/2025 8:31 AM ? Dictation Location: [facility]-PC-18 ? Electronically authenticated by: [id number] ??Y ?? Date: 07/03/2025 ??08:31 ? Dictated By: ?Steve Lara M.D. ? Signed By: ?07/03/25 0834 ? DD/ 0831 ? TD/TT: ? Swatch Cutter: Procedure Note Radiology, Radiologist, MD - 07/03/2025 [place] [address] Ultrasound Report Signed Patient: NORRIS GARDNER [facility] [id number] : 1990Acct:[id number] Age/Sex: 35 / FADM Date: 07/03/25 Loc: [facility] 250-[address]: Vignesh Holman D.O. Ordering Physician: Vignesh Holman D.O. Date of Service: 07/03/25 Procedure(s): US OB BPP w non-stress Accession Number(s): [id number] cc: Vignesh Holman D.O.; Physician,Non-Staff [place] [address] Patient Name: NORRIS GARDNER MRN: [facility]:[id number] date: 1990 Sex: F Assigned Patient Location: [facility] Current Patient Location: [facility] Accession/Order Number: [id number] Exam Date: 07/03/2025 08:07 Report Date: 07/03/2025 08:31 At the request of: VIGNESH HOLMAN DO Procedure: US OB BPP w non-stress Biophysical profile. Reason for exam: Advanced maternal age COMPARISON: None TECHNIQUE: Transabdominal imaging of the gravid uterus was obtained. FINDINGS: The building rental manager reports a BPP of 8 out of 8. TAYA is normal at19 cm. heart rate 167 bpm. US/US OB BPP w non-stress IMPRESSION: BPP 8 out of 8. Impression dictated by: Steve Lara Jr., D.O. 07/03/2025 8:31 AM Dictation Location: [place] [address] Electronically authenticated by: [id number] Y Date: 508:31 Dictated By: Steve Lara M.D. Signed By:07/03/2534 DD/ 0 TD/TT: Swatch Cutter: Authorizing ProviderResult TypeResult StatusCorey River DOCLINISYNC IMAGINGFinal Result documented in this encounter Visit Diagnoses Not on filedocumented in this encounter Additional Health Concerns Active ProblemsNoted DateDiagnosed DateOB Ymaaplfjr40/08/2025 documented as of this encounter Care Teams Team MemberRelationshipSpecialtyStart DateEnd Date Kimmy Carey MD [address] [place] [address] PCP - GeneralFamily Medicine02/04/23documented as of this encounter
--- OUTSIDE RECORDS SUMMARY | 2025-07-14 07:27 | XMS_ITS | Clinical Summary ---
Author Organization [employer] tem Address [id number] [address] [place] [address] Care Team Providers Care Wound/Ostomy Nurse Name Role Phone No Pcp, No Pcp Primary Care Provider Unavailabl e Allergies No known active allergies Medications MedicationSigDispense QuantityRefillsLast FilledStart DateEnd DateStatus no115/iron/folic acid ( 19 ORAL) Take by mouth.Active aspirin 81 mg Take 1 tablet (81 mg total) by mouth in the morning.Active Active Problems ProblemNoted DateDiagnosed DateIrritable bowel syndrome with constipation 01/21/2025POTS (postural orthostatic tachycardia syndrome)01/21/2025Microscopic dcmuewggz50/08/2022 Overview (05/22/2024): 01/19/22: Recent back pain, left [...] sooner if any problems. PVC's (premature ventricular contractions)07/11/20207343Jxvulwnjrajx34/28/2020 Estimated Date of EiiprqqwAgmsbwpkCch66/02/2026Based on Ultrasound Encounters DateTypeDepartmentCare ClsbUrotorzxxig58/11/2025Orders Only Maternal- Medicine at [facility] [address] [place] [address] Ref Prov, Not In System 06/21/2025 2:00 PM ESTTelemedicine Maternal- Medicine at [facility] [address] [place] [address] Gill Mejia MD POTS (postural orthostatic tachycardia [...] alcohol)Stopped drinking this yearPHQ-2AnswerDate RecordedTotal Score1 4ChildcareAnswerDate HipebssyYzojwfeqfQevwmvo70/21/2020EmploymentAnswer Date EkxitvceNamtyoppdkGzlabxt54/21/2020Hunger ScreeningAnswerDate Recorded Within the past 12 months we worried whether our food would run out before we got money to buy more.Never True03/29/2025Within the past 12 months the food we bought just didn't last and we didn't have money to get more.Never True 03/29/2025Purpose - LifeAnswerDate RecordedPurpose and direction in lifeUnknown 1Estimated Date of AmalduqfRivfgkiaNvb38/02/2026ased on UltrasoundSex and Gender InformationValueDate RecordedSex Assigned at BirthNot on fileLegal NeuZpbsiu52/21/2020 8:44 AM EDTGender IdentityNot on fileSexual OrientationNot on file Last Filed Vital Signs Vital SignReadingTime TakenCommentsBlood Cqthfqaq459/7509 1:47 PM EDT Ejgju420003/29/2025 1:47 PM EDTTemperature--Respiratory Cbfu8735 10:38 AM EDTOxygen Dozrozmecy01%07/11/2020 9:51 AM ESTInhaled Oxygen Concentration-- Mfllmd88.9 kg (138 lb 9.6 oz)03/29/2025 1:47 PM ACMCfohcx401.9 cm (5' 0.98 ) 03/29/2025 1:47 PM EDTBody Mass Index26. 1:47 PM EDT Plan of Treatment Health MaintenanceDue DateLast DoneCommentsAdult BMI Follow Up Plan2007 DTaP,Tdap and Td Vaccines (1 - Tdap)2008Influenza Amiykdc6803/15/2025 05/05/2013Depression Vxdemkdcp21SV ( or age 60+ yrs) (1 - Risk 1-dose series)06/21/2025dult BMI Yruvuluyz35/15/2026 03/29/2025Tobacco Ccqwpeewl67/609/Pap Smear809/ Medical Devices Not on file Insurance * Guarantor: Sammi Chapa TypeRelation to PatientDate of PhoneBilling AddressPersonal/QbgvxvSdqq1990 [facility] [place] [address] Care Teams Team MemberRelationshipSpecialtyStart DateEnd Date No Pcp, No Pcp ROYAL Monterroso [address] PCP - GeneralFamily Medicine07/21/24
== END 2025-07-14 07:53 | disposition home or self-care (01) ==
LOC: FBCO 07:25 → FBC 07:26
PROVIDERS: Family Provider Family Medicine; Visit Provider Obstetrics & Gynecology
DX: O09.523 Supervision of elderly multigravida, third trimester (principal); Z3A.35 35 weeks gestation of pregnancy
CPT/HCPCS: 59025